=== PATIENT | female | born 1945 | race African-American/Black ===

== ENCOUNTER → 2017-02-19 | Outpatient (CLI) | payer MEDICARE ==
[2016-08-22 18:18] VITALS: BP 166/87
[~2017-02-19] MED LIST: ALLO100T PO; CYCL10TA2 PO; HYDR-2666 PO; INDO50CA PO; LEVE500T6 PO; TRIA1TAB2 PO
--- NOTE | 2017-02-22 17:33 | EEG ---
DATE OF SERVICE: 02/19/2017 ELECTROENCEPHALOGRAM NUMBER: [id number]. OBJECTIVE: The patient is a 71-year-old female with suspected partial-complex seizures. DESCRIPTION: This is a 24-hour video study. Bipolar and referential montages are available. Video recording is performed. Activation procedures typically include hyperventilation and intermittent photic stimulation. INTERPRETATION: The waking background consists of 9-10 Hz, 50-100 microvolt activity, symmetrically distributed over parietooccipital regions and reactive to eye opening. Hyperventilation and intermittent photic stimulation are noncontributory. Stage 2 and 3 sleep are recorded. There are frequent sharp waves over the right temporal lobe with phase reversal at T4 (for instance 09:04:13) and less frequent left temporal sharp waves with phase reversing over electrode T3 (for instance 07:39:58). IMPRESSION: This 24-hour video EEG study with the patient awake and asleep is abnormal because of the evidence of bilateral temporal epileptic activity arising from the anterior regions of each temporal lobe. The patient did not push the event button and no electrographic seizures were recorded. 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 Thank you for letting us help with the patient's care. KENNA BECKHAM MD DR: KATHERYN/mary ellen JOB#: [id number] / [id number] [facility] KENNA GONZÁLES MD
== END | disposition home or self-care (01) ==
LOC: SLPLAB 06:27
PROVIDERS: ATTEND Psychiatry & Neurology Neurology with Special Qualifications in Child Neurology
DX: G40.001 Localization-related (focal) (partial) idiopathic epilepsy and epileptic syndromes with seizures of localized onset, not intractable, with status epilepticus (principal)
CPT/HCPCS: 95951

== ENCOUNTER → 2017-06-04 | Outpatient (CLI) | payer MEDICARE ==
[2016-08-22 18:18] VITALS: BP 166/87
[~2017-06-04] MED LIST changes: -HYDR-2666 PO; +HYDR-2758 PO
[2017-06-04 13:44] LABS: BASO % 1 % (0-3); EOS % 3 % (0-3); LYMPH # 1.2 x10^3/uL (1.0-4.8); LYMPH % 31 % (24-48); MEAN CORPUSCULAR HEMOGLOBIN 32 pg (25-35); MEAN CORPUSCULAR HGB CONC 34 g/dL (31-37); MEAN CORPUSCULAR VOLUME 94 fL (79-100); MONO % 11 % (0-9); NEUT % 54 % (31-73); PLATELET COUNT 238 x10^3/uL (140-400); RED BLOOD COUNT 4.02 x10^6/uL (3.50-5.40); RED CELL DISTRIBUTION WIDTH 13.7 % (11.5-14.5)
[2017-06-04 14:30] LABS: ALBUMIN 3.7 g/dL (3.4-5.0); ALBUMIN/GLOBULIN RATIO 0.9 (1.0-1.7); CALCIUM 8.9 mg/dL (8.5-10.1); GFR 65.9; POTASSIUM 3.9 mmol/L (3.5-5.1); TOTAL BILIRUBIN 0.4 mg/dL (0.2-1.0)
== END | disposition home or self-care (01) ==
LOC: LAB 12:45
PROVIDERS: ATTEND Surgery
DX: E11.9 Type 2 diabetes mellitus without complications (principal); E78.5 Hyperlipidemia, unspecified; R53.81 Other malaise
CPT/HCPCS: 36415; 80053; 80061; 83036; 85025

== ENCOUNTER 2017-09-06 09:37 | Inpatient (IN) | payer MEDICARE ==
[~2017-09-06] VITALS: Ht 157.5 cm; Wt 88.5 kg
[2017-09-06] MEDS ORDERED: ACETAMINOPHEN 325 MG TABLET. PO ONE (10:15)
--- NOTE | 2017-09-06 10:18 | EKG ---
[facility] [address] [place] [address] Test Date: 2017-09-06 Test Time: 09:50:37 Pat Name: SHIRLEY GONZALES Department: Room: Gender: F Territory Account Executive: : 1945 Requested By: PRASANNA SCHULER Order Number: [id number] Reading MD: Tone Conti MD Measurements Intervals [place] Rate: 87 P: 47 MN: 124 QRS: 12 QRSD: 78 T: 26 QT: 338 QTc: 412 Interpretive Statements SINUS RHYTHM NON-SPECIFIC ST/T CHANGES Electronically Signed On 09-06-2017 16:07:08 RELIABILITY ENGINEER by Tone Conti MD
--- NOTE | 2017-09-06 10:20 | PHYS DOC ---
Past Medical History Past Medical History: Arthritis, GERD, Hypertension, Other Additional Past Medical Histor: Gout, Tendinitis in shoulder R) Past Surgical History: Cholecystectomy, Hysterectomy Alcohol Use: None Drug Use: None Adult General Chief Complaint Chief Complaint: MECHANICAL FALL HPI HPI Patient is a 71 year old female instability emergency department stating that she went to get up out of her chair insert a walker when she tripped over a cord on the floor. Patient states that she fell forward and hit her face on the floor. She denies any loss of consciousness. She does state that she has forehead and nose pain. She states that she has had neck pain as well. She also states that she has a history of neck pain however this pain is a little hoarse. Patient also complains of some abdominal pain and discomfort. She does state that she has a history of GERD however is not on medication for it. She states that she has started vomiting after each meal. She states that occasionally it appears dark in color. She also states that she has had urinary frequency and what she goes to the bathroom but however not much urine is made. Patient denies any further medical history. Review of Systems Review of Systems Constitutional: Denies fever or chills [] Eyes: Denies change in visual acuity, redness, or eye pain [] HENT: Denies nasal congestion or sore throat [] Respiratory: Denies cough or shortness of breath [] Cardiovascular: No additional information not addressed in HPI [] GI: epigastric abdominal pain, vomiting after each meal. No diarrhea : Denies dysuria or hematuria [] Musculoskeletal: Denies back pain or joint pain [] Integument: Denies rash or skin lesions [] Neurologic: headache, denies focal weakness or sensory changes [] Endocrine: Denies polyuria or polydipsia [] All other systems were reviewed and found to be within normal limits, except as documented in this note. Current Medications Current Medications Current Medications Medications (Trade) Dose Ordered Sig/Omar Start Time Stop Time Status Last Admin Dose Admin Acetaminophen (Tylenol) 650 mg 1X ONCE 09/06/17 10:15 09/06/17 10:16 DC 09/06/17 11:03 650 MG Potassium Chloride (Klor-Con) 40 meq 1X ONCE 09/06/17 11:00 09/06/17 11:01 DC 09/06/17 11:03 40 MEQ Allergies Allergies Allergies Coded Allergies Type Severity Reaction Last Updated Verified pentazocine Allergy Intermediate Hallucinations. 12/27/15 Yes Physical Exam Physical Exam Constitutional: Well developed, well nourished, no acute distress, non-toxic appearance. [] HENT: Normocephalic, atraumatic, bilateral external ears normal, oropharynx moist, no oral exudates, nose normal. [] Eyes: PERRLA, EOMI, conjunctiva normal, no discharge. [] Neck: Normal range of motion, no tenderness, supple, no stridor. [] Cardiovascular:Heart rate regular rhythm, no murmur [] Lungs & Thorax: Bilateral breath sounds clear to auscultation [] Abdomen: Bowel sounds hypoactive, soft, epigastric tenderness, no masses, no pulsatile masses. [] Skin: Warm, dry, no erythema, no rash. [] Back: Cervical spine tenderness,no crepitus, no deformity, no step-offs noted. No CVA tenderness. [] Extremities: No tenderness, no cyanosis, no clubbing, ROM intact, no edema. [] Neurologic: Alert and oriented X 3, normal motor function, normal sensory function, no focal deficits noted. [] Psychologic: Affect normal, judgement normal, mood normal. [] Current Patient Data Vital Signs Vital Signs Date Time Temp Pulse Resp B/P (MAP) Pulse Ox O2 Delivery O2 Flow Rate FiO2 09/06/17 11:01 78 98 09/06/17 09:50 98.7 16 186/82 (116) 98.7 Lab Values Laboratory Tests Test 09/06/17 10:13 09/06/17 10:34 White Blood Count 3.2 x10^3/uL (4.0-11.0) L Red Blood Count 3.78 x10^6/uL (3.50-5.40) Hemoglobin 11.8 g/dL (12.0-15.5) L Hematocrit 35.9 % (36.0-47.0) L Mean Corpuscular Volume 95 fL (79-100) Mean Corpuscular Hemoglobin 31 pg (25-35) Mean Corpuscular Hemoglobin Concent 33 g/dL (31-37) Red Cell Distribution Width 13.5 % (11.5-14.5) Platelet Count 170 x10^3/uL (140-400) Neutrophils (%) (Auto) 68 % (31-73) Lymphocytes (%) (Auto) 14 % (24-48) L Monocytes (%) (Auto) 11 % (0-9) H Eosinophils (%) (Auto) 6 % (0-3) H Basophils (%) (Auto) 0 % (0-3) Neutrophils # (Auto) 2.2 x10^3uL (1.8-7.7) Lymphocytes # (Auto) 0.5 x10^3/uL (1.0-4.8) L Monocytes # (Auto) 0.3 x10^3/uL (0.0-1.1) Eosinophils # (Auto) 0.2 x10^3/uL (0.0-0.7) Basophils # (Auto) 0.0 x10^3/uL (0.0-0.2) Sodium Level 143 mmol/L (136-145) Potassium Level 2.8 mmol/L (3.5-5.1) *L Chloride Level 105 mmol/L (98-107) Carbon Dioxide Level 31 mmol/L (21-32) Anion Gap 7 (6-14) Blood Urea Nitrogen 11 mg/dL (7-20) Creatinine 1.2 mg/dL (0.6-1.0) H Estimated GFR (Cockcroft-Gault) 53.4 BUN/Creatinine Ratio 9 (6-20) Glucose Level 100 mg/dL (70-99) H Calcium Level 8.8 mg/dL (8.5-10.1) Total Bilirubin 0.4 mg/dL (0.2-1.0) Aspartate Amino Transferase (AST) 27 U/L (15-37) Alanine Aminotransferase (ALT) 23 U/L (14-59) Alkaline Phosphatase 64 U/L (46-116) Total Protein 7.7 g/dL (6.4-8.2) Albumin 3.4 g/dL (3.4-5.0) Albumin/Globulin Ratio 0.8 (1.0-1.7) L Urine Color Yellow Urine Clarity Cloudy Urine pH 6.0 Urine Specific [place] 1.025 Urine Protein 30 mg/dL (NEG-TRACE) Urine Glucose (UA) Negative mg/dL (NEG) Urine Ketones (Stick) Negative mg/dL (NEG) Urine Blood Negative (NEG) Urine Nitrite Negative (NEG) Urine Bilirubin Negative (NEG) Urine Urobilinogen Dipstick 0.2 mg/dL (0.2 mg/dL) Urine Leukocyte Esterase Negative (NEG) Urine RBC Occ /HPF (0-2) Urine WBC 1-4 /HPF (0-4) Urine Squamous Epithelial Cells Few /LPF Urine Bacteria Few /HPF (0-FEW) Urine Mucus Marked /LPF Laboratory Tests 09/06/17 10:13 Laboratory Tests 09/06/17 10:13 EKG EKG KG completed at 09 50 sinus rhythm noted heart rate 87 patient did have Q-wave inversions. STEMI per .[] Radiology/Procedures Radiology/Procedures [] Course & Med Decision Making Course & Med Decision Making Pertinent Labs and Imaging studies reviewed. (See chart for details) Patient was provided with information in regards to admission for hypokalemia. Spoke with regards to the lab value potassium 2.8. Patient had been supplemented with 40 mEq by mouth. Patient was also provided with Protonix here in the emergency department. She will be admitted as a full admit per Dr. Martinez. [] Dragon Disclaimer Dragon Disclaimer This electronic medical record was generated, in whole or in part, using a voice recognition dictation system. Departure Departure Impression: Primary Impression: Hypokalemia Additional Impressions: Fall Closed head injury Epigastric pain Disposition: ADMITTED INPATIENT Admitting Physician: Other (spoke with Dr Martinez) Referrals: KENNA GONZÁLES (PCP) Problem Qualifiers Additional Impressions: Fall Encounter type: initial encounter Qualified Codes: W19.XXXA - Unspecified fall, initial encounter Closed head injury Encounter type: initial encounter Qualified Codes: S09.90XA - Unspecified injury of head, initial encounter PRASANNA SCHULER ACADEMIC AFFAIRS ASSISTANT Sep 06, 2017 10:20
[2017-09-06 10:29] LABS: BASO % 0 % (0-3); EOS % 6 % (0-3); HEMATOCRIT 35.9 % (36.0-47.0); HEMOGLOBIN 11.8 g/dL (12.0-15.5); LYMPH # 0.5 x10^3/uL (1.0-4.8); LYMPH % 14 % (24-48); MEAN CORPUSCULAR HEMOGLOBIN 31 pg (25-35); MEAN CORPUSCULAR HGB CONC 33 g/dL (31-37); MEAN CORPUSCULAR VOLUME 95 fL (79-100); MONO % 11 % (0-9); NEUT % 68 % (31-73); PLATELET COUNT 170 x10^3/uL (140-400); RED BLOOD COUNT 3.78 x10^6/uL (3.50-5.40); RED CELL DISTRIBUTION WIDTH 13.5 % (11.5-14.5); WHITE BLOOD COUNT 3.2 x10^3/uL (4.0-11.0)
[2017-09-06 10:43] LABS: BILIRUBIN,URINE NEGATIVE (NEG); GLUCOSE,URINE NEGATIVE (NEG); NITRITE,URINE NEGATIVE (NEG); PROTEIN,URINE 30 mg/dL (NEG-TRACE); UROBILINOGEN,URINE 0.2 mg/dL (0.2 mg/dL)
[2017-09-06 10:44] LABS: ALBUMIN 3.4 g/dL (3.4-5.0); ALBUMIN/GLOBULIN RATIO 0.8 (1.0-1.7); CALCIUM 8.8 mg/dL (8.5-10.1); CREATININE 1.2 mg/dL (0.6-1.0); GFR 53.4; TOTAL BILIRUBIN 0.4 mg/dL (0.2-1.0); TOTAL PROTEIN 7.7 g/dL (6.4-8.2)
[2017-09-06 10:49] LABS: POTASSIUM 2.8 mmol/L (3.5-5.1)
[2017-09-06 10:51] LABS: BACTERIA,URINE FEW /HPF (0-FEW); SQUAMOUS EPITHELIAL CELL,UR FEW /LPF
[2017-09-06 10:52] LABS: RBC,URINE OCC /HPF (0-2)
[2017-09-06] MEDS ORDERED: POTASSIUM CHLORIDE 20 MEQ TABLET.ER. PO ONE (11:00)
--- NOTE | 2017-09-06 11:08 | RAD ---
CT of the head without contrast, 09/06/2017: History: Fall, facial and head injury The ventricles are within normal limits in size. There is no shift of the midline structures. There is no evidence of acute intracranial hemorrhage or mass effect. IMPRESSION: No acute intracranial abnormality is detected. CT of the cervical spine without contrast, 09/06/2017: There is moderate disc space narrowing and marginal spurring at multiple levels in the mid and lower cervical spine. There are moderate degenerative changes involving multiple facet joints bilaterally. There is fusion of the C2-3 facet joint on the right. There is moderate degenerative change at the C1-2 articulation. There are mild scattered posterior disc bulges. The combination of findings is causing mild central spinal stenosis at several levels as well as moderate foraminal stenosis at several levels including C5-6 and C4-5. No acute fracture or dislocation is identified. IMPRESSION: 1. Moderate multilevel degenerative change. 2. No acute bony abnormality is detected. PQRS Compliance Statement: One or more of the following individualized dose reduction techniques were utilized for this examination: 1. Automated exposure control 2. Adjustment of the mA and/or kV according to patient size 3. Use of iterative reconstruction technique
--- NOTE | 2017-09-06 11:11 | RAD ---
CT of the facial bones without contrast, 09/06/2017: History: Fall, facial injury Noncontrast scans were obtained with multiplanar reconstructions produced. No fracture is identified. No free fluid is evident in the paranasal sinuses. The orbital contents are unremarkable. The patient is edentulous. IMPRESSION: No acute facial bone abnormality is detected. PQRS Compliance Statement: One or more of the following individualized dose reduction techniques were utilized for this examination: 1. Automated exposure control 2. Adjustment of the mA and/or kV according to patient size 3. Use of iterative reconstruction technique
[2017-09-06] MEDS ORDERED: PANTOPRAZOLE 40 MG TABLET.DR. PO ONE (11:45)
[2017-09-06 13:57] VITALS: BP 144/71
[2017-09-06] MEDS ORDERED: DICY20TA3 PO (14:44)
[2017-09-06] MEDS ORDERED: LAMO100T PO (14:44)
[2017-09-06] MEDS ORDERED: DIAZ5TAB4 PO (14:45)
[2017-09-06 15:00] VITALS: BP 144/71
[2017-09-06] MEDS: ACETAMINOPHEN 325 MG TABLET. PO PRN (16:30)
[2017-09-06] MEDS: POTASSIUM CHLORIDE 20 MEQ TABLET.ER. PO SCH (18:27)
[2017-09-06 19:00] VITALS: BP 184/90
--- NOTE | 2017-09-06 19:59 | HP ---
ADMIT DATE: 09/06/2017 CHIEF COMPLAINT: Fall, hypokalemia. HISTORY OF PRESENT ILLNESS: The patient is a 71-year-old -[place] woman with past medical history of partial seizures recently diagnosed by Dr. Johnson, as well as a history of CHF, who presented to the hospital with an episode of blacking out very briefly. She remembers walking in her hallway and suddenly dropped into the floor. She actually hit her forehead and her nose. Apparently, came to relatively quickly and was able to ride herself. Because of her pain in her nose and forehead, she decided to come to the hospital. In the Emergency Room, she was evaluated including imaging studies with CT of the head, face and cervical spine all without acute bony abnormality. Only significant finding was a multilevel degenerative change in her C-spine. She was therefore admitted for further workup. She also relates that she has had trouble over the past month or so with easy vomiting and mild nausea right after eating. Denies ever having nausea in between meals. She denies any associated abdominal pain, any diarrhea with this. She does have a history of GERD. PAST MEDICAL HISTORY: 1. Seizures, question partial, on Lamictal. 2. CHF unknown specificity on Lasix, hydrochlorothiazide. 3. GERD. 4. Anxiety. FAMILY HISTORY: Negative for heart disease or abdominal abnormalities. SOCIAL HISTORY: She is raising foster children. Never smoked. No toxic habits. ALLERGIES: PENTAZOCINE. MEDICATIONS: MAR reconciled with home medications. REVIEW OF SYSTEMS: Positive as per HPI. Facial pain much improved, was able to tolerate her meals without any difficulties. Denies any current nausea. She relates that her partial seizures are episodes where her head feels like it is floating and she is unable to move. She is aware of the episodes which typically last for a very brief period of time, seconds. She does have some imbalance with walking and even has a current trouble lying in bed and feels the room is wobbling around her. Rest of organ system review is negative. PHYSICAL EXAMINATION: VITAL SIGNS: From today show a blood pressure of 144/71, heart rate of 80, respiratory rate at 16. She is afebrile. GENERAL: This is a 71-year-old morbidly obese -[place] woman, alert and oriented, in no acute distress. HEENT: Shows no scleral icterus. NECK: Supple. LUNGS: Clear. HEART: Has regular rate and rhythm. ABDOMEN: Has positive bowel sounds, soft, nontender. EXTREMITIES: Show no edema. SKIN: Warm, soft and dry. NEUROLOGIC: She appears grossly intact, safe for mild memory deficits such as recalling the onset of her seizures. LABORATORY DATA: CBC with a WBC of 3.2, hemoglobin 11.8, platelets of 170, differential with monos of 11. Chemistries with a BUN and creatinine of 11 and 1.2, potassium at 2.8. Other electrolytes within normal limits. LFTs normal. Albumin 3.4. Urine is negative for any signs of infection. Imaging of head, face, cervical spine negative for fractures. ASSESSMENT AND PLAN: 1. The patient is a 71-year-old -[place] woman with past medical history of question congestive heart failure as well as seizures. She now presents with brief episodes of blackout. In the Emergency Room, she was found with a potassium of 2.8, which may lead to arrhythmias. This is most likely related to both diuretics as well as frequent vomiting. We will replete aggressively here. She has been started on tele. We will obtain both Cardiology as well as Neurology consults. She has seen Dr. Johnson for her seizures. Her medications were recently changed to Lamictal. She apparently did not tolerate Keppra well. 2. Nausea, vomiting. This is not explained by a diagnosis of gastroesophageal reflux disease, which she received previously. We will obtain Gastroenterology consult for further workup. May have gastroparesis or other abnormality. We will continue all her home medications for the time being. As she has been started on various medications for anxiety, she herself feels that she has never been truly anxious. We will continue Ativan p.r.n. only. 3. For prophylaxis, she will be continued on a proton pump inhibitor. We will add Lovenox for deep venous thrombosis prophylaxis. DARIN FISHMAN MD DR: UR/nts JOB#: [id number] / [id number] COLEEN Wallis MDD
[2017-09-06] MEDS: lamoTRIgine 100 MG TABLET. PO SCH (20:25)
[2017-09-06] MEDS: diazePAM 5 MG TABLET PO SCH (20:25)
[2017-09-06] MEDS: hydrALAZINE 20 MG/ML VIAL. IVP PRN (20:25)
[2017-09-06] MEDS: HYDROcodone/APAP 5/325MG 1 TAB TABLET PO PRN (20:26)
[2017-09-06 23:00] VITALS: BP 184/74
[2017-09-07] VITALS (8 sets, daily range): BP systolic 138–199; BP diastolic 66–91
[2017-09-07] MEDS: HYDROcodone/APAP 5/325MG 1 TAB TABLET PO PRN ×2 (04:30→23:08)
[2017-09-07] MEDS: POTASSIUM CHLORIDE 20 MEQ TABLET.ER. PO SCH ×3 (05:35→14:15)
[2017-09-07] MEDS ORDERED: AMLO5TAB2 PO (05:50)
[2017-09-07 06:02] LABS: BASO % 0 % (0-3); EOS % 8 % (0-3); HEMATOCRIT 32.8 % (36.0-47.0); HEMOGLOBIN 10.9 g/dL (12.0-15.5); LYMPH # 0.4 x10^3/uL (1.0-4.8); LYMPH % 15 % (24-48); MEAN CORPUSCULAR HEMOGLOBIN 31 pg (25-35); MEAN CORPUSCULAR HGB CONC 33 g/dL (31-37); MEAN CORPUSCULAR VOLUME 95 fL (79-100); MONO % 11 % (0-9); NEUT % 66 % (31-73); PLATELET COUNT 149 x10^3/uL (140-400); RED BLOOD COUNT 3.47 x10^6/uL (3.50-5.40); RED CELL DISTRIBUTION WIDTH 13.6 % (11.5-14.5); WHITE BLOOD COUNT 2.8 x10^3/uL (4.0-11.0)
[2017-09-07 06:37] LABS: CALCIUM 8.5 mg/dL (8.5-10.1); CREATININE 1.2 mg/dL (0.6-1.0); GFR 53.4; POTASSIUM 3.8 mmol/L (3.5-5.1)
[2017-09-07] MEDS: PANTOPRAZOLE 40 MG TABLET.DR. PO SCH (08:42)
[2017-09-07] MEDS: diazePAM 5 MG TABLET PO SCH ×2 (08:42→19:59)
[2017-09-07] MEDS: ALLOPURINOL 100 MG TABLET. PO SCH (08:42)
[2017-09-07] MEDS: lamoTRIgine 100 MG TABLET. PO SCH ×2 (08:43→19:59)
--- NOTE | 2017-09-07 10:11 | PDOC ---
PROGRESS NOTES Chief Complaint Chief Complaint syncope ASSESSMENT AND PLAN: 1. Syncope: unclear etiology; r/o arrhythmia vs neurol etiology. card and neuro consult 2. Sz hx: sounds like partial sz; seeing Dr Johnson. cont lamictal 3. CHF; unclear specificity. obtain echo. 4. Hypokalemia: severe at admit, now repleted. Mg WNL 5. N/V: postprandial. appreciate GI input 6. GERD: cont PPI 7. Vit D deficiency: severe. replete 8. Prophylaxis: lovenox History of Present Illness History of Present Illness nonresponsive episode, brief, poss sz. back to normal now. gait instability Vitals Vitals Vital Signs Date Time Temp Pulse Resp B/P (MAP) Pulse Ox O2 Delivery O2 Flow Rate FiO2 09/07/17 07:00 98.3 81 16 138/70 (92) 96 Room Air 98.3 Physical Exam General: Alert, Oriented X3 Heart: Regular rate Lungs: Clear Abdomen: Normal bowel sounds, Soft, No tenderness Extremities: No edema Skin: No rashes Labs LABS Laboratory Tests Test 09/06/17 10:13 09/06/17 10:34 09/06/17 16:05 09/07/17 05:05 White Blood Count 3.2 x10^3/uL (4.0-11.0) 2.8 x10^3/uL (4.0-11.0) Red Blood Count 3.78 x10^6/uL (3.50-5.40) 3.47 x10^6/uL (3.50-5.40) Hemoglobin 11.8 g/dL (12.0-15.5) 10.9 g/dL (12.0-15.5) Hematocrit 35.9 % (36.0-47.0) 32.8 % (36.0-47.0) Mean Corpuscular Volume 95 fL (79-100) 95 fL (79-100) Mean Corpuscular Hemoglobin 31 pg (25-35) 31 pg (25-35) Mean Corpuscular Hemoglobin Concent 33 g/dL (31-37) 33 g/dL (31-37) Red Cell Distribution Width 13.5 % (11.5-14.5) 13.6 % (11.5-14.5) Platelet Count 170 x10^3/uL (140-400) 149 x10^3/uL (140-400) Neutrophils (%) (Auto) 68 % (31-73) 66 % (31-73) Lymphocytes (%) (Auto) 14 % (24-48) 15 % (24-48) Monocytes (%) (Auto) 11 % (0-9) 11 % (0-9) Eosinophils (%) (Auto) 6 % (0-3) 8 % (0-3) Basophils (%) (Auto) 0 % (0-3) 0 % (0-3) Neutrophils # (Auto) 2.2 x10^3uL (1.8-7.7) 1.9 x10^3uL (1.8-7.7) Lymphocytes # (Auto) 0.5 x10^3/uL (1.0-4.8) 0.4 x10^3/uL (1.0-4.8) Monocytes # (Auto) 0.3 x10^3/uL (0.0-1.1) 0.3 x10^3/uL (0.0-1.1) Eosinophils # (Auto) 0.2 x10^3/uL (0.0-0.7) 0.2 x10^3/uL (0.0-0.7) Basophils # (Auto) 0.0 x10^3/uL (0.0-0.2) 0.0 x10^3/uL (0.0-0.2) Sodium Level 143 mmol/L (136-145) 141 mmol/L (136-145) Potassium Level 2.8 mmol/L (3.5-5.1) 2.8 mmol/L (3.5-5.1) 3.8 mmol/L (3.5-5.1) Chloride Level 105 mmol/L (98-107) 107 mmol/L (98-107) Carbon Dioxide Level 31 mmol/L (21-32) 26 mmol/L (21-32) Anion Gap 7 (6-14) 8 (6-14) Blood Urea Nitrogen 11 mg/dL (7-20) 11 mg/dL (7-20) Creatinine 1.2 mg/dL (0.6-1.0) 1.2 mg/dL (0.6-1.0) Estimated GFR (Cockcroft-Gault) 53.4 53.4 BUN/Creatinine Ratio 9 (6-20) Glucose Level 100 mg/dL (70-99) 95 mg/dL (70-99) Calcium Level 8.8 mg/dL (8.5-10.1) 8.5 mg/dL (8.5-10.1) Total Bilirubin 0.4 mg/dL (0.2-1.0) Aspartate Amino Transf (AST/SGOT) 27 U/L (15-37) Alanine Aminotransferase (ALT/SGPT) 23 U/L (14-59) Alkaline Phosphatase 64 U/L (46-116) Total Protein 7.7 g/dL (6.4-8.2) Albumin 3.4 g/dL (3.4-5.0) Albumin/Globulin Ratio 0.8 (1.0-1.7) Urine Color Yellow Urine Clarity Cloudy Urine pH 6.0 Urine Specific [place] 1.025 Urine Protein 30 mg/dL (NEG-TRACE) Urine Glucose (UA) Negative mg/dL (NEG) Urine Ketones (Stick) Negative mg/dL (NEG) Urine Blood Negative (NEG) Urine Nitrite Negative (NEG) Urine Bilirubin Negative (NEG) Urine Urobilinogen Dipstick 0.2 mg/dL (0.2 mg/dL) Urine Leukocyte Esterase Negative (NEG) Urine RBC Occ /HPF (0-2) Urine WBC 1-4 /HPF (0-4) Urine Squamous Epithelial Cells Few /LPF Urine Bacteria Few /HPF (0-FEW) Urine Mucus Marked /LPF DARIN FISHMAN MD Sep 07, 2017 10:11
--- NOTE | 2017-09-07 10:49 | PDOC2 ---
CARDIAC CONSULT DATE OF CONSULT Date of Consult DATE: 09/07/17 TIME: 10:42 REASON FOR CONSULT Reason for Consult: History of CHF? Syncope REFERRING PHYSICIAN Referring Physician: Dr. Martinez SOURCE Source: Chart review, Patient HISTORY OF PRESENT ILLNESS HISTORY OF PRESENT ILLNESS This is a 71 yo female who presented secondary to a fall. Patient report that she was walking in the hallway and suddenly collapsed. Hit her forehead and nose ; sought our care due to the pain. Loss of consciousness uncertain. Denies any precipitating dizziness, lightheadedness, diaphoresis, SOA, or chest pain. Reports somewhat chronic nausea/vomiting. Is now vomiting after each meal. PAST MEDICAL HISTORY Cardiovascular: CHF, HTN Pulmonary: No pertinent hx CENTRAL NERVOUS SYSTEM: Seizure GI: GERD Heme/Onc: No pertinent hx Hepatobiliary: No pertinent hx Psych: Anxiety Musculoskeletal: Osteoarthritis Rheumatologic: Gout Infectious disease: No pertinent hx ENT: No pertinent hx Renal/: No pertinent hx Endocrine: No pertinent hx Dermatology: No pertinent hx PAST SURGICAL HISTORY Past Surgical History: Cholecystectomy, Hysterectomy FAMILY HISTORY Family History: Cancer, Stroke, Other (scleroderma ) SOCIAL HISTORY Smoke: No ALCOHOL: none Drugs: None Lives: with Family CURRENT MEDICATIONS CURRENT MEDICATIONS Current Medications Medications (Trade) Dose Ordered Sig/Omar Route PRN Reason Start Time Stop Time Status Last Admin Dose Admin Potassium Chloride (Klor-Con) 40 meq 1X ONCE PO 09/06/17 11:00 09/06/17 11:01 DC 09/06/17 11:03 Pantoprazole Sodium (Protonix) 40 mg 1X ONCE PO 09/06/17 11:45 09/06/17 11:46 DC 09/06/17 12:29 Acetaminophen (Tylenol) 650 mg PRN Q6HRS PRN PO pain 09/06/17 11:45 09/06/17 16:30 Pantoprazole Sodium (Protonix) 40 mg DAILY PO 09/07/17 09:00 09/07/17 08:42 Potassium Chloride (Klor-Con) 40 meq Q6H PO 09/06/17 18:00 09/07/17 13:00 09/07/17 05:35 Allopurinol (Zyloprim) 100 mg DAILY PO 09/07/17 09:00 09/07/17 08:42 Diazepam (Valium) 5 mg BID PO 09/06/17 21:00 09/07/17 08:42 Acetaminophen/ Hydrocodone Bitart (Lortab 5/325) 1 tab PRN Q6HRS PRN PO PAIN 09/06/17 19:15 09/07/17 04:30 Lamotrigine (LaMICtal) 100 mg BID PO 09/06/17 21:00 09/07/17 08:43 Hydralazine HCl (Apresoline Inj) 10 mg PRN Q4HRS PRN IVP ELEVATED BP, SEE COMMENTS 09/06/17 19:45 09/06/17 20:25 ALLERGIES ALLERGIES: Coded Allergies: pentazocine (Verified Allergy, Intermediate, Hallucinations. , 12/27/15) ROS Review of System 14 point ROS conducted with pertinent positives noted above in HPI. PHYSICAL EXAM General: Alert, Oriented X3, Cooperative, No acute distress HEENT: Atraumatic Lungs: Clear to auscultation, Normal air movement Heart: Regular rate, Normal S1, Normal S2, Other (2/6 systolic murmur ) Abdomen: Soft, No tenderness Extremities: No edema, Normal pulses Skin: No significant lesion Neuro: Normal speech, Sensation intact Psych/Mental Status: Mental status NL, Mood NL MUSCULOSKELETAL: No joint tenderness VITALS VITALS Vital Signs Date Time Temp Pulse Resp B/P (MAP) Pulse Ox O2 Delivery O2 Flow Rate FiO2 09/07/17 07:00 98.3 81 16 138/70 (92) 96 Room Air 98.3 LABS Lab: Laboratory Tests Test 09/06/17 16:05 09/07/17 05:05 Potassium Level 2.8 mmol/L (3.5-5.1) 3.8 mmol/L (3.5-5.1) White Blood Count 2.8 x10^3/uL (4.0-11.0) Red Blood Count 3.47 x10^6/uL (3.50-5.40) Hemoglobin 10.9 g/dL (12.0-15.5) Hematocrit 32.8 % (36.0-47.0) Mean Corpuscular Volume 95 fL (79-100) Mean Corpuscular Hemoglobin 31 pg (25-35) Mean Corpuscular Hemoglobin Concent 33 g/dL (31-37) Red Cell Distribution Width 13.6 % (11.5-14.5) Platelet Count 149 x10^3/uL (140-400) Neutrophils (%) (Auto) 66 % (31-73) Lymphocytes (%) (Auto) 15 % (24-48) Monocytes (%) (Auto) 11 % (0-9) Eosinophils (%) (Auto) 8 % (0-3) Basophils (%) (Auto) 0 % (0-3) Neutrophils # (Auto) 1.9 x10^3uL (1.8-7.7) Lymphocytes # (Auto) 0.4 x10^3/uL (1.0-4.8) Monocytes # (Auto) 0.3 x10^3/uL (0.0-1.1) Eosinophils # (Auto) 0.2 x10^3/uL (0.0-0.7) Basophils # (Auto) 0.0 x10^3/uL (0.0-0.2) Sodium Level 141 mmol/L (136-145) Chloride Level 107 mmol/L (98-107) Carbon Dioxide Level 26 mmol/L (21-32) Anion Gap 8 (6-14) Blood Urea Nitrogen 11 mg/dL (7-20) Creatinine 1.2 mg/dL (0.6-1.0) Estimated GFR (Cockcroft-Gault) 53.4 Glucose Level 95 mg/dL (70-99) Calcium Level 8.5 mg/dL (8.5-10.1) ASSESSMENT/PLAN ASSESSMENT/PLAN 1. Fall, ? syncopal episode 2. Chronic diastolic HF; compensated 3. Accelerated hypertension; now controlled 4. Seizures; continue presented therapy 5. Severe hypokalemia; replaced Recommendations Check Mg, TSH Obtain echo to assess LV function/ presence of structural abnormalities Monitor tele to note presence of significant pauses/arrhythmias Check orthos Agree with holding Lasix Consider outpatient event monitor Continue supportive care. Problems: GEORGE ROMERO APRN Sep 07, 2017 10:49
--- NOTE | 2017-09-07 12:05 | PDOC2 ---
GI CONSULT Reason For Consult: N/v HPI: HPI: 71 y/o female admitted w/ possible syncope (although ?LOC). GI asked to see re : n/v. History is difficult. Tells me a couple months of n/v immediately after eating. Apparently has eaten here w/o issue. Denies n/v, diarrhea, constipation, dysphagia. Denies hematemesis, hematochezia, melena. Probably has lost about 8 pounds because sometimes avoids eating. Denies abd pain to me , other notes suggest this. Says h/o GERD but denies reflux/heartburn. At first tells me takes a pill for this, then denies. Not sure about previous EGD. Office records suggest h/o colitis (per her account), can't document colonoscopy. Also suggestive of recurrent vomiting (in 1998). She reports h/o "Crohn's" but can't recall treatment, time of diagnosis, or last colonoscopy. She is s/p cholecystectomy. Summary list shows dicyclomine and indomethacin. PMH: PMH: seizures, CHF, HTN, GERD, anxiety, gout, cholecystectomy, hysterectomy FH: Family History: Cancer (father prostate, aunt w/ colon cancer), CVA, Other ( Alzheimer's, scleroderma) Social History: Smoke: No ALCOHOL: none Drugs: None ROS: GEN: Denies fevers, chills, sweats HEENT: Denies blurred vision, sore throat CV: Denies chest pain RESP: Denies shortness of air, cough GI: Per HPI : Denies hematuria, dysuria ENDO: +weight loss NEURO: ?syncope MSK: Denies weakness, joint pain/swelling SKIN: Denies jaundice, pruritus Vitals: Vitals: Vital Signs Date Time Temp Pulse Resp B/P (MAP) Pulse Ox O2 Delivery O2 Flow Rate FiO2 09/07/17 08:00 Room Air 09/07/17 07:00 98.3 81 16 138/70 (92) 96 98.3 Labs: Labs: Laboratory Tests Test 09/06/17 16:05 09/07/17 05:05 Potassium Level 2.8 mmol/L (3.5-5.1) 3.8 mmol/L (3.5-5.1) White Blood Count 2.8 x10^3/uL (4.0-11.0) Red Blood Count 3.47 x10^6/uL (3.50-5.40) Hemoglobin 10.9 g/dL (12.0-15.5) Hematocrit 32.8 % (36.0-47.0) Mean Corpuscular Volume 95 fL (79-100) Mean Corpuscular Hemoglobin 31 pg (25-35) Mean Corpuscular Hemoglobin Concent 33 g/dL (31-37) Red Cell Distribution Width 13.6 % (11.5-14.5) Platelet Count 149 x10^3/uL (140-400) Neutrophils (%) (Auto) 66 % (31-73) Lymphocytes (%) (Auto) 15 % (24-48) Monocytes (%) (Auto) 11 % (0-9) Eosinophils (%) (Auto) 8 % (0-3) Basophils (%) (Auto) 0 % (0-3) Neutrophils # (Auto) 1.9 x10^3uL (1.8-7.7) Lymphocytes # (Auto) 0.4 x10^3/uL (1.0-4.8) Monocytes # (Auto) 0.3 x10^3/uL (0.0-1.1) Eosinophils # (Auto) 0.2 x10^3/uL (0.0-0.7) Basophils # (Auto) 0.0 x10^3/uL (0.0-0.2) Sodium Level 141 mmol/L (136-145) Chloride Level 107 mmol/L (98-107) Carbon Dioxide Level 26 mmol/L (21-32) Anion Gap 8 (6-14) Blood Urea Nitrogen 11 mg/dL (7-20) Creatinine 1.2 mg/dL (0.6-1.0) Estimated GFR (Cockcroft-Gault) 53.4 Glucose Level 95 mg/dL (70-99) Calcium Level 8.5 mg/dL (8.5-10.1) Magnesium Level 1.8 mg/dL (1.8-2.4) Creatine Kinase 99 U/L (26-192) Thyroid Stimulating Hormone (TSH) 2.277 uIU/mL (0.358-3.74) Allergies: Coded Allergies: pentazocine (Verified Allergy, Intermediate, Hallucinations. , 12/27/15) Medications: Current Medications Medications (Trade) Dose Ordered Sig/Omar Route PRN Reason Start Time Stop Time Status Last Admin Dose Admin Pantoprazole Sodium (Protonix) 40 mg DAILY PO 09/07/17 09:00 09/07/17 08:42 Potassium Chloride (Klor-Con) 40 meq Q6H PO 09/06/17 18:00 09/07/17 13:00 09/07/17 05:35 Allopurinol (Zyloprim) 100 mg DAILY PO 09/07/17 09:00 09/07/17 08:42 Diazepam (Valium) 5 mg BID PO 09/06/17 21:00 09/07/17 08:42 Acetaminophen/ Hydrocodone Bitart (Lortab 5/325) 1 tab PRN Q6HRS PRN PO PAIN 09/06/17 19:15 09/07/17 04:30 Lamotrigine (LaMICtal) 100 mg BID PO 09/06/17 21:00 09/07/17 08:43 Hydralazine HCl (Apresoline Inj) 10 mg PRN Q4HRS PRN IVP ELEVATED BP, SEE COMMENTS 09/06/17 19:45 09/06/17 20:25 Imaging: Imaging: Maxillofacial and head/C spine CT IMPRESSION: No acute facial bone abnormality is detected. IMPRESSION: 1. Moderate multilevel degenerative change. 2. No acute bony abnormality is detected. PE: GEN: NAD, walking around room HEENT: Atraumatic, PERRL LUNGS: CTAB HEART: RRR ABD: NABS, S/ND/NT EXTREMITY: No edema SKIN: No rashes, no jaundice NEURO/PSYCH: A & O 3 A/P: A/P: Post-prandial n/v, ?abd discomfort, weight loss -s/p cholecystectomy -?chronic issue ?syncope -workup ongoing per neuro, cardiology Probable h/o GERD -?previous EGD -untreated CRC screen, ?h/o "colitis" or "Crohn's" (suspect historian) -unclear when last colonoscopy NSAID use Hypokalemia - resolved Normocytic anemia -denies obvious bleeding -- Feels better currently. Difficult for me to get a good feel for her issues this morning. Agree w/ PPI. Later on, ?EGD ?GES Will review w/ Dr. Figueroa. MARTHA CHI Sep 07, 2017 12:05
--- NOTE | 2017-09-07 13:00 | CARD ---
APPROVED REPORT EXAM: Two-dimensional and M-mode echocardiogram with Doppler and color Doppler. Other Information Quality : Good INDICATION Syncope 2D DIMENSIONS Left Atrium(2D)3.5 (1.6-4.0cm)IVSd1.1 (0.7-1.1cm) Aortic Root(2D)2.6 (2.0-3.7cm)LVDd4.5 (3.9-5.9cm) LVOT Diameter2.0 (1.8-2.4cm)PWd1.2 (0.7-1.1cm) LVDs3.0 (2.5-4.0cm)FS (%) 34.0 % SV57.5 mlLVEF(%)63.1 (>50%) Aortic Valve AoV Peak Gabino.132.7cm/sAoV VTI22.5cm AO Peak GR.7.0mmHgLVOT Peak Gabino.102.7cm/s LVOT VTI 19.96cmAO Mean GR.4mmHg HAYDEN (VMAX)1.97xq0AXG (VTI)2.85cm2 Mitral Valve MV E Hcrcvxdz34.7cm/sMV DECEL [id number] MV A Ikrtpdgg13.4cm/sMV OPO29ro E/A Ratio0.6MVA (PHT)4.03cm2 TDI E/Lateral E'7.2E/Medial E'7.7 Tricuspid Valve TR P. Lwhqynyn256ay/sRAP [id number] TR Peak Gr.04euCsEDVH72qjNp LEFT VENTRICLE The left ventricle is normal size. There is mild concentric left ventricular hypertrophy. Left ventri garo systolic function is normal. The Ejection Fraction is 55-60%. There is normal LV segmental wall m otion. Transmitral Doppler flow pattern is Grade I-abnormal relaxation pattern. Transmitral Doppler f low pattern is normal for age. RIGHT VENTRICLE The right ventricle is normal size. The right ventricular systolic function is normal. ATRIA The left atrium size is normal. The right atrium size is normal. The interatrial septum is intact wit h no evidence for an atrial septal defect or patent foramen ovale as noted on 2-D or Doppler imaging. AORTIC VALVE The aortic valve is calcified but opens well. Doppler and Color Flow revealed no significant aortic r egurgitation. There is no significant aortic valvular stenosis. MITRAL VALVE The mitral valve is mildly thickened. There is no evidence of mitral valve prolapse. There is no mitr al valve stenosis. Doppler and Color-flow revealed mild mitral regurgitation. TRICUSPID VALVE The tricuspid valve is normal in structure. Doppler and Color Flow revealed mild to moderate tricuspi d regurgitation. There is mild pulmonary hypertension. The PA pressure was estimated at 36 mmHg. Ther e is no tricuspid valve prolapse or vegetation. There is no tricuspid valve stenosis. PULMONIC VALVE The pulmonary valve is normal in structure and function. Doppler and Color Flow revealed no pulmonic valvular regurgitation. There is no pulmonic valvular stenosis. GREAT VESSELS The aortic root is normal in size. The ascending aorta is normal in size. The IVC is normal in size a nd collapses >50% with inspiration. PERICARDIAL EFFUSION There is no pleural effusion. There is no evidence of significant pericardial effusion. Critical Notification Critical Value: No <Conclusion> The left ventricle is normal size. Left ventricle systolic function is normal. The Ejection Fraction is 55-60%. There is mild concentric left ventricular hypertrophy. There is no significant aortic valvular stenosis. Doppler and Color Flow revealed no significant aortic regurgitation. Doppler and Color-flow revealed mild mitral regurgitation. Doppler and Color Flow revealed mild to moderate tricuspid regurgitation. There is mild pulmonary hypertension. The PA pressure was estimated at 36 mmHg.
[2017-09-07 15:30] LABS: % SAT IRON 12 % (15-34); IRON,SERUM 28 ug/dL (50-170)
[2017-09-07] MEDS: ACETAMINOPHEN 325 MG TABLET. PO PRN ×2 (16:00→23:10)
[2017-09-07] MEDS: CHOLECALCIFEROL (VITAMIN D3) 5,000 UNIT CAPSULE PO SCH (16:00)
--- NOTE | 2017-09-07 16:16 | EEG ---
DATE OF SERVICE: 09/07/2017 EEG NUMBER [id number] This is a 71-year-old female patient with history of shaking movements from time to time and falls. She had syncopal spell versus seizure. EEG was requested to help rule out seizure. METHODS: Twenty electrodes were applied according to the international 10-20 electrode placement system. EKG monitoring, hyperventilation, intermittent photic stimulation, monopolar and bipolar montages are routinely utilized. The record was obtained on a digital system with video monitoring. FINDINGS: 1. Background: The patient was recorded in the awake and drowsy states. No sleep state was recorded. The overall background amplitude is 10-30 microvolts. A posterior dominant rhythm of 8 Hz is observed. 2. Abnormalities: No specific epileptiform discharge or electrographic seizure is seen. No focal or diffuse slowing. 3. Activation: Hyperventilation was performed with poor response. Intermittent photic stimulation was performed with photic driving. No specific epileptiform discharge or electrographic seizure induced. IMPRESSION: This EEG is a normal study for the awake and drowsy states. No sleep state was recorded. No focal, lateralizing, specific epileptiform discharge or electrographic seizure is seen. SHIRLEY ROSSI MD DR: JOVON/mary ellen JOB#: [id number] / [id number] LALITO
--- NOTE | 2017-09-07 16:17 | PDOC2 ---
NEUROLOGY CONSULT Date of Admission Date of Admission DATE: 09/07/17 TIME: 16:05 Reason for Consult Reason for Consult: IMPRESSION: Near syncopal spell. Fall. Hypokalemia, K+ 2.8 Abnormal shaking movements from time to time. Hx of seizure or seizure like episodes. HTN Gout GERD Vit D deficiency. Obesity. RECOMMENDATIONS/PLAN: Keep electrolytes balance. Vit D and Ca++ supplement. Treat medical diseases. Weight reduction. OT/PT. Discussed with her family in detail at bedside. EEG on 09/07/17: Normal without seizure activity. HISTORY OF THE PRESENT ILLNESS: 71-y-old AA female patient with above medical diseases had a fall at home, but no loss of consciousness. She stated she felt generalized weakness and had a fall. She got up herself and drove to the ER of [facility]. Her K_+ level was found low of 2.8. PMH: Seizure like episodes,, CHF, HTN, GERD, anxiety, gout. PSHX: Cholecystectomy, hysterectomy FH: Cancer (father prostate, aunt w/ colon cancer), CVA, Other (Alzheimer's, scleroderma) Social History: Smoke: No ALCOHOL: none Drugs: None ALLERGY: Reviewed. MEDICATIONS: Refer to [facility] REVIEW OF SYSTEMS: Constitutional: Obesity. Head: No traumatic brain or head injury. Skin: No edema, or rash. Ear: No infection Eyes: No vision loss or color blindness. Nose: No bleeding or purulent discharges. Hearing: No hearing decrease. Neck: No injury. Breast: No history of cancer, masses,or discharges. Cardiac:HTN. Pulmonary: No COPD. GI: ERD. Urinary/genital: UTI. Endocrinologic: Obesity. Skeletomuscular: Generalized weakness. Neurological: see HP. Psychiatric: Denies drug use/abuse. Otherwise, not [id number] review of systems. PHYSICAL EXAMINATION: General appearance is in subacute distress. HEENT: Normocephalic and nontraumatic. Eyes, nose, ears, and throat are unremarkable. Neck is supple. No lymphadenopathy. No bruits are heard over the carotid artery. No crepitus. Cardiovascular: S1, S2, regular rate and rhythm. Pulmonary: Clear to auscultation bilaterally. Abdomen: Bowel sounds are positive. Abdomen is soft, nontender, and nondistended. Extremities: No rash, lesions, or edema. No restriction of range of motion NEUROLOGICAL EXAMINATION: Alert Oriented to time, place and person. PERRL. EOMI. CN: no focal findings. Muscle tone: within normal. Muscle strength: 5 DTR: 1-2 due to obesity. Plantar reflex: Flexor response bilaterally Gait: At baseline normal. Sensory exam: no abnormal findings. No cerebellar signs elicited. F-T-N test fine. Current Medications Current Medications Current Medications Acetaminophen (Tylenol) 650 mg 1X ONCE PO Last administered on 09/06/17 11: 03; Start 09/06/17 at 10:15; Stop 09/06/17 at 10:16; Status DC Potassium Chloride (Klor-Con) 40 meq 1X ONCE PO Last administered on 11:03; Start 09/06/17 at 11:00; Stop 09/06/17 at 11:01; Status DC Pantoprazole Sodium (Protonix) 40 mg 1X ONCE PO Last administered on 12:29; Start 09/06/17 at 11:45; Stop 09/06/17 at 11:46; Status DC Acetaminophen (Tylenol) 650 mg PRN Q6HRS PRN PO pain Last administered on 09/07 16:00; Start 09/06/17 at 11:45 Pantoprazole Sodium (Protonix) 40 mg DAILY PO Last administered on 09/07/17 08:42; Start 09/07/17 at 09:00 Potassium Chloride (Klor-Con) 40 meq Q6H PO Last administered on 09/07/17 14: 15; Start 09/06/17 at 18:00; Stop 09/07/17 at 13:00; Status DC Allopurinol (Zyloprim) 100 mg DAILY PO Last administered on 09/07/17 08:42; Start 09/07/17 at 09:00 Diazepam (Valium) 5 mg BID PO Last administered on 09/07/17 08:42; Start at 21:00 Acetaminophen/ Hydrocodone Bitart (Lortab 5/325) 1 tab PRN Q6HRS PRN PO PAIN Last administered on 09/07/17 04:30; Start 09/06/17 at 19:15 Lamotrigine (LaMICtal) 100 mg BID PO Last administered on 09/07/17 08:43; Start 09/06/17 at 21:00 Hydralazine HCl (Apresoline Inj) 10 mg PRN Q4HRS PRN IVP ELEVATED BP, SEE COMMENTS Last administered on 09/06/17t 20:25; Start 09/06/17 at 19:45 Vitamin D (Vitamin D3) 5,000 unit DAILY PO Last administered on 09/07/17 16: 00; Start 09/07/17 at 15:00 Calcium Carbonate/ Glycine (Oscal) 500 mg BID PO ; Start 09/07/17 at 21:00 Active Scripts Active Levetiracetam 500 Mg Tablet 500 Mg PO BID Cyclobenzaprine Hcl 10 Mg Tablet 10 Mg PO BID Indomethacin 50 Mg Capsule 1 Cap PO TID Reported Amlodipine Besylate 5 Mg Tablet 5 Mg PO DAILY Diazepam 5 Mg Tablet 5 Mg PO BID Dicyclomine Hcl 20 Mg Tablet 20 Mg PO QID PRN Lamotrigine 100 Mg Tablet 1 Tab PO BID Indomethacin 50 Mg Capsule 1 Cap PO TID Maxzide 37.5 Mg-25 Mg Tablet (Triamterene/Hydrochlorothiazid) 1 Each Tablet 1 Each PO Hydrocodone-Apap 5-325 (Hydrocodone Bit/Acetaminophen) 1 Each Tablet 1 Tab PO PRN Q6HRS PRN Allopurinol 100 Mg Tablet 100 Mg PO Allergies Allergies: Coded Allergies: pentazocine (Verified Allergy, Intermediate, Hallucinations. , 12/27/15) Vitals VITALS Vital Signs Date Time Temp Pulse Resp B/P (MAP) Pulse Ox O2 Delivery O2 Flow Rate FiO2 09/07/17 11:00 98.0 89 16 156/73 (100) 100 Room Air 98.0 Labs Labs Laboratory Tests Test 09/06/17 10:13 09/06/17 10:34 09/06/17 16:05 09/07/17 05:05 White Blood Count 3.2 x10^3/uL (4.0-11.0) 2.8 x10^3/uL (4.0-11.0) Red Blood Count 3.78 x10^6/uL (3.50-5.40) 3.47 x10^6/uL (3.50-5.40) Hemoglobin 11.8 g/dL (12.0-15.5) 10.9 g/dL (12.0-15.5) Hematocrit 35.9 % (36.0-47.0) 32.8 % (36.0-47.0) Mean Corpuscular Volume 95 fL (79-100) 95 fL (79-100) Mean Corpuscular Hemoglobin 31 pg (25-35) 31 pg (25-35) Mean Corpuscular Hemoglobin Concent 33 g/dL (31-37) 33 g/dL (31-37) Red Cell Distribution Width 13.5 % (11.5-14.5) 13.6 % (11.5-14.5) Platelet Count 170 x10^3/uL (140-400) 149 x10^3/uL (140-400) Neutrophils (%) (Auto) 68 % (31-73) 66 % (31-73) Lymphocytes (%) (Auto) 14 % (24-48) 15 % (24-48) Monocytes (%) (Auto) 11 % (0-9) 11 % (0-9) Eosinophils (%) (Auto) 6 % (0-3) 8 % (0-3) Basophils (%) (Auto) 0 % (0-3) 0 % (0-3) Neutrophils # (Auto) 2.2 x10^3uL (1.8-7.7) 1.9 x10^3uL (1.8-7.7) Lymphocytes # (Auto) 0.5 x10^3/uL (1.0-4.8) 0.4 x10^3/uL (1.0-4.8) Monocytes # (Auto) 0.3 x10^3/uL (0.0-1.1) 0.3 x10^3/uL (0.0-1.1) Eosinophils # (Auto) 0.2 x10^3/uL (0.0-0.7) 0.2 x10^3/uL (0.0-0.7) Basophils # (Auto) 0.0 x10^3/uL (0.0-0.2) 0.0 x10^3/uL (0.0-0.2) Sodium Level 143 mmol/L (136-145) 141 mmol/L (136-145) Potassium Level 2.8 mmol/L (3.5-5.1) 2.8 mmol/L (3.5-5.1) 3.8 mmol/L (3.5-5.1) Chloride Level 105 mmol/L (98-107) 107 mmol/L (98-107) Carbon Dioxide Level 31 mmol/L (21-32) 26 mmol/L (21-32) Anion Gap 7 (6-14) 8 (6-14) Blood Urea Nitrogen 11 mg/dL (7-20) 11 mg/dL (7-20) Creatinine 1.2 mg/dL (0.6-1.0) 1.2 mg/dL (0.6-1.0) Estimated GFR (Cockcroft-Gault) 53.4 53.4 BUN/Creatinine Ratio 9 (6-20) Glucose Level 100 mg/dL (70-99) 95 mg/dL (70-99) Calcium Level 8.8 mg/dL (8.5-10.1) 8.5 mg/dL (8.5-10.1) Total Bilirubin 0.4 mg/dL (0.2-1.0) Aspartate Amino Transf (AST/SGOT) 27 U/L (15-37) Alanine Aminotransferase (ALT/SGPT) 23 U/L (14-59) Alkaline Phosphatase 64 U/L (46-116) Total Protein 7.7 g/dL (6.4-8.2) Albumin 3.4 g/dL (3.4-5.0) Albumin/Globulin Ratio 0.8 (1.0-1.7) Urine Color Yellow Urine Clarity Cloudy Urine pH 6.0 Urine Specific [place] 1.025 Urine Protein 30 mg/dL (NEG-TRACE) Urine Glucose (UA) Negative mg/dL (NEG) Urine Ketones (Stick) Negative mg/dL (NEG) Urine Blood Negative (NEG) Urine Nitrite Negative (NEG) Urine Bilirubin Negative (NEG) Urine Urobilinogen Dipstick 0.2 mg/dL (0.2 mg/dL) Urine Leukocyte Esterase Negative (NEG) Urine RBC Occ /HPF (0-2) Urine WBC 1-4 /HPF (0-4) Urine Squamous Epithelial Cells Few /LPF Urine Bacteria Few /HPF (0-FEW) Urine Mucus Marked /LPF Magnesium Level 1.8 mg/dL (1.8-2.4) Iron Level 28 ug/dL (50-170) Total Iron Binding Capacity 240 ug/dL (250-450) Iron Saturation 12 % (15-34) Creatine Kinase 99 U/L (26-192) Vitamin B12 Level 654 pg/mL (247-911) 25-Hydroxy Vitamin D Total 9.6 ng/mL (30-100) Thyroid Stimulating Hormone (TSH) 2.277 uIU/mL (0.358-3.74) Laboratory Tests Test 09/07/17 05:05 White Blood Count 2.8 x10^3/uL (4.0-11.0) Red Blood Count 3.47 x10^6/uL (3.50-5.40) Hemoglobin 10.9 g/dL (12.0-15.5) Hematocrit 32.8 % (36.0-47.0) Mean Corpuscular Volume 95 fL (79-100) Mean Corpuscular Hemoglobin 31 pg (25-35) Mean Corpuscular Hemoglobin Concent 33 g/dL (31-37) Red Cell Distribution Width 13.6 % (11.5-14.5) Platelet Count 149 x10^3/uL (140-400) Neutrophils (%) (Auto) 66 % (31-73) Lymphocytes (%) (Auto) 15 % (24-48) Monocytes (%) (Auto) 11 % (0-9) Eosinophils (%) (Auto) 8 % (0-3) Basophils (%) (Auto) 0 % (0-3) Neutrophils # (Auto) 1.9 x10^3uL (1.8-7.7) Lymphocytes # (Auto) 0.4 x10^3/uL (1.0-4.8) Monocytes # (Auto) 0.3 x10^3/uL (0.0-1.1) Eosinophils # (Auto) 0.2 x10^3/uL (0.0-0.7) Basophils # (Auto) 0.0 x10^3/uL (0.0-0.2) Sodium Level 141 mmol/L (136-145) Potassium Level 3.8 mmol/L (3.5-5.1) Chloride Level 107 mmol/L (98-107) Carbon Dioxide Level 26 mmol/L (21-32) Anion Gap 8 (6-14) Blood Urea Nitrogen 11 mg/dL (7-20) Creatinine 1.2 mg/dL (0.6-1.0) Estimated GFR (Cockcroft-Gault) 53.4 Glucose Level 95 mg/dL (70-99) Calcium Level 8.5 mg/dL (8.5-10.1) Magnesium Level 1.8 mg/dL (1.8-2.4) Iron Level 28 ug/dL (50-170) Total Iron Binding Capacity 240 ug/dL (250-450) Iron Saturation 12 % (15-34) Creatine Kinase 99 U/L (26-192) Vitamin B12 Level 654 pg/mL (247-911) 25-Hydroxy Vitamin D Total 9.6 ng/mL (30-100) Thyroid Stimulating Hormone (TSH) 2.277 uIU/mL (0.358-3.74) SHIRLEY ROSSI MD Sep 07, 2017 16:17
[2017-09-07 16:54] LABS: OBC FLU VALID
[2017-09-07] MEDS: cefTRIAXone IV Push 1 GM VIAL. IVP SCH (17:13)
[2017-09-07] MEDS: hydrALAZINE 20 MG/ML VIAL. IVP PRN (17:50)
[2017-09-07] MEDS: CALCIUM CARBONATE 500 MG TABLET PO SCH (19:59)
[2017-09-08 03:25] VITALS: BP 134/68
[2017-09-08 04:32] LABS: BASO % 0 % (0-3); EOS % 10 % (0-3); HEMATOCRIT 36.3 % (36.0-47.0); HEMOGLOBIN 12.3 g/dL (12.0-15.5); LYMPH # 0.5 x10^3/uL (1.0-4.8); LYMPH % 22 % (24-48); MEAN CORPUSCULAR HEMOGLOBIN 32 pg (25-35); MEAN CORPUSCULAR HGB CONC 34 g/dL (31-37); MEAN CORPUSCULAR VOLUME 95 fL (79-100); MONO % 5 % (0-9); NEUT % 63 % (31-73); PLATELET COUNT 146 x10^3/uL (140-400); RED BLOOD COUNT 3.84 x10^6/uL (3.50-5.40); RED CELL DISTRIBUTION WIDTH 13.7 % (11.5-14.5); WHITE BLOOD COUNT 2.4 x10^3/uL (4.0-11.0)
[2017-09-08 05:08] LABS: ALBUMIN 3.2 g/dL (3.4-5.0); ALBUMIN/GLOBULIN RATIO 0.8 (1.0-1.7); CALCIUM 8.9 mg/dL (8.5-10.1); CREATININE 1.3 mg/dL (0.6-1.0); GFR 48.7; MAGNESIUM 1.7 mg/dL (1.8-2.4); POTASSIUM 4.2 mmol/L (3.5-5.1); TOTAL BILIRUBIN 0.4 mg/dL (0.2-1.0); TOTAL PROTEIN 7.1 g/dL (6.4-8.2)
[2017-09-08 07:00] VITALS: BP 148/68
[2017-09-08] MEDS: CALCIUM CARBONATE 500 MG TABLET PO SCH ×2 (08:02→20:44)
[2017-09-08] MEDS: lamoTRIgine 100 MG TABLET. PO SCH ×2 (08:02→20:44)
[2017-09-08] MEDS: HYDROcodone/APAP 5/325MG 1 TAB TABLET PO PRN ×2 (08:02→16:48)
[2017-09-08] MEDS: ALLOPURINOL 100 MG TABLET. PO SCH (08:02)
[2017-09-08] MEDS: CHOLECALCIFEROL (VITAMIN D3) 5,000 UNIT CAPSULE PO SCH (08:02)
[2017-09-08] MEDS: PANTOPRAZOLE 40 MG TABLET.DR. PO SCH (08:02)
[2017-09-08] MEDS: diazePAM 5 MG TABLET PO SCH ×2 (08:03→20:45)
--- NOTE | 2017-09-08 10:30 | PDOC ---
PROGRESS NOTES Subjective Subjective Patient feeling better. Denied any chest pain/palpitations. Objective Objective Vital Signs Date Time Temp Pulse Resp B/P (MAP) Pulse Ox O2 Delivery O2 Flow Rate FiO2 09/08/17 10:04 99 Room Air 09/08/17 07:00 99.6 92 18 148/68 (94) 99.6 Intake and Output 09/08/17 06:59 Intake Total 700 ml Output Total 125 ml Balance 575 ml Intake Oral 700 ml Output Urine Total 125 ml Physical Exam Abdomen: Normal bowel sounds, Soft, No tenderness Heart: Regular rate Extremities: No edema General: Alert, Oriented X3 HEENT: Atraumatic Lungs: Clear to auscultation, Normal air movement MUSCULOSKELETAL: No joint tenderness Neuro: Normal speech, Sensation intact Psych/Mental Status: Mental status NL, Mood NL Skin: No rashes Assessment Assessment 1. Fall, syncope Telemetry did not show any significant arrhythmias. 2-D echo showed normal LV systolic function. We will consider event monitor as an outpatient. 2. Chronic diastolic HF; well compensated. Continue current medical regimen. 3. Accelerated hypertension; better controlled since admission. 4. Seizures; continue presented therapy 5. Severe hypokalemia; replaced Plan Plan of Care Problems Medical Problems: (1) Closed head injury Status: Acute (2) Epigastric pain Status: Acute (3) Fall Status: Acute (4) Hypokalemia Status: Acute Comment Review of Relevant I have reviewed the following items nahum (where applicable) has been applied. Labs Laboratory Tests Test 09/07/17 16:20 09/08/17 04:20 Influenza Type A Antigen Negative (NEGATIVE) Influenza Type B Antigen Negative (NEGATIVE) White Blood Count 2.4 x10^3/uL (4.0-11.0) Red Blood Count 3.84 x10^6/uL (3.50-5.40) Hemoglobin 12.3 g/dL (12.0-15.5) Hematocrit 36.3 % (36.0-47.0) Mean Corpuscular Volume 95 fL (79-100) Mean Corpuscular Hemoglobin 32 pg (25-35) Mean Corpuscular Hemoglobin Concent 34 g/dL (31-37) Red Cell Distribution Width 13.7 % (11.5-14.5) Platelet Count 146 x10^3/uL (140-400) Neutrophils (%) (Auto) 63 % (31-73) Lymphocytes (%) (Auto) 22 % (24-48) Monocytes (%) (Auto) 5 % (0-9) Eosinophils (%) (Auto) 10 % (0-3) Basophils (%) (Auto) 0 % (0-3) Neutrophils # (Auto) 1.5 x10^3uL (1.8-7.7) Lymphocytes # (Auto) 0.5 x10^3/uL (1.0-4.8) Monocytes # (Auto) 0.1 x10^3/uL (0.0-1.1) Eosinophils # (Auto) 0.2 x10^3/uL (0.0-0.7) Basophils # (Auto) 0.0 x10^3/uL (0.0-0.2) Sodium Level 139 mmol/L (136-145) Potassium Level 4.2 mmol/L (3.5-5.1) Chloride Level 105 mmol/L (98-107) Carbon Dioxide Level 26 mmol/L (21-32) Anion Gap 8 (6-14) Blood Urea Nitrogen 10 mg/dL (7-20) Creatinine 1.3 mg/dL (0.6-1.0) Estimated GFR (Cockcroft-Gault) 48.7 BUN/Creatinine Ratio 8 (6-20) Glucose Level 85 mg/dL (70-99) Calcium Level 8.9 mg/dL (8.5-10.1) Magnesium Level 1.7 mg/dL (1.8-2.4) Total Bilirubin 0.4 mg/dL (0.2-1.0) Aspartate Amino Transf (AST/SGOT) 30 U/L (15-37) Alanine Aminotransferase (ALT/SGPT) 24 U/L (14-59) Alkaline Phosphatase 63 U/L (46-116) Total Protein 7.1 g/dL (6.4-8.2) Albumin 3.2 g/dL (3.4-5.0) Albumin/Globulin Ratio 0.8 (1.0-1.7) Medications Current Medications Calcium Carbonate/ Glycine (Oscal) 500 mg BID PO Last administered on t 08:02; Start 09/07/17 at 21:00 Ceftriaxone Sodium 1 gm/ Dextrose 50 ml @ 100 mls/hr Q24H IV ; Start 09/07/17 at 16:15; Status UNV Ceftriaxone Sodium (Rocephin) 1 gm Q24H IVP Last administered on 09/07/17t 17: 13; Start 09/07/17 at 17:00 Vitamin D (Vitamin D3) 5,000 unit DAILY PO Last administered on 09/08/17 08: 02; Start 09/07/17 at 15:00 Vitals/I & O Vital Sign - Last 24 Hours 09/07/17 09/07/17 09/07/17 09/07/17 11:00 15:00 15:02 15:04 Temp 98.0 101.5 98.0 101.5 Pulse 89 92 97 100 Resp 16 16 B/P (MAP) 156/73 (100) 199/91 (127) 178/89 (118) 189/88 (121) Pulse Ox 100 97 O2 Delivery Room Air Room Air 09/07/17 09/07/17 09/07/17 09/07/17 17:50 19:25 20:00 23:08 Temp 100.6 100.6 Pulse 85 92 Resp 18 B/P (MAP) 173/85 150/69 (96) Pulse Ox 97 O2 Delivery Room Air Room Air Room Air 09/07/17 09/08/17 09/08/17 09/08/17 23:25 03:25 07:00 08:02 Temp 100.0 99.1 99.6 100.0 99.1 99.6 Pulse 91 84 92 Resp 18 18 18 B/P (MAP) 152/75 (100) 134/68 (90) 148/68 (94) Pulse Ox 98 98 99 99 O2 Delivery Room Air Room Air Room Air Room Air 09/08/17 09/08/17 08:08 10:04 Pulse Ox 99 O2 Delivery Room Air Room Air Intake and Output 09/07/17 09/07/17 09/08/17 14:59 22:59 06:59 Intake Total 300 ml 400 ml Output Total 125 ml Balance 300 ml 275 ml ANDRES GALVEZ MD Sep 08, 2017 10:30
--- NOTE | 2017-09-08 10:35 | PDOC ---
PROGRESS NOTES Chief Complaint Chief Complaint syncope ASSESSMENT AND PLAN: 1. Fever: new last night, low grade persisting. leukopenia with borderline neutropenia. nonfocal exam. ? viral. flu A/B negative. blood cult pending, on empiric Abx 2. Syncope: unclear etiology; appreciate card and neuro input; nl echo ( except PAp 34, mild-mod tricuspid regurg) . 3. Sz hx: sounds like partial sz; seeing Dr Johnson. cont lamictal; nl EEG awake/drowsy 4. ?CHF: no evidence n echo 5. Hypokalemia: severe at admit, now repleted. Mg WNL. monitor 6. N/V: postprandial. appreciate GI input 7. GERD: cont PPI 8. Vit D deficiency: severe. replete 9. Prophylaxis: lovenox History of Present Illness History of Present Illness doing better today, although feeling chilled at times. no focal sx Vitals Vitals Vital Signs Date Time Temp Pulse Resp B/P (MAP) Pulse Ox O2 Delivery O2 Flow Rate FiO2 09/08/17 10:04 99 Room Air 09/08/17 07:00 99.6 92 18 148/68 (94) 99.6 Physical Exam General: Alert, Oriented X3 Heart: Regular rate Lungs: Clear Abdomen: Normal bowel sounds, Soft, No tenderness Extremities: No edema Skin: No rashes Labs LABS Laboratory Tests Test 09/07/17 16:20 09/08/17 04:20 Influenza Type A Antigen Negative (NEGATIVE) Influenza Type B Antigen Negative (NEGATIVE) White Blood Count 2.4 x10^3/uL (4.0-11.0) Red Blood Count 3.84 x10^6/uL (3.50-5.40) Hemoglobin 12.3 g/dL (12.0-15.5) Hematocrit 36.3 % (36.0-47.0) Mean Corpuscular Volume 95 fL (79-100) Mean Corpuscular Hemoglobin 32 pg (25-35) Mean Corpuscular Hemoglobin Concent 34 g/dL (31-37) Red Cell Distribution Width 13.7 % (11.5-14.5) Platelet Count 146 x10^3/uL (140-400) Neutrophils (%) (Auto) 63 % (31-73) Lymphocytes (%) (Auto) 22 % (24-48) Monocytes (%) (Auto) 5 % (0-9) Eosinophils (%) (Auto) 10 % (0-3) Basophils (%) (Auto) 0 % (0-3) Neutrophils # (Auto) 1.5 x10^3uL (1.8-7.7) Lymphocytes # (Auto) 0.5 x10^3/uL (1.0-4.8) Monocytes # (Auto) 0.1 x10^3/uL (0.0-1.1) Eosinophils # (Auto) 0.2 x10^3/uL (0.0-0.7) Basophils # (Auto) 0.0 x10^3/uL (0.0-0.2) Sodium Level 139 mmol/L (136-145) Potassium Level 4.2 mmol/L (3.5-5.1) Chloride Level 105 mmol/L (98-107) Carbon Dioxide Level 26 mmol/L (21-32) Anion Gap 8 (6-14) Blood Urea Nitrogen 10 mg/dL (7-20) Creatinine 1.3 mg/dL (0.6-1.0) Estimated GFR (Cockcroft-Gault) 48.7 BUN/Creatinine Ratio 8 (6-20) Glucose Level 85 mg/dL (70-99) Calcium Level 8.9 mg/dL (8.5-10.1) Magnesium Level 1.7 mg/dL (1.8-2.4) Total Bilirubin 0.4 mg/dL (0.2-1.0) Aspartate Amino Transf (AST/SGOT) 30 U/L (15-37) Alanine Aminotransferase (ALT/SGPT) 24 U/L (14-59) Alkaline Phosphatase 63 U/L (46-116) Total Protein 7.1 g/dL (6.4-8.2) Albumin 3.2 g/dL (3.4-5.0) Albumin/Globulin Ratio 0.8 (1.0-1.7) DARIN FISHMAN MD Sep 08, 2017 10:35
[2017-09-08 11:00] VITALS: BP 157/70
[2017-09-08] MEDS: ASA/APAP/CAFFEINE 250/250/65MG TABLET. PO PRN ×2 (12:10→20:44)
[2017-09-08] MEDS: POTASSIUM CL 20MEQ-0.45% NACL 1,000 ML IV SCH (12:11)
[2017-09-08 15:00] VITALS: BP 157/70
--- NOTE | 2017-09-08 15:25 | PDOC ---
PROGRESS NOTES Assessment Assessment Near syncopal spell. Fall. Hypokalemia, K+ 2.8 Abnormal shaking movements from time to time. Hx of seizure or seizure like episodes. HTN Gout GERD Vit D deficiency. Iron deficiency. Obesity. RECOMMENDATIONS/PLAN: Keep electrolytes balance. Vit D and Ca++ supplement. Treat medical diseases. Iron deficiency, further evaluation per floor medical team. Weight reduction. OT/PT. Discussed with her family in all detail again at bedside on 09/08/17. EEG on 09/07/17: Normal without seizure activity. HISTORY OF THE PRESENT ILLNESS: 71-y-old AA female patient with above medical diseases had a fall at home, but no loss of consciousness. She stated she felt generalized weakness and had a fall. She got up herself and drove to the ER of [facility]. Her K_+ level was found low of 2.8. PMH: Seizure like episodes,, CHF, HTN, GERD, anxiety, gout. PSHX: Cholecystectomy, hysterectomy FH: Cancer (father prostate, aunt w/ colon cancer), CVA, Other (Alzheimer's, scleroderma) Social History: Smoke: No ALCOHOL: none Drugs: None ALLERGY: Reviewed. MEDICATIONS: Refer to [facility] REVIEW OF SYSTEMS: Constitutional: Obesity. Head: No traumatic brain or head injury. Skin: No edema, or rash. Ear: No infection Eyes: No vision loss or color blindness. Nose: No bleeding or purulent discharges. Hearing: No hearing decrease. Neck: No injury. Breast: No history of cancer, masses,or discharges. Cardiac:HTN. Pulmonary: No COPD. GI: ERD. Urinary/genital: UTI. Endocrinologic: Obesity. Skeletomuscular: Generalized weakness. Neurological: see HP. Psychiatric: Denies drug use/abuse. Otherwise, not -gzuqp review of systems. PHYSICAL EXAMINATION: General appearance is in subacute distress. HEENT: Normocephalic and nontraumatic. Eyes, nose, ears, and throat are unremarkable. Neck is supple. No lymphadenopathy. No bruits are heard over the carotid artery. No crepitus. Cardiovascular: S1, S2, regular rate and rhythm. Pulmonary: Clear to auscultation bilaterally. Abdomen: Bowel sounds are positive. Abdomen is soft, nontender, and nondistended. Extremities: No rash, lesions, or edema. No restriction of range of motion NEUROLOGICAL EXAMINATION: Alert Oriented to time, place and person. PERRL. EOMI. CN: no focal findings. Muscle tone: within normal. Muscle strength: 5 DTR: 1-2 due to obesity. Plantar reflex: Flexor response bilaterally Gait: At baseline normal. Sensory exam: no abnormal findings. No cerebellar signs elicited. F-T-N test fine. Objective Objective Vital Signs Date Time Temp Pulse Resp B/P (MAP) Pulse Ox O2 Delivery O2 Flow Rate FiO2 09/08/17 11:00 99.5 92 18 157/70 (99) 97 Room Air 99.5 Intake and Output 09/08/17 07:00 Intake Total 700 ml Output Total 125 ml Balance 575 ml Intake Oral 700 ml Output Urine Total 125 ml Vitals Signs Vitals VS - Last 72 Hours, by Label Date Time Temp Pulse Resp B/P (MAP) Pulse Ox O2 Delivery O2 Flow Rate FiO2 09/08/17 11:00 99.5 92 18 157/70 (99) 97 Room Air 99.5 09/08/17 10:04 99 Room Air 09/08/17 08:08 Room Air 09/08/17 08:02 99 Room Air 09/08/17 07:00 99.6 92 18 148/68 (94) 99 Room Air 99.6 09/08/17 03:25 99.1 84 18 134/68 (90) 98 Room Air 99.1 09/07/17 23:25 100.0 91 18 152/75 (100) 98 Room Air 100.0 09/07/17 23:08 Room Air 09/07/17 20:00 Room Air 09/07/17 19:25 100.6 92 18 150/69 (96) 97 Room Air 100.6 09/07/17 17:50 85 173/85 09/07/17 15:04 100 189/88 (121) 09/07/17 15:02 97 178/89 (118) 09/07/17 15:00 101.5 92 16 199/91 (127) 97 Room Air 101.5 09/07/17 11:00 98.0 89 16 156/73 (100) 100 Room Air 98.0 09/07/17 08:00 Room Air 09/07/17 07:00 98.3 81 16 138/70 (92) 96 Room Air 98.3 Laboratory Laboratory Laboratory Tests Test 09/07/17 16:20 09/08/17 04:20 Influenza Type A Antigen Negative (NEGATIVE) Influenza Type B Antigen Negative (NEGATIVE) White Blood Count 2.4 x10^3/uL (4.0-11.0) Red Blood Count 3.84 x10^6/uL (3.50-5.40) Hemoglobin 12.3 g/dL (12.0-15.5) Hematocrit 36.3 % (36.0-47.0) Mean Corpuscular Volume 95 fL (79-100) Mean Corpuscular Hemoglobin 32 pg (25-35) Mean Corpuscular Hemoglobin Concent 34 g/dL (31-37) Red Cell Distribution Width 13.7 % (11.5-14.5) Platelet Count 146 x10^3/uL (140-400) Neutrophils (%) (Auto) 63 % (31-73) Lymphocytes (%) (Auto) 22 % (24-48) Monocytes (%) (Auto) 5 % (0-9) Eosinophils (%) (Auto) 10 % (0-3) Basophils (%) (Auto) 0 % (0-3) Neutrophils # (Auto) 1.5 x10^3uL (1.8-7.7) Lymphocytes # (Auto) 0.5 x10^3/uL (1.0-4.8) Monocytes # (Auto) 0.1 x10^3/uL (0.0-1.1) Eosinophils # (Auto) 0.2 x10^3/uL (0.0-0.7) Basophils # (Auto) 0.0 x10^3/uL (0.0-0.2) Sodium Level 139 mmol/L (136-145) Potassium Level 4.2 mmol/L (3.5-5.1) Chloride Level 105 mmol/L (98-107) Carbon Dioxide Level 26 mmol/L (21-32) Anion Gap 8 (6-14) Blood Urea Nitrogen 10 mg/dL (7-20) Creatinine 1.3 mg/dL (0.6-1.0) Estimated GFR (Cockcroft-Gault) 48.7 BUN/Creatinine Ratio 8 (6-20) Glucose Level 85 mg/dL (70-99) Calcium Level 8.9 mg/dL (8.5-10.1) Magnesium Level 1.7 mg/dL (1.8-2.4) Total Bilirubin 0.4 mg/dL (0.2-1.0) Aspartate Amino Transf (AST/SGOT) 30 U/L (15-37) Alanine Aminotransferase (ALT/SGPT) 24 U/L (14-59) Alkaline Phosphatase 63 U/L (46-116) Total Protein 7.1 g/dL (6.4-8.2) Albumin 3.2 g/dL (3.4-5.0) Albumin/Globulin Ratio 0.8 (1.0-1.7) Microbiology 09/07/17 Urine Culture - Preliminary, Resulted 09/07/17 Urine Culture Result 1 (NADIA) - Preliminary, Resulted Medication Medications Current Medications Acetaminophen/ Aspirin/Caffeine (Excedrin Migraine) 1 tab PRN Q6HRS PRN PO MIGRAINE HEADACHE Last administered on 09/08/17 12:10; Start 09/08/17 at 11: 30 Calcium Carbonate/ Glycine (Oscal) 500 mg BID PO Last administered on 08:02; Start 09/07/17 at 21:00 Ceftriaxone Sodium 1 gm/ Dextrose 50 ml @ 100 mls/hr Q24H IV ; Start 09/07/17 at 16:15; Status UNV Ceftriaxone Sodium (Rocephin) 1 gm Q24H IVP Last administered on 09/07/17 17: 13; Start 09/07/17 at 17:00 Lactobacillus Rhamnosus (Culturelle) 1 cap BID PO ; Start 09/08/17 at 21:00 Potassium Chloride/Sodium Chloride 1,000 ml @ 75 mls/hr [id number] IV Last administered on 09/08/17 12:11; Start 09/08/17 at 12:00 Comment Review of Relevant I have reviewed the following items nahum (where applicable) has been applied. SHIRLEY ROSSI MD Sep 08, 2017 15:24
[2017-09-08] MEDS: cefTRIAXone IV Push 1 GM VIAL. IVP SCH (17:00)
[2017-09-08] MEDS ORDERED: MAGNESIUM SULFATE 2GM 50 ML IV ONE (17:45)
[2017-09-08 19:10] VITALS: BP 147/73
[2017-09-08] MEDS: FERROUS SULFATE 325 MG TABLET. PO SCH (20:44)
[2017-09-08] MEDS: ACETAMINOPHEN 325 MG TABLET. PO PRN (20:44)
[2017-09-08] MEDS: LACTOBACILLUS RHAMNOSUS GG 1 CAPSULE. PO SCH (20:44)
[2017-09-08 23:16] VITALS: BP 128/60
[2017-09-08 23:43] LABS: BASO % 0 % (0-3); EOS % 6 % (0-3); HEMOGLOBIN 11.2 g/dL (12.0-15.5); LYMPH # 0.5 x10^3/uL (1.0-4.8); LYMPH % 16 % (24-48); MEAN CORPUSCULAR HEMOGLOBIN 31 pg (25-35); MEAN CORPUSCULAR HGB CONC 33 g/dL (31-37); MEAN CORPUSCULAR VOLUME 94 fL (79-100); MONO % 5 % (0-9); NEUT % 72 % (31-73); PLATELET COUNT 127 x10^3/uL (140-400); RED CELL DISTRIBUTION WIDTH 13.7 % (11.5-14.5); WHITE BLOOD COUNT 3.1 x10^3/uL (4.0-11.0)
[2017-09-09] LABS: ALBUMIN 3.1 g/dL (3.4-5.0); ALBUMIN/GLOBULIN RATIO 0.9 (1.0-1.7); CALCIUM 8.5 mg/dL (8.5-10.1); CREATININE 1.4 mg/dL (0.6-1.0); GFR 44.7; POTASSIUM 4.2 mmol/L (3.5-5.1); TOTAL BILIRUBIN 0.3 mg/dL (0.2-1.0); TOTAL PROTEIN 6.7 g/dL (6.4-8.2)
[2017-09-09 03:00] VITALS: BP 120/49
[2017-09-09] MEDS: HYDROcodone/APAP 5/325MG 1 TAB TABLET PO PRN ×2 (04:53→23:15)
[2017-09-09] MEDS: POTASSIUM CL 20MEQ-0.45% NACL 1,000 ML IV SCH ×2 (04:55→14:40)
[2017-09-09 07:10] VITALS: BP 139/77
[2017-09-09] MEDS: ASA/APAP/CAFFEINE 250/250/65MG TABLET. PO PRN (08:54)
[2017-09-09] MEDS: diazePAM 5 MG TABLET PO SCH ×2 (08:54→21:00)
[2017-09-09] MEDS: CALCIUM CARBONATE 500 MG TABLET PO SCH ×2 (08:54→21:00)
[2017-09-09] MEDS: lamoTRIgine 100 MG TABLET. PO SCH ×2 (08:54→21:00)
[2017-09-09] MEDS: PANTOPRAZOLE 40 MG TABLET.DR. PO SCH (08:54)
[2017-09-09] MEDS: LACTOBACILLUS RHAMNOSUS GG 1 CAPSULE. PO SCH ×2 (08:54→21:00)
[2017-09-09] MEDS: CHOLECALCIFEROL (VITAMIN D3) 5,000 UNIT CAPSULE PO SCH (08:55)
[2017-09-09] MEDS: ALLOPURINOL 100 MG TABLET. PO SCH (08:55)
[2017-09-09 10:44] VITALS: BP 158/76
[2017-09-09 14:28] VITALS: BP 163/79
--- NOTE | 2017-09-09 14:53 | PDOC ---
PROGRESS NOTES Chief Complaint Chief Complaint syncope ASSESSMENT AND PLAN: 1. Fever: ongoing x48h. leukopenia with borderline neutropenia. nonfocal exam except for GOSS. ? viral. flu A/B negative. blood cult NGTD, urine cult neg, on empiric Ceftriax. consult ID 2. Confusion: new and worsening. MRI brain 3. Syncope: unclear etiology; appreciate card and neuro input; nl echo ( except PAp 34, mild-mod tricuspid regurg) . 4. Sz hx: sounds like partial sz; seeing Dr Johnson. cont lamictal; nl EEG awake/drowsy 5. ?CHF: no evidence n echo 6. Hypokalemia: severe at admit, now repleted. Mg WNL. monitor 7. N/V: postprandial. appreciate GI input 8. GERD: cont PPI 9. Vit D deficiency: severe. replete 10. Prophylaxis: lovenox History of Present Illness History of Present Illness doing better today, although feeling chilled at times. no focal sx Vitals Vitals Vital Signs Date Time Temp Pulse Resp B/P (MAP) Pulse Ox O2 Delivery O2 Flow Rate FiO2 09/09/17 14:28 100.8 97 18 163/79 (107) 96 Room Air 100.8 Physical Exam General: Alert, Other (very confused, agitated) Heart: Regular rate Lungs: Clear Abdomen: Normal bowel sounds, Soft, No tenderness Extremities: No edema Skin: No rashes Labs LABS Laboratory Tests Test 09/08/17 22:30 White Blood Count 3.1 x10^3/uL (4.0-11.0) Red Blood Count 3.60 x10^6/uL (3.50-5.40) Hemoglobin 11.2 g/dL (12.0-15.5) Hematocrit 34.0 % (36.0-47.0) Mean Corpuscular Volume 94 fL (79-100) Mean Corpuscular Hemoglobin 31 pg (25-35) Mean Corpuscular Hemoglobin Concent 33 g/dL (31-37) Red Cell Distribution Width 13.7 % (11.5-14.5) Platelet Count 127 x10^3/uL (140-400) Neutrophils (%) (Auto) 72 % (31-73) Lymphocytes (%) (Auto) 16 % (24-48) Monocytes (%) (Auto) 5 % (0-9) Eosinophils (%) (Auto) 6 % (0-3) Basophils (%) (Auto) 0 % (0-3) Neutrophils # (Auto) 2.2 x10^3uL (1.8-7.7) Lymphocytes # (Auto) 0.5 x10^3/uL (1.0-4.8) Monocytes # (Auto) 0.2 x10^3/uL (0.0-1.1) Eosinophils # (Auto) 0.2 x10^3/uL (0.0-0.7) Basophils # (Auto) 0.0 x10^3/uL (0.0-0.2) Sodium Level 133 mmol/L (136-145) Potassium Level 4.2 mmol/L (3.5-5.1) Chloride Level 101 mmol/L (98-107) Carbon Dioxide Level 24 mmol/L (21-32) Anion Gap 8 (6-14) Blood Urea Nitrogen 12 mg/dL (7-20) Creatinine 1.4 mg/dL (0.6-1.0) Estimated GFR (Cockcroft-Gault) 44.7 BUN/Creatinine Ratio 9 (6-20) Glucose Level 99 mg/dL (70-99) Calcium Level 8.5 mg/dL (8.5-10.1) Total Bilirubin 0.3 mg/dL (0.2-1.0) Aspartate Amino Transf (AST/SGOT) 54 U/L (15-37) Alanine Aminotransferase (ALT/SGPT) 38 U/L (14-59) Alkaline Phosphatase 57 U/L (46-116) Total Protein 6.7 g/dL (6.4-8.2) Albumin 3.1 g/dL (3.4-5.0) Albumin/Globulin Ratio 0.9 (1.0-1.7) DARIN FISHMAN MD Sep 09, 2017 14:53
--- NOTE | 2017-09-09 16:15 | PDOC ---
PROGRESS NOTES Assessment Assessment Near syncopal spell. Fall. Hypokalemia, K+ 2.8 Hx of seizure or seizure like episodes. HTN Gout GERD Vit D deficiency. Iron deficiency. Obesity. Self medicated for narcotics. RECOMMENDATIONS/PLAN: Keep electrolytes balance. Vit D and Ca++ supplement. Treat medical diseases. Iron deficiency, further evaluation per floor medical team. Weight reduction. OT/PT. Discussed with her family in all detail again at bedside on 09/08/17. EEG on 09/07/17: Normal without seizure activity. HISTORY OF THE PRESENT ILLNESS: 71-y-old AA female patient with above medical diseases had a fall at home, but no loss of consciousness. She stated she felt generalized weakness and had a fall. She got up herself and drove to the ER of [facility]. Her K_+ level was found low of 2.8. PMH: Seizure like episodes,, CHF, HTN, GERD, anxiety, gout. PSHX: Cholecystectomy, hysterectomy FH: Cancer (father prostate, aunt w/ colon cancer), CVA, Other (Alzheimer's, scleroderma) Social History: Smoke: No ALCOHOL: none Drugs: None ALLERGY: Reviewed. MEDICATIONS: Refer to [facility] REVIEW OF SYSTEMS: Constitutional: Obesity. Head: No traumatic brain or head injury. Skin: No edema, or rash. Ear: No infection Eyes: No vision loss or color blindness. Nose: No bleeding or purulent discharges. Hearing: No hearing decrease. Neck: No injury. Breast: No history of cancer, masses,or discharges. Cardiac:HTN. Pulmonary: No COPD. GI: ERD. Urinary/genital: UTI. Endocrinologic: Obesity. Skeletomuscular: Generalized weakness. Neurological: see HP. Psychiatric: Denies drug use/abuse. Otherwise, not [id number] review of systems. PHYSICAL EXAMINATION: General appearance is in subacute distress. HEENT: Normocephalic and nontraumatic. Eyes, nose, ears, and throat are unremarkable. Neck is supple. No lymphadenopathy. No bruits are heard over the carotid artery. No crepitus. Cardiovascular: S1, S2, regular rate and rhythm. Pulmonary: Clear to auscultation bilaterally. Abdomen: Bowel sounds are positive. Abdomen is soft, nontender, and nondistended. Extremities: No rash, lesions, or edema. No restriction of range of motion NEUROLOGICAL EXAMINATION: Alert Oriented to time, place and person. PERRL. EOMI. CN: no focal findings. Muscle tone: within normal. Muscle strength: 5 DTR: 1-2 due to obesity. Plantar reflex: Flexor response bilaterally Gait: At baseline normal. Sensory exam: no abnormal findings. No cerebellar signs elicited. F-T-N test fine. Objective Objective Vital Signs Date Time Temp Pulse Resp B/P (MAP) Pulse Ox O2 Delivery O2 Flow Rate FiO2 09/09/17 14:28 100.8 97 18 163/79 (107) 96 Room Air 100.8 Intake and Output 09/09/17 07:00 Intake Total 700 ml Balance 700 ml Intake Oral 700 ml # Voids 2 Vitals Signs Vitals VS - Last 72 Hours, by Label Date Time Temp Pulse Resp B/P (MAP) Pulse Ox O2 Delivery O2 Flow Rate FiO2 09/09/17 14:28 100.8 97 18 163/79 (107) 96 Room Air 100.8 09/09/17 10:44 101.5 95 18 158/76 (103) 100 Room Air 101.5 09/09/17 08:00 Room Air 09/09/17 07:10 99.5 90 17 139/77 (97) 99 Room Air 99.5 09/09/17 06:02 100 Room Air 09/09/17 04:53 Room Air 09/09/17 03:00 98.6 80 18 120/49 (72) 100 Room Air 98.6 09/08/17 23:16 99.3 92 16 128/60 (82) 96 Room Air 99.3 09/08/17 20:00 Room Air 09/08/17 19:10 99.2 97 16 147/73 (97) 98 Room Air 99.2 09/08/17 16:48 97 Room Air 09/08/17 15:00 100.1 96 20 157/70 (99) 97 Room Air 100.1 09/08/17 11:00 99.5 92 18 157/70 (99) 97 Room Air 99.5 09/08/17 08:08 Room Air 09/08/17 08:02 99 Room Air 09/08/17 07:00 99.6 92 18 148/68 (94) 99 Room Air 99.6 Laboratory Laboratory Laboratory Tests Test 09/08/17 22:30 White Blood Count 3.1 x10^3/uL (4.0-11.0) Red Blood Count 3.60 x10^6/uL (3.50-5.40) Hemoglobin 11.2 g/dL (12.0-15.5) Hematocrit 34.0 % (36.0-47.0) Mean Corpuscular Volume 94 fL (79-100) Mean Corpuscular Hemoglobin 31 pg (25-35) Mean Corpuscular Hemoglobin Concent 33 g/dL (31-37) Red Cell Distribution Width 13.7 % (11.5-14.5) Platelet Count 127 x10^3/uL (140-400) Neutrophils (%) (Auto) 72 % (31-73) Lymphocytes (%) (Auto) 16 % (24-48) Monocytes (%) (Auto) 5 % (0-9) Eosinophils (%) (Auto) 6 % (0-3) Basophils (%) (Auto) 0 % (0-3) Neutrophils # (Auto) 2.2 x10^3uL (1.8-7.7) Lymphocytes # (Auto) 0.5 x10^3/uL (1.0-4.8) Monocytes # (Auto) 0.2 x10^3/uL (0.0-1.1) Eosinophils # (Auto) 0.2 x10^3/uL (0.0-0.7) Basophils # (Auto) 0.0 x10^3/uL (0.0-0.2) Sodium Level 133 mmol/L (136-145) Potassium Level 4.2 mmol/L (3.5-5.1) Chloride Level 101 mmol/L (98-107) Carbon Dioxide Level 24 mmol/L (21-32) Anion Gap 8 (6-14) Blood Urea Nitrogen 12 mg/dL (7-20) Creatinine 1.4 mg/dL (0.6-1.0) Estimated GFR (Cockcroft-Gault) 44.7 BUN/Creatinine Ratio 9 (6-20) Glucose Level 99 mg/dL (70-99) Calcium Level 8.5 mg/dL (8.5-10.1) Total Bilirubin 0.3 mg/dL (0.2-1.0) Aspartate Amino Transf (AST/SGOT) 54 U/L (15-37) Alanine Aminotransferase (ALT/SGPT) 38 U/L (14-59) Alkaline Phosphatase 57 U/L (46-116) Total Protein 6.7 g/dL (6.4-8.2) Albumin 3.1 g/dL (3.4-5.0) Albumin/Globulin Ratio 0.9 (1.0-1.7) Microbiology 09/07/17 Blood Culture - Preliminary, Resulted NO GROWTH AFTER 1 DAY 09/07/17 Urine Culture - Final, Complete 09/07/17 Urine Culture Result 1 (NADIA) - Final, Complete Medication Medications Current Medications Ferrous Sulfate (Feosol) 325 mg QHS PO Last administered on 09/08/17 20:44; Start 09/08/17 at 21:00 Lactobacillus Rhamnosus (Culturelle) 1 cap BID PO Last administered on 08:54; Start 09/08/17 at 21:00 Magnesium Sulfate/ Dextrose 50 ml @ 25 mls/hr 1X ONCE IV Last administered on 09/08/17 18:01; Start 09/08/17 at 17:45; Stop 09/08/17 at 19:44; Status DC Comment Review of Relevant I have reviewed the following items nahum (where applicable) has been applied. SHIRLEY ROSSI MD Sep 09, 2017 16:15
--- NOTE | 2017-09-09 16:22 | RAD ---
MRI BRAIN WITHOUT CONTRAST History: Increasing confusion, headache, fell /. History of seizures. Comparison: MR brain with and without contrast, 10/02/2016. Technique: Multiplanar multiple pulse sequence images of the brain were obtained without contrast. Findings: No restricted diffusion is seen. The ventricles and sulci are prominent compatible with age-related cerebral atrophy. The foci of increased FLAIR signal in the bilateral basal ganglia are stable. Small foci of T2 FLAIR signal are now seen in the adrián, right and left of midline. Finding may be due to chronic small vessel ischemic disease in a patient of this age. There is no mass effect, midline shift, or evidence of acute hemorrhage. Tiny focus of blooming artifact in the left basal ganglia on T2 gradient is stable. Normal vascular flow voids are present. The orbital structures appear intact. Mucosal thickening bilateral ethmoid sinuses. No air-fluid level. The mastoid air cells appear clear. No cerebellar tonsillar tibia. Partially empty sella. IMPRESSION: There is no acute infarct or hemorrhage.
[2017-09-09] MEDS: ACETAMINOPHEN 325 MG TABLET. PO PRN ×2 (16:35→23:13)
[2017-09-09] MEDS ORDERED: HALOPERIDOL LACTATE 5 MG/ML VIAL. IVP PRN (16:45)
[2017-09-09] MEDS: cefTRIAXone IV Push 1 GM VIAL. IVP SCH (17:00)
[2017-09-09 19:00] VITALS: BP 170/76
[2017-09-09] MEDS: FERROUS SULFATE 325 MG TABLET. PO SCH (21:00)
[2017-09-09 23:01] VITALS: BP 157/74
[2017-09-10] VITALS (7 sets, daily range): BP systolic 133–194; BP diastolic 68–90
[2017-09-10] MEDS: POTASSIUM CL 20MEQ-0.45% NACL 1,000 ML IV SCH ×2 (04:04→20:17)
[2017-09-10] MEDS: ACETAMINOPHEN 325 MG TABLET. PO PRN ×3 (05:35→20:09)
[2017-09-10] MEDS: PANTOPRAZOLE 40 MG TABLET.DR. PO SCH (08:21)
[2017-09-10] MEDS: LACTOBACILLUS RHAMNOSUS GG 1 CAPSULE. PO SCH ×2 (08:21→20:09)
[2017-09-10] MEDS: diazePAM 5 MG TABLET PO SCH ×2 (08:21→20:09)
[2017-09-10] MEDS: CALCIUM CARBONATE 500 MG TABLET PO SCH ×2 (08:21→20:09)
[2017-09-10] MEDS: ALLOPURINOL 100 MG TABLET. PO SCH (08:21)
[2017-09-10] MEDS: lamoTRIgine 100 MG TABLET. PO SCH ×2 (08:21→20:09)
[2017-09-10] MEDS: CHOLECALCIFEROL (VITAMIN D3) 5,000 UNIT CAPSULE PO SCH (08:21)
--- NOTE | 2017-09-10 11:29 | PDOC ---
Subjective: Subjective: "A little" RUQ pain. Says ate breakfast and lunch. Objective: Objective: D/w RN - had regular diet ordered, wasn't eating. This morning ate full liquids , lunch hasn't been delivered yet but plans for chicken noodle soup and vanilla pudding. Vital Signs: Vital Signs Date Time Temp Pulse Resp B/P (MAP) Pulse Ox O2 Delivery O2 Flow Rate FiO2 09/10/17 10:59 98.9 106 18 159/82 (107) 94 Room Air 98.9 PE: GEN: NAD LUNGS: CTAB HEART: RRR ABD: NABS, S/ND/NT NEURO/PSYCH: confused A/P: AMS N/v/dyspepsia, h/o GERD - on PPI Anorexia - eating today Anemia - on PO iron QD -- Continue PPI. MARTHA CHI Sep 10, 2017 11:29
--- NOTE | 2017-09-10 11:42 | PDOC ---
Infectious Disease Note Vital Sign Vital Signs Vital Signs Date Time Temp Pulse Resp B/P (MAP) Pulse Ox O2 Delivery O2 Flow Rate FiO2 09/10/17 10:59 98.9 106 18 159/82 (107) 94 Room Air 98.9 Objective Assessment Fever , likely viral illness Seizure Encephalopathy Syncope CHF Possible aspiration Plan Plan of Care change antibiotics to zosyn check cxr procalcitonin may need ct abd and pelvis JOHANA BORJAS MD Sep 10, 2017 11:42
[2017-09-10] MEDS ORDERED: PIPERACILLIN/TAZOBACTAM 3.375 GM in IV DEXTROSE 5% 50 ML IV SCH (12:00)
[2017-09-10] MEDS: DOXYCYCLINE HYCLATE 100 MG TABLET PO SCH ×2 (12:35→20:09)
--- NOTE | 2017-09-10 14:06 | CONS ---
DATE OF CONSULTATION: 09/10/2017 REQUESTING PHYSICIAN: Dr. Martinez. REASON FOR CONSULTATION: Fever. HISTORY OF PRESENT ILLNESS: This is a 71-year-old -[place] female with history of seizure disorder who came in, evidently in her house in a corridor, she fell down or "passed out." The patient does not remember any prior symptoms. The patient does have a history of seizure disorder. The patient was alert, awake here and progressively she has gotten worse with her mental status. The patient also has been running fever, is receiving Rocephin and Levaquin. Despite that, she has fever. Of course, Levaquin was started today and Rocephin, she is getting it since . The patient also has had some trouble with her seizure medication in March or April. Some adjustment was done and she was not happy and readjustment was done. The patient denies any nausea, vomiting, diarrhea. Denies any headache. Denies any visual symptoms, chest pain, shortness of breath, abdominal pain. She is slow in answering and she does look like she is not her baseline and that was confirmed by the nurse who admitted her. She was much more alert, awake and appropriate. PAST MEDICAL HISTORY: Positive for congestive heart failure, seizure disorder, gastroesophageal reflux disease and some anxiety disorder. SOCIAL HISTORY: Negative for smoking, alcohol or drug use. The patient has raised foster kids. The patient does have a 15 and 16 year old who has not been sick. There is no significant outdoor activity. There is no mosquito bite or tick bite. ALLERGIES: She is listed as allergic to PENTAZOCINE. CURRENT MEDICATIONS: Reviewed. The patient is on Rocephin and Levaquin. REVIEW OF SYSTEMS: As per HPI, all other systems reviewed are negative. PHYSICAL EXAMINATION: GENERAL: Alert and oriented female, although appears to be slow in responding, not in distress. VITAL SIGNS: Stable. T-max is 102.6. HEENT: Anicteric. NECK: Supple, no JVP, no lymphadenopathy. LUNGS: Clear. HEART: S1, S2 regular. ABDOMEN: Benign. EXTREMITIES: No edema, cyanosis. SKIN: Unremarkable. NEUROLOGIC: The patient neurologically does move all the extremities. There is no focal deficit. LABORATORY DATA: White count is 3.1. In May, white count was normal. Her hemoglobin is 11.2, platelets are 127,000. BUN and creatinine is normal, creatinine is 1.4, slightly high, potassium has been replaced. AST is 54, ALT is 38. Urinalysis unremarkable. Influenza screen was negative. Blood culture is negative. Urine culture is negative. Chest x-ray has not been done. MRI of the brain, head and cervical spine CT and maxillofacial CT is negative. IMPRESSION: 1. Fever. There are multiple possibilities, most likely though is viral illness with low WBC, but her seizure medication can also cause fever. 2. Encephalopathy. 3. Possible aspiration with her passing out. 4. Seizure disorder. 5. Congestive heart failure. RECOMMENDATIONS: Recommend change antibiotics to IV Zosyn. We will get procalcitonin, we will get chest x-ray. If continues to have problem, we will do CT abdomen and pelvis. Discussion with family, i.e., daughter done at the bedside. Thank you very much, Dr. Martinez for giving me the opportunity to participate in this patient's care. JOHANA BORJSA MD DR: ROBERTO CARLOS/mary ellen JOB#: [id number] / [id number]
--- NOTE | 2017-09-10 14:32 | RAD ---
EXAM: Chest 2 views. HISTORY: Shortness of breath, aspiration. COMPARISON: 12/27/2015. FINDINGS: Frontal and lateral views of the chest are obtained. There are no confluent infiltrates. The right hemidiaphragm is mildly elevated. There is no pneumothorax or pleural effusion. The heart. Mildly enlarged on the lateral projection. IMPRESSION: 1. Mild cardiomegaly. No clear confluent infiltrates.
--- NOTE | 2017-09-10 14:43 | PDOC ---
PROGRESS NOTES Chief Complaint Chief Complaint syncope ASSESSMENT AND PLAN: 1. Fever: ongoing x3 days. leukopenia with borderline neutropenia. nonfocal exam except for GOSS. ? viral. flu A/B negative. blood cult NGTD, urine cult neg, on empiric Ceftriax. ID service input appreciated; switch to zosyn. 2. Confusion: marked yesterday, resolved today. MRI brain negative. D/C 1: 1 sitter 3. ? W/D sx: pt had benzos and narcotics in purse, with literally handfuls in the lining, found by daughter, as well as pills in bed, suggesting pt did take own supply. she denies. 4. Syncope: unclear etiology; appreciate card and neuro input; nl echo ( except PAp 34, mild-mod tricuspid regurg) . 5. Sz hx: sounds like partial sz; seeing Dr Johnson. cont lamictal; nl EEG awake/drowsy 6. ?CHF: no evidence on echo 7. Hypokalemia: severe at admit, now repleted. Mg WNL. monitor 8. N/V: postprandial. appreciate GI input 9. GERD: cont PPI 10. Vit D deficiency: severe. replete 11. Anemia: minimal, mainly inflammation related. low dose PO iron repletion 12. Prophylaxis: lovenox History of Present Illness History of Present Illness fatigued but feels much better today. GOSS slight Vitals Vitals Vital Signs Date Time Temp Pulse Resp B/P (MAP) Pulse Ox O2 Delivery O2 Flow Rate FiO2 09/10/17 12:01 102.2 102.2 09/10/17 10:59 106 18 159/82 (107) 94 Room Air Physical Exam General: Alert, Cooperative, No acute distress Heart: Regular rate Lungs: Clear Abdomen: Normal bowel sounds, Soft, No tenderness Extremities: No edema Skin: No rashes Labs LABS Laboratory Tests Test 09/10/17 12:27 Procalcitonin 0.89 ng/mL (0.00-0.10) DARIN FISHMAN MD Sep 10, 2017 14:43
--- NOTE | 2017-09-10 15:23 | PDOC ---
PROGRESS NOTES Assessment Assessment Near syncopal spell. Fall. Hypokalemia, K+ 2.8 Hx of seizure or seizure like episodes. HTN Gout GERD Vit D deficiency. Iron deficiency. Obesity. Self medicated for narcotics, may results confusion. No evidence of acute CVA this time. RECOMMENDATIONS/PLAN: Keep electrolytes balance. Vit D and Ca++ supplement. Treat medical diseases. Iron deficiency, further evaluation per floor medical team. Weight reduction. OT/PT. Discussed with her family in all detail again at bedside on 09/08/17. EEG on 09/07/17: Normal without seizure activity. HISTORY OF THE PRESENT ILLNESS: 71-y-old AA female patient with above medical diseases had a fall at home, but no loss of consciousness. She stated she felt generalized weakness and had a fall. She got up herself and drove to the ER of [facility]. Her K_+ level was found low of 2.8. PMH: Seizure like episodes,, CHF, HTN, GERD, anxiety, gout. PSHX: Cholecystectomy, hysterectomy FH: Cancer (father prostate, aunt w/ colon cancer), CVA, Other (Alzheimer's, scleroderma) Social History: Smoke: No ALCOHOL: none Drugs: None ALLERGY: Reviewed. MEDICATIONS: Refer to [facility] REVIEW OF SYSTEMS: Constitutional: Obesity. Head: No traumatic brain or head injury. Skin: No edema, or rash. Ear: No infection Eyes: No vision loss or color blindness. Nose: No bleeding or purulent discharges. Hearing: No hearing decrease. Neck: No injury. Breast: No history of cancer, masses,or discharges. Cardiac:HTN. Pulmonary: No COPD. GI: ERD. Urinary/genital: UTI. Endocrinologic: Obesity. Skeletomuscular: Generalized weakness. Neurological: see HP. Psychiatric: Denies drug use/abuse. Otherwise, not [id number] review of systems. PHYSICAL EXAMINATION: General appearance is in subacute distress. HEENT: Normocephalic and nontraumatic. Eyes, nose, ears, and throat are unremarkable. Neck is supple. No lymphadenopathy. No bruits are heard over the carotid artery. No crepitus. Cardiovascular: S1, S2, regular rate and rhythm. Pulmonary: Clear to auscultation bilaterally. Abdomen: Bowel sounds are positive. Abdomen is soft, nontender, and nondistended. Extremities: No rash, lesions, or edema. No restriction of range of motion NEUROLOGICAL EXAMINATION: Alert Oriented to time, place and person. PERRL. EOMI. CN: no focal findings. Muscle tone: within normal. Muscle strength: 5 DTR: 1-2 due to obesity. Plantar reflex: Flexor response bilaterally Gait: At baseline normal. Sensory exam: no abnormal findings. No cerebellar signs elicited. F-T-N test fine. Objective Objective Vital Signs Date Time Temp Pulse Resp B/P (MAP) Pulse Ox O2 Delivery O2 Flow Rate FiO2 09/10/17 14:44 102.2 110 18 179/90 (119) 97 Room Air 102.2 Intake and Output 09/10/17 07:00 Intake Total 300 ml Output Total 400 ml Balance -100 ml Intake Oral 300 ml Output Urine Total 400 ml # Voids 5 Vitals Signs Vitals VS - Last 72 Hours, by Label Date Time Temp Pulse Resp B/P (MAP) Pulse Ox O2 Delivery O2 Flow Rate FiO2 09/10/17 14:44 102.2 110 18 179/90 (119) 97 Room Air 102.2 09/10/17 12:01 102.2 102.2 09/10/17 10:59 99.1 106 18 159/82 (107) 94 Room Air 99.1 09/10/17 08:00 Room Air 09/10/17 06:46 98.4 108 18 133/68 (89) 94 Room Air 98.4 09/10/17 03:03 100.8 102 20 133/70 (91) 100 Room Air 100.8 09/10/17 00:26 Room Air 09/09/17 23:15 Room Air 09/09/17 23:01 102.6 101 20 157/74 (101) 100 Room Air 102.6 09/09/17 20:00 Room Air 09/09/17 19:00 98.1 92 18 170/76 (107) 100 Room Air 98.1 09/09/17 14:28 100.8 97 18 163/79 (107) 96 Room Air 100.8 09/09/17 10:44 101.5 95 18 158/76 (103) 100 Room Air 101.5 09/09/17 08:00 Room Air 09/09/17 07:10 99.5 90 17 139/77 (97) 99 Room Air 99.5 Laboratory Laboratory Laboratory Tests Test 09/10/17 12:27 Procalcitonin 0.89 ng/mL (0.00-0.10) Microbiology 09/07/17 Blood Culture - Preliminary, Resulted NO GROWTH AFTER 2 DAYS 09/07/17 Urine Culture - Final, Complete 09/07/17 Urine Culture Result 1 (NADIA) - Final, Complete Medication Medications Current Medications Doxycycline Hyclate (Vibra-Tab) 100 mg BID PO Last administered on 09/10/17 12:35; Start 09/10/17 at 12:30 Haloperidol Lactate (Haldol) 5 mg PRN Q6HRS PRN IVP AGITATION Last administered on 09/09/17 16:35; Start 09/09/17 at 16:45 Levofloxacin (Levaquin) 500 mg DAILY06 PO Last administered on 09/10/17 05:35 ; Start 09/10/17 at 06:00; Stop 09/10/17 at 11:48; Status DC Piperacillin Sod/ Tazobactam Sod (Zosyn) 3.375 gm Q6HRS IVP ; Start 09/10/17 at 12:30 Piperacillin Sod/ Tazobactam Sod 3.375 gm/Dextrose 50 ml @ 100 mls/hr Q6HRS IV ; Start 09/10/17 at 12:00; Status UNV Comment Review of Relevant I have reviewed the following items nahum (where applicable) has been applied. SHIRLEY ROSSI MD Sep 10, 2017 15:23
[2017-09-10] MEDS: PIPERACILLIN/TAZO IV Push 3.375 GM VIAL. IVP SCH ×2 (15:29→16:40)
[2017-09-10] MEDS ORDERED: ONDANSETRON PF 4 MG/2 ML VIAL. IV PRN (16:30)
[2017-09-10] MEDS: hydrALAZINE 20 MG/ML VIAL. IVP PRN (18:12)
[2017-09-10] MEDS: FERROUS SULFATE 325 MG TABLET. PO SCH (20:09)
[2017-09-11] MEDS: PIPERACILLIN/TAZO IV Push 3.375 GM VIAL. IVP SCH ×2 (01:04→05:44)
[2017-09-11 03:16] VITALS: BP 159/77
[2017-09-11 04:16] LABS: BASO % 0 % (0-3); EOS % 2 % (0-3); HEMATOCRIT 38.7 % (36.0-47.0); HEMOGLOBIN 12.7 g/dL (12.0-15.5); LYMPH # 0.8 x10^3/uL (1.0-4.8); LYMPH % 16 % (24-48); MEAN CORPUSCULAR HEMOGLOBIN 31 pg (25-35); MEAN CORPUSCULAR HGB CONC 33 g/dL (31-37); MEAN CORPUSCULAR VOLUME 95 fL (79-100); MONO % 4 % (0-9); NEUT % 79 % (31-73); PLATELET COUNT 121 x10^3/uL (140-400); RED BLOOD COUNT 4.06 x10^6/uL (3.50-5.40); RED CELL DISTRIBUTION WIDTH 13.7 % (11.5-14.5)
[2017-09-11 04:56] LABS: ALBUMIN 3.2 g/dL (3.4-5.0); ALBUMIN/GLOBULIN RATIO 0.7 (1.0-1.7); CREATININE 1.4 mg/dL (0.6-1.0); GFR 44.7; POTASSIUM 3.9 mmol/L (3.5-5.1); TOTAL BILIRUBIN 0.6 mg/dL (0.2-1.0)
[2017-09-11 06:55] VITALS: BP 158/81
[2017-09-11] MEDS: CHOLECALCIFEROL (VITAMIN D3) 5,000 UNIT CAPSULE PO SCH (08:13)
[2017-09-11] MEDS: lamoTRIgine 100 MG TABLET. PO SCH ×2 (08:13→20:47)
[2017-09-11] MEDS: ALLOPURINOL 100 MG TABLET. PO SCH (08:13)
[2017-09-11] MEDS: diazePAM 5 MG TABLET PO SCH ×2 (08:13→20:47)
[2017-09-11] MEDS: CALCIUM CARBONATE 500 MG TABLET PO SCH ×2 (08:13→20:47)
[2017-09-11] MEDS: DOXYCYCLINE HYCLATE 100 MG TABLET PO SCH ×2 (08:13→20:47)
[2017-09-11] MEDS: LACTOBACILLUS RHAMNOSUS GG 1 CAPSULE. PO SCH ×2 (08:14→20:47)
[2017-09-11] MEDS: ASA/APAP/CAFFEINE 250/250/65MG TABLET. PO PRN (08:14)
[2017-09-11] MEDS: PANTOPRAZOLE 40 MG TABLET.DR. PO SCH (08:14)
[2017-09-11 10:13] VITALS: BP 188/84
[2017-09-11] MEDS: POTASSIUM CL 20MEQ-0.45% NACL 1,000 ML IV SCH ×2 (10:28→20:47)
[2017-09-11] MEDS: hydrALAZINE 20 MG/ML VIAL. IVP PRN ×3 (10:31→22:41)
--- NOTE | 2017-09-11 11:37 | PDOC ---
Infectious Disease Note Subjective Subjective pt feeling ok, awake, c/o headache, cont fever, bit confused still ROS ROS GEN: Denies fevers, chills, sweats HEENT: Denies blurred vision, sore throat CV: Denies chest pain RESP: Denies shortness of air, cough GI: Denies n/v/d NEURO: Denies confusion, dizziness MSK: Denies weakness, joint pain/swelling Vital Sign Vital Signs Vital Signs Date Time Temp Pulse Resp B/P (MAP) Pulse Ox O2 Delivery O2 Flow Rate FiO2 09/11/17 10:31 102 188/84 09/11/17 10:13 101.3 18 99 Room Air 101.3 Physical Exam PHYSICAL EXAM GENERAL: NAD, Alert HEENT: PERRL, OC/OP NECK: Supple, no JVD, no LN,,, no stiffness LUNGS: Clear HEART: S1S2, no gallop, no murmur ABD: Soft, NT, no organomegaly, no rebound EXT: No edema, no cyanosis [employer]OYEE [employer]ACEMENT [employer]IST: Alert, oriented x 3, no focal neurologic deficit SKIN: No rash IV: ok Labs Lab Laboratory Tests Test 09/10/17 12:27 09/10/17 16:05 09/11/17 03:20 Procalcitonin 0.89 ng/mL (0.00-0.10) Ammonia < 10 mcmol/L (11-34) White Blood Count 5.0 x10^3/uL (4.0-11.0) Red Blood Count 4.06 x10^6/uL (3.50-5.40) Hemoglobin 12.7 g/dL (12.0-15.5) Hematocrit 38.7 % (36.0-47.0) Mean Corpuscular Volume 95 fL (79-100) Mean Corpuscular Hemoglobin 31 pg (25-35) Mean Corpuscular Hemoglobin Concent 33 g/dL (31-37) Red Cell Distribution Width 13.7 % (11.5-14.5) Platelet Count 121 x10^3/uL (140-400) Neutrophils (%) (Auto) 79 % (31-73) Lymphocytes (%) (Auto) 16 % (24-48) Monocytes (%) (Auto) 4 % (0-9) Eosinophils (%) (Auto) 2 % (0-3) Basophils (%) (Auto) 0 % (0-3) Neutrophils # (Auto) 3.9 x10^3uL (1.8-7.7) Lymphocytes # (Auto) 0.8 x10^3/uL (1.0-4.8) Monocytes # (Auto) 0.2 x10^3/uL (0.0-1.1) Eosinophils # (Auto) 0.1 x10^3/uL (0.0-0.7) Basophils # (Auto) 0.0 x10^3/uL (0.0-0.2) Sodium Level 132 mmol/L (136-145) Potassium Level 3.9 mmol/L (3.5-5.1) Chloride Level 96 mmol/L (98-107) Carbon Dioxide Level 26 mmol/L (21-32) Anion Gap 10 (6-14) Blood Urea Nitrogen 14 mg/dL (7-20) Creatinine 1.4 mg/dL (0.6-1.0) Estimated GFR (Cockcroft-Gault) 44.7 BUN/Creatinine Ratio 10 (6-20) Glucose Level 100 mg/dL (70-99) Calcium Level 9.0 mg/dL (8.5-10.1) Total Bilirubin 0.6 mg/dL (0.2-1.0) Aspartate Amino Transf (AST/SGOT) 216 U/L (15-37) Alanine Aminotransferase (ALT/SGPT) 117 U/L (14-59) Alkaline Phosphatase 141 U/L (46-116) Total Protein 8.0 g/dL (6.4-8.2) Albumin 3.2 g/dL (3.4-5.0) Albumin/Globulin Ratio 0.7 (1.0-1.7) Objective Assessment Fever , likely viral illness Seizure Encephalopathy Syncope CHF Possible aspiration Plan Plan of Care change antibiotics to cefepime for csf penetration, less likely has meningitis, but will get LP done, and ct chest, abd and pelvis JOHANA BORJAS MD Sep 11, 2017 11:37
--- NOTE | 2017-09-11 11:39 | PDOC ---
Subjective: Subjective: Didn't eat today. Objective: Vital Signs: Vital Signs Date Time Temp Pulse Resp B/P (MAP) Pulse Ox O2 Delivery O2 Flow Rate FiO2 09/11/17 10:31 102 188/84 09/11/17 10:13 101.3 18 99 Room Air 101.3 Labs: Laboratory Tests Test 09/10/17 12:27 09/10/17 16:05 09/11/17 03:20 Procalcitonin 0.89 ng/mL Ammonia < 10 mcmol/L White Blood Count 5.0 x10^3/uL Red Blood Count 4.06 x10^6/uL Hemoglobin 12.7 g/dL Hematocrit 38.7 % Mean Corpuscular Volume 95 fL Mean Corpuscular Hemoglobin 31 pg Mean Corpuscular Hemoglobin Concent 33 g/dL Red Cell Distribution Width 13.7 % Platelet Count 121 x10^3/uL Neutrophils (%) (Auto) 79 % Lymphocytes (%) (Auto) 16 % Monocytes (%) (Auto) 4 % Eosinophils (%) (Auto) 2 % Basophils (%) (Auto) 0 % Neutrophils # (Auto) 3.9 x10^3uL Lymphocytes # (Auto) 0.8 x10^3/uL Monocytes # (Auto) 0.2 x10^3/uL Eosinophils # (Auto) 0.1 x10^3/uL Basophils # (Auto) 0.0 x10^3/uL Sodium Level 132 mmol/L Potassium Level 3.9 mmol/L Chloride Level 96 mmol/L Carbon Dioxide Level 26 mmol/L Anion Gap 10 Blood Urea Nitrogen 14 mg/dL Creatinine 1.4 mg/dL Estimated GFR (Cockcroft-Gault) 44.7 BUN/Creatinine Ratio 10 Glucose Level 100 mg/dL Calcium Level 9.0 mg/dL Total Bilirubin 0.6 mg/dL Aspartate Amino Transf (AST/SGOT) 216 U/L Alanine Aminotransferase (ALT/SGPT) 117 U/L Alkaline Phosphatase 141 U/L Total Protein 8.0 g/dL Albumin 3.2 g/dL Albumin/Globulin Ratio 0.7 Imaging: CXR 09/10 IMPRESSION: 1. Mild cardiomegaly. No clear confluent infiltrates. PE: GEN: NAD LUNGS: CTAB HEART: tachycardic ABD: S/ND/NT NEURO/PSYCH: probably confused A/P: Encephalopathy Fever Elevated LFTs - new, s/p cholecystectomy N/v/dyspepsia, anorexia - on PPI Anemia, thrombocytopenia - on PO iron -- Will review w/ Dr. Figueroa. MARTHA CHI Sep 11, 2017 11:39
--- NOTE | 2017-09-11 12:48 | PDOC ---
PROGRESS NOTES Chief Complaint Chief Complaint syncope ASSESSMENT AND PLAN: 1. Fever: ongoing x3 days. leukopenia with borderline neutropenia. nonfocal exam except for GOSS. ? viral. flu A/B negative. blood cult NGTD, urine cult neg, on empiric Ceftriax. ID service input appreciated; switch to zosyn. 2. Confusion: marked yesterday, resolved today. MRI brain negative. D/C 1: 1 sitter 3. ? W/D sx: pt had benzos and narcotics in purse, with literally handfuls in the lining, found by daughter, as well as pills in bed, suggesting pt did take own supply. she denies. 4. Syncope: unclear etiology; appreciate card and neuro input; nl echo ( except PAp 34, mild-mod tricuspid regurg) . 5. Sz hx: sounds like partial sz; seeing Dr Johnson. cont lamictal; nl EEG awake/drowsy 6. ?CHF: no evidence on echo 7. Hypokalemia: severe at admit, now repleted. Mg WNL. monitor 8. N/V: postprandial. appreciate GI input 9. GERD: cont PPI 10. Vit D deficiency: severe. replete 11. Anemia: minimal, mainly inflammation related. low dose PO iron repletion 12. Prophylaxis: lovenox 13. consider occult malignancy or myelodysplasia plan oncology consult IGG, IGM, IGA IMMUNOELECTROPHORESIS, SERUM AND URINE BETA-2 MICROGLOBULIN History of Present Illness History of Present Illness fatigued but feels much better today. GOSS slight Vitals Vitals Vital Signs Date Time Temp Pulse Resp B/P (MAP) Pulse Ox O2 Delivery O2 Flow Rate FiO2 09/11/17 10:31 102 188/84 09/11/17 10:13 101.3 18 99 Room Air 101.3 Physical Exam Physical Exam EXAM: Chest 2 views. HISTORY: Shortness of breath, aspiration. COMPARISON: 12/27/2015. FINDINGS: Frontal and lateral views of the chest are obtained. There are no confluent infiltrates. The right hemidiaphragm is mildly elevated. There is no pneumothorax or pleural effusion. The heart. Mildly enlarged on the lateral projection. IMPRESSION: 1. Mild cardiomegaly. No clear confluent infiltrates. General: Alert, Cooperative, No acute distress Heart: Regular rate Lungs: Clear Abdomen: Normal bowel sounds, Soft, No tenderness Extremities: No edema Skin: No rashes Labs LABS Laboratory Tests Test 09/10/17 16:05 09/11/17 03:20 Ammonia < 10 mcmol/L (11-34) White Blood Count 5.0 x10^3/uL (4.0-11.0) Red Blood Count 4.06 x10^6/uL (3.50-5.40) Hemoglobin 12.7 g/dL (12.0-15.5) Hematocrit 38.7 % (36.0-47.0) Mean Corpuscular Volume 95 fL (79-100) Mean Corpuscular Hemoglobin 31 pg (25-35) Mean Corpuscular Hemoglobin Concent 33 g/dL (31-37) Red Cell Distribution Width 13.7 % (11.5-14.5) Platelet Count 121 x10^3/uL (140-400) Neutrophils (%) (Auto) 79 % (31-73) Lymphocytes (%) (Auto) 16 % (24-48) Monocytes (%) (Auto) 4 % (0-9) Eosinophils (%) (Auto) 2 % (0-3) Basophils (%) (Auto) 0 % (0-3) Neutrophils # (Auto) 3.9 x10^3uL (1.8-7.7) Lymphocytes # (Auto) 0.8 x10^3/uL (1.0-4.8) Monocytes # (Auto) 0.2 x10^3/uL (0.0-1.1) Eosinophils # (Auto) 0.1 x10^3/uL (0.0-0.7) Basophils # (Auto) 0.0 x10^3/uL (0.0-0.2) Sodium Level 132 mmol/L (136-145) Potassium Level 3.9 mmol/L (3.5-5.1) Chloride Level 96 mmol/L (98-107) Carbon Dioxide Level 26 mmol/L (21-32) Anion Gap 10 (6-14) Blood Urea Nitrogen 14 mg/dL (7-20) Creatinine 1.4 mg/dL (0.6-1.0) Estimated GFR (Cockcroft-Gault) 44.7 BUN/Creatinine Ratio 10 (6-20) Glucose Level 100 mg/dL (70-99) Calcium Level 9.0 mg/dL (8.5-10.1) Total Bilirubin 0.6 mg/dL (0.2-1.0) Aspartate Amino Transf (AST/SGOT) 216 U/L (15-37) Alanine Aminotransferase (ALT/SGPT) 117 U/L (14-59) Alkaline Phosphatase 141 U/L (46-116) Total Protein 8.0 g/dL (6.4-8.2) Albumin 3.2 g/dL (3.4-5.0) Albumin/Globulin Ratio 0.7 (1.0-1.7) Review of Systems Review of Systems HAS NOTED RUQ PAIN AFTER MEALS PLAN US OF ABD, CT ABD Assessment and Plan Assessmemt and Plan Problems Medical Problems: (1) Closed head injury Status: Acute (2) Epigastric pain Status: Acute (3) Fall Status: Acute (4) Hypokalemia Status: Acute Problems: Comment Review of Relevant I have reviewed the following items nahum (where applicable) has been applied. Labs Laboratory Tests Test 09/10/17 12:27 09/10/17 16:05 09/11/17 03:20 Procalcitonin 0.89 ng/mL (0.00-0.10) Ammonia < 10 mcmol/L (11-34) White Blood Count 5.0 x10^3/uL (4.0-11.0) Red Blood Count 4.06 x10^6/uL (3.50-5.40) Hemoglobin 12.7 g/dL (12.0-15.5) Hematocrit 38.7 % (36.0-47.0) Mean Corpuscular Volume 95 fL (79-100) Mean Corpuscular Hemoglobin 31 pg (25-35) Mean Corpuscular Hemoglobin Concent 33 g/dL (31-37) Red Cell Distribution Width 13.7 % (11.5-14.5) Platelet Count 121 x10^3/uL (140-400) Neutrophils (%) (Auto) 79 % (31-73) Lymphocytes (%) (Auto) 16 % (24-48) Monocytes (%) (Auto) 4 % (0-9) Eosinophils (%) (Auto) 2 % (0-3) Basophils (%) (Auto) 0 % (0-3) Neutrophils # (Auto) 3.9 x10^3uL (1.8-7.7) Lymphocytes # (Auto) 0.8 x10^3/uL (1.0-4.8) Monocytes # (Auto) 0.2 x10^3/uL (0.0-1.1) Eosinophils # (Auto) 0.1 x10^3/uL (0.0-0.7) Basophils # (Auto) 0.0 x10^3/uL (0.0-0.2) Sodium Level 132 mmol/L (136-145) Potassium Level 3.9 mmol/L (3.5-5.1) Chloride Level 96 mmol/L (98-107) Carbon Dioxide Level 26 mmol/L (21-32) Anion Gap 10 (6-14) Blood Urea Nitrogen 14 mg/dL (7-20) Creatinine 1.4 mg/dL (0.6-1.0) Estimated GFR (Cockcroft-Gault) 44.7 BUN/Creatinine Ratio 10 (6-20) Glucose Level 100 mg/dL (70-99) Calcium Level 9.0 mg/dL (8.5-10.1) Total Bilirubin 0.6 mg/dL (0.2-1.0) Aspartate Amino Transf (AST/SGOT) 216 U/L (15-37) Alanine Aminotransferase (ALT/SGPT) 117 U/L (14-59) Alkaline Phosphatase 141 U/L (46-116) Total Protein 8.0 g/dL (6.4-8.2) Albumin 3.2 g/dL (3.4-5.0) Albumin/Globulin Ratio 0.7 (1.0-1.7) Laboratory Tests Test 09/10/17 16:05 09/11/17 03:20 Ammonia < 10 mcmol/L (11-34) White Blood Count 5.0 x10^3/uL (4.0-11.0) Red Blood Count 4.06 x10^6/uL (3.50-5.40) Hemoglobin 12.7 g/dL (12.0-15.5) Hematocrit 38.7 % (36.0-47.0) Mean Corpuscular Volume 95 fL (79-100) Mean Corpuscular Hemoglobin 31 pg (25-35) Mean Corpuscular Hemoglobin Concent 33 g/dL (31-37) Red Cell Distribution Width 13.7 % (11.5-14.5) Platelet Count 121 x10^3/uL (140-400) Neutrophils (%) (Auto) 79 % (31-73) Lymphocytes (%) (Auto) 16 % (24-48) Monocytes (%) (Auto) 4 % (0-9) Eosinophils (%) (Auto) 2 % (0-3) Basophils (%) (Auto) 0 % (0-3) Neutrophils # (Auto) 3.9 x10^3uL (1.8-7.7) Lymphocytes # (Auto) 0.8 x10^3/uL (1.0-4.8) Monocytes # (Auto) 0.2 x10^3/uL (0.0-1.1) Eosinophils # (Auto) 0.1 x10^3/uL (0.0-0.7) Basophils # (Auto) 0.0 x10^3/uL (0.0-0.2) Sodium Level 132 mmol/L (136-145) Potassium Level 3.9 mmol/L (3.5-5.1) Chloride Level 96 mmol/L (98-107) Carbon Dioxide Level 26 mmol/L (21-32) Anion Gap 10 (6-14) Blood Urea Nitrogen 14 mg/dL (7-20) Creatinine 1.4 mg/dL (0.6-1.0) Estimated GFR (Cockcroft-Gault) 44.7 BUN/Creatinine Ratio 10 (6-20) Glucose Level 100 mg/dL (70-99) Calcium Level 9.0 mg/dL (8.5-10.1) Total Bilirubin 0.6 mg/dL (0.2-1.0) Aspartate Amino Transf (AST/SGOT) 216 U/L (15-37) Alanine Aminotransferase (ALT/SGPT) 117 U/L (14-59) Alkaline Phosphatase 141 U/L (46-116) Total Protein 8.0 g/dL (6.4-8.2) Albumin 3.2 g/dL (3.4-5.0) Albumin/Globulin Ratio 0.7 (1.0-1.7) Microbiology 09/07/17 Blood Culture - Preliminary, Resulted NO GROWTH AFTER 3 DAYS 09/07/17 Urine Culture - Final, Complete 09/07/17 Urine Culture Result 1 (NADIA) - Final, Complete Medications Current Medications Acetaminophen (Tylenol) 650 mg 1X ONCE PO Last administered on 09/06/17 11: 03; Start 09/06/17 at 10:15; Stop 09/06/17 at 10:16; Status DC Potassium Chloride (Klor-Con) 40 meq 1X ONCE PO Last administered on 11:03; Start 09/06/17 at 11:00; Stop 09/06/17 at 11:01; Status DC Pantoprazole Sodium (Protonix) 40 mg 1X ONCE PO Last administered on 12:29; Start 09/06/17 at 11:45; Stop 09/06/17 at 11:46; Status DC Acetaminophen (Tylenol) 650 mg PRN Q6HRS PRN PO pain Last administered on 09/10 20:09; Start 09/06/17 at 11:45 Pantoprazole Sodium (Protonix) 40 mg DAILY PO Last administered on 09/11/17 08:14; Start 09/07/17 at 09:00 Potassium Chloride (Klor-Con) 40 meq Q6H PO Last administered on 09/07/17 14: 15; Start 09/06/17 at 18:00; Stop 09/07/17 at 13:00; Status DC Allopurinol (Zyloprim) 100 mg DAILY PO Last administered on 09/11/17 08:13; Start 09/07/17 at 09:00 Diazepam (Valium) 5 mg BID PO Last administered on 09/11/17 08:13; Start at 21:00 Acetaminophen/ Hydrocodone Bitart (Lortab 5/325) 1 tab PRN Q6HRS PRN PO PAIN Last administered on 09/09/17 23:15; Start 09/06/17 at 19:15 Lamotrigine (LaMICtal) 100 mg BID PO Last administered on 09/11/17 08:13; Start 09/06/17 at 21:00 Hydralazine HCl (Apresoline Inj) 10 mg PRN Q4HRS PRN IVP ELEVATED BP, SEE COMMENTS Last administered on 09/11/17 10:31; Start 09/06/17 at 19:45 Vitamin D (Vitamin D3) 5,000 unit DAILY PO Last administered on 09/11/17 08: 13; Start 09/07/17 at 15:00 Calcium Carbonate/ Glycine (Oscal) 500 mg BID PO Last administered on 08:13; Start 09/07/17 at 21:00 Ceftriaxone Sodium 1 gm/ Dextrose 50 ml @ 100 mls/hr Q24H IV ; Start 09/07/17 at 16:15; Status UNV Ceftriaxone Sodium (Rocephin) 1 gm Q24H IVP Last administered on 09/08/17 17: 00; Start 09/07/17 at 17:00; Stop 09/10/17 at 11:48; Status DC Acetaminophen/ Aspirin/Caffeine (Excedrin Migraine) 1 tab PRN Q6HRS PRN PO MIGRAINE HEADACHE Last administered on 09/11/17 08:14; Start 09/08/17 at 11: 30 Potassium Chloride/Sodium Chloride 1,000 ml @ 75 mls/hr [id number] IV Last administered on 09/11/17 10:28; Start 09/08/17 at 12:00 Lactobacillus Rhamnosus (Culturelle) 1 cap BID PO Last administered on 08:14; Start 09/08/17 at 21:00 Magnesium Sulfate/ Dextrose 50 ml @ 25 mls/hr 1X ONCE IV Last administered on 09/08/17 18:01; Start 09/08/17 at 17:45; Stop 09/08/17 at 19:44; Status DC Ferrous Sulfate (Feosol) 325 mg QHS PO Last administered on 09/10/17 20:09; Start 09/08/17 at 21:00 Haloperidol Lactate (Haldol) 5 mg PRN Q6HRS PRN IVP AGITATION Last administered on 09/09/17 16:35; Start 09/09/17 at 16:45 Levofloxacin (Levaquin) 500 mg DAILY06 PO Last administered on 09/10/17 05:35 ; Start 09/10/17 at 06:00; Stop 09/10/17 at 11:48; Status DC Piperacillin Sod/ Tazobactam Sod 3.375 gm/Dextrose 50 ml @ 100 mls/hr Q6HRS IV ; Start 09/10/17 at 12:00; Status UNV Doxycycline Hyclate (Vibra-Tab) 100 mg BID PO Last administered on 09/11/17 08:13; Start 09/10/17 at 12:30 Piperacillin Sod/ Tazobactam Sod (Zosyn) 3.375 gm Q6HRS IVP Last administered on 09/11/17 05:44; Start 09/10/17 at 12:30; Stop 09/11/17 at 11:32; Status DC Ondansetron HCl (Zofran) 4 mg PRN Q6HRS PRN IV NAUSEA/VOMITING Last administered on 09/10/17 16:36; Start 09/10/17 at 16:30 Cefepime HCl 1 gm/ Dextrose 50 ml @ 100 mls/hr Q8HRS IV ; Start 09/11/17 at 14 :00; Stop 09/11/17 at 14:00; Status DC Cefepime HCl (Maxipime) 1 gm Q8HRS IVP ; Start 09/11/17 at 14:00 Active Scripts Active Levetiracetam 500 Mg Tablet 500 Mg PO BID Cyclobenzaprine Hcl 10 Mg Tablet 10 Mg PO BID Indomethacin 50 Mg Capsule 1 Cap PO TID Reported Amlodipine Besylate 5 Mg Tablet 5 Mg PO DAILY Diazepam 5 Mg Tablet 5 Mg PO BID Dicyclomine Hcl 20 Mg Tablet 20 Mg PO QID PRN Lamotrigine 100 Mg Tablet 1 Tab PO BID Indomethacin 50 Mg Capsule 1 Cap PO TID Maxzide 37.5 Mg-25 Mg Tablet (Triamterene/Hydrochlorothiazid) 1 Each Tablet 1 Each PO Hydrocodone-Apap 5-325 (Hydrocodone Bit/Acetaminophen) 1 Each Tablet 1 Tab PO PRN Q6HRS PRN Allopurinol 100 Mg Tablet 100 Mg PO Vitals/I & O Vital Sign - Last 24 Hours 09/10/17 09/10/17 09/10/17 09/10/17 14:44 15:30 16:44 18:12 Temp 102.2 102.7 102.6 102.2 102.7 102.6 Pulse 110 92 Resp 18 B/P (MAP) 179/90 (119) 179/71 Pulse Ox 97 O2 Delivery Room Air 09/10/17 09/10/17 09/10/17 09/10/17 18:28 19:48 20:00 23:19 Temp 103.3 102.7 103.3 102.7 Pulse 108 115 107 Resp 20 20 B/P (MAP) 194/90 (124) 153/73 (99) 161/75 (103) Pulse Ox 100 97 O2 Delivery Room Air Room Air Room Air 09/11/17 09/11/17 09/11/17 09/11/17 03:16 06:55 08:00 10:13 Temp 101.7 103.1 101.3 101.7 103.1 101.3 Pulse 105 105 102 Resp 18 B/P (MAP) 159/77 (104) 158/81 (106) 188/84 (118) Pulse Ox 98 97 99 O2 Delivery Room Air Room Air Room Air Room Air 09/11/17 10:31 Pulse 102 B/P (MAP) 188/84 Intake and Output 09/10/17 09/10/17 09/11/17 15:00 23:00 07:00 Intake Total 1120 ml 210 ml Output Total 100 ml 50 ml 350 ml Balance 1020 ml -50 ml -140 ml CHERYL RUIZ MD Sep 11, 2017 12:48
[2017-09-11 13:07] LABS: INR 1.1 (0.8-1.1); PROTHROMBIN TIME PATIENT 13.3 SEC (11.7-14.0)
[2017-09-11] MEDS ORDERED: LIDOCAINE 1% / SOD BICARB 8.4% 20 ML VIAL. IJ ONE (13:30)
[2017-09-11] MEDS ORDERED: CEFEPIME HCL 1 GM in IV DEXTROSE 5% 50 ML IV SCH (14:00)
--- NOTE | 2017-09-11 14:51 | PDOC ---
SURGICAL PROGRESS NOTE Subjective Consult received Pt out of room for LP Vital Signs Vital Signs Date Time Temp Pulse Resp B/P (MAP) Pulse Ox O2 Delivery O2 Flow Rate FiO2 09/11/17 10:31 102 188/84 09/11/17 10:13 101.3 18 99 Room Air 101.3 I&O Intake and Output 09/11/17 07:00 Intake Total 1330 ml Output Total 500 ml Balance 830 ml Intake Oral 1330 ml Output Urine Total 350 ml Emesis 150 ml # Voids 3 Labs Laboratory Tests Test 09/10/17 12:27 09/10/17 16:05 09/11/17 03:20 09/11/17 12:40 Procalcitonin 0.89 ng/mL (0.00-0.10) Ammonia < 10 mcmol/L (11-34) White Blood Count 5.0 x10^3/uL (4.0-11.0) Red Blood Count 4.06 x10^6/uL (3.50-5.40) Hemoglobin 12.7 g/dL (12.0-15.5) Hematocrit 38.7 % (36.0-47.0) Mean Corpuscular Volume 95 fL (79-100) Mean Corpuscular Hemoglobin 31 pg (25-35) Mean Corpuscular Hemoglobin Concent 33 g/dL (31-37) Red Cell Distribution Width 13.7 % (11.5-14.5) Platelet Count 121 x10^3/uL (140-400) Neutrophils (%) (Auto) 79 % (31-73) Lymphocytes (%) (Auto) 16 % (24-48) Monocytes (%) (Auto) 4 % (0-9) Eosinophils (%) (Auto) 2 % (0-3) Basophils (%) (Auto) 0 % (0-3) Neutrophils # (Auto) 3.9 x10^3uL (1.8-7.7) Lymphocytes # (Auto) 0.8 x10^3/uL (1.0-4.8) Monocytes # (Auto) 0.2 x10^3/uL (0.0-1.1) Eosinophils # (Auto) 0.1 x10^3/uL (0.0-0.7) Basophils # (Auto) 0.0 x10^3/uL (0.0-0.2) Sodium Level 132 mmol/L (136-145) Potassium Level 3.9 mmol/L (3.5-5.1) Chloride Level 96 mmol/L (98-107) Carbon Dioxide Level 26 mmol/L (21-32) Anion Gap 10 (6-14) Blood Urea Nitrogen 14 mg/dL (7-20) Creatinine 1.4 mg/dL (0.6-1.0) Estimated GFR (Cockcroft-Gault) 44.7 BUN/Creatinine Ratio 10 (6-20) Glucose Level 100 mg/dL (70-99) Calcium Level 9.0 mg/dL (8.5-10.1) Total Bilirubin 0.6 mg/dL (0.2-1.0) Aspartate Amino Transf (AST/SGOT) 216 U/L (15-37) Alanine Aminotransferase (ALT/SGPT) 117 U/L (14-59) Alkaline Phosphatase 141 U/L (46-116) Total Protein 8.0 g/dL (6.4-8.2) Albumin 3.2 g/dL (3.4-5.0) Albumin/Globulin Ratio 0.7 (1.0-1.7) Prothrombin Time 13.3 SEC (11.7-14.0) Prothromb Time International Ratio 1.1 (0.8-1.1) Laboratory Tests Test 09/10/17 16:05 09/11/17 03:20 09/11/17 12:40 Ammonia < 10 mcmol/L (11-34) White Blood Count 5.0 x10^3/uL (4.0-11.0) Red Blood Count 4.06 x10^6/uL (3.50-5.40) Hemoglobin 12.7 g/dL (12.0-15.5) Hematocrit 38.7 % (36.0-47.0) Mean Corpuscular Volume 95 fL (79-100) Mean Corpuscular Hemoglobin 31 pg (25-35) Mean Corpuscular Hemoglobin Concent 33 g/dL (31-37) Red Cell Distribution Width 13.7 % (11.5-14.5) Platelet Count 121 x10^3/uL (140-400) Neutrophils (%) (Auto) 79 % (31-73) Lymphocytes (%) (Auto) 16 % (24-48) Monocytes (%) (Auto) 4 % (0-9) Eosinophils (%) (Auto) 2 % (0-3) Basophils (%) (Auto) 0 % (0-3) Neutrophils # (Auto) 3.9 x10^3uL (1.8-7.7) Lymphocytes # (Auto) 0.8 x10^3/uL (1.0-4.8) Monocytes # (Auto) 0.2 x10^3/uL (0.0-1.1) Eosinophils # (Auto) 0.1 x10^3/uL (0.0-0.7) Basophils # (Auto) 0.0 x10^3/uL (0.0-0.2) Sodium Level 132 mmol/L (136-145) Potassium Level 3.9 mmol/L (3.5-5.1) Chloride Level 96 mmol/L (98-107) Carbon Dioxide Level 26 mmol/L (21-32) Anion Gap 10 (6-14) Blood Urea Nitrogen 14 mg/dL (7-20) Creatinine 1.4 mg/dL (0.6-1.0) Estimated GFR (Cockcroft-Gault) 44.7 BUN/Creatinine Ratio 10 (6-20) Glucose Level 100 mg/dL (70-99) Calcium Level 9.0 mg/dL (8.5-10.1) Total Bilirubin 0.6 mg/dL (0.2-1.0) Aspartate Amino Transf (AST/SGOT) 216 U/L (15-37) Alanine Aminotransferase (ALT/SGPT) 117 U/L (14-59) Alkaline Phosphatase 141 U/L (46-116) Total Protein 8.0 g/dL (6.4-8.2) Albumin 3.2 g/dL (3.4-5.0) Albumin/Globulin Ratio 0.7 (1.0-1.7) Prothrombin Time 13.3 SEC (11.7-14.0) Prothromb Time International Ratio 1.1 (0.8-1.1) Problem List Problems Medical Problems: (1) Closed head injury Status: Acute (2) Epigastric pain Status: Acute (3) Fall Status: Acute (4) Hypokalemia Status: Acute Problems: KADEN SMITH MD Sep 11, 2017 14:51
--- NOTE | 2017-09-11 14:58 | RAD ---
EXAM: FLUOROSCOPICALLY GUIDED LUMBAR PUNCTURE. HISTORY: Fever, confusion, headache. Lumbar puncture is requested. TECHNIQUE: The procedure along with its risks and benefits were discussed with the patient and written and verbal consent were obtained. A timeout procedure was performed. The L3-4 level was visualized fluoroscopically. The overlying skin was sterilely prepped and infiltrated with 1% lidocaine for local anesthesia. Under fluoroscopic guidance, a 22-gauge spinal needle was advanced into the thecal sac. There was spontaneous return of clear cerebrospinal fluid. 11 mL CSF were collected and sent requested analysis. Instrumentation was withdrawn and a sterile dressing placed. There were no immediate complications. One fluoroscopic image was obtained. Fluoroscopy time 0.4 minutes. Postprocedural instructions were provided. IMPRESSION: 1. Successful fluoroscopically guided lumbar puncture.
[2017-09-11 15:12] VITALS: BP 163/76
[2017-09-11] MEDS: CEFEPIME HCL IV Push 1 GM VIAL. IVP SCH ×2 (15:21→22:41)
[2017-09-11] MEDS: ACETAMINOPHEN 325 MG TABLET. PO PRN ×2 (15:21→22:40)
[2017-09-11 15:22] LABS: CSF PROTEIN 79.2 mg/dL (15.0-45.0)
--- NOTE | 2017-09-11 15:36 | RAD ---
CT chest abdomen and pelvis without contrast HISTORY: Fever TECHNIQUE: Noncontrast CT imaging was performed of the chest, abdomen, pelvis. Multiplanar reconstruction images are submitted. Exposure: One or more of the following individualized dose reduction techniques were utilized for this examination: 1. Automated exposure control 2. Adjustment of the mA and/or kV according to patient size 3. Use of iterative reconstruction technique. COMPARISON: None CHEST: FINDINGS: There is motion degradation. There is no significant infiltrate, pleural or pericardial effusion, pneumothorax. Thoracic aortic caliber is within normal limits. There is coronary calcification. No significantly enlarged lymph nodes are identified of the chest. IMPRESSION: 1. There is no infiltrate. 2. There is coronary calcification. Abdomen and pelvis: FINDINGS: Accurate evaluation of abdominal visceral organs is limited without intravenous contrast. No obvious focal abnormality of the liver or spleen. There is mild hazy density about the pancreatic head and uncinate process. Node anterior to the inferior vena cava measures 0.8 cm short axis dimension. There are bilateral renal calculi. Inferior right renal calculus measures 9 to 10 mm. There is approximate 2 to 3 mm inferior left renal calculus. There is mild right pelviectasis. There is no significant hydroureter. Some small calculi in the right pelvis are probably due to phleboliths. There is no significant adrenal nodularity. Accurate evaluation of bowel is limited without oral contrast. There is no significant bowel dilatation, free air, free fluid. Appendix is not clearly identified if still present. IMPRESSION: 1. There is mild hazy density about the pancreatic head, pancreatitis not excluded for which correlation with laboratory findings advised if not already performed. 2. There are bilateral renal calculi. Electronically signed by: Rowdy Ibanez MD (09/11/2017 3:32 PM) [id number]
[2017-09-11 15:40] LABS: CSF CLARITY CLEAR; CSF COLOR COLORLESS; CSF PMN % 80 %
--- NOTE | 2017-09-11 15:50 | PDOC2 ---
CONSULT Date of Consult Date of Consult DATE: 09/11/17 TIME: 15:46 Reason for Consult Reason for Consult: RUQ pain Referring Physician Referring Physician: Maulik Identification/Chief Complaint Chief Complaint abd pain Problems: Source Source: Chart review, Patient History of Present Illness Reason for Visit: 71 yo F admitted to hospital for concern for syncopal episode. Concern for infection of unknown etiology. C/o mild abd pain. Pt seen in hospital room. Appears to be having chills and mild confusion. Past Medical History Cardiovascular: CHF, HTN Pulmonary: No pertinent hx CENTRAL NERVOUS SYSTEM: Seizure GI: GERD Heme/Onc: No pertinent hx Hepatobiliary: No pertinent hx Psych: Anxiety Musculoskeletal: Osteoarthritis Rheumatologic: Gout Infectious disease: No pertinent hx ENT: No pertinent hx Renal/: No pertinent hx Endocrine: No pertinent hx Dermatology: No pertinent hx Past Surgical History Past Surgical History: Cholecystectomy, Hysterectomy Family History Family History: Cancer, Stroke, Other (scleroderma ) Social History No ALCOHOL: none Drugs: None Lives: with Family Current Problem List Problem List Problems Medical Problems: (1) Closed head injury Status: Acute (2) Epigastric pain Status: Acute (3) Fall Status: Acute (4) Hypokalemia Status: Acute Current Medications Current Medications Current Medications Acetaminophen (Tylenol) 650 mg 1X ONCE PO Last administered on 09/06/17 11: 03; Start 09/06/17 at 10:15; Stop 09/06/17 at 10:16; Status DC Potassium Chloride (Klor-Con) 40 meq 1X ONCE PO Last administered on 11:03; Start 09/06/17 at 11:00; Stop 09/06/17 at 11:01; Status DC Pantoprazole Sodium (Protonix) 40 mg 1X ONCE PO Last administered on 12:29; Start 09/06/17 at 11:45; Stop 09/06/17 at 11:46; Status DC Acetaminophen (Tylenol) 650 mg PRN Q6HRS PRN PO pain Last administered on 09/11 15:21; Start 09/06/17 at 11:45 Pantoprazole Sodium (Protonix) 40 mg DAILY PO Last administered on 09/11/17 08:14; Start 09/07/17 at 09:00 Potassium Chloride (Klor-Con) 40 meq Q6H PO Last administered on 09/07/17 14: 15; Start 09/06/17 at 18:00; Stop 09/07/17 at 13:00; Status DC Allopurinol (Zyloprim) 100 mg DAILY PO Last administered on 09/11/17 08:13; Start 09/07/17 at 09:00 Diazepam (Valium) 5 mg BID PO Last administered on 09/11/17 08:13; Start at 21:00 Acetaminophen/ Hydrocodone Bitart (Lortab 5/325) 1 tab PRN Q6HRS PRN PO PAIN Last administered on 09/09/17 23:15; Start 09/06/17 at 19:15 Lamotrigine (LaMICtal) 100 mg BID PO Last administered on 09/11/17 08:13; Start 09/06/17 at 21:00 Hydralazine HCl (Apresoline Inj) 10 mg PRN Q4HRS PRN IVP ELEVATED BP, SEE COMMENTS Last administered on 09/11/17 15:20; Start 09/06/17 at 19:45 Vitamin D (Vitamin D3) 5,000 unit DAILY PO Last administered on 09/11/17 08: 13; Start 09/07/17 at 15:00 Calcium Carbonate/ Glycine (Oscal) 500 mg BID PO Last administered on 08:13; Start 09/07/17 at 21:00 Ceftriaxone Sodium 1 gm/ Dextrose 50 ml @ 100 mls/hr Q24H IV ; Start 09/07/17 at 16:15; Status UNV Ceftriaxone Sodium (Rocephin) 1 gm Q24H IVP Last administered on 09/08/17 17: 00; Start 09/07/17 at 17:00; Stop 09/10/17 at 11:48; Status DC Acetaminophen/ Aspirin/Caffeine (Excedrin Migraine) 1 tab PRN Q6HRS PRN PO MIGRAINE HEADACHE Last administered on 09/11/17 08:14; Start 09/08/17 at 11: 30 Potassium Chloride/Sodium Chloride 1,000 ml @ 75 mls/hr [id number] IV Last administered on 09/11/17 10:28; Start 09/08/17 at 12:00 Lactobacillus Rhamnosus (Culturelle) 1 cap BID PO Last administered on 08:14; Start 09/08/17 at 21:00 Magnesium Sulfate/ Dextrose 50 ml @ 25 mls/hr 1X ONCE IV Last administered on 09/08/17 18:01; Start 09/08/17 at 17:45; Stop 09/08/17 at 19:44; Status DC Ferrous Sulfate (Feosol) 325 mg QHS PO Last administered on 09/10/17 20:09; Start 09/08/17 at 21:00 Haloperidol Lactate (Haldol) 5 mg PRN Q6HRS PRN IVP AGITATION Last administered on 09/09/17 16:35; Start 09/09/17 at 16:45 Levofloxacin (Levaquin) 500 mg DAILY06 PO Last administered on 09/10/17 05:35 ; Start 09/10/17 at 06:00; Stop 09/10/17 at 11:48; Status DC Piperacillin Sod/ Tazobactam Sod 3.375 gm/Dextrose 50 ml @ 100 mls/hr Q6HRS IV ; Start 09/10/17 at 12:00; Status UNV Doxycycline Hyclate (Vibra-Tab) 100 mg BID PO Last administered on 09/11/17 08:13; Start 09/10/17 at 12:30 Piperacillin Sod/ Tazobactam Sod (Zosyn) 3.375 gm Q6HRS IVP Last administered on 09/11/17 05:44; Start 09/10/17 at 12:30; Stop 09/11/17 at 11:32; Status DC Ondansetron HCl (Zofran) 4 mg PRN Q6HRS PRN IV NAUSEA/VOMITING Last administered on 09/10/17 16:36; Start 09/10/17 at 16:30 Cefepime HCl 1 gm/ Dextrose 50 ml @ 100 mls/hr Q8HRS IV ; Start 09/11/17 at 14 :00; Stop 09/11/17 at 14:00; Status DC Cefepime HCl (Maxipime) 1 gm Q8HRS IVP Last administered on 09/11/17 15:21; Start 09/11/17 at 14:00 Lidocaine/Sodium Bicarbonate (Buffered Lidocaine 1%) 20 ml 1X ONCE IJ Last administered on 09/11/17 14:39; Start 09/11/17 at 13:30; Stop 09/11/17 at 13 :31; Status DC Active Scripts Active Levetiracetam 500 Mg Tablet 500 Mg PO BID Cyclobenzaprine Hcl 10 Mg Tablet 10 Mg PO BID Indomethacin 50 Mg Capsule 1 Cap PO TID Reported Amlodipine Besylate 5 Mg Tablet 5 Mg PO DAILY Diazepam 5 Mg Tablet 5 Mg PO BID Dicyclomine Hcl 20 Mg Tablet 20 Mg PO QID PRN Lamotrigine 100 Mg Tablet 1 Tab PO BID Indomethacin 50 Mg Capsule 1 Cap PO TID Maxzide 37.5 Mg-25 Mg Tablet (Triamterene/Hydrochlorothiazid) 1 Each Tablet 1 Each PO Hydrocodone-Apap 5-325 (Hydrocodone Bit/Acetaminophen) 1 Each Tablet 1 Tab PO PRN Q6HRS PRN Allopurinol 100 Mg Tablet 100 Mg PO Allergies Allergies: Coded Allergies: pentazocine (Verified Allergy, Intermediate, Hallucinations. , 12/27/15) ROS General: YES: Chills Gastrointestinal: Yes Abdominal Pain Vitals VITALS Vital Signs Date Time Temp Pulse Resp B/P (MAP) Pulse Ox O2 Delivery O2 Flow Rate FiO2 09/11/17 15:20 104 163/76 09/11/17 15:12 102.4 19 96 Room Air 102.4 Labs Labs Laboratory Tests Test 09/10/17 12:27 09/10/17 16:05 09/11/17 03:20 09/11/17 12:40 Procalcitonin 0.89 ng/mL (0.00-0.10) Ammonia < 10 mcmol/L (11-34) White Blood Count 5.0 x10^3/uL (4.0-11.0) Red Blood Count 4.06 x10^6/uL (3.50-5.40) Hemoglobin 12.7 g/dL (12.0-15.5) Hematocrit 38.7 % (36.0-47.0) Mean Corpuscular Volume 95 fL (79-100) Mean Corpuscular Hemoglobin 31 pg (25-35) Mean Corpuscular Hemoglobin Concent 33 g/dL (31-37) Red Cell Distribution Width 13.7 % (11.5-14.5) Platelet Count 121 x10^3/uL (140-400) Neutrophils (%) (Auto) 79 % (31-73) Lymphocytes (%) (Auto) 16 % (24-48) Monocytes (%) (Auto) 4 % (0-9) Eosinophils (%) (Auto) 2 % (0-3) Basophils (%) (Auto) 0 % (0-3) Neutrophils # (Auto) 3.9 x10^3uL (1.8-7.7) Lymphocytes # (Auto) 0.8 x10^3/uL (1.0-4.8) Monocytes # (Auto) 0.2 x10^3/uL (0.0-1.1) Eosinophils # (Auto) 0.1 x10^3/uL (0.0-0.7) Basophils # (Auto) 0.0 x10^3/uL (0.0-0.2) Sodium Level 132 mmol/L (136-145) Potassium Level 3.9 mmol/L (3.5-5.1) Chloride Level 96 mmol/L (98-107) Carbon Dioxide Level 26 mmol/L (21-32) Anion Gap 10 (6-14) Blood Urea Nitrogen 14 mg/dL (7-20) Creatinine 1.4 mg/dL (0.6-1.0) Estimated GFR (Cockcroft-Gault) 44.7 BUN/Creatinine Ratio 10 (6-20) Glucose Level 100 mg/dL (70-99) Calcium Level 9.0 mg/dL (8.5-10.1) Total Bilirubin 0.6 mg/dL (0.2-1.0) Aspartate Amino Transf (AST/SGOT) 216 U/L (15-37) Alanine Aminotransferase (ALT/SGPT) 117 U/L (14-59) Alkaline Phosphatase 141 U/L (46-116) Total Protein 8.0 g/dL (6.4-8.2) Albumin 3.2 g/dL (3.4-5.0) Albumin/Globulin Ratio 0.7 (1.0-1.7) Prothrombin Time 13.3 SEC (11.7-14.0) Prothromb Time International Ratio 1.1 (0.8-1.1) Test 09/11/17 14:55 CSF Tube Number 4 CSF Color Colorless CSF Clarity Clear CSF WBC 130 CSF RBC 32 CSF Mononuclear WBCs % 20 % CSF Polynuclear WBCs (%) 80 % CSF Glucose 49 mg/dL (37-70) CSF Total Protein 79.2 mg/dL (15.0-45.0) Laboratory Tests Test 09/10/17 16:05 09/11/17 03:20 09/11/17 12:40 09/11/17 14:55 Ammonia < 10 mcmol/L (11-34) White Blood Count 5.0 x10^3/uL (4.0-11.0) Red Blood Count 4.06 x10^6/uL (3.50-5.40) Hemoglobin 12.7 g/dL (12.0-15.5) Hematocrit 38.7 % (36.0-47.0) Mean Corpuscular Volume 95 fL (79-100) Mean Corpuscular Hemoglobin 31 pg (25-35) Mean Corpuscular Hemoglobin Concent 33 g/dL (31-37) Red Cell Distribution Width 13.7 % (11.5-14.5) Platelet Count 121 x10^3/uL (140-400) Neutrophils (%) (Auto) 79 % (31-73) Lymphocytes (%) (Auto) 16 % (24-48) Monocytes (%) (Auto) 4 % (0-9) Eosinophils (%) (Auto) 2 % (0-3) Basophils (%) (Auto) 0 % (0-3) Neutrophils # (Auto) 3.9 x10^3uL (1.8-7.7) Lymphocytes # (Auto) 0.8 x10^3/uL (1.0-4.8) Monocytes # (Auto) 0.2 x10^3/uL (0.0-1.1) Eosinophils # (Auto) 0.1 x10^3/uL (0.0-0.7) Basophils # (Auto) 0.0 x10^3/uL (0.0-0.2) Sodium Level 132 mmol/L (136-145) Potassium Level 3.9 mmol/L (3.5-5.1) Chloride Level 96 mmol/L (98-107) Carbon Dioxide Level 26 mmol/L (21-32) Anion Gap 10 (6-14) Blood Urea Nitrogen 14 mg/dL (7-20) Creatinine 1.4 mg/dL (0.6-1.0) Estimated GFR (Cockcroft-Gault) 44.7 BUN/Creatinine Ratio 10 (6-20) Glucose Level 100 mg/dL (70-99) Calcium Level 9.0 mg/dL (8.5-10.1) Total Bilirubin 0.6 mg/dL (0.2-1.0) Aspartate Amino Transf (AST/SGOT) 216 U/L (15-37) Alanine Aminotransferase (ALT/SGPT) 117 U/L (14-59) Alkaline Phosphatase 141 U/L (46-116) Total Protein 8.0 g/dL (6.4-8.2) Albumin 3.2 g/dL (3.4-5.0) Albumin/Globulin Ratio 0.7 (1.0-1.7) Prothrombin Time 13.3 SEC (11.7-14.0) Prothromb Time International Ratio 1.1 (0.8-1.1) CSF Tube Number 4 CSF Color Colorless CSF Clarity Clear CSF WBC 130 CSF RBC 32 CSF Mononuclear WBCs % 20 % CSF Polynuclear WBCs (%) 80 % CSF Glucose 49 mg/dL (37-70) CSF Total Protein 79.2 mg/dL (15.0-45.0) Images Images CT concerning for mild pancreatic head inflammation Assessment/Plan Assessment/Plan Abd pain, noted to have elevated LFTs and pancreatic mild inflammation favor this may be secondary to diffuse illness cont w/u per GI no surgical plans, will check lipase Thanks for consult! KADEN SMITH MD Sep 11, 2017 15:50
--- NOTE | 2017-09-11 16:55 | PDOC ---
PROGRESS NOTES Assessment Assessment Near syncopal spell. Fall. Hypokalemia, K+ 2.8 Hx of seizure or seizure like episodes. HTN Gout GERD Vit D deficiency. Iron deficiency. Obesity. Abdominal pain. Self medicated for narcotics, may cause confusion. No evidence of acute CVA this time. RECOMMENDATIONS/PLAN: Keep electrolytes balance. Vit D and Ca++ supplement. Treat medical diseases. Iron deficiency, further evaluation per floor medical team. Weight reduction. OT/PT. Discussed with her family in all detail again at bedside on 09/08/17. EEG on 09/07/17: Normal without seizure activity. Brain MRI: No acute CVA. HISTORY OF THE PRESENT ILLNESS: 71-y-old AA female patient with above medical diseases had a fall at home, but no loss of consciousness. She stated she felt generalized weakness and had a fall. She got up herself and drove to the ER of [facility]. Her K_+ level was found low of 2.8. PMH: Seizure like episodes,, CHF, HTN, GERD, anxiety, gout. PSHX: Cholecystectomy, hysterectomy FH: Cancer (father prostate, aunt w/ colon cancer), CVA, Other (Alzheimer's, scleroderma) Social History: Smoke: No ALCOHOL: none Drugs: None ALLERGY: Reviewed. MEDICATIONS: Refer to [facility] REVIEW OF SYSTEMS: Constitutional: Obesity. Head: No traumatic brain or head injury. Skin: No edema, or rash. Ear: No infection Eyes: No vision loss or color blindness. Nose: No bleeding or purulent discharges. Hearing: No hearing decrease. Neck: No injury. Breast: No history of cancer, masses,or discharges. Cardiac:HTN. Pulmonary: No COPD. GI: ERD. Urinary/genital: UTI. Endocrinologic: Obesity. Skeletomuscular: Generalized weakness. Neurological: see HP. Psychiatric: Denies drug use/abuse. Otherwise, not [id number] review of systems. PHYSICAL EXAMINATION: General appearance is in subacute distress. HEENT: Normocephalic and nontraumatic. Eyes, nose, ears, and throat are unremarkable. Neck is supple. No lymphadenopathy. No bruits are heard over the carotid artery. No crepitus. Cardiovascular: S1, S2, regular rate and rhythm. Pulmonary: Clear to auscultation bilaterally. Abdomen: Bowel sounds are positive. Abdomen is soft, nontender, and nondistended. Extremities: No rash, lesions, or edema. No restriction of range of motion NEUROLOGICAL EXAMINATION: Alert Oriented partially to time, but knows place and person. PERRL. EOMI. CN: no focal findings. Muscle tone: within normal. Muscle strength: 5- DTR: 1-2 due to obesity. Plantar reflex: Flexor response bilaterally Gait: At baseline normal. Sensory exam: no abnormal findings. No cerebellar signs elicited. F-T-N test fine. Objective Objective Vital Signs Date Time Temp Pulse Resp B/P (MAP) Pulse Ox O2 Delivery O2 Flow Rate FiO2 09/11/17 15:20 104 163/76 09/11/17 15:12 102.4 19 96 Room Air 102.4 Intake and Output 09/11/17 07:00 Intake Total 1330 ml Output Total 500 ml Balance 830 ml Intake Oral 1330 ml Output Urine Total 350 ml Emesis 150 ml # Voids 3 Vitals Signs Vitals VS - Last 72 Hours, by Label Date Time Temp Pulse Resp B/P (MAP) Pulse Ox O2 Delivery O2 Flow Rate FiO2 09/11/17 15:20 104 163/76 09/11/17 15:12 102.4 104 19 163/76 (105) 96 Room Air 102.4 09/11/17 10:31 102 188/84 09/11/17 10:13 101.3 102 18 188/84 (118) 99 Room Air 101.3 09/11/17 08:00 Room Air 09/11/17 06:55 103.1 105 19 158/81 (106) 97 Room Air 103.1 09/11/17 03:16 101.7 105 20 159/77 (104) 98 Room Air 101.7 09/10/17 23:19 102.7 107 20 161/75 (103) 97 Room Air 102.7 09/10/17 20:00 Room Air 09/10/17 19:48 103.3 115 20 153/73 (99) 100 Room Air 103.3 09/10/17 18:28 108 194/90 (124) 09/10/17 18:12 92 179/71 09/10/17 16:44 102.6 102.6 09/10/17 15:30 102.7 102.7 09/10/17 14:44 102.2 110 18 179/90 (119) 97 Room Air 102.2 09/10/17 12:01 102.2 102.2 09/10/17 10:59 99.1 106 18 159/82 (107) 94 Room Air 99.1 09/10/17 08:00 Room Air Laboratory Laboratory Laboratory Tests Test 09/11/17 03:20 09/11/17 12:40 09/11/17 14:55 White Blood Count 5.0 x10^3/uL (4.0-11.0) Red Blood Count 4.06 x10^6/uL (3.50-5.40) Hemoglobin 12.7 g/dL (12.0-15.5) Hematocrit 38.7 % (36.0-47.0) Mean Corpuscular Volume 95 fL (79-100) Mean Corpuscular Hemoglobin 31 pg (25-35) Mean Corpuscular Hemoglobin Concent 33 g/dL (31-37) Red Cell Distribution Width 13.7 % (11.5-14.5) Platelet Count 121 x10^3/uL (140-400) Neutrophils (%) (Auto) 79 % (31-73) Lymphocytes (%) (Auto) 16 % (24-48) Monocytes (%) (Auto) 4 % (0-9) Eosinophils (%) (Auto) 2 % (0-3) Basophils (%) (Auto) 0 % (0-3) Neutrophils # (Auto) 3.9 x10^3uL (1.8-7.7) Lymphocytes # (Auto) 0.8 x10^3/uL (1.0-4.8) Monocytes # (Auto) 0.2 x10^3/uL (0.0-1.1) Eosinophils # (Auto) 0.1 x10^3/uL (0.0-0.7) Basophils # (Auto) 0.0 x10^3/uL (0.0-0.2) Sodium Level 132 mmol/L (136-145) Potassium Level 3.9 mmol/L (3.5-5.1) Chloride Level 96 mmol/L (98-107) Carbon Dioxide Level 26 mmol/L (21-32) Anion Gap 10 (6-14) Blood Urea Nitrogen 14 mg/dL (7-20) Creatinine 1.4 mg/dL (0.6-1.0) Estimated GFR (Cockcroft-Gault) 44.7 BUN/Creatinine Ratio 10 (6-20) Glucose Level 100 mg/dL (70-99) Calcium Level 9.0 mg/dL (8.5-10.1) Total Bilirubin 0.6 mg/dL (0.2-1.0) Aspartate Amino Transf (AST/SGOT) 216 U/L (15-37) Alanine Aminotransferase (ALT/SGPT) 117 U/L (14-59) Alkaline Phosphatase 141 U/L (46-116) Total Protein 8.0 g/dL (6.4-8.2) Albumin 3.2 g/dL (3.4-5.0) Albumin/Globulin Ratio 0.7 (1.0-1.7) Lipase 240 U/L (73-393) Prothrombin Time 13.3 SEC (11.7-14.0) Prothromb Time International Ratio 1.1 (0.8-1.1) CSF Tube Number 4 CSF Color Colorless CSF Clarity Clear CSF WBC 130 CSF RBC 32 CSF Mononuclear WBCs % 20 % CSF Polynuclear WBCs (%) 80 % CSF Glucose 49 mg/dL (37-70) CSF Total Protein 79.2 mg/dL (15.0-45.0) Microbiology 09/07/17 Blood Culture - Preliminary, Resulted NO GROWTH AFTER 4 DAYS 09/11/17 Gram Stain - Final, Complete 09/07/17 Urine Culture - Final, Complete 09/07/17 Urine Culture Result 1 (NADIA) - Final, Complete Medication Medications Current Medications Cefepime HCl (Maxipime) 1 gm Q8HRS IVP Last administered on 09/11/17 15:21; Start 09/11/17 at 14:00 Cefepime HCl 1 gm/ Dextrose 50 ml @ 100 mls/hr Q8HRS IV ; Start 09/11/17 at 14 :00; Stop 09/11/17 at 14:00; Status DC Lidocaine/Sodium Bicarbonate (Buffered Lidocaine 1%) 20 ml 1X ONCE IJ Last administered on 09/11/17 14:39; Start 09/11/17 at 13:30; Stop 09/11/17 at 13 :31; Status DC Comment Review of Relevant I have reviewed the following items nahum (where applicable) has been applied. SHIRLEY ROSSI MD Sep 11, 2017 16:55
--- NOTE | 2017-09-11 17:05 | RAD ---
EXAM: ABDOMINAL ULTRASOUND. HISTORY: Right upper quadrant pain. COMPARISON: 09/11/2017. FINDINGS: Sonographic evaluation of the abdomen was performed. Visualization was limited by patient immobility. Hyperechogenicity of the hepatic parenchyma is consistent with diffuse hepatic steatosis. This lowers sensitivity for focal lesions. None are seen. The spleen measures 10.3 cm. The gallbladder appears surgically absent on prior CT, or is completely decompressed. Correlate for prior cholecystectomy. There is no sonographic Jett sign. The common duct measures 7 mm. The visualized portions of the head of the pancreas reveal no abnormality. There is no clear surrounding fluid collection. The right kidney measures 10.0 cm. Cortical thickness and echogenicity are preserved. There is no hydronephrosis. A 1 cm stone in the lower is better seen on prior CT. The left kidney measures 10.2 cm. Cortical thickness and echogenicity are preserved. There is no hydronephrosis. The visualized portions of the abdominal aorta and inferior vena cava are grossly patent and normal in caliber. IMPRESSION: 1. Limited visualization. Suspect prior cholecystectomy. Diffuse hepatic steatosis. 2. Right lower pole renal calculus measures on prior CT. 3. The common duct is at the upper limits of normal caliber. Correlate for cholestasis to assess significance.
[2017-09-11 19:10] VITALS: BP 164/92
[2017-09-11] MEDS: FERROUS SULFATE 325 MG TABLET. PO SCH (20:47)
[2017-09-11 23:41] VITALS: BP 170/79
[2017-09-12] VITALS (7 sets, daily range): BP systolic 121–179; BP diastolic 73–86
--- NOTE | 2017-09-12 00:39 | CONS ---
DATE OF CONSULTATION: 09/11/2017 REQUESTING PHYSICIAN: Dr. Suleiman Willingham. REASON FOR CONSULTATION: To evaluate for occult malignancy. HISTORY OF PRESENT ILLNESS: The patient is a 71-year-old -[place]izen [place] female who was admitted to [facility] on 09/06/2017 for possible syncope. She had nausea and vomiting and GI was consulted. No diarrhea, constipation or dysphagia. No hematemesis, melena or hematochezia. She has history of recent weight loss of about 8 pounds. She has history of gastroesophageal reflux disease. She was also noted to have fever, elevated liver function tests, status post recent cholecystectomy and she also has encephalopathy. Infectious Diseases was consulted and she has been started on antibiotics. Neurology was consulted and workup is in progress. She underwent CT scan of the chest, abdomen and pelvis on 09/11/2017, which revealed mild hazy density about the pancreatic head. Pancreatitis is not excluded. There was evidence of bilateral renal calculi. No evidence of malignancy. Ultrasound of the abdomen revealed diffuse hepatic steatosis. MRI of the brain on 09/09/2017 revealed no acute infarct or hemorrhage. Her labs also revealed normal WBC of 5.0, normal hemoglobin of 12.7 on 09/11/2017. Her platelets were slightly decreased at 121,000 on 09/11/2017, but it was normal at the time of admission. I was asked to see the patient and evaluate for possible occult malignancy. PAST MEDICAL HISTORY: Hypertension, congestive heart failure, seizure, GERD, anxiety, osteoarthritis, gout. PAST SURGICAL HISTORY: Cholecystectomy and hysterectomy. FAMILY HISTORY: Positive for stroke and cancer. SOCIAL HISTORY: No smoking or alcohol abuse. REVIEW OF SYSTEMS: A 12-point review of system was performed. Pertinent positives are mentioned in the history of present illness. Rest of the system review is negative. PHYSICAL EXAMINATION: GENERAL APPEARANCE: The patient is a 71-year-old -Citizen [place] female who is in no acute cardiorespiratory distress. VITAL SIGNS: Blood pressure 163/76, temperature 102.4. HEENT: Atraumatic, normocephalic. Eyes: No icterus. NECK: Supple. CHEST: Bilaterally symmetrical. HEART: S1, S2 normal. ABDOMEN: Soft, nontender. CENTRAL NERVOUS SYSTEM: No focal deficits. LYMPHATICS: No lymphadenopathy. SKIN: No rashes. PSYCHOLOGIC: Mood and affect are appropriate. MUSCULOSKELETAL: No joint effusions. LABORATORY DATA: On 09/11/2017, WBC 5, hemoglobin 12.7, platelet count 121, total bilirubin 0.6, AST 216, ALT 117, alkaline phosphatase 141, total protein 8, albumin 3.2. Vitamin B12 654. Iron 28, TIBC 240, iron saturation 12. IMPRESSION AND PLAN: 1. Fever. Appreciate Infectious Disease consultation. She also had evidence of associated leukopenia, which has now resolved. She now has mild thrombocytopenia. Platelets were normal at the time of admission. She has undergone CT chest, abdomen and pelvis and there is no evidence of malignancy. I do not suspect myelodysplastic syndrome or malignancy based on the workup. There are no clinical signs or symptoms to suggest malignancy and I would continue to monitor. 2. Thrombocytopenia, mild reactive. Her platelet counts were normal at the time of admission and on 09/11/2017, it has dropped to 121,000. In view of underlying fever, this is consistent with a reactive process. I will continue to monitor. 3. Leukopenia, resolved. WBC is now 5.0. PORFIRIO ARCHER MD DR: TERESA/mary ellen JOB#: [id number] / [id number] LAL[place]
[2017-09-12 03:42] LABS: BASO % 0 % (0-3); EOS % 1 % (0-3); HEMATOCRIT 34.9 % (36.0-47.0); HEMOGLOBIN 11.5 g/dL (12.0-15.5); LYMPH # 0.6 x10^3/uL (1.0-4.8); LYMPH % 10 % (24-48); MEAN CORPUSCULAR HEMOGLOBIN 31 pg (25-35); MEAN CORPUSCULAR HGB CONC 33 g/dL (31-37); MEAN CORPUSCULAR VOLUME 94 fL (79-100); MONO % 4 % (0-9); NEUT % 84 % (31-73); PLATELET COUNT 127 x10^3/uL (140-400); RED CELL DISTRIBUTION WIDTH 13.7 % (11.5-14.5)
[2017-09-12 04:17] LABS: ALBUMIN 2.7 g/dL (3.4-5.0); ALBUMIN/GLOBULIN RATIO 0.6 (1.0-1.7); CALCIUM 8.4 mg/dL (8.5-10.1); CREATININE 1.1 mg/dL (0.6-1.0); GFR 59.1; POTASSIUM 3.9 mmol/L (3.5-5.1); TOTAL BILIRUBIN 0.4 mg/dL (0.2-1.0)
[2017-09-12] MEDS: CEFEPIME HCL IV Push 1 GM VIAL. IVP SCH ×3 (05:27→20:49)
[2017-09-12] MEDS: hydrALAZINE 20 MG/ML VIAL. IVP PRN (05:27)
[2017-09-12] MEDS: CALCIUM CARBONATE 500 MG TABLET PO SCH ×2 (08:53→20:48)
[2017-09-12] MEDS: DOXYCYCLINE HYCLATE 100 MG TABLET PO SCH ×2 (08:53→20:48)
[2017-09-12] MEDS: PANTOPRAZOLE 40 MG TABLET.DR. PO SCH (08:54)
[2017-09-12] MEDS: ALLOPURINOL 100 MG TABLET. PO SCH (08:54)
[2017-09-12] MEDS: LACTOBACILLUS RHAMNOSUS GG 1 CAPSULE. PO SCH ×2 (08:54→20:48)
[2017-09-12] MEDS: CHOLECALCIFEROL (VITAMIN D3) 5,000 UNIT CAPSULE PO SCH (08:54)
[2017-09-12] MEDS: lamoTRIgine 100 MG TABLET. PO SCH ×2 (08:54→20:48)
[2017-09-12] MEDS: diazePAM 5 MG TABLET PO SCH ×2 (08:54→20:48)
--- NOTE | 2017-09-12 09:14 | PDOC ---
Subjective: Subjective: Says she needs to take her son to school. Objective: Objective: D/w RN - still confused, not eating much. Tmax 102.7. Vital Signs: Vital Signs Date Time Temp Pulse Resp B/P (MAP) Pulse Ox O2 Delivery O2 Flow Rate FiO2 09/12/17 08:00 Room Air 09/12/17 07:00 102.4 108 18 121/79 (93) 97 102.4 Labs: Laboratory Tests Test 09/11/17 12:40 09/11/17 14:55 09/12/17 03:10 Prothrombin Time 13.3 SEC Prothromb Time International Ratio 1.1 CSF Tube Number 4 CSF Color Colorless CSF Clarity Clear CSF WBC 130 CSF RBC 32 CSF Mononuclear WBCs % 20 % CSF Polynuclear WBCs (%) 80 % CSF Glucose 49 mg/dL CSF Total Protein 79.2 mg/dL White Blood Count 6.0 x10^3/uL Red Blood Count 3.70 x10^6/uL Hemoglobin 11.5 g/dL Hematocrit 34.9 % Mean Corpuscular Volume 94 fL Mean Corpuscular Hemoglobin 31 pg Mean Corpuscular Hemoglobin Concent 33 g/dL Red Cell Distribution Width 13.7 % Platelet Count 127 x10^3/uL Neutrophils (%) (Auto) 84 % Lymphocytes (%) (Auto) 10 % Monocytes (%) (Auto) 4 % Eosinophils (%) (Auto) 1 % Basophils (%) (Auto) 0 % Neutrophils # (Auto) 5.0 x10^3uL Lymphocytes # (Auto) 0.6 x10^3/uL Monocytes # (Auto) 0.2 x10^3/uL Eosinophils # (Auto) 0.1 x10^3/uL Basophils # (Auto) 0.0 x10^3/uL Sodium Level 133 mmol/L Potassium Level 3.9 mmol/L Chloride Level 99 mmol/L Carbon Dioxide Level 24 mmol/L Anion Gap 10 Blood Urea Nitrogen 16 mg/dL Creatinine 1.1 mg/dL Estimated GFR (Cockcroft-Gault) 59.1 BUN/Creatinine Ratio 15 Glucose Level 99 mg/dL Calcium Level 8.4 mg/dL Total Bilirubin 0.4 mg/dL Aspartate Amino Transf (AST/SGOT) 209 U/L Alanine Aminotransferase (ALT/SGPT) 106 U/L Alkaline Phosphatase 104 U/L Total Protein 7.0 g/dL Albumin 2.7 g/dL Albumin/Globulin Ratio 0.6 ORDERED: GS COMMENTS: CSF Procedure Result GRAM STAIN Final WBCS MANY RBCS FEW ORGANISMS NONE SEEN Imaging: CT A/P, chest FINDINGS: Accurate evaluation of abdominal visceral organs is limited without intravenous contrast. No obvious focal abnormality of the liver or spleen. There is mild hazy density about the pancreatic head and uncinate process. Node anterior to the inferior vena cava measures 0.8 cm short axis dimension. There are bilateral renal calculi. Inferior right renal calculus measures 9 to 10 mm. There is approximate 2 to 3 mm inferior left renal calculus. There is mild right pelviectasis. There is no significant hydroureter. Some small calculi in the right pelvis are probably due to phleboliths. There is no significant adrenal nodularity. Accurate evaluation of bowel is limited without oral contrast. There is no significant bowel dilatation, free air, free fluid. Appendix is not clearly identified if still present. IMPRESSION: 1. There is mild hazy density about the pancreatic head, pancreatitis not excluded for which correlation with laboratory findings advised if not already performed. 2. There are bilateral renal calculi. RUQ US FINDINGS: Sonographic evaluation of the abdomen was performed. Visualization was limited by patient immobility. Hyperechogenicity of the hepatic parenchyma is consistent with diffuse hepatic steatosis. This lowers sensitivity for focal lesions. None are seen. The spleen measures 10.3 cm. The gallbladder appears surgically absent on prior CT, or is completely decompressed. Correlate for prior cholecystectomy. There is no sonographic Jett sign. The common duct measures 7 mm. The visualized portions of the head of the pancreas reveal no abnormality. There is no clear surrounding fluid collection. The right kidney measures 10.0 cm. Cortical thickness and echogenicity are preserved. There is no hydronephrosis. A 1 cm stone in the lower is better seen on prior CT. The left kidney measures 10.2 cm. Cortical thickness and echogenicity are preserved. There is no hydronephrosis. The visualized portions of the abdominal aorta and inferior vena cava are grossly patent and normal in caliber. IMPRESSION: 1. Limited visualization. Suspect prior cholecystectomy. Diffuse hepatic steatosis. 2. Right lower pole renal calculus measures on prior CT. 3. The common duct is at the upper limits of normal caliber. Correlate for cholestasis to assess significance. PE: GEN: NAD LUNGS: clear HEART: tachycardic ABD: NABS, S/ND/NT NEURO/PSYCH: confused A/P: Encephalopathy, fever -s/p LP, atbx per ID Elevated LFTs - improved -on imaging: hazy pancreatic head, fatty liver, common duct 7mm Anorexia - on PPI Thrombocytopenia -- Will review w/ Dr. Figueroa. MARTHA CHI Sep 12, 2017 09:14
[2017-09-12] MEDS: ACETAMINOPHEN 325 MG TABLET. PO PRN ×2 (10:14→20:48)
[2017-09-12] MEDS: POLYETHYLENE GLYCOL 3350 17 GM PACKET. PO SCH (10:15)
--- NOTE | 2017-09-12 10:43 | PDOC ---
Infectious Disease Note Subjective Subjective pt feeling ok, awake, cont fever, somnolent ROS ROS no n/v/d/pain/sob Vital Sign Vital Signs Vital Signs Date Time Temp Pulse Resp B/P (MAP) Pulse Ox O2 Delivery O2 Flow Rate FiO2 09/12/17 08:00 Room Air 09/12/17 07:00 102.4 108 18 121/79 (93) 97 102.4 Physical Exam PHYSICAL EXAM GENERAL: NAD, Alert but sleepy HEENT: PERRL, OC/OP NECK: Supple, no JVD, no LN LUNGS: Clear HEART: S1S2, no gallop, no murmur ABD: Soft, NT, no organomegaly, no rebound EXT: No edema, no cyanosis PURCHASING/RECEIVING: Alert, oriented x 3, no focal neurologic deficit SKIN: No rash IV: ok Labs Lab Laboratory Tests Test 09/11/17 12:40 09/11/17 14:55 09/12/17 03:10 Prothrombin Time 13.3 SEC (11.7-14.0) Prothromb Time International Ratio 1.1 (0.8-1.1) CSF Tube Number 4 CSF Color Colorless CSF Clarity Clear CSF WBC 130 CSF RBC 32 CSF Mononuclear WBCs % 20 % CSF Polynuclear WBCs (%) 80 % CSF Glucose 49 mg/dL (37-70) CSF Total Protein 79.2 mg/dL (15.0-45.0) White Blood Count 6.0 x10^3/uL (4.0-11.0) Red Blood Count 3.70 x10^6/uL (3.50-5.40) Hemoglobin 11.5 g/dL (12.0-15.5) Hematocrit 34.9 % (36.0-47.0) Mean Corpuscular Volume 94 fL (79-100) Mean Corpuscular Hemoglobin 31 pg (25-35) Mean Corpuscular Hemoglobin Concent 33 g/dL (31-37) Red Cell Distribution Width 13.7 % (11.5-14.5) Platelet Count 127 x10^3/uL (140-400) Neutrophils (%) (Auto) 84 % (31-73) Lymphocytes (%) (Auto) 10 % (24-48) Monocytes (%) (Auto) 4 % (0-9) Eosinophils (%) (Auto) 1 % (0-3) Basophils (%) (Auto) 0 % (0-3) Neutrophils # (Auto) 5.0 x10^3uL (1.8-7.7) Lymphocytes # (Auto) 0.6 x10^3/uL (1.0-4.8) Monocytes # (Auto) 0.2 x10^3/uL (0.0-1.1) Eosinophils # (Auto) 0.1 x10^3/uL (0.0-0.7) Basophils # (Auto) 0.0 x10^3/uL (0.0-0.2) Sodium Level 133 mmol/L (136-145) Potassium Level 3.9 mmol/L (3.5-5.1) Chloride Level 99 mmol/L (98-107) Carbon Dioxide Level 24 mmol/L (21-32) Anion Gap 10 (6-14) Blood Urea Nitrogen 16 mg/dL (7-20) Creatinine 1.1 mg/dL (0.6-1.0) Estimated GFR (Cockcroft-Gault) 59.1 BUN/Creatinine Ratio 15 (6-20) Glucose Level 99 mg/dL (70-99) Calcium Level 8.4 mg/dL (8.5-10.1) Total Bilirubin 0.4 mg/dL (0.2-1.0) Aspartate Amino Transf (AST/SGOT) 209 U/L (15-37) Alanine Aminotransferase (ALT/SGPT) 106 U/L (14-59) Alkaline Phosphatase 104 U/L (46-116) Total Protein 7.0 g/dL (6.4-8.2) Albumin 2.7 g/dL (3.4-5.0) Albumin/Globulin Ratio 0.6 (1.0-1.7) Micro culture neg LP noted,, wbc 130 Objective Assessment Fever , likely viral illness Seizure Encephalopathy Syncope CHF Aseptic meningitis, [place] possible, enterovirus possible, hsv less likely Plan Plan of Care cont cefepime and doxy, add acyclovir supportive care d/w daughter in detail JOHANA BORJAS MD Sep 12, 2017 10:43
--- NOTE | 2017-09-12 11:45 | PDOC ---
PROGRESS NOTES Subjective Subjective c/c -f/u of leukopenia, thrombocytopenia ROS - had fever Objective Objective Vital Signs Date Time Temp Pulse Resp B/P (MAP) Pulse Ox O2 Delivery O2 Flow Rate FiO2 09/12/17 10:49 102.7 113 16 134/80 (98) 94 Room Air 102.7 Intake and Output 09/12/17 07:00 Intake Total 625 ml Output Total 375 ml Balance 250 ml Intake Oral 625 ml Output Urine Total 375 ml Physical Exam General: No acute distress Neck: No JVD Assessment Assessment Problems Medical Problems: (1) Closed head injury Status: Acute (2) Epigastric pain Status: Acute (3) Fall Status: Acute (4) Hypokalemia Status: Acute IMPRESSION AND PLAN: 1. Fever. Appreciate Infectious Disease consultation, thought to be due to encephalitis. She also had evidence of associated leukopenia, which has now resolved. She now has mild thrombocytopenia. Platelets were normal at the time of admission. She has undergone CT chest, abdomen and pelvis and there is no evidence of malignancy. 2. Thrombocytopenia, mild reactive. Her platelet counts were normal at the time of admission and on 09/11/2017, it had dropped to 121,000. In view of underlying fever, this is consistent with a reactive process. I will continue to monitor. 3. Leukopenia, resolved. WBC is now 6.0. I d/w DR Paige, Dr Conner and Dr Willingham. Comment Review of Relevant I have reviewed the following items nahum (where applicable) has been applied. Labs Laboratory Tests Test 09/10/17 12:27 09/10/17 16:05 09/11/17 03:20 09/11/17 12:40 Procalcitonin 0.89 ng/mL (0.00-0.10) Ammonia < 10 mcmol/L (11-34) White Blood Count 5.0 x10^3/uL (4.0-11.0) Red Blood Count 4.06 x10^6/uL (3.50-5.40) Hemoglobin 12.7 g/dL (12.0-15.5) Hematocrit 38.7 % (36.0-47.0) Mean Corpuscular Volume 95 fL (79-100) Mean Corpuscular Hemoglobin 31 pg (25-35) Mean Corpuscular Hemoglobin Concent 33 g/dL (31-37) Red Cell Distribution Width 13.7 % (11.5-14.5) Platelet Count 121 x10^3/uL (140-400) Neutrophils (%) (Auto) 79 % (31-73) Lymphocytes (%) (Auto) 16 % (24-48) Monocytes (%) (Auto) 4 % (0-9) Eosinophils (%) (Auto) 2 % (0-3) Basophils (%) (Auto) 0 % (0-3) Neutrophils # (Auto) 3.9 x10^3uL (1.8-7.7) Lymphocytes # (Auto) 0.8 x10^3/uL (1.0-4.8) Monocytes # (Auto) 0.2 x10^3/uL (0.0-1.1) Eosinophils # (Auto) 0.1 x10^3/uL (0.0-0.7) Basophils # (Auto) 0.0 x10^3/uL (0.0-0.2) Sodium Level 132 mmol/L (136-145) Potassium Level 3.9 mmol/L (3.5-5.1) Chloride Level 96 mmol/L (98-107) Carbon Dioxide Level 26 mmol/L (21-32) Anion Gap 10 (6-14) Blood Urea Nitrogen 14 mg/dL (7-20) Creatinine 1.4 mg/dL (0.6-1.0) Estimated GFR (Cockcroft-Gault) 44.7 BUN/Creatinine Ratio 10 (6-20) Glucose Level 100 mg/dL (70-99) Calcium Level 9.0 mg/dL (8.5-10.1) Total Bilirubin 0.6 mg/dL (0.2-1.0) Aspartate Amino Transf (AST/SGOT) 216 U/L (15-37) Alanine Aminotransferase (ALT/SGPT) 117 U/L (14-59) Alkaline Phosphatase 141 U/L (46-116) Total Protein 8.0 g/dL (6.4-8.2) Albumin 3.2 g/dL (3.4-5.0) Albumin/Globulin Ratio 0.7 (1.0-1.7) Lipase 240 U/L (73-393) Prothrombin Time 13.3 SEC (11.7-14.0) Prothromb Time International Ratio 1.1 (0.8-1.1) Test 09/11/17 14:55 09/12/17 03:10 CSF Tube Number 4 CSF Color Colorless CSF Clarity Clear CSF WBC 130 CSF RBC 32 CSF Mononuclear WBCs % 20 % CSF Polynuclear WBCs (%) 80 % CSF Glucose 49 mg/dL (37-70) CSF Total Protein 79.2 mg/dL (15.0-45.0) White Blood Count 6.0 x10^3/uL (4.0-11.0) Red Blood Count 3.70 x10^6/uL (3.50-5.40) Hemoglobin 11.5 g/dL (12.0-15.5) Hematocrit 34.9 % (36.0-47.0) Mean Corpuscular Volume 94 fL (79-100) Mean Corpuscular Hemoglobin 31 pg (25-35) Mean Corpuscular Hemoglobin Concent 33 g/dL (31-37) Red Cell Distribution Width 13.7 % (11.5-14.5) Platelet Count 127 x10^3/uL (140-400) Neutrophils (%) (Auto) 84 % (31-73) Lymphocytes (%) (Auto) 10 % (24-48) Monocytes (%) (Auto) 4 % (0-9) Eosinophils (%) (Auto) 1 % (0-3) Basophils (%) (Auto) 0 % (0-3) Neutrophils # (Auto) 5.0 x10^3uL (1.8-7.7) Lymphocytes # (Auto) 0.6 x10^3/uL (1.0-4.8) Monocytes # (Auto) 0.2 x10^3/uL (0.0-1.1) Eosinophils # (Auto) 0.1 x10^3/uL (0.0-0.7) Basophils # (Auto) 0.0 x10^3/uL (0.0-0.2) Sodium Level 133 mmol/L (136-145) Potassium Level 3.9 mmol/L (3.5-5.1) Chloride Level 99 mmol/L (98-107) Carbon Dioxide Level 24 mmol/L (21-32) Anion Gap 10 (6-14) Blood Urea Nitrogen 16 mg/dL (7-20) Creatinine 1.1 mg/dL (0.6-1.0) Estimated GFR (Cockcroft-Gault) 59.1 BUN/Creatinine Ratio 15 (6-20) Glucose Level 99 mg/dL (70-99) Calcium Level 8.4 mg/dL (8.5-10.1) Total Bilirubin 0.4 mg/dL (0.2-1.0) Aspartate Amino Transf (AST/SGOT) 209 U/L (15-37) Alanine Aminotransferase (ALT/SGPT) 106 U/L (14-59) Alkaline Phosphatase 104 U/L (46-116) Total Protein 7.0 g/dL (6.4-8.2) Albumin 2.7 g/dL (3.4-5.0) Albumin/Globulin Ratio 0.6 (1.0-1.7) Laboratory Tests Test 09/11/17 12:40 09/11/17 14:55 09/12/17 03:10 Prothrombin Time 13.3 SEC (11.7-14.0) Prothromb Time International Ratio 1.1 (0.8-1.1) CSF Tube Number 4 CSF Color Colorless CSF Clarity Clear CSF WBC 130 CSF RBC 32 CSF Mononuclear WBCs % 20 % CSF Polynuclear WBCs (%) 80 % CSF Glucose 49 mg/dL (37-70) CSF Total Protein 79.2 mg/dL (15.0-45.0) White Blood Count 6.0 x10^3/uL (4.0-11.0) Red Blood Count 3.70 x10^6/uL (3.50-5.40) Hemoglobin 11.5 g/dL (12.0-15.5) Hematocrit 34.9 % (36.0-47.0) Mean Corpuscular Volume 94 fL (79-100) Mean Corpuscular Hemoglobin 31 pg (25-35) Mean Corpuscular Hemoglobin Concent 33 g/dL (31-37) Red Cell Distribution Width 13.7 % (11.5-14.5) Platelet Count 127 x10^3/uL (140-400) Neutrophils (%) (Auto) 84 % (31-73) Lymphocytes (%) (Auto) 10 % (24-48) Monocytes (%) (Auto) 4 % (0-9) Eosinophils (%) (Auto) 1 % (0-3) Basophils (%) (Auto) 0 % (0-3) Neutrophils # (Auto) 5.0 x10^3uL (1.8-7.7) Lymphocytes # (Auto) 0.6 x10^3/uL (1.0-4.8) Monocytes # (Auto) 0.2 x10^3/uL (0.0-1.1) Eosinophils # (Auto) 0.1 x10^3/uL (0.0-0.7) Basophils # (Auto) 0.0 x10^3/uL (0.0-0.2) Sodium Level 133 mmol/L (136-145) Potassium Level 3.9 mmol/L (3.5-5.1) Chloride Level 99 mmol/L (98-107) Carbon Dioxide Level 24 mmol/L (21-32) Anion Gap 10 (6-14) Blood Urea Nitrogen 16 mg/dL (7-20) Creatinine 1.1 mg/dL (0.6-1.0) Estimated GFR (Cockcroft-Gault) 59.1 BUN/Creatinine Ratio 15 (6-20) Glucose Level 99 mg/dL (70-99) Calcium Level 8.4 mg/dL (8.5-10.1) Total Bilirubin 0.4 mg/dL (0.2-1.0) Aspartate Amino Transf (AST/SGOT) 209 U/L (15-37) Alanine Aminotransferase (ALT/SGPT) 106 U/L (14-59) Alkaline Phosphatase 104 U/L (46-116) Total Protein 7.0 g/dL (6.4-8.2) Albumin 2.7 g/dL (3.4-5.0) Albumin/Globulin Ratio 0.6 (1.0-1.7) Microbiology 09/07/17 Blood Culture - Preliminary, Resulted NO GROWTH AFTER 4 DAYS 09/11/17 Gram Stain - Final, Complete 09/07/17 Urine Culture - Final, Complete 09/07/17 Urine Culture Result 1 (NADIA) - Final, Complete Medications Current Medications Acetaminophen (Tylenol) 650 mg 1X ONCE PO Last administered on 09/06/17 11: 03; Start 09/06/17 at 10:15; Stop 09/06/17 at 10:16; Status DC Potassium Chloride (Klor-Con) 40 meq 1X ONCE PO Last administered on 11:03; Start 09/06/17 at 11:00; Stop 09/06/17 at 11:01; Status DC Pantoprazole Sodium (Protonix) 40 mg 1X ONCE PO Last administered on 12:29; Start 09/06/17 at 11:45; Stop 09/06/17 at 11:46; Status DC Acetaminophen (Tylenol) 650 mg PRN Q6HRS PRN PO pain Last administered on 09/12 10:14; Start 09/06/17 at 11:45 Pantoprazole Sodium (Protonix) 40 mg DAILY PO Last administered on 09/12/17 08:54; Start 09/07/17 at 09:00 Potassium Chloride (Klor-Con) 40 meq Q6H PO Last administered on 09/07/17 14: 15; Start 09/06/17 at 18:00; Stop 09/07/17 at 13:00; Status DC Allopurinol (Zyloprim) 100 mg DAILY PO Last administered on 09/12/17 08:54; Start 09/07/17 at 09:00 Diazepam (Valium) 5 mg BID PO Last administered on 09/12/17 08:54; Start at 21:00 Acetaminophen/ Hydrocodone Bitart (Lortab 5/325) 1 tab PRN Q6HRS PRN PO PAIN Last administered on 09/09/17 23:15; Start 09/06/17 at 19:15 Lamotrigine (LaMICtal) 100 mg BID PO Last administered on 09/12/17 08:54; Start 09/06/17 at 21:00 Hydralazine HCl (Apresoline Inj) 10 mg PRN Q4HRS PRN IVP ELEVATED BP, SEE COMMENTS Last administered on 09/12/17 05:27; Start 09/06/17 at 19:45 Vitamin D (Vitamin D3) 5,000 unit DAILY PO Last administered on 09/12/17 08: 54; Start 09/07/17 at 15:00 Calcium Carbonate/ Glycine (Oscal) 500 mg BID PO Last administered on 08:53; Start 09/07/17 at 21:00 Ceftriaxone Sodium 1 gm/ Dextrose 50 ml @ 100 mls/hr Q24H IV ; Start 09/07/17 at 16:15; Status UNV Ceftriaxone Sodium (Rocephin) 1 gm Q24H IVP Last administered on 09/08/17 17: 00; Start 09/07/17 at 17:00; Stop 09/10/17 at 11:48; Status DC Acetaminophen/ Aspirin/Caffeine (Excedrin Migraine) 1 tab PRN Q6HRS PRN PO MIGRAINE HEADACHE Last administered on 09/11/17 08:14; Start 09/08/17 at 11: 30 Potassium Chloride/Sodium Chloride 1,000 ml @ 75 mls/hr [id number] IV Last administered on 09/11/17 20:47; Start 09/08/17 at 12:00 Lactobacillus Rhamnosus (Culturelle) 1 cap BID PO Last administered on 08:54; Start 09/08/17 at 21:00 Magnesium Sulfate/ Dextrose 50 ml @ 25 mls/hr 1X ONCE IV Last administered on 09/08/17 18:01; Start 09/08/17 at 17:45; Stop 09/08/17 at 19:44; Status DC Ferrous Sulfate (Feosol) 325 mg QHS PO Last administered on 09/11/17 20:47; Start 09/08/17 at 21:00 Haloperidol Lactate (Haldol) 5 mg PRN Q6HRS PRN IVP AGITATION Last administered on 09/09/17 16:35; Start 09/09/17 at 16:45 Levofloxacin (Levaquin) 500 mg DAILY06 PO Last administered on 09/10/17 05:35 ; Start 09/10/17 at 06:00; Stop 09/10/17 at 11:48; Status DC Piperacillin Sod/ Tazobactam Sod 3.375 gm/Dextrose 50 ml @ 100 mls/hr Q6HRS IV ; Start 09/10/17 at 12:00; Status UNV Doxycycline Hyclate (Vibra-Tab) 100 mg BID PO Last administered on 09/12/17 08:53; Start 09/10/17 at 12:30 Piperacillin Sod/ Tazobactam Sod (Zosyn) 3.375 gm Q6HRS IVP Last administered on 09/11/17 05:44; Start 09/10/17 at 12:30; Stop 09/11/17 at 11:32; Status DC Ondansetron HCl (Zofran) 4 mg PRN Q6HRS PRN IV NAUSEA/VOMITING Last administered on 09/10/17 16:36; Start 09/10/17 at 16:30 Cefepime HCl 1 gm/ Dextrose 50 ml @ 100 mls/hr Q8HRS IV ; Start 09/11/17 at 14 :00; Stop 09/11/17 at 14:00; Status DC Cefepime HCl (Maxipime) 1 gm Q8HRS IVP Last administered on 09/12/17 05:27; Start 09/11/17 at 14:00 Lidocaine/Sodium Bicarbonate (Buffered Lidocaine 1%) 20 ml 1X ONCE IJ Last administered on 09/11/17 14:39; Start 09/11/17 at 13:30; Stop 09/11/17 at 13 :31; Status DC Polyethylene Glycol (miraLAX PACKET) 17 gm DAILY PO Last administered on 10:15; Start 09/12/17 at 10:00 Acyclovir Sodium 500 mg/Sodium Chloride 110 ml @ 110 mls/hr Q8HRS IV ; Start 09/12/17 at 11:30 Active Scripts Active Levetiracetam 500 Mg Tablet 500 Mg PO BID Cyclobenzaprine Hcl 10 Mg Tablet 10 Mg PO BID Indomethacin 50 Mg Capsule 1 Cap PO TID Reported Amlodipine Besylate 5 Mg Tablet 5 Mg PO DAILY Diazepam 5 Mg Tablet 5 Mg PO BID Dicyclomine Hcl 20 Mg Tablet 20 Mg PO QID PRN Lamotrigine 100 Mg Tablet 1 Tab PO BID Indomethacin 50 Mg Capsule 1 Cap PO TID Maxzide 37.5 Mg-25 Mg Tablet (Triamterene/Hydrochlorothiazid) 1 Each Tablet 1 Each PO Hydrocodone-Apap 5-325 (Hydrocodone Bit/Acetaminophen) 1 Each Tablet 1 Tab PO PRN Q6HRS PRN Allopurinol 100 Mg Tablet 100 Mg PO Vitals/I & O Vital Sign - Last 24 Hours 09/11/17 09/11/17 09/11/17 09/11/17 15:12 15:20 19:10 20:00 Temp 102.4 98.6 102.4 98.6 Pulse 104 104 108 Resp 19 20 B/P (MAP) 163/76 (105) 163/76 164/92 (116) Pulse Ox 96 96 O2 Delivery Room Air Room Air Room Air 09/11/17 09/11/17 09/12/17 09/12/17 22:41 23:41 03:00 05:27 Temp 102.7 101.3 102.7 101.3 Pulse 111 102 102 Resp 25 18 B/P (MAP) 170/79 170/79 (109) 179/86 (117) 179/86 Pulse Ox 99 95 O2 Delivery Room Air Room Air 09/12/17 09/12/17 09/12/17 07:00 08:00 10:49 Temp 102.4 102.7 102.4 102.7 Pulse 108 113 Resp 18 16 B/P (MAP) 121/79 (93) 134/80 (98) Pulse Ox 97 94 O2 Delivery Room Air Room Air Room Air Intake and Output 09/11/17 09/11/17 09/12/17 15:00 23:00 07:00 Intake Total 50 ml 575 ml Output Total 0 ml 375 ml Balance 50 ml 200 ml PORFIRIO ARCHER MD Sep 12, 2017 11:45
[2017-09-12] MEDS: NORMAL SALINE IV SCH ×2 (12:56→20:53)
[2017-09-12] MEDS: ACYCLOVIR SODIUM IV SCH ×2 (12:56→20:53)
--- NOTE | 2017-09-12 13:11 | PDOC ---
SURGICAL PROGRESS NOTE Subjective Pt with c/o chills, but less, mild abd pain Vital Signs Vital Signs Date Time Temp Pulse Resp B/P (MAP) Pulse Ox O2 Delivery O2 Flow Rate FiO2 09/12/17 10:49 102.7 113 16 134/80 (98) 94 Room Air 102.7 I&O Intake and Output 09/12/17 06:59 Intake Total 625 ml Output Total 375 ml Balance 250 ml Intake Oral 625 ml Output Urine Total 375 ml General: Alert, Oriented X3, Cooperative, mild distress Abdomen: Other (min TTP RUQ) Labs Laboratory Tests Test 09/10/17 16:05 09/11/17 03:20 09/11/17 12:40 09/11/17 14:55 Ammonia < 10 mcmol/L (11-34) White Blood Count 5.0 x10^3/uL (4.0-11.0) Red Blood Count 4.06 x10^6/uL (3.50-5.40) Hemoglobin 12.7 g/dL (12.0-15.5) Hematocrit 38.7 % (36.0-47.0) Mean Corpuscular Volume 95 fL (79-100) Mean Corpuscular Hemoglobin 31 pg (25-35) Mean Corpuscular Hemoglobin Concent 33 g/dL (31-37) Red Cell Distribution Width 13.7 % (11.5-14.5) Platelet Count 121 x10^3/uL (140-400) Neutrophils (%) (Auto) 79 % (31-73) Lymphocytes (%) (Auto) 16 % (24-48) Monocytes (%) (Auto) 4 % (0-9) Eosinophils (%) (Auto) 2 % (0-3) Basophils (%) (Auto) 0 % (0-3) Neutrophils # (Auto) 3.9 x10^3uL (1.8-7.7) Lymphocytes # (Auto) 0.8 x10^3/uL (1.0-4.8) Monocytes # (Auto) 0.2 x10^3/uL (0.0-1.1) Eosinophils # (Auto) 0.1 x10^3/uL (0.0-0.7) Basophils # (Auto) 0.0 x10^3/uL (0.0-0.2) Sodium Level 132 mmol/L (136-145) Potassium Level 3.9 mmol/L (3.5-5.1) Chloride Level 96 mmol/L (98-107) Carbon Dioxide Level 26 mmol/L (21-32) Anion Gap 10 (6-14) Blood Urea Nitrogen 14 mg/dL (7-20) Creatinine 1.4 mg/dL (0.6-1.0) Estimated GFR (Cockcroft-Gault) 44.7 BUN/Creatinine Ratio 10 (6-20) Glucose Level 100 mg/dL (70-99) Calcium Level 9.0 mg/dL (8.5-10.1) Total Bilirubin 0.6 mg/dL (0.2-1.0) Aspartate Amino Transf (AST/SGOT) 216 U/L (15-37) Alanine Aminotransferase (ALT/SGPT) 117 U/L (14-59) Alkaline Phosphatase 141 U/L (46-116) Total Protein 8.0 g/dL (6.4-8.2) Albumin 3.2 g/dL (3.4-5.0) Albumin/Globulin Ratio 0.7 (1.0-1.7) Lipase 240 U/L (73-393) Prothrombin Time 13.3 SEC (11.7-14.0) Prothromb Time International Ratio 1.1 (0.8-1.1) CSF Tube Number 4 CSF Color Colorless CSF Clarity Clear CSF WBC 130 CSF RBC 32 CSF Mononuclear WBCs % 20 % CSF Polynuclear WBCs (%) 80 % CSF Glucose 49 mg/dL (37-70) CSF Total Protein 79.2 mg/dL (15.0-45.0) Test 09/12/17 03:10 White Blood Count 6.0 x10^3/uL (4.0-11.0) Red Blood Count 3.70 x10^6/uL (3.50-5.40) Hemoglobin 11.5 g/dL (12.0-15.5) Hematocrit 34.9 % (36.0-47.0) Mean Corpuscular Volume 94 fL (79-100) Mean Corpuscular Hemoglobin 31 pg (25-35) Mean Corpuscular Hemoglobin Concent 33 g/dL (31-37) Red Cell Distribution Width 13.7 % (11.5-14.5) Platelet Count 127 x10^3/uL (140-400) Neutrophils (%) (Auto) 84 % (31-73) Lymphocytes (%) (Auto) 10 % (24-48) Monocytes (%) (Auto) 4 % (0-9) Eosinophils (%) (Auto) 1 % (0-3) Basophils (%) (Auto) 0 % (0-3) Neutrophils # (Auto) 5.0 x10^3uL (1.8-7.7) Lymphocytes # (Auto) 0.6 x10^3/uL (1.0-4.8) Monocytes # (Auto) 0.2 x10^3/uL (0.0-1.1) Eosinophils # (Auto) 0.1 x10^3/uL (0.0-0.7) Basophils # (Auto) 0.0 x10^3/uL (0.0-0.2) Sodium Level 133 mmol/L (136-145) Potassium Level 3.9 mmol/L (3.5-5.1) Chloride Level 99 mmol/L (98-107) Carbon Dioxide Level 24 mmol/L (21-32) Anion Gap 10 (6-14) Blood Urea Nitrogen 16 mg/dL (7-20) Creatinine 1.1 mg/dL (0.6-1.0) Estimated GFR (Cockcroft-Gault) 59.1 BUN/Creatinine Ratio 15 (6-20) Glucose Level 99 mg/dL (70-99) Calcium Level 8.4 mg/dL (8.5-10.1) Total Bilirubin 0.4 mg/dL (0.2-1.0) Aspartate Amino Transf (AST/SGOT) 209 U/L (15-37) Alanine Aminotransferase (ALT/SGPT) 106 U/L (14-59) Alkaline Phosphatase 104 U/L (46-116) Total Protein 7.0 g/dL (6.4-8.2) Albumin 2.7 g/dL (3.4-5.0) Albumin/Globulin Ratio 0.6 (1.0-1.7) Laboratory Tests Test 09/11/17 14:55 09/12/17 03:10 CSF Tube Number 4 CSF Color Colorless CSF Clarity Clear CSF WBC 130 CSF RBC 32 CSF Mononuclear WBCs % 20 % CSF Polynuclear WBCs (%) 80 % CSF Glucose 49 mg/dL (37-70) CSF Total Protein 79.2 mg/dL (15.0-45.0) White Blood Count 6.0 x10^3/uL (4.0-11.0) Red Blood Count 3.70 x10^6/uL (3.50-5.40) Hemoglobin 11.5 g/dL (12.0-15.5) Hematocrit 34.9 % (36.0-47.0) Mean Corpuscular Volume 94 fL (79-100) Mean Corpuscular Hemoglobin 31 pg (25-35) Mean Corpuscular Hemoglobin Concent 33 g/dL (31-37) Red Cell Distribution Width 13.7 % (11.5-14.5) Platelet Count 127 x10^3/uL (140-400) Neutrophils (%) (Auto) 84 % (31-73) Lymphocytes (%) (Auto) 10 % (24-48) Monocytes (%) (Auto) 4 % (0-9) Eosinophils (%) (Auto) 1 % (0-3) Basophils (%) (Auto) 0 % (0-3) Neutrophils # (Auto) 5.0 x10^3uL (1.8-7.7) Lymphocytes # (Auto) 0.6 x10^3/uL (1.0-4.8) Monocytes # (Auto) 0.2 x10^3/uL (0.0-1.1) Eosinophils # (Auto) 0.1 x10^3/uL (0.0-0.7) Basophils # (Auto) 0.0 x10^3/uL (0.0-0.2) Sodium Level 133 mmol/L (136-145) Potassium Level 3.9 mmol/L (3.5-5.1) Chloride Level 99 mmol/L (98-107) Carbon Dioxide Level 24 mmol/L (21-32) Anion Gap 10 (6-14) Blood Urea Nitrogen 16 mg/dL (7-20) Creatinine 1.1 mg/dL (0.6-1.0) Estimated GFR (Cockcroft-Gault) 59.1 BUN/Creatinine Ratio 15 (6-20) Glucose Level 99 mg/dL (70-99) Calcium Level 8.4 mg/dL (8.5-10.1) Total Bilirubin 0.4 mg/dL (0.2-1.0) Aspartate Amino Transf (AST/SGOT) 209 U/L (15-37) Alanine Aminotransferase (ALT/SGPT) 106 U/L (14-59) Alkaline Phosphatase 104 U/L (46-116) Total Protein 7.0 g/dL (6.4-8.2) Albumin 2.7 g/dL (3.4-5.0) Albumin/Globulin Ratio 0.6 (1.0-1.7) I have reviewed the following Imaging c/w mild pancreatic inflammation Problem List Problems Medical Problems: (1) Closed head injury Status: Acute (2) Epigastric pain Status: Acute (3) Fall Status: Acute (4) Hypokalemia Status: Acute Assessment/Plan viral illness, pancreatitis, elevated LFTs cont supportive care, should be self limiting no surgical plans Problems: KADEN SMITH MD Sep 12, 2017 13:11
--- NOTE | 2017-09-12 13:47 | PDOC ---
PROGRESS NOTES Chief Complaint Chief Complaint syncope ASSESSMENT AND PLAN: 1. Fever: ongoing x 7 days. leukopenia with borderline neutropenia. nonfocal exam except for GOSS. ? viral. flu A/B negative. blood cult NGTD, urine cult neg, on empiric abx ID service input appreciated; d/w dr serna 2. Confusion: mostly resolved today. MRI brain negative. D/C 1:1 sitter 3. ? W/D sx: pt had benzos and narcotics in purse, with literally handfuls in the lining, found by daughter, as well as pills in bed, suggesting pt did take own supply. she denies. 4. Syncope: unclear etiology; appreciate card and neuro input; nl echo ( except PAp 34, mild-mod tricuspid regurg) . 5. Sz hx: sounds like partial sz; seeing Dr Johnson. cont lamictal; nl EEG awake/drowsy 6. ?CHF: no evidence on echo 7. Hypokalemia: severe at admit, now repleted. Mg WNL. monitor 8. N/V: postprandial. appreciate GI input 9. GERD: cont PPI 10. Vit D deficiency: severe. replete 11. Anemia: minimal, mainly inflammation related. low dose PO iron repletion 12. Prophylaxis: lovenox 13. Aseptic meningitis, [place] possible, enterovirus possible, hsv less likely Plan Plan of Care cont cefepime and doxy, add acyclovir supportive care plan oncology consult REVIEWED CSF STUDIES SENT History of Present Illness History of Present Illness fatigued but feels much better today. GOSS slight Vitals Vitals Vital Signs Date Time Temp Pulse Resp B/P (MAP) Pulse Ox O2 Delivery O2 Flow Rate FiO2 09/12/17 10:49 102.7 113 16 134/80 (98) 94 Room Air 102.7 Physical Exam Physical Exam EXAM: Chest 2 views. HISTORY: Shortness of breath, aspiration. COMPARISON: 12/27/2015. FINDINGS: Frontal and lateral views of the chest are obtained. There are no confluent infiltrates. The right hemidiaphragm is mildly elevated. There is no pneumothorax or pleural effusion. The heart. Mildly enlarged on the lateral projection. IMPRESSION: 1. Mild cardiomegaly. No clear confluent infiltrates. General: Alert, Oriented X3, Cooperative, mild distress Heart: Regular rate Lungs: Clear Abdomen: Soft, Other (min TTP RUQ) Extremities: No cyanosis, No edema Skin: No rashes Labs LABS Laboratory Tests Test 09/11/17 14:55 09/11/17 17:30 09/12/17 03:10 CSF Tube Number 4 CSF Color Colorless CSF Clarity Clear CSF WBC 130 CSF RBC 32 CSF Mononuclear WBCs % 20 % CSF Polynuclear WBCs (%) 80 % CSF Glucose 49 mg/dL (37-70) CSF Total Protein 79.2 mg/dL (15.0-45.0) Tpad-9-Fpjiwrwldjdpz 5.3 mg/L (0.6-2.4) Immunoglobulin G 982 mg/dL (700-1600) White Blood Count 6.0 x10^3/uL (4.0-11.0) Red Blood Count 3.70 x10^6/uL (3.50-5.40) Hemoglobin 11.5 g/dL (12.0-15.5) Hematocrit 34.9 % (36.0-47.0) Mean Corpuscular Volume 94 fL (79-100) Mean Corpuscular Hemoglobin 31 pg (25-35) Mean Corpuscular Hemoglobin Concent 33 g/dL (31-37) Red Cell Distribution Width 13.7 % (11.5-14.5) Platelet Count 127 x10^3/uL (140-400) Neutrophils (%) (Auto) 84 % (31-73) Lymphocytes (%) (Auto) 10 % (24-48) Monocytes (%) (Auto) 4 % (0-9) Eosinophils (%) (Auto) 1 % (0-3) Basophils (%) (Auto) 0 % (0-3) Neutrophils # (Auto) 5.0 x10^3uL (1.8-7.7) Lymphocytes # (Auto) 0.6 x10^3/uL (1.0-4.8) Monocytes # (Auto) 0.2 x10^3/uL (0.0-1.1) Eosinophils # (Auto) 0.1 x10^3/uL (0.0-0.7) Basophils # (Auto) 0.0 x10^3/uL (0.0-0.2) Sodium Level 133 mmol/L (136-145) Potassium Level 3.9 mmol/L (3.5-5.1) Chloride Level 99 mmol/L (98-107) Carbon Dioxide Level 24 mmol/L (21-32) Anion Gap 10 (6-14) Blood Urea Nitrogen 16 mg/dL (7-20) Creatinine 1.1 mg/dL (0.6-1.0) Estimated GFR (Cockcroft-Gault) 59.1 BUN/Creatinine Ratio 15 (6-20) Glucose Level 99 mg/dL (70-99) Calcium Level 8.4 mg/dL (8.5-10.1) Total Bilirubin 0.4 mg/dL (0.2-1.0) Aspartate Amino Transf (AST/SGOT) 209 U/L (15-37) Alanine Aminotransferase (ALT/SGPT) 106 U/L (14-59) Alkaline Phosphatase 104 U/L (46-116) Total Protein 7.0 g/dL (6.4-8.2) Albumin 2.7 g/dL (3.4-5.0) Albumin/Globulin Ratio 0.6 (1.0-1.7) Review of Systems Review of Systems FEVER continues Assessment and Plan Assessmemt and Plan Problems Medical Problems: (1) Closed head injury Status: Acute (2) Epigastric pain Status: Acute (3) Fall Status: Acute (4) Hypokalemia Status: Acute (5) aseptic meningitis Problems: (1) Meningitis Comment Review of Relevant I have reviewed the following items nahum (where applicable) has been applied. Labs Laboratory Tests Test 09/10/17 16:05 09/11/17 03:20 09/11/17 12:40 09/11/17 14:55 Ammonia < 10 mcmol/L (11-34) White Blood Count 5.0 x10^3/uL (4.0-11.0) Red Blood Count 4.06 x10^6/uL (3.50-5.40) Hemoglobin 12.7 g/dL (12.0-15.5) Hematocrit 38.7 % (36.0-47.0) Mean Corpuscular Volume 95 fL (79-100) Mean Corpuscular Hemoglobin 31 pg (25-35) Mean Corpuscular Hemoglobin Concent 33 g/dL (31-37) Red Cell Distribution Width 13.7 % (11.5-14.5) Platelet Count 121 x10^3/uL (140-400) Neutrophils (%) (Auto) 79 % (31-73) Lymphocytes (%) (Auto) 16 % (24-48) Monocytes (%) (Auto) 4 % (0-9) Eosinophils (%) (Auto) 2 % (0-3) Basophils (%) (Auto) 0 % (0-3) Neutrophils # (Auto) 3.9 x10^3uL (1.8-7.7) Lymphocytes # (Auto) 0.8 x10^3/uL (1.0-4.8) Monocytes # (Auto) 0.2 x10^3/uL (0.0-1.1) Eosinophils # (Auto) 0.1 x10^3/uL (0.0-0.7) Basophils # (Auto) 0.0 x10^3/uL (0.0-0.2) Sodium Level 132 mmol/L (136-145) Potassium Level 3.9 mmol/L (3.5-5.1) Chloride Level 96 mmol/L (98-107) Carbon Dioxide Level 26 mmol/L (21-32) Anion Gap 10 (6-14) Blood Urea Nitrogen 14 mg/dL (7-20) Creatinine 1.4 mg/dL (0.6-1.0) Estimated GFR (Cockcroft-Gault) 44.7 BUN/Creatinine Ratio 10 (6-20) Glucose Level 100 mg/dL (70-99) Calcium Level 9.0 mg/dL (8.5-10.1) Total Bilirubin 0.6 mg/dL (0.2-1.0) Aspartate Amino Transf (AST/SGOT) 216 U/L (15-37) Alanine Aminotransferase (ALT/SGPT) 117 U/L (14-59) Alkaline Phosphatase 141 U/L (46-116) Total Protein 8.0 g/dL (6.4-8.2) Albumin 3.2 g/dL (3.4-5.0) Albumin/Globulin Ratio 0.7 (1.0-1.7) Lipase 240 U/L (73-393) Prothrombin Time 13.3 SEC (11.7-14.0) Prothromb Time International Ratio 1.1 (0.8-1.1) CSF Tube Number 4 CSF Color Colorless CSF Clarity Clear CSF WBC 130 CSF RBC 32 CSF Mononuclear WBCs % 20 % CSF Polynuclear WBCs (%) 80 % CSF Glucose 49 mg/dL (37-70) CSF Total Protein 79.2 mg/dL (15.0-45.0) Test 09/11/17 17:30 09/12/17 03:10 Jnpv-6-Uudvbavwdzigv 5.3 mg/L (0.6-2.4) Immunoglobulin G 982 mg/dL (700-1600) White Blood Count 6.0 x10^3/uL (4.0-11.0) Red Blood Count 3.70 x10^6/uL (3.50-5.40) Hemoglobin 11.5 g/dL (12.0-15.5) Hematocrit 34.9 % (36.0-47.0) Mean Corpuscular Volume 94 fL (79-100) Mean Corpuscular Hemoglobin 31 pg (25-35) Mean Corpuscular Hemoglobin Concent 33 g/dL (31-37) Red Cell Distribution Width 13.7 % (11.5-14.5) Platelet Count 127 x10^3/uL (140-400) Neutrophils (%) (Auto) 84 % (31-73) Lymphocytes (%) (Auto) 10 % (24-48) Monocytes (%) (Auto) 4 % (0-9) Eosinophils (%) (Auto) 1 % (0-3) Basophils (%) (Auto) 0 % (0-3) Neutrophils # (Auto) 5.0 x10^3uL (1.8-7.7) Lymphocytes # (Auto) 0.6 x10^3/uL (1.0-4.8) Monocytes # (Auto) 0.2 x10^3/uL (0.0-1.1) Eosinophils # (Auto) 0.1 x10^3/uL (0.0-0.7) Basophils # (Auto) 0.0 x10^3/uL (0.0-0.2) Sodium Level 133 mmol/L (136-145) Potassium Level 3.9 mmol/L (3.5-5.1) Chloride Level 99 mmol/L (98-107) Carbon Dioxide Level 24 mmol/L (21-32) Anion Gap 10 (6-14) Blood Urea Nitrogen 16 mg/dL (7-20) Creatinine 1.1 mg/dL (0.6-1.0) Estimated GFR (Cockcroft-Gault) 59.1 BUN/Creatinine Ratio 15 (6-20) Glucose Level 99 mg/dL (70-99) Calcium Level 8.4 mg/dL (8.5-10.1) Total Bilirubin 0.4 mg/dL (0.2-1.0) Aspartate Amino Transf (AST/SGOT) 209 U/L (15-37) Alanine Aminotransferase (ALT/SGPT) 106 U/L (14-59) Alkaline Phosphatase 104 U/L (46-116) Total Protein 7.0 g/dL (6.4-8.2) Albumin 2.7 g/dL (3.4-5.0) Albumin/Globulin Ratio 0.6 (1.0-1.7) Laboratory Tests Test 09/11/17 14:55 09/11/17 17:30 09/12/17 03:10 CSF Tube Number 4 CSF Color Colorless CSF Clarity Clear CSF WBC 130 CSF RBC 32 CSF Mononuclear WBCs % 20 % CSF Polynuclear WBCs (%) 80 % CSF Glucose 49 mg/dL (37-70) CSF Total Protein 79.2 mg/dL (15.0-45.0) Shzx-7-Illrlshohojye 5.3 mg/L (0.6-2.4) Immunoglobulin G 982 mg/dL (700-1600) White Blood Count 6.0 x10^3/uL (4.0-11.0) Red Blood Count 3.70 x10^6/uL (3.50-5.40) Hemoglobin 11.5 g/dL (12.0-15.5) Hematocrit 34.9 % (36.0-47.0) Mean Corpuscular Volume 94 fL (79-100) Mean Corpuscular Hemoglobin 31 pg (25-35) Mean Corpuscular Hemoglobin Concent 33 g/dL (31-37) Red Cell Distribution Width 13.7 % (11.5-14.5) Platelet Count 127 x10^3/uL (140-400) Neutrophils (%) (Auto) 84 % (31-73) Lymphocytes (%) (Auto) 10 % (24-48) Monocytes (%) (Auto) 4 % (0-9) Eosinophils (%) (Auto) 1 % (0-3) Basophils (%) (Auto) 0 % (0-3) Neutrophils # (Auto) 5.0 x10^3uL (1.8-7.7) Lymphocytes # (Auto) 0.6 x10^3/uL (1.0-4.8) Monocytes # (Auto) 0.2 x10^3/uL (0.0-1.1) Eosinophils # (Auto) 0.1 x10^3/uL (0.0-0.7) Basophils # (Auto) 0.0 x10^3/uL (0.0-0.2) Sodium Level 133 mmol/L (136-145) Potassium Level 3.9 mmol/L (3.5-5.1) Chloride Level 99 mmol/L (98-107) Carbon Dioxide Level 24 mmol/L (21-32) Anion Gap 10 (6-14) Blood Urea Nitrogen 16 mg/dL (7-20) Creatinine 1.1 mg/dL (0.6-1.0) Estimated GFR (Cockcroft-Gault) 59.1 BUN/Creatinine Ratio 15 (6-20) Glucose Level 99 mg/dL (70-99) Calcium Level 8.4 mg/dL (8.5-10.1) Total Bilirubin 0.4 mg/dL (0.2-1.0) Aspartate Amino Transf (AST/SGOT) 209 U/L (15-37) Alanine Aminotransferase (ALT/SGPT) 106 U/L (14-59) Alkaline Phosphatase 104 U/L (46-116) Total Protein 7.0 g/dL (6.4-8.2) Albumin 2.7 g/dL (3.4-5.0) Albumin/Globulin Ratio 0.6 (1.0-1.7) Microbiology 09/07/17 Blood Culture - Preliminary, Resulted NO GROWTH AFTER 4 DAYS 09/11/17 Gram Stain - Final, Complete 09/07/17 Urine Culture - Final, Complete 09/07/17 Urine Culture Result 1 (NADIA) - Final, Complete Medications Current Medications Acetaminophen (Tylenol) 650 mg 1X ONCE PO Last administered on 09/06/17 11: 03; Start 09/06/17 at 10:15; Stop 09/06/17 at 10:16; Status DC Potassium Chloride (Klor-Con) 40 meq 1X ONCE PO Last administered on 11:03; Start 09/06/17 at 11:00; Stop 09/06/17 at 11:01; Status DC Pantoprazole Sodium (Protonix) 40 mg 1X ONCE PO Last administered on 12:29; Start 09/06/17 at 11:45; Stop 09/06/17 at 11:46; Status DC Acetaminophen (Tylenol) 650 mg PRN Q6HRS PRN PO pain Last administered on 09/12 10:14; Start 09/06/17 at 11:45 Pantoprazole Sodium (Protonix) 40 mg DAILY PO Last administered on 09/12/17 08:54; Start 09/07/17 at 09:00 Potassium Chloride (Klor-Con) 40 meq Q6H PO Last administered on 09/07/17 14: 15; Start 09/06/17 at 18:00; Stop 09/07/17 at 13:00; Status DC Allopurinol (Zyloprim) 100 mg DAILY PO Last administered on 09/12/17 08:54; Start 09/07/17 at 09:00 Diazepam (Valium) 5 mg BID PO Last administered on 09/12/17 08:54; Start at 21:00 Acetaminophen/ Hydrocodone Bitart (Lortab 5/325) 1 tab PRN Q6HRS PRN PO MODERATE PAIN Last administered on 09/09/17 23:15; Start 09/06/17 at 19:15 Lamotrigine (LaMICtal) 100 mg BID PO Last administered on 09/12/17 08:54; Start 09/06/17 at 21:00 Hydralazine HCl (Apresoline Inj) 10 mg PRN Q4HRS PRN IVP ELEVATED BP, SEE COMMENTS Last administered on 09/12/17 05:27; Start 09/06/17 at 19:45 Vitamin D (Vitamin D3) 5,000 unit DAILY PO Last administered on 09/12/17 08: 54; Start 09/07/17 at 15:00 Calcium Carbonate/ Glycine (Oscal) 500 mg BID PO Last administered on 08:53; Start 09/07/17 at 21:00 Ceftriaxone Sodium 1 gm/ Dextrose 50 ml @ 100 mls/hr Q24H IV ; Start 09/07/17 at 16:15; Status UNV Ceftriaxone Sodium (Rocephin) 1 gm Q24H IVP Last administered on 09/08/17 17: 00; Start 09/07/17 at 17:00; Stop 09/10/17 at 11:48; Status DC Acetaminophen/ Aspirin/Caffeine (Excedrin Migraine) 1 tab PRN Q6HRS PRN PO MIGRAINE HEADACHE Last administered on 09/11/17 08:14; Start 09/08/17 at 11: 30 Potassium Chloride/Sodium Chloride 1,000 ml @ 75 mls/hr [id number] IV Last administered on 09/11/17 20:47; Start 09/08/17 at 12:00 Lactobacillus Rhamnosus (Culturelle) 1 cap BID PO Last administered on 08:54; Start 09/08/17 at 21:00 Magnesium Sulfate/ Dextrose 50 ml @ 25 mls/hr 1X ONCE IV Last administered on 09/08/17 18:01; Start 09/08/17 at 17:45; Stop 09/08/17 at 19:44; Status DC Ferrous Sulfate (Feosol) 325 mg QHS PO Last administered on 09/11/17 20:47; Start 09/08/17 at 21:00 Haloperidol Lactate (Haldol) 5 mg PRN Q6HRS PRN IVP AGITATION Last administered on 09/09/17 16:35; Start 09/09/17 at 16:45 Levofloxacin (Levaquin) 500 mg DAILY06 PO Last administered on 09/10/17 05:35 ; Start 09/10/17 at 06:00; Stop 09/10/17 at 11:48; Status DC Piperacillin Sod/ Tazobactam Sod 3.375 gm/Dextrose 50 ml @ 100 mls/hr Q6HRS IV ; Start 09/10/17 at 12:00; Status UNV Doxycycline Hyclate (Vibra-Tab) 100 mg BID PO Last administered on 09/12/17 08:53; Start 09/10/17 at 12:30 Piperacillin Sod/ Tazobactam Sod (Zosyn) 3.375 gm Q6HRS IVP Last administered on 09/11/17 05:44; Start 09/10/17 at 12:30; Stop 09/11/17 at 11:32; Status DC Ondansetron HCl (Zofran) 4 mg PRN Q6HRS PRN IV NAUSEA/VOMITING Last administered on 09/10/17 16:36; Start 09/10/17 at 16:30 Cefepime HCl 1 gm/ Dextrose 50 ml @ 100 mls/hr Q8HRS IV ; Start 09/11/17 at 14 :00; Stop 09/11/17 at 14:00; Status DC Cefepime HCl (Maxipime) 1 gm Q8HRS IVP Last administered on 09/12/17 05:27; Start 09/11/17 at 14:00 Lidocaine/Sodium Bicarbonate (Buffered Lidocaine 1%) 20 ml 1X ONCE IJ Last administered on 09/11/17 14:39; Start 09/11/17 at 13:30; Stop 09/11/17 at 13 :31; Status DC Polyethylene Glycol (miraLAX PACKET) 17 gm DAILY PO Last administered on 10:15; Start 09/12/17 at 10:00 Acyclovir Sodium 500 mg/Sodium Chloride 110 ml @ 110 mls/hr Q8HRS IV Last administered on 09/12/17 12:56; Start 09/12/17 at 11:30 Active Scripts Active Levetiracetam 500 Mg Tablet 500 Mg PO BID Cyclobenzaprine Hcl 10 Mg Tablet 10 Mg PO BID Indomethacin 50 Mg Capsule 1 Cap PO TID Reported Amlodipine Besylate 5 Mg Tablet 5 Mg PO DAILY Diazepam 5 Mg Tablet 5 Mg PO BID Dicyclomine Hcl 20 Mg Tablet 20 Mg PO QID PRN Lamotrigine 100 Mg Tablet 1 Tab PO BID Indomethacin 50 Mg Capsule 1 Cap PO TID Maxzide 37.5 Mg-25 Mg Tablet (Triamterene/Hydrochlorothiazid) 1 Each Tablet 1 Each PO Hydrocodone-Apap 5-325 (Hydrocodone Bit/Acetaminophen) 1 Each Tablet 1 Tab PO PRN Q6HRS PRN Allopurinol 100 Mg Tablet 100 Mg PO Vitals/I & O Vital Sign - Last 24 Hours 09/11/17 09/11/17 09/11/17 09/11/17 15:12 15:20 19:10 20:00 Temp 102.4 98.6 102.4 98.6 Pulse 104 104 108 Resp 19 20 B/P (MAP) 163/76 (105) 163/76 164/92 (116) Pulse Ox 96 96 O2 Delivery Room Air Room Air Room Air 09/11/17 09/11/17 09/12/17 09/12/17 22:41 23:41 03:00 05:27 Temp 102.7 101.3 102.7 101.3 Pulse 111 102 102 Resp 25 18 B/P (MAP) 170/79 170/79 (109) 179/86 (117) 179/86 Pulse Ox 99 95 O2 Delivery Room Air Room Air 09/12/17 09/12/17 09/12/17 07:00 08:00 10:49 Temp 102.4 102.7 102.4 102.7 Pulse 108 113 Resp 18 16 B/P (MAP) 121/79 (93) 134/80 (98) Pulse Ox 97 94 O2 Delivery Room Air Room Air Room Air Intake and Output 09/11/17 09/11/17 09/12/17 15:00 23:00 07:00 Intake Total 50 ml 575 ml Output Total 0 ml 375 ml Balance 50 ml 200 ml CHERYL RUIZ MD Sep 12, 2017 13:47
[2017-09-12] MEDS ORDERED: GADOBUTROL 10 MMOL/10 ML VIAL IV ONE (14:45)
--- NOTE | 2017-09-12 15:35 | RAD ---
MRI Brain with and without contrast History: Fever Technique: Multiplanar, multi sequential pre and postcontrast MR imaging was performed of the brain. Contrast: 9 cc Gadavist Comparison: September 09, 2017 Findings: There is no evidence of recent infarct or cytotoxic edema. 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 There is no midline shift or intra-axial fluid collection. There are again some foci of T2 and FLAIR hyperintense abnormality of the bilateral basal ganglia and [place] radiata. There is no midline shift or intra-axial mass effect. There is preservation of the major arterial intracranial flow-voids at the skull base. Mastoid air cells are aerated. There is patchy minimal ethmoid air cell mucosal thickening. Cerebellar tonsils are normal in location. There is preserved marrow signal of the clivus. There is no abnormality of pineal gland or pituitary gland. Impression: 1. There is mild leptomeningeal enhancement most notable of the temporal occipital lobes and cerebellum, could be seen with meningitis. 2. Scattered foci of T2 and FLAIR hyperintense abnormality of the adrián and supratentorial parenchyma is nonspecific, probably due to chronic microvascular ischemic disease in a patient this age. Electronically signed by: Rowdy Ibanez MD (09/12/2017 3:31 PM) [id number]
[2017-09-12] MEDS: ENOXAPARIN 40 MG/0.4 ML SYRINGE. SQ SCH (16:03)
[2017-09-12] MEDS: POTASSIUM CL 20MEQ-0.45% NACL 1,000 ML IV SCH (16:03)
--- NOTE | 2017-09-12 16:54 | PDOC ---
PROGRESS NOTES Assessment Assessment Encephalitis, meningitis, viral etiology likely, but bacteria cannot be ruled out. Fever. Metabolic encephalopathy. Near syncopal spell. Fall. Hypokalemia, K+ 2.8 Hx of seizure or seizure like episodes. HTN Gout GERD Vit D deficiency. Iron deficiency. Self medicated for narcotics, may cause confusion. No evidence of acute CVA or brain tumor this time. RECOMMENDATIONS/PLAN: ID consulted and treated. Keep electrolytes balance. Vit D and Ca++ supplement. Treat medical diseases. Iron deficiency, further evaluation per floor medical team. Discussed with her family in all detail again at bedside on 09/08/17. EEG on 09/07/17: Normal without seizure activity. Brain MRI: No acute CVA. Repeated MRI on 09/12/17 : partial meningeal enhancement, see reports. CSF: WBC 130, RBC 32, Glucose 49, protein 79.2. Other tests and cultures pending. HISTORY OF THE PRESENT ILLNESS: 71-y-old AA female patient with above medical diseases had a fall at home, but no loss of consciousness. She stated she felt generalized weakness and had a fall. She got up herself and drove to the ER of [facility]. Her K_+ level was found low of 2.8. PMH: Seizure like episodes,, CHF, HTN, GERD, anxiety, gout. PSHX: Cholecystectomy, hysterectomy FH: Cancer (father prostate, aunt w/ colon cancer), CVA, Other (Alzheimer's, scleroderma) Social History: Smoke: No ALCOHOL: none Drugs: None ALLERGY: Reviewed. MEDICATIONS: Refer to MAR REVIEW OF SYSTEMS: Constitutional: Obesity. Head: No traumatic brain or head injury. Skin: No edema, or rash. Ear: No infection Eyes: No vision loss or color blindness. Nose: No bleeding or purulent discharges. Hearing: No hearing decrease. Neck: No injury. Breast: No history of cancer, masses,or discharges. Cardiac:HTN. Pulmonary: No COPD. GI: ERD. Urinary/genital: UTI. Endocrinologic: Obesity. Skeletomuscular: Generalized weakness. Neurological: see HP. Psychiatric: Denies drug use/abuse. Otherwise, not [id number] review of systems. PHYSICAL EXAMINATION: General appearance is in subacute distress. HEENT: Normocephalic and nontraumatic. Eyes, nose, ears, and throat are unremarkable. Neck is supple. No lymphadenopathy. No bruits are heard over the carotid artery. No crepitus. Cardiovascular: S1, S2, regular rate and rhythm. Pulmonary: Clear to auscultation bilaterally. Abdomen: Bowel sounds are positive. Abdomen is soft, nontender, and nondistended. Extremities: No rash, lesions, or edema. No restriction of range of motion NEUROLOGICAL EXAMINATION: Sleepiness. Not oriented to time, place but may know person. PERRL. EOMI. CN: no focal findings. Muscle tone: within normal. Muscle strength: 4+ DTR: 1-2 due to obesity. Plantar reflex: Flexor response bilaterally Gait: At baseline normal. Sensory exam: no abnormal findings. No cerebellar signs elicited. F-T-N test not performed due to sleepiness. Objective Objective Vital Signs Date Time Temp Pulse Resp B/P (MAP) Pulse Ox O2 Delivery O2 Flow Rate FiO2 09/12/17 15:38 98.4 102 18 159/83 (108) 98 Room Air 98.4 Intake and Output 09/12/17 07:00 Intake Total 625 ml Output Total 375 ml Balance 250 ml Intake Oral 625 ml Output Urine Total 375 ml Vitals Signs Vitals VS - Last 72 Hours, by Label Date Time Temp Pulse Resp B/P (MAP) Pulse Ox O2 Delivery O2 Flow Rate FiO2 09/12/17 15:38 98.4 102 18 159/83 (108) 98 Room Air 98.4 09/12/17 10:49 102.7 113 16 134/80 (98) 94 Room Air 102.7 09/12/17 08:00 Room Air 09/12/17 07:00 102.4 108 18 121/79 (93) 97 Room Air 102.4 09/12/17 05:27 102 179/86 09/12/17 03:00 101.3 102 18 179/86 (117) 95 Room Air 101.3 09/11/17 23:41 102.7 111 25 170/79 (109) 99 Room Air 102.7 09/11/17 22:41 170/79 09/11/17 20:00 Room Air 09/11/17 19:10 98.6 108 20 164/92 (116) 96 Room Air 98.6 09/11/17 15:20 104 163/76 09/11/17 15:12 102.4 104 19 163/76 (105) 96 Room Air 102.4 09/11/17 10:31 102 188/84 09/11/17 10:13 101.3 102 18 188/84 (118) 99 Room Air 101.3 09/11/17 08:00 Room Air Laboratory Laboratory Laboratory Tests Test 09/11/17 17:30 09/12/17 03:10 Ggqk-5-Xfyodbrwasopn 5.3 mg/L (0.6-2.4) Immunoglobulin G 982 mg/dL (700-1600) White Blood Count 6.0 x10^3/uL (4.0-11.0) Red Blood Count 3.70 x10^6/uL (3.50-5.40) Hemoglobin 11.5 g/dL (12.0-15.5) Hematocrit 34.9 % (36.0-47.0) Mean Corpuscular Volume 94 fL (79-100) Mean Corpuscular Hemoglobin 31 pg (25-35) Mean Corpuscular Hemoglobin Concent 33 g/dL (31-37) Red Cell Distribution Width 13.7 % (11.5-14.5) Platelet Count 127 x10^3/uL (140-400) Neutrophils (%) (Auto) 84 % (31-73) Lymphocytes (%) (Auto) 10 % (24-48) Monocytes (%) (Auto) 4 % (0-9) Eosinophils (%) (Auto) 1 % (0-3) Basophils (%) (Auto) 0 % (0-3) Neutrophils # (Auto) 5.0 x10^3uL (1.8-7.7) Lymphocytes # (Auto) 0.6 x10^3/uL (1.0-4.8) Monocytes # (Auto) 0.2 x10^3/uL (0.0-1.1) Eosinophils # (Auto) 0.1 x10^3/uL (0.0-0.7) Basophils # (Auto) 0.0 x10^3/uL (0.0-0.2) Sodium Level 133 mmol/L (136-145) Potassium Level 3.9 mmol/L (3.5-5.1) Chloride Level 99 mmol/L (98-107) Carbon Dioxide Level 24 mmol/L (21-32) Anion Gap 10 (6-14) Blood Urea Nitrogen 16 mg/dL (7-20) Creatinine 1.1 mg/dL (0.6-1.0) Estimated GFR (Cockcroft-Gault) 59.1 BUN/Creatinine Ratio 15 (6-20) Glucose Level 99 mg/dL (70-99) Calcium Level 8.4 mg/dL (8.5-10.1) Total Bilirubin 0.4 mg/dL (0.2-1.0) Aspartate Amino Transf (AST/SGOT) 209 U/L (15-37) Alanine Aminotransferase (ALT/SGPT) 106 U/L (14-59) Alkaline Phosphatase 104 U/L (46-116) Total Protein 7.0 g/dL (6.4-8.2) Albumin 2.7 g/dL (3.4-5.0) Albumin/Globulin Ratio 0.6 (1.0-1.7) Microbiology 09/07/17 Blood Culture - Final, Complete NO GROWTH AFTER 5 DAYS 09/11/17 Gram Stain - Final, Complete 09/07/17 Urine Culture - Final, Complete 09/07/17 Urine Culture Result 1 (NADIA) - Final, Complete Medication Medications Current Medications Acyclovir Sodium 500 mg/Sodium Chloride 110 ml @ 110 mls/hr Q8HRS IV Last administered on 09/12/17 12:56; Start 09/12/17 at 11:30 Enoxaparin Sodium (Lovenox 40mg Syringe) 40 mg Q24H SQ Last administered on 16:03; Start 09/12/17 at 15:00 Gadobutrol (Gadavist) 9 mmol 1X ONCE IV Last administered on 09/12/17 15:00 ; Start 09/12/17 at 14:45; Stop 09/12/17 at 14:46; Status DC Polyethylene Glycol (miraLAX PACKET) 17 gm DAILY PO Last administered on 10:15; Start 09/12/17 at 10:00 Comment Review of Relevant I have reviewed the following items nahum (where applicable) has been applied. SHIRLEY ROSSI MD Sep 12, 2017 16:54
[2017-09-12] MEDS: FERROUS SULFATE 325 MG TABLET. PO SCH (20:48)
[2017-09-13 03:37] VITALS: BP 135/75
[2017-09-13 05:06] LABS: BASO % 1 % (0-3); EOS % 3 % (0-3); HEMATOCRIT 33.8 % (36.0-47.0); HEMOGLOBIN 11.1 g/dL (12.0-15.5); LYMPH # 0.7 x10^3/uL (1.0-4.8); LYMPH % 14 % (24-48); MEAN CORPUSCULAR HEMOGLOBIN 31 pg (25-35); MEAN CORPUSCULAR HGB CONC 33 g/dL (31-37); MEAN CORPUSCULAR VOLUME 95 fL (79-100); MONO % 6 % (0-9); NEUT % 76 % (31-73); PLATELET COUNT 141 x10^3/uL (140-400); RED BLOOD COUNT 3.57 x10^6/uL (3.50-5.40); RED CELL DISTRIBUTION WIDTH 13.8 % (11.5-14.5); WHITE BLOOD COUNT 4.8 x10^3/uL (4.0-11.0)
[2017-09-13 05:38] LABS: ALBUMIN 2.6 g/dL (3.4-5.0); ALBUMIN/GLOBULIN RATIO 0.7 (1.0-1.7); CALCIUM 8.2 mg/dL (8.5-10.1); GFR 65.9; TOTAL BILIRUBIN 0.5 mg/dL (0.2-1.0); TOTAL PROTEIN 6.3 g/dL (6.4-8.2)
[2017-09-13] MEDS: POTASSIUM CL 20MEQ-0.45% NACL 1,000 ML IV SCH ×2 (06:34→13:54)
[2017-09-13] MEDS: NORMAL SALINE IV SCH ×3 (06:35→22:14)
[2017-09-13] MEDS: ACYCLOVIR SODIUM IV SCH ×3 (06:35→22:14)
[2017-09-13] MEDS: CEFEPIME HCL IV Push 1 GM VIAL. IVP SCH (06:35)
[2017-09-13 07:00] VITALS: BP 173/79
--- NOTE | 2017-09-13 07:47 | PDOC ---
SURGICAL PROGRESS NOTE Subjective Felling better no pain Vital Signs Vital Signs Date Time Temp Pulse Resp B/P (MAP) Pulse Ox O2 Delivery O2 Flow Rate FiO2 09/13/17 03:37 99.9 102 16 135/75 (95) 100 Room Air 99.9 I&O Intake and Output 09/13/17 07:00 Intake Total 490 ml Output Total 700 ml Balance -210 ml Intake Oral 490 ml Output Urine Total 700 ml PATIENT HAS A HUTCHINS: No General: Alert, Oriented X3, Cooperative, No acute distress Abdomen: Normal bowel sounds, Soft, No tenderness Labs Laboratory Tests Test 09/11/17 12:40 09/11/17 14:55 09/11/17 17:30 09/12/17 03:10 Prothrombin Time 13.3 SEC (11.7-14.0) Prothromb Time International Ratio 1.1 (0.8-1.1) CSF Tube Number 4 CSF Color Colorless CSF Clarity Clear CSF WBC 130 CSF RBC 32 CSF Mononuclear WBCs % 20 % CSF Polynuclear WBCs (%) 80 % CSF Glucose 49 mg/dL (37-70) CSF Total Protein 79.2 mg/dL (15.0-45.0) [id number] 5.3 mg/L (0.6-2.4) Immunoglobulin G 982 mg/dL (700-1600) White Blood Count 6.0 x10^3/uL (4.0-11.0) Red Blood Count 3.70 x10^6/uL (3.50-5.40) Hemoglobin 11.5 g/dL (12.0-15.5) Hematocrit 34.9 % (36.0-47.0) Mean Corpuscular Volume 94 fL (79-100) Mean Corpuscular Hemoglobin 31 pg (25-35) Mean Corpuscular Hemoglobin Concent 33 g/dL (31-37) Red Cell Distribution Width 13.7 % (11.5-14.5) Platelet Count 127 x10^3/uL (140-400) Neutrophils (%) (Auto) 84 % (31-73) Lymphocytes (%) (Auto) 10 % (24-48) Monocytes (%) (Auto) 4 % (0-9) Eosinophils (%) (Auto) 1 % (0-3) Basophils (%) (Auto) 0 % (0-3) Neutrophils # (Auto) 5.0 x10^3uL (1.8-7.7) Lymphocytes # (Auto) 0.6 x10^3/uL (1.0-4.8) Monocytes # (Auto) 0.2 x10^3/uL (0.0-1.1) Eosinophils # (Auto) 0.1 x10^3/uL (0.0-0.7) Basophils # (Auto) 0.0 x10^3/uL (0.0-0.2) Sodium Level 133 mmol/L (136-145) Potassium Level 3.9 mmol/L (3.5-5.1) Chloride Level 99 mmol/L (98-107) Carbon Dioxide Level 24 mmol/L (21-32) Anion Gap 10 (6-14) Blood Urea Nitrogen 16 mg/dL (7-20) Creatinine 1.1 mg/dL (0.6-1.0) Estimated GFR (Cockcroft-Gault) 59.1 BUN/Creatinine Ratio 15 (6-20) Glucose Level 99 mg/dL (70-99) Calcium Level 8.4 mg/dL (8.5-10.1) Total Bilirubin 0.4 mg/dL (0.2-1.0) Aspartate Amino Transf (AST/SGOT) 209 U/L (15-37) Alanine Aminotransferase (ALT/SGPT) 106 U/L (14-59) Alkaline Phosphatase 104 U/L (46-116) Total Protein 7.0 g/dL (6.4-8.2) Albumin 2.7 g/dL (3.4-5.0) Albumin/Globulin Ratio 0.6 (1.0-1.7) Test 09/13/17 03:25 White Blood Count 4.8 x10^3/uL (4.0-11.0) Red Blood Count 3.57 x10^6/uL (3.50-5.40) Hemoglobin 11.1 g/dL (12.0-15.5) Hematocrit 33.8 % (36.0-47.0) Mean Corpuscular Volume 95 fL (79-100) Mean Corpuscular Hemoglobin 31 pg (25-35) Mean Corpuscular Hemoglobin Concent 33 g/dL (31-37) Red Cell Distribution Width 13.8 % (11.5-14.5) Platelet Count 141 x10^3/uL (140-400) Neutrophils (%) (Auto) 76 % (31-73) Lymphocytes (%) (Auto) 14 % (24-48) Monocytes (%) (Auto) 6 % (0-9) Eosinophils (%) (Auto) 3 % (0-3) Basophils (%) (Auto) 1 % (0-3) Neutrophils # (Auto) 3.7 x10^3uL (1.8-7.7) Lymphocytes # (Auto) 0.7 x10^3/uL (1.0-4.8) Monocytes # (Auto) 0.3 x10^3/uL (0.0-1.1) Eosinophils # (Auto) 0.2 x10^3/uL (0.0-0.7) Basophils # (Auto) 0.0 x10^3/uL (0.0-0.2) Sodium Level 135 mmol/L (136-145) Potassium Level 4.0 mmol/L (3.5-5.1) Chloride Level 101 mmol/L (98-107) Carbon Dioxide Level 24 mmol/L (21-32) Anion Gap 10 (6-14) Blood Urea Nitrogen 16 mg/dL (7-20) Creatinine 1.0 mg/dL (0.6-1.0) Estimated GFR (Cockcroft-Gault) 65.9 BUN/Creatinine Ratio 16 (6-20) Glucose Level 82 mg/dL (70-99) Calcium Level 8.2 mg/dL (8.5-10.1) Total Bilirubin 0.5 mg/dL (0.2-1.0) Aspartate Amino Transf (AST/SGOT) 162 U/L (15-37) Alanine Aminotransferase (ALT/SGPT) 88 U/L (14-59) Alkaline Phosphatase 85 U/L (46-116) Total Protein 6.3 g/dL (6.4-8.2) Albumin 2.6 g/dL (3.4-5.0) Albumin/Globulin Ratio 0.7 (1.0-1.7) Laboratory Tests Test 09/13/17 03:25 White Blood Count 4.8 x10^3/uL (4.0-11.0) Red Blood Count 3.57 x10^6/uL (3.50-5.40) Hemoglobin 11.1 g/dL (12.0-15.5) Hematocrit 33.8 % (36.0-47.0) Mean Corpuscular Volume 95 fL (79-100) Mean Corpuscular Hemoglobin 31 pg (25-35) Mean Corpuscular Hemoglobin Concent 33 g/dL (31-37) Red Cell Distribution Width 13.8 % (11.5-14.5) Platelet Count 141 x10^3/uL (140-400) Neutrophils (%) (Auto) 76 % (31-73) Lymphocytes (%) (Auto) 14 % (24-48) Monocytes (%) (Auto) 6 % (0-9) Eosinophils (%) (Auto) 3 % (0-3) Basophils (%) (Auto) 1 % (0-3) Neutrophils # (Auto) 3.7 x10^3uL (1.8-7.7) Lymphocytes # (Auto) 0.7 x10^3/uL (1.0-4.8) Monocytes # (Auto) 0.3 x10^3/uL (0.0-1.1) Eosinophils # (Auto) 0.2 x10^3/uL (0.0-0.7) Basophils # (Auto) 0.0 x10^3/uL (0.0-0.2) Sodium Level 135 mmol/L (136-145) Potassium Level 4.0 mmol/L (3.5-5.1) Chloride Level 101 mmol/L (98-107) Carbon Dioxide Level 24 mmol/L (21-32) Anion Gap 10 (6-14) Blood Urea Nitrogen 16 mg/dL (7-20) Creatinine 1.0 mg/dL (0.6-1.0) Estimated GFR (Cockcroft-Gault) 65.9 BUN/Creatinine Ratio 16 (6-20) Glucose Level 82 mg/dL (70-99) Calcium Level 8.2 mg/dL (8.5-10.1) Total Bilirubin 0.5 mg/dL (0.2-1.0) Aspartate Amino Transf (AST/SGOT) 162 U/L (15-37) Alanine Aminotransferase (ALT/SGPT) 88 U/L (14-59) Alkaline Phosphatase 85 U/L (46-116) Total Protein 6.3 g/dL (6.4-8.2) Albumin 2.6 g/dL (3.4-5.0) Albumin/Globulin Ratio 0.7 (1.0-1.7) Problem List Problems Medical Problems: (1) Closed head injury Status: Acute (2) Epigastric pain Status: Acute (3) Fall Status: Acute (4) Hypokalemia Status: Acute Assessment/Plan Improving overall, no surgical indications will sign off Problems: CHERYL GIFFORD MD Sep 13, 2017 07:47
[2017-09-13] MEDS: POLYETHYLENE GLYCOL 3350 17 GM PACKET. PO SCH (08:22)
[2017-09-13] MEDS: ACETAMINOPHEN 325 MG TABLET. PO PRN ×2 (08:23→20:33)
[2017-09-13] MEDS: CHOLECALCIFEROL (VITAMIN D3) 5,000 UNIT CAPSULE PO SCH (08:23)
[2017-09-13] MEDS: diazePAM 5 MG TABLET PO SCH ×2 (08:23→20:33)
[2017-09-13] MEDS: DOXYCYCLINE HYCLATE 100 MG TABLET PO SCH ×2 (08:23→20:33)
[2017-09-13] MEDS: CALCIUM CARBONATE 500 MG TABLET PO SCH ×2 (08:23→20:33)
[2017-09-13] MEDS: ALLOPURINOL 100 MG TABLET. PO SCH (08:23)
[2017-09-13] MEDS: LACTOBACILLUS RHAMNOSUS GG 1 CAPSULE. PO SCH ×2 (08:23→20:32)
[2017-09-13] MEDS: lamoTRIgine 100 MG TABLET. PO SCH ×2 (08:24→20:33)
[2017-09-13] MEDS: PANTOPRAZOLE 40 MG TABLET.DR. PO SCH (08:24)
--- NOTE | 2017-09-13 08:47 | PDOC ---
Infectious Disease Note Subjective Subjective pt feeling ok, awake, better,, appropriate ROS ROS GEN: Denies fevers, chills, sweats HEENT: Denies blurred vision, sore throat CV: Denies chest pain RESP: Denies shortness of air, cough GI: Denies n/v/d NEURO: Denies confusion, dizziness MSK: Denies weakness, joint pain/swelling Vital Sign Vital Signs Vital Signs Date Time Temp Pulse Resp B/P (MAP) Pulse Ox O2 Delivery O2 Flow Rate FiO2 09/13/17 07:00 100.8 99 17 173/79 (110) 94 Room Air 100.8 Physical Exam PHYSICAL EXAM GENERAL: NAD, Alert HEENT: PERRL, OC/OP NECK: Supple, no JVD, no LN LUNGS: Clear HEART: S1S2, no gallop, no murmur ABD: Soft, NT, no organomegaly, no rebound EXT: No edema, no cyanosis [employer]: Alert, oriented x 3, no focal neurologic deficit SKIN: No rash IV: ok Labs Lab Laboratory Tests Test 09/13/17 03:25 White Blood Count 4.8 x10^3/uL (4.0-11.0) Red Blood Count 3.57 x10^6/uL (3.50-5.40) Hemoglobin 11.1 g/dL (12.0-15.5) Hematocrit 33.8 % (36.0-47.0) Mean Corpuscular Volume 95 fL (79-100) Mean Corpuscular Hemoglobin 31 pg (25-35) Mean Corpuscular Hemoglobin Concent 33 g/dL (31-37) Red Cell Distribution Width 13.8 % (11.5-14.5) Platelet Count 141 x10^3/uL (140-400) Neutrophils (%) (Auto) 76 % (31-73) Lymphocytes (%) (Auto) 14 % (24-48) Monocytes (%) (Auto) 6 % (0-9) Eosinophils (%) (Auto) 3 % (0-3) Basophils (%) (Auto) 1 % (0-3) Neutrophils # (Auto) 3.7 x10^3uL (1.8-7.7) Lymphocytes # (Auto) 0.7 x10^3/uL (1.0-4.8) Monocytes # (Auto) 0.3 x10^3/uL (0.0-1.1) Eosinophils # (Auto) 0.2 x10^3/uL (0.0-0.7) Basophils # (Auto) 0.0 x10^3/uL (0.0-0.2) Sodium Level 135 mmol/L (136-145) Potassium Level 4.0 mmol/L (3.5-5.1) Chloride Level 101 mmol/L (98-107) Carbon Dioxide Level 24 mmol/L (21-32) Anion Gap 10 (6-14) Blood Urea Nitrogen 16 mg/dL (7-20) Creatinine 1.0 mg/dL (0.6-1.0) Estimated GFR (Cockcroft-Gault) 65.9 BUN/Creatinine Ratio 16 (6-20) Glucose Level 82 mg/dL (70-99) Calcium Level 8.2 mg/dL (8.5-10.1) Total Bilirubin 0.5 mg/dL (0.2-1.0) Aspartate Amino Transf (AST/SGOT) 162 U/L (15-37) Alanine Aminotransferase (ALT/SGPT) 88 U/L (14-59) Alkaline Phosphatase 85 U/L (46-116) Total Protein 6.3 g/dL (6.4-8.2) Albumin 2.6 g/dL (3.4-5.0) Albumin/Globulin Ratio 0.7 (1.0-1.7) Micro culture neg LP noted,, wbc 130 Objective Assessment Fever , likely viral illness Seizure Encephalopathy Syncope CHF Aseptic meningitis, [place] possible, enterovirus possible, hsv less likely Plan Plan of Care d/c cefepime and cont doxy, and acyclovir for now supportive care d/w Dr Conner yesterday JOHANA BORJAS MD Sep 13, 2017 08:47
[2017-09-13 11:00] VITALS: BP 153/75
--- NOTE | 2017-09-13 12:00 | PDOC ---
PROGRESS NOTES Chief Complaint Chief Complaint syncope ASSESSMENT AND PLAN: 1. Fever: ongoing x 7 days. nonfocal exam except for GOSS. ? viral. flu A/B negative. blood cult NGTD, urine cult neg, on empiric abx ID service input appreciated; s/p LP with elev WBC, protein;- aseptic meningitis, [place] possible, enterovirus possible, hsv less likely; serologies pending 2. Confusion: resolved. MRI brain negative. 3. ? W/D sx: pt had benzos and narcotics in purse, with literally handfuls in the lining, found by daughter, as well as pills in bed, suggesting pt did take own supply. she denies. 4. Syncope: unclear etiology; appreciate card and neuro input; nl echo ( except PAp 34, mild-mod tricuspid regurg) . 5. Sz hx: sounds like partial sz; seeing Dr Johnson. cont lamictal; nl EEG awake/drowsy during current admit 6. ?CHF: no evidence on echo 7. Hypokalemia: severe at admit, now repleted. Mg WNL. monitor 8. N/V: postprandial. appreciate GI input 9. GERD: cont PPI 10. Vit D deficiency: severe. replete 11. Anemia: minimal, mainly inflammation related. low dose PO iron repletion 12. Prophylaxis: lovenox History of Present Illness History of Present Illness weak , overall better Vitals Vitals Vital Signs Date Time Temp Pulse Resp B/P (MAP) Pulse Ox O2 Delivery O2 Flow Rate FiO2 09/13/17 11:00 100.1 107 18 153/75 (101) 95 Room Air 100.1 Physical Exam Physical Exam EXAM: Chest 2 views. HISTORY: Shortness of breath, aspiration. COMPARISON: 12/27/2015. FINDINGS: Frontal and lateral views of the chest are obtained. There are no confluent infiltrates. The right hemidiaphragm is mildly elevated. There is no pneumothorax or pleural effusion. The heart. Mildly enlarged on the lateral projection. IMPRESSION: 1. Mild cardiomegaly. No clear confluent infiltrates. General: Alert, Oriented X3, Cooperative, No acute distress Heart: Regular rate Lungs: Clear Abdomen: Normal bowel sounds, Soft, No tenderness Extremities: No cyanosis, No edema Skin: No rashes Labs LABS Laboratory Tests Test 09/13/17 03:25 White Blood Count 4.8 x10^3/uL (4.0-11.0) Red Blood Count 3.57 x10^6/uL (3.50-5.40) Hemoglobin 11.1 g/dL (12.0-15.5) Hematocrit 33.8 % (36.0-47.0) Mean Corpuscular Volume 95 fL (79-100) Mean Corpuscular Hemoglobin 31 pg (25-35) Mean Corpuscular Hemoglobin Concent 33 g/dL (31-37) Red Cell Distribution Width 13.8 % (11.5-14.5) Platelet Count 141 x10^3/uL (140-400) Neutrophils (%) (Auto) 76 % (31-73) Lymphocytes (%) (Auto) 14 % (24-48) Monocytes (%) (Auto) 6 % (0-9) Eosinophils (%) (Auto) 3 % (0-3) Basophils (%) (Auto) 1 % (0-3) Neutrophils # (Auto) 3.7 x10^3uL (1.8-7.7) Lymphocytes # (Auto) 0.7 x10^3/uL (1.0-4.8) Monocytes # (Auto) 0.3 x10^3/uL (0.0-1.1) Eosinophils # (Auto) 0.2 x10^3/uL (0.0-0.7) Basophils # (Auto) 0.0 x10^3/uL (0.0-0.2) Sodium Level 135 mmol/L (136-145) Potassium Level 4.0 mmol/L (3.5-5.1) Chloride Level 101 mmol/L (98-107) Carbon Dioxide Level 24 mmol/L (21-32) Anion Gap 10 (6-14) Blood Urea Nitrogen 16 mg/dL (7-20) Creatinine 1.0 mg/dL (0.6-1.0) Estimated GFR (Cockcroft-Gault) 65.9 BUN/Creatinine Ratio 16 (6-20) Glucose Level 82 mg/dL (70-99) Calcium Level 8.2 mg/dL (8.5-10.1) Total Bilirubin 0.5 mg/dL (0.2-1.0) Aspartate Amino Transf (AST/SGOT) 162 U/L (15-37) Alanine Aminotransferase (ALT/SGPT) 88 U/L (14-59) Alkaline Phosphatase 85 U/L (46-116) Total Protein 6.3 g/dL (6.4-8.2) Albumin 2.6 g/dL (3.4-5.0) Albumin/Globulin Ratio 0.7 (1.0-1.7) DARIN FISHMAN MD Sep 13, 2017 12:00
[2017-09-13 12:11] LABS: WEST NILE IGG CSF Negative (Negative); WEST NILE IGM CSF Negative (Negative)
[2017-09-13 15:00] VITALS: BP 165/84
--- NOTE | 2017-09-13 16:09 | PDOC ---
PROGRESS NOTES Assessment Problems Medical Problems: (1) Closed head injury Status: Acute (2) Epigastric pain Status: Acute (3) Fall Status: Acute (4) Hypokalemia Status: Acute Problems: Plan Encephalitis, meningitis, ? viral etiology likely Aseptic meningitis, [place] possible, enterovirus possible, hsv less likely Fever. Metabolic encephalopathy. Hypokalemia, K+ 2.8 Hx of seizure or seizure like episodes. HTN Gout GERD Self medicated for narcotics, may cause confusion. No evidence of acute CVA or brain tumor this time. ID consulted noted Keep electrolytes balance. Vit D and Ca++ supplement. Treat medical diseases. continue medical management. Subjective resting in bed no c/o of GOSS, N, V, SOB. Objective Vital Signs Date Time Temp Pulse Resp B/P (MAP) Pulse Ox O2 Delivery O2 Flow Rate FiO2 09/13/17 15:00 98.4 95 17 165/84 (111) 95 Room Air 98.4 Intake and Output 09/13/17 07:00 Intake Total 490 ml Output Total 700 ml Balance -210 ml Intake Oral 490 ml Output Urine Total 700 ml PHYSICAL EXAM PHYSICAL EXAMINATION: General appearance is in subacute distress. HEENT: Normocephalic and nontraumatic. Eyes, nose, ears, and throat are unremarkable. Neck is supple. No lymphadenopathy. No bruits are heard over the carotid artery. No crepitus. Cardiovascular: S1, S2, regular rate and rhythm. Pulmonary: Clear to auscultation bilaterally. Abdomen: Bowel sounds are positive. Abdomen is soft, nontender, and nondistended. NEUROLOGICAL EXAMINATION: alert able to tell her name and follow simple commands PERRL. EOMI. CN: no focal findings. Muscle tone: within normal. Muscle strength: moves all exts DTR: 1-2 Plantar reflex: Flexor response bilaterally Gait: in bed Sensory exam: no abnormal findings. . Review of Relevant I have reviewed the following items nahum (where applicable) has been applied. Labs Laboratory Tests Test 09/11/17 17:30 09/12/17 03:10 09/13/17 03:25 [id number] 5.3 mg/L (0.6-2.4) Immunoglobulin G 982 mg/dL (700-1600) White Blood Count 6.0 x10^3/uL (4.0-11.0) 4.8 x10^3/uL (4.0-11.0) Red Blood Count 3.70 x10^6/uL (3.50-5.40) 3.57 x10^6/uL (3.50-5.40) Hemoglobin 11.5 g/dL (12.0-15.5) 11.1 g/dL (12.0-15.5) Hematocrit 34.9 % (36.0-47.0) 33.8 % (36.0-47.0) Mean Corpuscular Volume 94 fL (79-100) 95 fL (79-100) Mean Corpuscular Hemoglobin 31 pg (25-35) 31 pg (25-35) Mean Corpuscular Hemoglobin Concent 33 g/dL (31-37) 33 g/dL (31-37) Red Cell Distribution Width 13.7 % (11.5-14.5) 13.8 % (11.5-14.5) Platelet Count 127 x10^3/uL (140-400) 141 x10^3/uL (140-400) Neutrophils (%) (Auto) 84 % (31-73) 76 % (31-73) Lymphocytes (%) (Auto) 10 % (24-48) 14 % (24-48) Monocytes (%) (Auto) 4 % (0-9) 6 % (0-9) Eosinophils (%) (Auto) 1 % (0-3) 3 % (0-3) Basophils (%) (Auto) 0 % (0-3) 1 % (0-3) Neutrophils # (Auto) 5.0 x10^3uL (1.8-7.7) 3.7 x10^3uL (1.8-7.7) Lymphocytes # (Auto) 0.6 x10^3/uL (1.0-4.8) 0.7 x10^3/uL (1.0-4.8) Monocytes # (Auto) 0.2 x10^3/uL (0.0-1.1) 0.3 x10^3/uL (0.0-1.1) Eosinophils # (Auto) 0.1 x10^3/uL (0.0-0.7) 0.2 x10^3/uL (0.0-0.7) Basophils # (Auto) 0.0 x10^3/uL (0.0-0.2) 0.0 x10^3/uL (0.0-0.2) Sodium Level 133 mmol/L (136-145) 135 mmol/L (136-145) Potassium Level 3.9 mmol/L (3.5-5.1) 4.0 mmol/L (3.5-5.1) Chloride Level 99 mmol/L (98-107) 101 mmol/L (98-107) Carbon Dioxide Level 24 mmol/L (21-32) 24 mmol/L (21-32) Anion Gap 10 (6-14) 10 (6-14) Blood Urea Nitrogen 16 mg/dL (7-20) 16 mg/dL (7-20) Creatinine 1.1 mg/dL (0.6-1.0) 1.0 mg/dL (0.6-1.0) Estimated GFR (Cockcroft-Gault) 59.1 65.9 BUN/Creatinine Ratio 15 (6-20) 16 (6-20) Glucose Level 99 mg/dL (70-99) 82 mg/dL (70-99) Calcium Level 8.4 mg/dL (8.5-10.1) 8.2 mg/dL (8.5-10.1) Total Bilirubin 0.4 mg/dL (0.2-1.0) 0.5 mg/dL (0.2-1.0) Aspartate Amino Transf (AST/SGOT) 209 U/L (15-37) 162 U/L (15-37) Alanine Aminotransferase (ALT/SGPT) 106 U/L (14-59) 88 U/L (14-59) Alkaline Phosphatase 104 U/L (46-116) 85 U/L (46-116) Total Protein 7.0 g/dL (6.4-8.2) 6.3 g/dL (6.4-8.2) Albumin 2.7 g/dL (3.4-5.0) 2.6 g/dL (3.4-5.0) Albumin/Globulin Ratio 0.6 (1.0-1.7) 0.7 (1.0-1.7) Laboratory Tests Test 09/13/17 03:25 White Blood Count 4.8 x10^3/uL (4.0-11.0) Red Blood Count 3.57 x10^6/uL (3.50-5.40) Hemoglobin 11.1 g/dL (12.0-15.5) Hematocrit 33.8 % (36.0-47.0) Mean Corpuscular Volume 95 fL (79-100) Mean Corpuscular Hemoglobin 31 pg (25-35) Mean Corpuscular Hemoglobin Concent 33 g/dL (31-37) Red Cell Distribution Width 13.8 % (11.5-14.5) Platelet Count 141 x10^3/uL (140-400) Neutrophils (%) (Auto) 76 % (31-73) Lymphocytes (%) (Auto) 14 % (24-48) Monocytes (%) (Auto) 6 % (0-9) Eosinophils (%) (Auto) 3 % (0-3) Basophils (%) (Auto) 1 % (0-3) Neutrophils # (Auto) 3.7 x10^3uL (1.8-7.7) Lymphocytes # (Auto) 0.7 x10^3/uL (1.0-4.8) Monocytes # (Auto) 0.3 x10^3/uL (0.0-1.1) Eosinophils # (Auto) 0.2 x10^3/uL (0.0-0.7) Basophils # (Auto) 0.0 x10^3/uL (0.0-0.2) Sodium Level 135 mmol/L (136-145) Potassium Level 4.0 mmol/L (3.5-5.1) Chloride Level 101 mmol/L (98-107) Carbon Dioxide Level 24 mmol/L (21-32) Anion Gap 10 (6-14) Blood Urea Nitrogen 16 mg/dL (7-20) Creatinine 1.0 mg/dL (0.6-1.0) Estimated GFR (Cockcroft-Gault) 65.9 BUN/Creatinine Ratio 16 (6-20) Glucose Level 82 mg/dL (70-99) Calcium Level 8.2 mg/dL (8.5-10.1) Total Bilirubin 0.5 mg/dL (0.2-1.0) Aspartate Amino Transf (AST/SGOT) 162 U/L (15-37) Alanine Aminotransferase (ALT/SGPT) 88 U/L (14-59) Alkaline Phosphatase 85 U/L (46-116) Total Protein 6.3 g/dL (6.4-8.2) Albumin 2.6 g/dL (3.4-5.0) Albumin/Globulin Ratio 0.7 (1.0-1.7) Microbiology 09/07/17 Blood Culture - Final, Complete NO GROWTH AFTER 5 DAYS 09/11/17 Gram Stain - Final, Complete 09/07/17 Urine Culture - Final, Complete 09/07/17 Urine Culture Result 1 (NADIA) - Final, Complete Medications Current Medications Acetaminophen (Tylenol) 650 mg 1X ONCE PO Last administered on 09/06/17 11: 03; Start 09/06/17 at 10:15; Stop 09/06/17 at 10:16; Status DC Potassium Chloride (Klor-Con) 40 meq 1X ONCE PO Last administered on 11:03; Start 09/06/17 at 11:00; Stop 09/06/17 at 11:01; Status DC Pantoprazole Sodium (Protonix) 40 mg 1X ONCE PO Last administered on 12:29; Start 09/06/17 at 11:45; Stop 09/06/17 at 11:46; Status DC Acetaminophen (Tylenol) 650 mg PRN Q6HRS PRN PO pain Last administered on 09/13 08:23; Start 09/06/17 at 11:45 Pantoprazole Sodium (Protonix) 40 mg DAILY PO Last administered on 09/13/17 08:24; Start 09/07/17 at 09:00 Potassium Chloride (Klor-Con) 40 meq Q6H PO Last administered on 09/07/17 14: 15; Start 09/06/17 at 18:00; Stop 09/07/17 at 13:00; Status DC Allopurinol (Zyloprim) 100 mg DAILY PO Last administered on 09/13/17 08:23; Start 09/07/17 at 09:00 Diazepam (Valium) 5 mg BID PO Last administered on 09/13/17 08:23; Start at 21:00 Acetaminophen/ Hydrocodone Bitart (Lortab 5/325) 1 tab PRN Q6HRS PRN PO MODERATE PAIN Last administered on 09/09/17 23:15; Start 09/06/17 at 19:15 Lamotrigine (LaMICtal) 100 mg BID PO Last administered on 09/13/17 08:24; Start 09/06/17 at 21:00 Hydralazine HCl (Apresoline Inj) 10 mg PRN Q4HRS PRN IVP ELEVATED BP, SEE COMMENTS Last administered on 09/12/17 05:27; Start 09/06/17 at 19:45 Vitamin D (Vitamin D3) 5,000 unit DAILY PO Last administered on 09/13/17 08: 23; Start 09/07/17 at 15:00 Calcium Carbonate/ Glycine (Oscal) 500 mg BID PO Last administered on 08:23; Start 09/07/17 at 21:00 Ceftriaxone Sodium 1 gm/ Dextrose 50 ml @ 100 mls/hr Q24H IV ; Start 09/07/17 at 16:15; Status UNV Ceftriaxone Sodium (Rocephin) 1 gm Q24H IVP Last administered on 09/08/17 17: 00; Start 09/07/17 at 17:00; Stop 09/10/17 at 11:48; Status DC Acetaminophen/ Aspirin/Caffeine (Excedrin Migraine) 1 tab PRN Q6HRS PRN PO MIGRAINE HEADACHE Last administered on 09/11/17 08:14; Start 09/08/17 at 11: 30 Potassium Chloride/Sodium Chloride 1,000 ml @ 75 mls/hr [id number] IV Last administered on 09/13/17 13:54; Start 09/08/17 at 12:00 Lactobacillus Rhamnosus (Culturelle) 1 cap BID PO Last administered on 08:23; Start 09/08/17 at 21:00 Magnesium Sulfate/ Dextrose 50 ml @ 25 mls/hr 1X ONCE IV Last administered on 09/08/17 18:01; Start 09/08/17 at 17:45; Stop 09/08/17 at 19:44; Status DC Ferrous Sulfate (Feosol) 325 mg QHS PO Last administered on 09/12/17 20:48; Start 09/08/17 at 21:00 Haloperidol Lactate (Haldol) 5 mg PRN Q6HRS PRN IVP AGITATION Last administered on 09/09/17 16:35; Start 09/09/17 at 16:45 Levofloxacin (Levaquin) 500 mg DAILY06 PO Last administered on 09/10/17 05:35 ; Start 09/10/17 at 06:00; Stop 09/10/17 at 11:48; Status DC Piperacillin Sod/ Tazobactam Sod 3.375 gm/Dextrose 50 ml @ 100 mls/hr Q6HRS IV ; Start 09/10/17 at 12:00; Status UNV Doxycycline Hyclate (Vibra-Tab) 100 mg BID PO Last administered on 09/13/17 08:23; Start 09/10/17 at 12:30 Piperacillin Sod/ Tazobactam Sod (Zosyn) 3.375 gm Q6HRS IVP Last administered on 09/11/17 05:44; Start 09/10/17 at 12:30; Stop 09/11/17 at 11:32; Status DC Ondansetron HCl (Zofran) 4 mg PRN Q6HRS PRN IV NAUSEA/VOMITING Last administered on 09/10/17 16:36; Start 09/10/17 at 16:30 Cefepime HCl 1 gm/ Dextrose 50 ml @ 100 mls/hr Q8HRS IV ; Start 09/11/17 at 14 :00; Stop 09/11/17 at 14:00; Status DC Cefepime HCl (Maxipime) 1 gm Q8HRS IVP Last administered on 09/13/17 06:35; Start 09/11/17 at 14:00; Stop 09/13/17 at 08:48; Status DC Lidocaine/Sodium Bicarbonate (Buffered Lidocaine 1%) 20 ml 1X ONCE IJ Last administered on 09/11/17 14:39; Start 09/11/17 at 13:30; Stop 09/11/17 at 13 :31; Status DC Polyethylene Glycol (miraLAX PACKET) 17 gm DAILY PO Last administered on 08:22; Start 09/12/17 at 10:00 Acyclovir Sodium 500 mg/Sodium Chloride 110 ml @ 110 mls/hr Q8HRS IV Last administered on 09/13/17 13:48; Start 09/12/17 at 11:30 Enoxaparin Sodium (Lovenox 40mg Syringe) 40 mg Q24H SQ Last administered on 16:03; Start 09/12/17 at 15:00 Gadobutrol (Gadavist) 9 mmol 1X ONCE IV Last administered on 09/12/17 15:00 ; Start 09/12/17 at 14:45; Stop 09/12/17 at 14:46; Status DC Active Scripts Active Levetiracetam 500 Mg Tablet 500 Mg PO BID Cyclobenzaprine Hcl 10 Mg Tablet 10 Mg PO BID Indomethacin 50 Mg Capsule 1 Cap PO TID Reported Amlodipine Besylate 5 Mg Tablet 5 Mg PO DAILY Diazepam 5 Mg Tablet 5 Mg PO BID Dicyclomine Hcl 20 Mg Tablet 20 Mg PO QID PRN Lamotrigine 100 Mg Tablet 1 Tab PO BID Indomethacin 50 Mg Capsule 1 Cap PO TID Maxzide 37.5 Mg-25 Mg Tablet (Triamterene/Hydrochlorothiazid) 1 Each Tablet 1 Each PO Hydrocodone-Apap 5-325 (Hydrocodone Bit/Acetaminophen) 1 Each Tablet 1 Tab PO PRN Q6HRS PRN Allopurinol 100 Mg Tablet 100 Mg PO Vitals/I & O Vital Sign - Last 24 Hours 09/12/17 09/12/17 09/12/17 09/13/17 19:52 20:00 23:39 03:37 Temp 101.8 100.4 99.9 101.8 100.4 99.9 Pulse 103 98 102 Resp 16 B/P (MAP) 159/75 (103) 154/73 (100) 135/75 (95) Pulse Ox 99 98 100 O2 Delivery Room Air Room Air Room Air Room Air 09/13/17 09/13/17 09/13/17 09/13/17 07:00 08:00 11:00 15:00 Temp 100.8 100.1 98.4 100.8 100.1 98.4 Pulse 99 107 95 Resp 17 B/P (MAP) 173/79 (110) 153/75 (101) 165/84 (111) Pulse Ox 94 95 95 O2 Delivery Room Air Room Air Room Air Room Air Intake and Output 09/12/17 09/12/17 09/13/17 15:00 23:00 07:00 Intake Total 200 ml 290 ml Output Total 550 ml 150 ml Balance -350 ml 140 ml KENNY COLE MD Sep 13, 2017 16:09
[2017-09-13] MEDS: ENOXAPARIN 40 MG/0.4 ML SYRINGE. SQ SCH (16:34)
[2017-09-13 19:00] VITALS: BP 157/79
[2017-09-13 20:11] LABS: HERPES SIMPLEX TYPE 1 Negative (Negative); HERPES SIMPLEX TYPE 2 Negative (Negative)
[2017-09-13] MEDS: FERROUS SULFATE 325 MG TABLET. PO SCH (20:33)
[2017-09-13 22:48] VITALS: BP 163/85
[2017-09-14] VITALS (7 sets, daily range): BP systolic 137–194; BP diastolic 60–93
[2017-09-14] MEDS: POTASSIUM CL 20MEQ-0.45% NACL 1,000 ML IV SCH ×2 (02:24→13:30)
[2017-09-14 06:13] LABS: BASO % 1 % (0-3); EOS % 6 % (0-3); HEMATOCRIT 31.4 % (36.0-47.0); HEMOGLOBIN 10.6 g/dL (12.0-15.5); LYMPH # 0.8 x10^3/uL (1.0-4.8); LYMPH % 19 % (24-48); MEAN CORPUSCULAR HEMOGLOBIN 31 pg (25-35); MEAN CORPUSCULAR HGB CONC 34 g/dL (31-37); MEAN CORPUSCULAR VOLUME 93 fL (79-100); MONO % 11 % (0-9); NEUT % 64 % (31-73); PLATELET COUNT 158 x10^3/uL (140-400); RED BLOOD COUNT 3.39 x10^6/uL (3.50-5.40)
[2017-09-14] MEDS: NORMAL SALINE IV SCH (06:15)
[2017-09-14] MEDS: ACYCLOVIR SODIUM IV SCH (06:15)
[2017-09-14 06:45] LABS: ALBUMIN 2.5 g/dL (3.4-5.0); ALBUMIN/GLOBULIN RATIO 0.7 (1.0-1.7); CALCIUM 8.3 mg/dL (8.5-10.1); GFR 65.9; POTASSIUM 3.8 mmol/L (3.5-5.1); TOTAL BILIRUBIN 0.4 mg/dL (0.2-1.0); TOTAL PROTEIN 6.1 g/dL (6.4-8.2)
[2017-09-14] MEDS: ACETAMINOPHEN 325 MG TABLET. PO PRN ×2 (08:12→21:08)
[2017-09-14] MEDS: diazePAM 5 MG TABLET PO SCH ×2 (08:12→21:09)
[2017-09-14] MEDS: CALCIUM CARBONATE 500 MG TABLET PO SCH ×2 (08:13→21:08)
[2017-09-14] MEDS: ALLOPURINOL 100 MG TABLET. PO SCH (08:13)
[2017-09-14] MEDS: DOXYCYCLINE HYCLATE 100 MG TABLET PO SCH ×2 (08:13→21:08)
[2017-09-14] MEDS: POLYETHYLENE GLYCOL 3350 17 GM PACKET. PO SCH ×2 (08:13→21:09)
[2017-09-14] MEDS: PANTOPRAZOLE 40 MG TABLET.DR. PO SCH (08:13)
[2017-09-14] MEDS: CHOLECALCIFEROL (VITAMIN D3) 5,000 UNIT CAPSULE PO SCH (08:13)
[2017-09-14] MEDS: LACTOBACILLUS RHAMNOSUS GG 1 CAPSULE. PO SCH ×2 (08:13→21:08)
[2017-09-14] MEDS: lamoTRIgine 100 MG TABLET. PO SCH ×2 (08:13→21:08)
--- NOTE | 2017-09-14 09:10 | PDOC ---
PROGRESS NOTES Chief Complaint Chief Complaint syncope ASSESSMENT AND PLAN: 1. Fever: ongoing x 7 days. nonfocal exam except for GOSS. ? viral. flu A/B negative. blood cult NGTD, urine cult neg, on empiric abx ID service input appreciated; s/p LP with elev WBC, protein - aseptic meningitis, [place] possible, enterovirus possible, hsv less likely; serologies pending 2. Confusion: resolved. MRI brain negative. 3. ? W/D sx: pt had benzos and narcotics in purse, with literally handfuls in the lining, found by daughter, as well as pills in bed, suggesting pt did take own supply. she denies. 4. Syncope: unclear etiology; appreciate card and neuro input; nl echo ( except PAp 34, mild-mod tricuspid regurg) . 5. Sz hx: sounds like partial sz; seeing Dr Johnson. cont lamictal; nl EEG awake/drowsy during current admit 6. ?CHF: no evidence on echo 7. Hypokalemia: severe at admit, now repleted. Mg WNL. monitor 8. N/V: postprandial. appreciate GI input 9. GERD: cont PPI 10. Vit D deficiency: severe. replete 11. Anemia: minimal, mainly inflammation related. low dose PO iron repletion 12. Prophylaxis: lovenox History of Present Illness History of Present Illness feels better, no new c/o Vitals Vitals Vital Signs Date Time Temp Pulse Resp B/P (MAP) Pulse Ox O2 Delivery O2 Flow Rate FiO2 09/14/17 07:38 Room Air 09/14/17 07:00 99.1 100 17 160/79 (106) 94 99.1 Physical Exam Physical Exam EXAM: Chest 2 views. HISTORY: Shortness of breath, aspiration. COMPARISON: 12/27/2015. FINDINGS: Frontal and lateral views of the chest are obtained. There are no confluent infiltrates. The right hemidiaphragm is mildly elevated. There is no pneumothorax or pleural effusion. The heart. Mildly enlarged on the lateral projection. IMPRESSION: 1. Mild cardiomegaly. No clear confluent infiltrates. General: Alert, Oriented X3, Cooperative, No acute distress Heart: Regular rate Lungs: Clear Abdomen: Normal bowel sounds, Soft, No tenderness Extremities: No cyanosis, No edema Skin: No rashes Labs LABS Laboratory Tests Test 09/14/17 05:35 White Blood Count 4.0 x10^3/uL (4.0-11.0) Red Blood Count 3.39 x10^6/uL (3.50-5.40) Hemoglobin 10.6 g/dL (12.0-15.5) Hematocrit 31.4 % (36.0-47.0) Mean Corpuscular Volume 93 fL (79-100) Mean Corpuscular Hemoglobin 31 pg (25-35) Mean Corpuscular Hemoglobin Concent 34 g/dL (31-37) Red Cell Distribution Width 14.0 % (11.5-14.5) Platelet Count 158 x10^3/uL (140-400) Neutrophils (%) (Auto) 64 % (31-73) Lymphocytes (%) (Auto) 19 % (24-48) Monocytes (%) (Auto) 11 % (0-9) Eosinophils (%) (Auto) 6 % (0-3) Basophils (%) (Auto) 1 % (0-3) Neutrophils # (Auto) 2.6 x10^3uL (1.8-7.7) Lymphocytes # (Auto) 0.8 x10^3/uL (1.0-4.8) Monocytes # (Auto) 0.4 x10^3/uL (0.0-1.1) Eosinophils # (Auto) 0.2 x10^3/uL (0.0-0.7) Basophils # (Auto) 0.0 x10^3/uL (0.0-0.2) Sodium Level 134 mmol/L (136-145) Potassium Level 3.8 mmol/L (3.5-5.1) Chloride Level 102 mmol/L (98-107) Carbon Dioxide Level 25 mmol/L (21-32) Anion Gap 7 (6-14) Blood Urea Nitrogen 14 mg/dL (7-20) Creatinine 1.0 mg/dL (0.6-1.0) Estimated GFR (Cockcroft-Gault) 65.9 BUN/Creatinine Ratio 14 (6-20) Glucose Level 83 mg/dL (70-99) Calcium Level 8.3 mg/dL (8.5-10.1) Total Bilirubin 0.4 mg/dL (0.2-1.0) Aspartate Amino Transf (AST/SGOT) 135 U/L (15-37) Alanine Aminotransferase (ALT/SGPT) 76 U/L (14-59) Alkaline Phosphatase 83 U/L (46-116) Total Protein 6.1 g/dL (6.4-8.2) Albumin 2.5 g/dL (3.4-5.0) Albumin/Globulin Ratio 0.7 (1.0-1.7) DARIN FISHMAN MD Sep 14, 2017 09:10
--- NOTE | 2017-09-14 09:12 | PDOC ---
Infectious Disease Note Subjective Subjective pt feeling ok, awake, better,, appropriate ROS ROS GEN: Denies fevers, chills, sweats HEENT: Denies blurred vision, sore throat CV: Denies chest pain RESP: Denies shortness of air, cough GI: Denies n/v/d NEURO: Denies confusion, dizziness MSK: Denies weakness, joint pain/swelling Vital Sign Vital Signs Vital Signs Date Time Temp Pulse Resp B/P (MAP) Pulse Ox O2 Delivery O2 Flow Rate FiO2 09/14/17 07:38 Room Air 09/14/17 07:00 99.1 100 17 160/79 (106) 94 99.1 Physical Exam PHYSICAL EXAM GENERAL: NAD, Alert HEENT: PERRL, OC/OP NECK: Supple, no JVD, no LN LUNGS: Clear HEART: S1S2, no gallop, no murmur ABD: Soft, NT, no organomegaly, no rebound EXT: No edema, no cyanosis WEED THINNER: Alert, oriented x 3, no focal neurologic deficit SKIN: No rash IV: ok Labs Lab Laboratory Tests Test 09/14/17 05:35 White Blood Count 4.0 x10^3/uL (4.0-11.0) Red Blood Count 3.39 x10^6/uL (3.50-5.40) Hemoglobin 10.6 g/dL (12.0-15.5) Hematocrit 31.4 % (36.0-47.0) Mean Corpuscular Volume 93 fL (79-100) Mean Corpuscular Hemoglobin 31 pg (25-35) Mean Corpuscular Hemoglobin Concent 34 g/dL (31-37) Red Cell Distribution Width 14.0 % (11.5-14.5) Platelet Count 158 x10^3/uL (140-400) Neutrophils (%) (Auto) 64 % (31-73) Lymphocytes (%) (Auto) 19 % (24-48) Monocytes (%) (Auto) 11 % (0-9) Eosinophils (%) (Auto) 6 % (0-3) Basophils (%) (Auto) 1 % (0-3) Neutrophils # (Auto) 2.6 x10^3uL (1.8-7.7) Lymphocytes # (Auto) 0.8 x10^3/uL (1.0-4.8) Monocytes # (Auto) 0.4 x10^3/uL (0.0-1.1) Eosinophils # (Auto) 0.2 x10^3/uL (0.0-0.7) Basophils # (Auto) 0.0 x10^3/uL (0.0-0.2) Sodium Level 134 mmol/L (136-145) Potassium Level 3.8 mmol/L (3.5-5.1) Chloride Level 102 mmol/L (98-107) Carbon Dioxide Level 25 mmol/L (21-32) Anion Gap 7 (6-14) Blood Urea Nitrogen 14 mg/dL (7-20) Creatinine 1.0 mg/dL (0.6-1.0) Estimated GFR (Cockcroft-Gault) 65.9 BUN/Creatinine Ratio 14 (6-20) Glucose Level 83 mg/dL (70-99) Calcium Level 8.3 mg/dL (8.5-10.1) Total Bilirubin 0.4 mg/dL (0.2-1.0) Aspartate Amino Transf (AST/SGOT) 135 U/L (15-37) Alanine Aminotransferase (ALT/SGPT) 76 U/L (14-59) Alkaline Phosphatase 83 U/L (46-116) Total Protein 6.1 g/dL (6.4-8.2) Albumin 2.5 g/dL (3.4-5.0) Albumin/Globulin Ratio 0.7 (1.0-1.7) Micro culture neg LP noted,, wbc 130 Objective Assessment Fever , likely viral illness Seizure Encephalopathy Syncope CHF Aseptic meningitis, [place] neg, hsv neg Plan Plan of Care cont doxy, and d/c acyclovir for now supportive care JOHANA BORJAS MD Sep 14, 2017 09:11
[2017-09-14] MEDS ORDERED: MINERAL OIL 133 ML ENEMA. PR ONE (10:00)
[2017-09-14] MEDS: ASA/APAP/CAFFEINE 250/250/65MG TABLET. PO PRN (10:29)
[2017-09-14] MEDS: hydrALAZINE 20 MG/ML VIAL. IVP PRN ×3 (10:44→21:10)
[2017-09-14] MEDS: ENOXAPARIN 40 MG/0.4 ML SYRINGE. SQ SCH (13:30)
[2017-09-14 17:13] LABS: IMMUNOGLOBULIN A 499 mg/dL (64-422); IMMUNOGLOBULIN G 1015 mg/dL (700-1600); IMMUNOGLOBULIN M 55 mg/dL (26-217)
[2017-09-14] MEDS: FERROUS SULFATE 325 MG TABLET. PO SCH (21:08)
--- NOTE | 2017-09-14 21:16 | PDOC ---
PROGRESS NOTES Assessment Problems Medical Problems: (1) Closed head injury Status: Acute (2) Epigastric pain Status: Acute (3) Fall Status: Acute (4) Hypokalemia Status: Acute Problems: Plan Encephalitis ? viral etiology likely Aseptic meningitis Metabolic encephalopathy. Hypokalemia, K+ 2.8 Hx of seizure or seizure like episodes. HTN Gout GERD Self medicated for narcotics, may cause confusion. No evidence of acute CVA or brain tumor this time. ID consulted noted Keep electrolytes balance. Vit D and Ca++ supplement. Treat medical diseases. continue medical management. . Subjective resting in bed no c/o of GOSS, N, V, SOB Objective Vital Signs Date Time Temp Pulse Resp B/P (MAP) Pulse Ox O2 Delivery O2 Flow Rate FiO2 09/14/17 19:42 99.0 100 16 166/82 (110) 97 Room Air 99.0 Intake and Output 09/14/17 07:00 Intake Total 700 ml Output Total 1100 ml Balance -400 ml Intake Oral 700 ml Output Urine Total 1100 ml PHYSICAL EXAM PHYSICAL EXAMINATION: General appearance is in subacute distress. HEENT: Normocephalic and nontraumatic. Eyes, nose, ears, and throat are unremarkable. Neck is supple. No lymphadenopathy. No bruits are heard over the carotid artery. No crepitus. Cardiovascular: S1, S2, regular rate and rhythm. Pulmonary: Clear to auscultation bilaterally. Abdomen: Bowel sounds are positive. Abdomen is soft, nontender, and nondistended. NEUROLOGICAL EXAMINATION: alert able to tell her name and follow simple commands PERRL. EOMI. CN: no focal findings. Muscle tone: within normal. Muscle strength: moves all exts DTR: 1-2 Plantar reflex: Flexor response bilaterally Gait: in bed Sensory exam: no abnormal findings. .chnique: Multiplanar, multi sequential pre and postcontrast MR imaging was performed of the brain. Contrast: 9 cc Gadavist Comparison: September 09, 2017 Findings: There is no evidence of recent infarct or cytotoxic edema. 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 There is no midline shift or intra-axial fluid collection. There are again some foci of T2 and FLAIR hyperintense abnormality of the bilateral basal ganglia and [place] radiata. There is no midline shift or intra-axial mass effect. There is preservation of the major arterial intracranial flow-voids at the skull base. Mastoid air cells are aerated. There is patchy minimal ethmoid air cell mucosal thickening. Cerebellar tonsils are normal in location. There is preserved marrow signal of the clivus. There is no abnormality of pineal gland or pituitary gland. Impression: 1. There is mild leptomeningeal enhancement most notable of the temporal occipital lobes and cerebellum, could be seen with meningitis. 2. Scattered foci of T2 and FLAIR hyperintense abnormality of the adrián and supratentorial parenchyma is nonspecific, probably due to chronic microvascular ischemic disease in a patient this age. Review of Relevant I have reviewed the following items nahum (where applicable) has been applied. Labs Laboratory Tests Test 09/13/17 03:25 09/14/17 05:35 White Blood Count 4.8 x10^3/uL (4.0-11.0) 4.0 x10^3/uL (4.0-11.0) Red Blood Count 3.57 x10^6/uL (3.50-5.40) 3.39 x10^6/uL (3.50-5.40) Hemoglobin 11.1 g/dL (12.0-15.5) 10.6 g/dL (12.0-15.5) Hematocrit 33.8 % (36.0-47.0) 31.4 % (36.0-47.0) Mean Corpuscular Volume 95 fL (79-100) 93 fL (79-100) Mean Corpuscular Hemoglobin 31 pg (25-35) 31 pg (25-35) Mean Corpuscular Hemoglobin Concent 33 g/dL (31-37) 34 g/dL (31-37) Red Cell Distribution Width 13.8 % (11.5-14.5) 14.0 % (11.5-14.5) Platelet Count 141 x10^3/uL (140-400) 158 x10^3/uL (140-400) Neutrophils (%) (Auto) 76 % (31-73) 64 % (31-73) Lymphocytes (%) (Auto) 14 % (24-48) 19 % (24-48) Monocytes (%) (Auto) 6 % (0-9) 11 % (0-9) Eosinophils (%) (Auto) 3 % (0-3) 6 % (0-3) Basophils (%) (Auto) 1 % (0-3) 1 % (0-3) Neutrophils # (Auto) 3.7 x10^3uL (1.8-7.7) 2.6 x10^3uL (1.8-7.7) Lymphocytes # (Auto) 0.7 x10^3/uL (1.0-4.8) 0.8 x10^3/uL (1.0-4.8) Monocytes # (Auto) 0.3 x10^3/uL (0.0-1.1) 0.4 x10^3/uL (0.0-1.1) Eosinophils # (Auto) 0.2 x10^3/uL (0.0-0.7) 0.2 x10^3/uL (0.0-0.7) Basophils # (Auto) 0.0 x10^3/uL (0.0-0.2) 0.0 x10^3/uL (0.0-0.2) Sodium Level 135 mmol/L (136-145) 134 mmol/L (136-145) Potassium Level 4.0 mmol/L (3.5-5.1) 3.8 mmol/L (3.5-5.1) Chloride Level 101 mmol/L (98-107) 102 mmol/L (98-107) Carbon Dioxide Level 24 mmol/L (21-32) 25 mmol/L (21-32) Anion Gap 10 (6-14) 7 (6-14) Blood Urea Nitrogen 16 mg/dL (7-20) 14 mg/dL (7-20) Creatinine 1.0 mg/dL (0.6-1.0) 1.0 mg/dL (0.6-1.0) Estimated GFR (Cockcroft-Gault) 65.9 65.9 BUN/Creatinine Ratio 16 (6-20) 14 (6-20) Glucose Level 82 mg/dL (70-99) 83 mg/dL (70-99) Calcium Level 8.2 mg/dL (8.5-10.1) 8.3 mg/dL (8.5-10.1) Total Bilirubin 0.5 mg/dL (0.2-1.0) 0.4 mg/dL (0.2-1.0) Aspartate Amino Transf (AST/SGOT) 162 U/L (15-37) 135 U/L (15-37) Alanine Aminotransferase (ALT/SGPT) 88 U/L (14-59) 76 U/L (14-59) Alkaline Phosphatase 85 U/L (46-116) 83 U/L (46-116) Total Protein 6.3 g/dL (6.4-8.2) 6.1 g/dL (6.4-8.2) Albumin 2.6 g/dL (3.4-5.0) 2.5 g/dL (3.4-5.0) Albumin/Globulin Ratio 0.7 (1.0-1.7) 0.7 (1.0-1.7) Laboratory Tests Test 09/14/17 05:35 White Blood Count 4.0 x10^3/uL (4.0-11.0) Red Blood Count 3.39 x10^6/uL (3.50-5.40) Hemoglobin 10.6 g/dL (12.0-15.5) Hematocrit 31.4 % (36.0-47.0) Mean Corpuscular Volume 93 fL (79-100) Mean Corpuscular Hemoglobin 31 pg (25-35) Mean Corpuscular Hemoglobin Concent 34 g/dL (31-37) Red Cell Distribution Width 14.0 % (11.5-14.5) Platelet Count 158 x10^3/uL (140-400) Neutrophils (%) (Auto) 64 % (31-73) Lymphocytes (%) (Auto) 19 % (24-48) Monocytes (%) (Auto) 11 % (0-9) Eosinophils (%) (Auto) 6 % (0-3) Basophils (%) (Auto) 1 % (0-3) Neutrophils # (Auto) 2.6 x10^3uL (1.8-7.7) Lymphocytes # (Auto) 0.8 x10^3/uL (1.0-4.8) Monocytes # (Auto) 0.4 x10^3/uL (0.0-1.1) Eosinophils # (Auto) 0.2 x10^3/uL (0.0-0.7) Basophils # (Auto) 0.0 x10^3/uL (0.0-0.2) Sodium Level 134 mmol/L (136-145) Potassium Level 3.8 mmol/L (3.5-5.1) Chloride Level 102 mmol/L (98-107) Carbon Dioxide Level 25 mmol/L (21-32) Anion Gap 7 (6-14) Blood Urea Nitrogen 14 mg/dL (7-20) Creatinine 1.0 mg/dL (0.6-1.0) Estimated GFR (Cockcroft-Gault) 65.9 BUN/Creatinine Ratio 14 (6-20) Glucose Level 83 mg/dL (70-99) Calcium Level 8.3 mg/dL (8.5-10.1) Total Bilirubin 0.4 mg/dL (0.2-1.0) Aspartate Amino Transf (AST/SGOT) 135 U/L (15-37) Alanine Aminotransferase (ALT/SGPT) 76 U/L (14-59) Alkaline Phosphatase 83 U/L (46-116) Total Protein 6.1 g/dL (6.4-8.2) Albumin 2.5 g/dL (3.4-5.0) Albumin/Globulin Ratio 0.7 (1.0-1.7) Microbiology 09/07/17 Blood Culture - Final, Complete NO GROWTH AFTER 5 DAYS 09/11/17 AFB Specimen Processing Tissue - Final, Resulted 09/11/17 Acid Fast Bacilli Culture, Resulted Pending 09/11/17 Gram Stain - Final, Resulted 09/11/17 Fungal Culture, Resulted Pending 09/11/17 Fungal Culture Result 1, Resulted Pending 09/07/17 Urine Culture - Final, Complete 09/07/17 Urine Culture Result 1 (NADIA) - Final, Complete Medications Current Medications Acetaminophen (Tylenol) 650 mg 1X ONCE PO Last administered on 09/06/17 11: 03; Start 09/06/17 at 10:15; Stop 09/06/17 at 10:16; Status DC Potassium Chloride (Klor-Con) 40 meq 1X ONCE PO Last administered on 11:03; Start 09/06/17 at 11:00; Stop 09/06/17 at 11:01; Status DC Pantoprazole Sodium (Protonix) 40 mg 1X ONCE PO Last administered on 12:29; Start 09/06/17 at 11:45; Stop 09/06/17 at 11:46; Status DC Acetaminophen (Tylenol) 650 mg PRN Q6HRS PRN PO pain Last administered on 09/14 08:12; Start 09/06/17 at 11:45 Pantoprazole Sodium (Protonix) 40 mg DAILY PO Last administered on 09/14/17 08:13; Start 09/07/17 at 09:00 Potassium Chloride (Klor-Con) 40 meq Q6H PO Last administered on 09/07/17 14: 15; Start 09/06/17 at 18:00; Stop 09/07/17 at 13:00; Status DC Allopurinol (Zyloprim) 100 mg DAILY PO Last administered on 09/14/17 08:13; Start 09/07/17 at 09:00 Diazepam (Valium) 5 mg BID PO Last administered on 09/14/17 08:12; Start at 21:00 Acetaminophen/ Hydrocodone Bitart (Lortab 5/325) 1 tab PRN Q6HRS PRN PO MODERATE PAIN Last administered on 09/09/17 23:15; Start 09/06/17 at 19:15 Lamotrigine (LaMICtal) 100 mg BID PO Last administered on 09/14/17 08:13; Start 09/06/17 at 21:00 Hydralazine HCl (Apresoline Inj) 10 mg PRN Q4HRS PRN IVP ELEVATED BP, SEE COMMENTS Last administered on 09/14/17 15:09; Start 09/06/17 at 19:45 Vitamin D (Vitamin D3) 5,000 unit DAILY PO Last administered on 09/14/17 08: 13; Start 09/07/17 at 15:00 Calcium Carbonate/ Glycine (Oscal) 500 mg BID PO Last administered on 08:13; Start 09/07/17 at 21:00 Ceftriaxone Sodium 1 gm/ Dextrose 50 ml @ 100 mls/hr Q24H IV ; Start 09/07/17 at 16:15; Status UNV Ceftriaxone Sodium (Rocephin) 1 gm Q24H IVP Last administered on 09/08/17 17: 00; Start 09/07/17 at 17:00; Stop 09/10/17 at 11:48; Status DC Acetaminophen/ Aspirin/Caffeine (Excedrin Migraine) 1 tab PRN Q6HRS PRN PO MIGRAINE HEADACHE Last administered on 09/14/17 10:29; Start 09/08/17 at 11: 30 Potassium Chloride/Sodium Chloride 1,000 ml @ 75 mls/hr [id number] IV Last administered on 09/14/17 13:30; Start 09/08/17 at 12:00 Lactobacillus Rhamnosus (Culturelle) 1 cap BID PO Last administered on 08:13; Start 09/08/17 at 21:00 Magnesium Sulfate/ Dextrose 50 ml @ 25 mls/hr 1X ONCE IV Last administered on 09/08/17 18:01; Start 09/08/17 at 17:45; Stop 09/08/17 at 19:44; Status DC Ferrous Sulfate (Feosol) 325 mg QHS PO Last administered on 09/13/17 20:33; Start 09/08/17 at 21:00 Haloperidol Lactate (Haldol) 5 mg PRN Q6HRS PRN IVP AGITATION Last administered on 09/09/17 16:35; Start 09/09/17 at 16:45 Levofloxacin (Levaquin) 500 mg DAILY06 PO Last administered on 09/10/17 05:35 ; Start 09/10/17 at 06:00; Stop 09/10/17 at 11:48; Status DC Piperacillin Sod/ Tazobactam Sod 3.375 gm/Dextrose 50 ml @ 100 mls/hr Q6HRS IV ; Start 09/10/17 at 12:00; Status UNV Doxycycline Hyclate (Vibra-Tab) 100 mg BID PO Last administered on 09/14/17 08:13; Start 09/10/17 at 12:30 Piperacillin Sod/ Tazobactam Sod (Zosyn) 3.375 gm Q6HRS IVP Last administered on 09/11/17 05:44; Start 09/10/17 at 12:30; Stop 09/11/17 at 11:32; Status DC Ondansetron HCl (Zofran) 4 mg PRN Q6HRS PRN IV NAUSEA/VOMITING Last administered on 09/10/17 16:36; Start 09/10/17 at 16:30 Cefepime HCl 1 gm/ Dextrose 50 ml @ 100 mls/hr Q8HRS IV ; Start 09/11/17 at 14 :00; Stop 09/11/17 at 14:00; Status DC Cefepime HCl (Maxipime) 1 gm Q8HRS IVP Last administered on 09/13/17 06:35; Start 09/11/17 at 14:00; Stop 09/13/17 at 08:48; Status DC Lidocaine/Sodium Bicarbonate (Buffered Lidocaine 1%) 20 ml 1X ONCE IJ Last administered on 09/11/17 14:39; Start 09/11/17 at 13:30; Stop 09/11/17 at 13 :31; Status DC Polyethylene Glycol (miraLAX PACKET) 17 gm DAILY PO Last administered on 08:13; Start 09/12/17 at 10:00; Stop 09/14/17 at 09:33; Status DC Acyclovir Sodium 500 mg/Sodium Chloride 110 ml @ 110 mls/hr Q8HRS IV Last administered on 09/14/17 06:15; Start 09/12/17 at 11:30; Stop 09/14/17 at 09 :13; Status DC Enoxaparin Sodium (Lovenox 40mg Syringe) 40 mg Q24H SQ Last administered on 13:30; Start 09/12/17 at 15:00 Gadobutrol (Gadavist) 9 mmol 1X ONCE IV Last administered on 09/12/17 15:00 ; Start 09/12/17 at 14:45; Stop 09/12/17 at 14:46; Status DC Polyethylene Glycol (miraLAX PACKET) 17 gm BID PO ; Start 09/14/17 at 21:00 Mineral Oil (Fleet Mineral Oil) 133 ml 1X ONCE [place] Last administered on 10:14; Start 09/14/17 at 10:00; Stop 09/14/17 at 10:01; Status DC Active Scripts Active Levetiracetam 500 Mg Tablet 500 Mg PO BID Cyclobenzaprine Hcl 10 Mg Tablet 10 Mg PO BID Indomethacin 50 Mg Capsule 1 Cap PO TID Reported Amlodipine Besylate 5 Mg Tablet 5 Mg PO DAILY Diazepam 5 Mg Tablet 5 Mg PO BID Dicyclomine Hcl 20 Mg Tablet 20 Mg PO QID PRN Lamotrigine 100 Mg Tablet 1 Tab PO BID Indomethacin 50 Mg Capsule 1 Cap PO TID Maxzide 37.5 Mg-25 Mg Tablet (Triamterene/Hydrochlorothiazid) 1 Each Tablet 1 Each PO Hydrocodone-Apap 5-325 (Hydrocodone Bit/Acetaminophen) 1 Each Tablet 1 Tab PO PRN Q6HRS PRN Allopurinol 100 Mg Tablet 100 Mg PO Vitals/I & O Vital Sign - Last 24 Hours 09/13/17 09/14/17 09/14/17 09/14/17 22:48 02:35 07:00 07:38 Temp 99.0 98.7 99.1 99.0 98.7 99.1 Pulse 92 79 100 Resp 18 18 17 B/P (MAP) 163/85 (111) 150/82 (104) 160/79 (106) Pulse Ox 100 94 O2 Delivery Room Air Room Air Room Air Room Air 09/14/17 09/14/17 09/14/17 09/14/17 10:44 11:00 15:00 15:09 Temp 98.5 98.6 98.5 98.6 Pulse 94 94 95 95 Resp 17 B/P (MAP) 176/93 176/93 (120) 194/92 (126) 194/92 Pulse Ox 96 96 O2 Delivery Room Air Room Air 09/14/17 09/14/17 09/14/17 16:04 19:36 19:42 Temp 99.0 99.0 Pulse 98 100 Resp 16 B/P (MAP) 156/74 (101) 166/82 (110) Pulse Ox 97 O2 Delivery Room Air Room Air Intake and Output 09/13/17 09/13/17 09/14/17 15:00 23:00 07:00 Intake Total 600 ml 100 ml Output Total 900 ml 200 ml Balance -300 ml -100 ml KENNY COLE MD Sep 14, 2017 21:16
[2017-09-14 23:08] LABS: HIV ANTIBODY Non Reactive (Non Reactive)
[2017-09-15] VITALS (7 sets, daily range): BP systolic 120–170; BP diastolic 68–89
[2017-09-15] MEDS: POTASSIUM CL 20MEQ-0.45% NACL 1,000 ML IV SCH ×2 (02:35→15:19)
[2017-09-15 05:04] LABS: BASO % 1 % (0-3); EOS % 6 % (0-3); HEMATOCRIT 32.5 % (36.0-47.0); HEMOGLOBIN 11.4 g/dL (12.0-15.5); LYMPH # 0.8 x10^3/uL (1.0-4.8); LYMPH % 20 % (24-48); MEAN CORPUSCULAR HEMOGLOBIN 33 pg (25-35); MEAN CORPUSCULAR HGB CONC 35 g/dL (31-37); MEAN CORPUSCULAR VOLUME 93 fL (79-100); MONO % 12 % (0-9); NEUT % 62 % (31-73); PLATELET COUNT 199 x10^3/uL (140-400); RED BLOOD COUNT 3.48 x10^6/uL (3.50-5.40); RED CELL DISTRIBUTION WIDTH 13.6 % (11.5-14.5); WHITE BLOOD COUNT 3.9 x10^3/uL (4.0-11.0)
[2017-09-15 05:36] LABS: ALBUMIN 2.5 g/dL (3.4-5.0); ALBUMIN/GLOBULIN RATIO 0.6 (1.0-1.7); CALCIUM 8.6 mg/dL (8.5-10.1); CREATININE 0.8 mg/dL (0.6-1.0); GFR 85.3; POTASSIUM 3.8 mmol/L (3.5-5.1); TOTAL BILIRUBIN 0.5 mg/dL (0.2-1.0); TOTAL PROTEIN 6.5 g/dL (6.4-8.2)
[2017-09-15] MEDS: DOXYCYCLINE HYCLATE 100 MG TABLET PO SCH ×2 (08:01→21:02)
[2017-09-15] MEDS: POLYETHYLENE GLYCOL 3350 17 GM PACKET. PO SCH ×2 (08:01→21:02)
[2017-09-15] MEDS: lamoTRIgine 100 MG TABLET. PO SCH ×2 (08:02→21:02)
[2017-09-15] MEDS: LACTOBACILLUS RHAMNOSUS GG 1 CAPSULE. PO SCH ×2 (08:02→21:02)
[2017-09-15] MEDS: CHOLECALCIFEROL (VITAMIN D3) 5,000 UNIT CAPSULE PO SCH (08:02)
[2017-09-15] MEDS: CALCIUM CARBONATE 500 MG TABLET PO SCH ×2 (08:02→21:02)
[2017-09-15] MEDS: diazePAM 5 MG TABLET PO SCH ×2 (08:02→21:02)
[2017-09-15] MEDS: PANTOPRAZOLE 40 MG TABLET.DR. PO SCH (08:02)
[2017-09-15] MEDS: ALLOPURINOL 100 MG TABLET. PO SCH (08:04)
[2017-09-15] MEDS: ASA/APAP/CAFFEINE 250/250/65MG TABLET. PO PRN (10:58)
--- NOTE | 2017-09-15 11:07 | PDOC ---
G I PROGRESS NOTE Subjective Brighter by reports, but still seems pretty "fuzzy". Family says not eating. Nothing apparently bothersome when does eat. Physical Exam Lungs clear. RRR--tender costosternal junctions, mostly left. Abdomen soft, not tender nor distended. Review of Relevant I have reviewed the following items nahum (where applicable) has been applied. Labs Laboratory Tests Test 09/14/17 05:35 09/15/17 03:40 White Blood Count 4.0 x10^3/uL (4.0-11.0) 3.9 x10^3/uL (4.0-11.0) Red Blood Count 3.39 x10^6/uL (3.50-5.40) 3.48 x10^6/uL (3.50-5.40) Hemoglobin 10.6 g/dL (12.0-15.5) 11.4 g/dL (12.0-15.5) Hematocrit 31.4 % (36.0-47.0) 32.5 % (36.0-47.0) Mean Corpuscular Volume 93 fL (79-100) 93 fL (79-100) Mean Corpuscular Hemoglobin 31 pg (25-35) 33 pg (25-35) Mean Corpuscular Hemoglobin Concent 34 g/dL (31-37) 35 g/dL (31-37) Red Cell Distribution Width 14.0 % (11.5-14.5) 13.6 % (11.5-14.5) Platelet Count 158 x10^3/uL (140-400) 199 x10^3/uL (140-400) Neutrophils (%) (Auto) 64 % (31-73) 62 % (31-73) Lymphocytes (%) (Auto) 19 % (24-48) 20 % (24-48) Monocytes (%) (Auto) 11 % (0-9) 12 % (0-9) Eosinophils (%) (Auto) 6 % (0-3) 6 % (0-3) Basophils (%) (Auto) 1 % (0-3) 1 % (0-3) Neutrophils # (Auto) 2.6 x10^3uL (1.8-7.7) 2.4 x10^3uL (1.8-7.7) Lymphocytes # (Auto) 0.8 x10^3/uL (1.0-4.8) 0.8 x10^3/uL (1.0-4.8) Monocytes # (Auto) 0.4 x10^3/uL (0.0-1.1) 0.5 x10^3/uL (0.0-1.1) Eosinophils # (Auto) 0.2 x10^3/uL (0.0-0.7) 0.2 x10^3/uL (0.0-0.7) Basophils # (Auto) 0.0 x10^3/uL (0.0-0.2) 0.0 x10^3/uL (0.0-0.2) Sodium Level 134 mmol/L (136-145) 132 mmol/L (136-145) Potassium Level 3.8 mmol/L (3.5-5.1) 3.8 mmol/L (3.5-5.1) Chloride Level 102 mmol/L (98-107) 100 mmol/L (98-107) Carbon Dioxide Level 25 mmol/L (21-32) 23 mmol/L (21-32) Anion Gap 7 (6-14) 9 (6-14) Blood Urea Nitrogen 14 mg/dL (7-20) 14 mg/dL (7-20) Creatinine 1.0 mg/dL (0.6-1.0) 0.8 mg/dL (0.6-1.0) Estimated GFR (Cockcroft-Gault) 65.9 85.3 BUN/Creatinine Ratio 14 (6-20) 18 (6-20) Glucose Level 83 mg/dL (70-99) 86 mg/dL (70-99) Calcium Level 8.3 mg/dL (8.5-10.1) 8.6 mg/dL (8.5-10.1) Total Bilirubin 0.4 mg/dL (0.2-1.0) 0.5 mg/dL (0.2-1.0) Aspartate Amino Transf (AST/SGOT) 135 U/L (15-37) 186 U/L (15-37) Alanine Aminotransferase (ALT/SGPT) 76 U/L (14-59) 97 U/L (14-59) Alkaline Phosphatase 83 U/L (46-116) 99 U/L (46-116) Total Protein 6.1 g/dL (6.4-8.2) 6.5 g/dL (6.4-8.2) Albumin 2.5 g/dL (3.4-5.0) 2.5 g/dL (3.4-5.0) Albumin/Globulin Ratio 0.7 (1.0-1.7) 0.6 (1.0-1.7) HIV (1&2) Antibody Non reactive (Non Reactive) Laboratory Tests Test 09/15/17 03:40 White Blood Count 3.9 x10^3/uL (4.0-11.0) Red Blood Count 3.48 x10^6/uL (3.50-5.40) Hemoglobin 11.4 g/dL (12.0-15.5) Hematocrit 32.5 % (36.0-47.0) Mean Corpuscular Volume 93 fL (79-100) Mean Corpuscular Hemoglobin 33 pg (25-35) Mean Corpuscular Hemoglobin Concent 35 g/dL (31-37) Red Cell Distribution Width 13.6 % (11.5-14.5) Platelet Count 199 x10^3/uL (140-400) Neutrophils (%) (Auto) 62 % (31-73) Lymphocytes (%) (Auto) 20 % (24-48) Monocytes (%) (Auto) 12 % (0-9) Eosinophils (%) (Auto) 6 % (0-3) Basophils (%) (Auto) 1 % (0-3) Neutrophils # (Auto) 2.4 x10^3uL (1.8-7.7) Lymphocytes # (Auto) 0.8 x10^3/uL (1.0-4.8) Monocytes # (Auto) 0.5 x10^3/uL (0.0-1.1) Eosinophils # (Auto) 0.2 x10^3/uL (0.0-0.7) Basophils # (Auto) 0.0 x10^3/uL (0.0-0.2) Sodium Level 132 mmol/L (136-145) Potassium Level 3.8 mmol/L (3.5-5.1) Chloride Level 100 mmol/L (98-107) Carbon Dioxide Level 23 mmol/L (21-32) Anion Gap 9 (6-14) Blood Urea Nitrogen 14 mg/dL (7-20) Creatinine 0.8 mg/dL (0.6-1.0) Estimated GFR (Cockcroft-Gault) 85.3 BUN/Creatinine Ratio 18 (6-20) Glucose Level 86 mg/dL (70-99) Calcium Level 8.6 mg/dL (8.5-10.1) Total Bilirubin 0.5 mg/dL (0.2-1.0) Aspartate Amino Transf (AST/SGOT) 186 U/L (15-37) Alanine Aminotransferase (ALT/SGPT) 97 U/L (14-59) Alkaline Phosphatase 99 U/L (46-116) Total Protein 6.5 g/dL (6.4-8.2) Albumin 2.5 g/dL (3.4-5.0) Albumin/Globulin Ratio 0.6 (1.0-1.7) Microbiology 09/07/17 Blood Culture - Final, Complete NO GROWTH AFTER 5 DAYS 09/11/17 AFB Specimen Processing Tissue - Final, Resulted 09/11/17 Acid Fast Bacilli Culture, Resulted Pending 09/11/17 Gram Stain - Final, Resulted 09/11/17 Fungal Culture, Resulted Pending 09/11/17 Fungal Culture Result 1, Resulted Pending 09/07/17 Urine Culture - Final, Complete 09/07/17 Urine Culture Result 1 (NADIA) - Final, Complete Transaminases "hanging" at modest elevations. Bili, AP remain normal. Medications Current Medications Acetaminophen (Tylenol) 650 mg 1X ONCE PO Last administered on 09/06/17 11: 03; Start 09/06/17 at 10:15; Stop 09/06/17 at 10:16; Status DC Potassium Chloride (Klor-Con) 40 meq 1X ONCE PO Last administered on 11:03; Start 09/06/17 at 11:00; Stop 09/06/17 at 11:01; Status DC Pantoprazole Sodium (Protonix) 40 mg 1X ONCE PO Last administered on 12:29; Start 09/06/17 at 11:45; Stop 09/06/17 at 11:46; Status DC Acetaminophen (Tylenol) 650 mg PRN Q6HRS PRN PO pain Last administered on 09/14 21:08; Start 09/06/17 at 11:45 Pantoprazole Sodium (Protonix) 40 mg DAILY PO Last administered on 09/15/17 08:02; Start 09/07/17 at 09:00 Potassium Chloride (Klor-Con) 40 meq Q6H PO Last administered on 09/07/17 14: 15; Start 09/06/17 at 18:00; Stop 09/07/17 at 13:00; Status DC Allopurinol (Zyloprim) 100 mg DAILY PO Last administered on 09/15/17 08:04; Start 09/07/17 at 09:00 Diazepam (Valium) 5 mg BID PO Last administered on 09/15/17 08:02; Start at 21:00 Acetaminophen/ Hydrocodone Bitart (Lortab 5/325) 1 tab PRN Q6HRS PRN PO MODERATE PAIN Last administered on 09/09/17 23:15; Start 09/06/17 at 19:15 Lamotrigine (LaMICtal) 100 mg BID PO Last administered on 09/15/17 08:02; Start 09/06/17 at 21:00 Hydralazine HCl (Apresoline Inj) 10 mg PRN Q4HRS PRN IVP ELEVATED BP, SEE COMMENTS Last administered on 09/14/17 21:10; Start 09/06/17 at 19:45 Vitamin D (Vitamin D3) 5,000 unit DAILY PO Last administered on 09/15/17 08: 02; Start 09/07/17 at 15:00 Calcium Carbonate/ Glycine (Oscal) 500 mg BID PO Last administered on 08:02; Start 09/07/17 at 21:00 Ceftriaxone Sodium 1 gm/ Dextrose 50 ml @ 100 mls/hr Q24H IV ; Start 09/07/17 at 16:15; Status UNV Ceftriaxone Sodium (Rocephin) 1 gm Q24H IVP Last administered on 09/08/17 17: 00; Start 09/07/17 at 17:00; Stop 09/10/17 at 11:48; Status DC Acetaminophen/ Aspirin/Caffeine (Excedrin Migraine) 1 tab PRN Q6HRS PRN PO MIGRAINE HEADACHE Last administered on 09/15/17 10:58; Start 09/08/17 at 11: 30 Potassium Chloride/Sodium Chloride 1,000 ml @ 75 mls/hr [id number] IV Last administered on 09/15/17 02:35; Start 09/08/17 at 12:00 Lactobacillus Rhamnosus (Culturelle) 1 cap BID PO Last administered on 08:02; Start 09/08/17 at 21:00 Magnesium Sulfate/ Dextrose 50 ml @ 25 mls/hr 1X ONCE IV Last administered on 09/08/17 18:01; Start 09/08/17 at 17:45; Stop 09/08/17 at 19:44; Status DC Ferrous Sulfate (Feosol) 325 mg QHS PO Last administered on 09/14/17 21:08; Start 09/08/17 at 21:00 Haloperidol Lactate (Haldol) 5 mg PRN Q6HRS PRN IVP AGITATION Last administered on 09/09/17 16:35; Start 09/09/17 at 16:45 Levofloxacin (Levaquin) 500 mg DAILY06 PO Last administered on 09/10/17 05:35 ; Start 09/10/17 at 06:00; Stop 09/10/17 at 11:48; Status DC Piperacillin Sod/ Tazobactam Sod 3.375 gm/Dextrose 50 ml @ 100 mls/hr Q6HRS IV ; Start 09/10/17 at 12:00; Status UNV Doxycycline Hyclate (Vibra-Tab) 100 mg BID PO Last administered on 09/15/17 08:01; Start 09/10/17 at 12:30 Piperacillin Sod/ Tazobactam Sod (Zosyn) 3.375 gm Q6HRS IVP Last administered on 09/11/17 05:44; Start 09/10/17 at 12:30; Stop 09/11/17 at 11:32; Status DC Ondansetron HCl (Zofran) 4 mg PRN Q6HRS PRN IV NAUSEA/VOMITING Last administered on 09/10/17 16:36; Start 09/10/17 at 16:30 Cefepime HCl 1 gm/ Dextrose 50 ml @ 100 mls/hr Q8HRS IV ; Start 09/11/17 at 14 :00; Stop 09/11/17 at 14:00; Status DC Cefepime HCl (Maxipime) 1 gm Q8HRS IVP Last administered on 09/13/17 06:35; Start 09/11/17 at 14:00; Stop 09/13/17 at 08:48; Status DC Lidocaine/Sodium Bicarbonate (Buffered Lidocaine 1%) 20 ml 1X ONCE IJ Last administered on 09/11/17 14:39; Start 09/11/17 at 13:30; Stop 09/11/17 at 13 :31; Status DC Polyethylene Glycol (miraLAX PACKET) 17 gm DAILY PO Last administered on 08:13; Start 09/12/17 at 10:00; Stop 09/14/17 at 09:33; Status DC Acyclovir Sodium 500 mg/Sodium Chloride 110 ml @ 110 mls/hr Q8HRS IV Last administered on 09/14/17 06:15; Start 09/12/17 at 11:30; Stop 09/14/17 at 09 :13; Status DC Enoxaparin Sodium (Lovenox 40mg Syringe) 40 mg Q24H SQ Last administered on 13:30; Start 09/12/17 at 15:00 Gadobutrol (Gadavist) 9 mmol 1X ONCE IV Last administered on 09/12/17 15:00 ; Start 09/12/17 at 14:45; Stop 09/12/17 at 14:46; Status DC Polyethylene Glycol (miraLAX PACKET) 17 gm BID PO Last administered on 08:01; Start 09/14/17 at 21:00 Mineral Oil (Fleet Mineral Oil) 133 ml 1X ONCE MT Last administered on 10:14; Start 09/14/17 at 10:00; Stop 09/14/17 at 10:01; Status DC Active Scripts Active Levetiracetam 500 Mg Tablet 500 Mg PO BID Cyclobenzaprine Hcl 10 Mg Tablet 10 Mg PO BID Indomethacin 50 Mg Capsule 1 Cap PO TID Reported Amlodipine Besylate 5 Mg Tablet 5 Mg PO DAILY Diazepam 5 Mg Tablet 5 Mg PO BID Dicyclomine Hcl 20 Mg Tablet 20 Mg PO QID PRN Lamotrigine 100 Mg Tablet 1 Tab PO BID Indomethacin 50 Mg Capsule 1 Cap PO TID Maxzide 37.5 Mg-25 Mg Tablet (Triamterene/Hydrochlorothiazid) 1 Each Tablet 1 Each PO Hydrocodone-Apap 5-325 (Hydrocodone Bit/Acetaminophen) 1 Each Tablet 1 Tab PO PRN Q6HRS PRN Allopurinol 100 Mg Tablet 100 Mg PO Vitals/I & O Vital Sign - Last 24 Hours 09/14/17 09/14/17 09/14/17 09/14/17 15:00 15:09 16:04 19:36 Temp 98.6 98.6 Pulse 95 95 98 Resp 17 B/P (MAP) 194/92 (126) 194/92 156/74 (101) Pulse Ox 96 O2 Delivery Room Air Room Air 09/14/17 09/14/17 09/14/17 09/15/17 19:42 21:10 23:10 03:16 Temp 99.0 98.5 99.0 99.0 98.5 99.0 Pulse 100 100 107 102 Resp 16 16 16 B/P (MAP) 166/82 (110) 166/82 137/60 (85) 138/76 (96) Pulse Ox 97 97 95 O2 Delivery Room Air Room Air Room Air 09/15/17 09/15/17 09/15/17 07:00 07:06 10:54 Temp 99.1 99.0 99.1 99.0 Pulse 102 99 Resp 17 17 B/P (MAP) 141/83 (102) 153/76 (101) Pulse Ox 100 97 O2 Delivery Room Air Room Air Room Air Intake and Output 09/14/17 09/14/17 09/15/17 15:00 23:00 07:00 Intake Total 800 ml 100 ml Output Total 1000 ml 500 ml Balance -200 ml -400 ml Problem List Problems Medical Problems: (1) Closed head injury Status: Acute (2) Epigastric pain Status: Acute (3) Fall Status: Acute (4) Hypokalemia Status: Acute Assessment Viral meningitis/encephalitis Modestly elevated LFT's; may be part of the viral issue. Plan of Care: Continue current Tx, Mgmt Plan of Care Note Encourage po. PAIGE RAMOS MD Sep 15, 2017 11:07
[2017-09-15] MEDS: ENOXAPARIN 40 MG/0.4 ML SYRINGE. SQ SCH (13:13)
--- NOTE | 2017-09-15 13:54 | PDOC ---
PROGRESS NOTES Chief Complaint Chief Complaint Viral encephalitis Syncope MOd to severe PCM Poor PO COnstipation Likely dementia FTT GERD Sx hx Vit D def syncope Hypokalemia resolved History of Present Illness History of Present Illness NOt confused weak Still poor pO sister at bedside Agreebale to SNU LAst BM 09/06 - enema yesterday and miralax inc to BID - no resolve PLAN: Check KUB MOM If there is stool, i might try linzess tmr SW on sunday for SNU Start marinol - agreeable to this Vitals Vitals Vital Signs Date Time Temp Pulse Resp B/P (MAP) Pulse Ox O2 Delivery O2 Flow Rate FiO2 09/15/17 10:54 99.0 99 17 153/76 (101) 97 Room Air 99.0 Physical Exam Physical Exam EXAM: Chest 2 views. HISTORY: Shortness of breath, aspiration. COMPARISON: 12/27/2015. FINDINGS: Frontal and lateral views of the chest are obtained. There are no confluent infiltrates. The right hemidiaphragm is mildly elevated. There is no pneumothorax or pleural effusion. The heart. Mildly enlarged on the lateral projection. IMPRESSION: 1. Mild cardiomegaly. No clear confluent infiltrates. General: Alert, Oriented X3, Cooperative, No acute distress Heart: Regular rate Lungs: Clear Abdomen: Normal bowel sounds, Soft, No tenderness Extremities: No cyanosis, No edema Skin: No rashes Labs LABS Laboratory Tests Test 09/15/17 03:40 White Blood Count 3.9 x10^3/uL (4.0-11.0) Red Blood Count 3.48 x10^6/uL (3.50-5.40) Hemoglobin 11.4 g/dL (12.0-15.5) Hematocrit 32.5 % (36.0-47.0) Mean Corpuscular Volume 93 fL (79-100) Mean Corpuscular Hemoglobin 33 pg (25-35) Mean Corpuscular Hemoglobin Concent 35 g/dL (31-37) Red Cell Distribution Width 13.6 % (11.5-14.5) Platelet Count 199 x10^3/uL (140-400) Neutrophils (%) (Auto) 62 % (31-73) Lymphocytes (%) (Auto) 20 % (24-48) Monocytes (%) (Auto) 12 % (0-9) Eosinophils (%) (Auto) 6 % (0-3) Basophils (%) (Auto) 1 % (0-3) Neutrophils # (Auto) 2.4 x10^3uL (1.8-7.7) Lymphocytes # (Auto) 0.8 x10^3/uL (1.0-4.8) Monocytes # (Auto) 0.5 x10^3/uL (0.0-1.1) Eosinophils # (Auto) 0.2 x10^3/uL (0.0-0.7) Basophils # (Auto) 0.0 x10^3/uL (0.0-0.2) Sodium Level 132 mmol/L (136-145) Potassium Level 3.8 mmol/L (3.5-5.1) Chloride Level 100 mmol/L (98-107) Carbon Dioxide Level 23 mmol/L (21-32) Anion Gap 9 (6-14) Blood Urea Nitrogen 14 mg/dL (7-20) Creatinine 0.8 mg/dL (0.6-1.0) Estimated GFR (Cockcroft-Gault) 85.3 BUN/Creatinine Ratio 18 (6-20) Glucose Level 86 mg/dL (70-99) Calcium Level 8.6 mg/dL (8.5-10.1) Total Bilirubin 0.5 mg/dL (0.2-1.0) Aspartate Amino Transf (AST/SGOT) 186 U/L (15-37) Alanine Aminotransferase (ALT/SGPT) 97 U/L (14-59) Alkaline Phosphatase 99 U/L (46-116) Total Protein 6.5 g/dL (6.4-8.2) Albumin 2.5 g/dL (3.4-5.0) Albumin/Globulin Ratio 0.6 (1.0-1.7) Review of Systems Review of Systems weak, poor po, no cp, abd pain soa, constipated Assessment and Plan Assessmemt and Plan Problems Medical Problems: (1) Closed head injury Status: Acute (2) Epigastric pain Status: Acute (3) Fall Status: Acute (4) Hypokalemia Status: Acute Problems: Comment Review of Relevant I have reviewed the following items nahum (where applicable) has been applied. Labs Laboratory Tests Test 09/14/17 05:35 09/15/17 03:40 White Blood Count 4.0 x10^3/uL (4.0-11.0) 3.9 x10^3/uL (4.0-11.0) Red Blood Count 3.39 x10^6/uL (3.50-5.40) 3.48 x10^6/uL (3.50-5.40) Hemoglobin 10.6 g/dL (12.0-15.5) 11.4 g/dL (12.0-15.5) Hematocrit 31.4 % (36.0-47.0) 32.5 % (36.0-47.0) Mean Corpuscular Volume 93 fL (79-100) 93 fL (79-100) Mean Corpuscular Hemoglobin 31 pg (25-35) 33 pg (25-35) Mean Corpuscular Hemoglobin Concent 34 g/dL (31-37) 35 g/dL (31-37) Red Cell Distribution Width 14.0 % (11.5-14.5) 13.6 % (11.5-14.5) Platelet Count 158 x10^3/uL (140-400) 199 x10^3/uL (140-400) Neutrophils (%) (Auto) 64 % (31-73) 62 % (31-73) Lymphocytes (%) (Auto) 19 % (24-48) 20 % (24-48) Monocytes (%) (Auto) 11 % (0-9) 12 % (0-9) Eosinophils (%) (Auto) 6 % (0-3) 6 % (0-3) Basophils (%) (Auto) 1 % (0-3) 1 % (0-3) Neutrophils # (Auto) 2.6 x10^3uL (1.8-7.7) 2.4 x10^3uL (1.8-7.7) Lymphocytes # (Auto) 0.8 x10^3/uL (1.0-4.8) 0.8 x10^3/uL (1.0-4.8) Monocytes # (Auto) 0.4 x10^3/uL (0.0-1.1) 0.5 x10^3/uL (0.0-1.1) Eosinophils # (Auto) 0.2 x10^3/uL (0.0-0.7) 0.2 x10^3/uL (0.0-0.7) Basophils # (Auto) 0.0 x10^3/uL (0.0-0.2) 0.0 x10^3/uL (0.0-0.2) Sodium Level 134 mmol/L (136-145) 132 mmol/L (136-145) Potassium Level 3.8 mmol/L (3.5-5.1) 3.8 mmol/L (3.5-5.1) Chloride Level 102 mmol/L (98-107) 100 mmol/L (98-107) Carbon Dioxide Level 25 mmol/L (21-32) 23 mmol/L (21-32) Anion Gap 7 (6-14) 9 (6-14) Blood Urea Nitrogen 14 mg/dL (7-20) 14 mg/dL (7-20) Creatinine 1.0 mg/dL (0.6-1.0) 0.8 mg/dL (0.6-1.0) Estimated GFR (Cockcroft-Gault) 65.9 85.3 BUN/Creatinine Ratio 14 (6-20) 18 (6-20) Glucose Level 83 mg/dL (70-99) 86 mg/dL (70-99) Calcium Level 8.3 mg/dL (8.5-10.1) 8.6 mg/dL (8.5-10.1) Total Bilirubin 0.4 mg/dL (0.2-1.0) 0.5 mg/dL (0.2-1.0) Aspartate Amino Transf (AST/SGOT) 135 U/L (15-37) 186 U/L (15-37) Alanine Aminotransferase (ALT/SGPT) 76 U/L (14-59) 97 U/L (14-59) Alkaline Phosphatase 83 U/L (46-116) 99 U/L (46-116) Total Protein 6.1 g/dL (6.4-8.2) 6.5 g/dL (6.4-8.2) Albumin 2.5 g/dL (3.4-5.0) 2.5 g/dL (3.4-5.0) Albumin/Globulin Ratio 0.7 (1.0-1.7) 0.6 (1.0-1.7) HIV (1&2) Antibody Non reactive (Non Reactive) Laboratory Tests Test 09/15/17 03:40 White Blood Count 3.9 x10^3/uL (4.0-11.0) Red Blood Count 3.48 x10^6/uL (3.50-5.40) Hemoglobin 11.4 g/dL (12.0-15.5) Hematocrit 32.5 % (36.0-47.0) Mean Corpuscular Volume 93 fL (79-100) Mean Corpuscular Hemoglobin 33 pg (25-35) Mean Corpuscular Hemoglobin Concent 35 g/dL (31-37) Red Cell Distribution Width 13.6 % (11.5-14.5) Platelet Count 199 x10^3/uL (140-400) Neutrophils (%) (Auto) 62 % (31-73) Lymphocytes (%) (Auto) 20 % (24-48) Monocytes (%) (Auto) 12 % (0-9) Eosinophils (%) (Auto) 6 % (0-3) Basophils (%) (Auto) 1 % (0-3) Neutrophils # (Auto) 2.4 x10^3uL (1.8-7.7) Lymphocytes # (Auto) 0.8 x10^3/uL (1.0-4.8) Monocytes # (Auto) 0.5 x10^3/uL (0.0-1.1) Eosinophils # (Auto) 0.2 x10^3/uL (0.0-0.7) Basophils # (Auto) 0.0 x10^3/uL (0.0-0.2) Sodium Level 132 mmol/L (136-145) Potassium Level 3.8 mmol/L (3.5-5.1) Chloride Level 100 mmol/L (98-107) Carbon Dioxide Level 23 mmol/L (21-32) Anion Gap 9 (6-14) Blood Urea Nitrogen 14 mg/dL (7-20) Creatinine 0.8 mg/dL (0.6-1.0) Estimated GFR (Cockcroft-Gault) 85.3 BUN/Creatinine Ratio 18 (6-20) Glucose Level 86 mg/dL (70-99) Calcium Level 8.6 mg/dL (8.5-10.1) Total Bilirubin 0.5 mg/dL (0.2-1.0) Aspartate Amino Transf (AST/SGOT) 186 U/L (15-37) Alanine Aminotransferase (ALT/SGPT) 97 U/L (14-59) Alkaline Phosphatase 99 U/L (46-116) Total Protein 6.5 g/dL (6.4-8.2) Albumin 2.5 g/dL (3.4-5.0) Albumin/Globulin Ratio 0.6 (1.0-1.7) Microbiology 09/07/17 Blood Culture - Final, Complete NO GROWTH AFTER 5 DAYS 09/11/17 AFB Specimen Processing Tissue - Final, Resulted 09/11/17 Acid Fast Bacilli Culture, Resulted Pending 09/11/17 Gram Stain - Final, Resulted 09/11/17 Fungal Culture, Resulted Pending 09/11/17 Fungal Culture Result 1, Resulted Pending 09/07/17 Urine Culture - Final, Complete 09/07/17 Urine Culture Result 1 (NADIA) - Final, Complete Medications Current Medications Acetaminophen (Tylenol) 650 mg 1X ONCE PO Last administered on 09/06/17 11: 03; Start 09/06/17 at 10:15; Stop 09/06/17 at 10:16; Status DC Potassium Chloride (Klor-Con) 40 meq 1X ONCE PO Last administered on 11:03; Start 09/06/17 at 11:00; Stop 09/06/17 at 11:01; Status DC Pantoprazole Sodium (Protonix) 40 mg 1X ONCE PO Last administered on 12:29; Start 09/06/17 at 11:45; Stop 09/06/17 at 11:46; Status DC Acetaminophen (Tylenol) 650 mg PRN Q6HRS PRN PO pain Last administered on 09/14 21:08; Start 09/06/17 at 11:45 Pantoprazole Sodium (Protonix) 40 mg DAILY PO Last administered on 09/15/17 08:02; Start 09/07/17 at 09:00 Potassium Chloride (Klor-Con) 40 meq Q6H PO Last administered on 09/07/17 14: 15; Start 09/06/17 at 18:00; Stop 09/07/17 at 13:00; Status DC Allopurinol (Zyloprim) 100 mg DAILY PO Last administered on 09/15/17 08:04; Start 09/07/17 at 09:00 Diazepam (Valium) 5 mg BID PO Last administered on 09/15/17 08:02; Start at 21:00 Acetaminophen/ Hydrocodone Bitart (Lortab 5/325) 1 tab PRN Q6HRS PRN PO MODERATE PAIN Last administered on 09/09/17 23:15; Start 09/06/17 at 19:15 Lamotrigine (LaMICtal) 100 mg BID PO Last administered on 09/15/17 08:02; Start 09/06/17 at 21:00 Hydralazine HCl (Apresoline Inj) 10 mg PRN Q4HRS PRN IVP ELEVATED BP, SEE COMMENTS Last administered on 09/14/17 21:10; Start 09/06/17 at 19:45 Vitamin D (Vitamin D3) 5,000 unit DAILY PO Last administered on 09/15/17 08: 02; Start 09/07/17 at 15:00 Calcium Carbonate/ Glycine (Oscal) 500 mg BID PO Last administered on 08:02; Start 09/07/17 at 21:00 Ceftriaxone Sodium 1 gm/ Dextrose 50 ml @ 100 mls/hr Q24H IV ; Start 09/07/17 at 16:15; Status UNV Ceftriaxone Sodium (Rocephin) 1 gm Q24H IVP Last administered on 09/08/17 17: 00; Start 09/07/17 at 17:00; Stop 09/10/17 at 11:48; Status DC Acetaminophen/ Aspirin/Caffeine (Excedrin Migraine) 1 tab PRN Q6HRS PRN PO MIGRAINE HEADACHE Last administered on 09/15/17 10:58; Start 09/08/17 at 11: 30 Potassium Chloride/Sodium Chloride 1,000 ml @ 75 mls/hr [id number] IV Last administered on 09/15/17 02:35; Start 09/08/17 at 12:00 Lactobacillus Rhamnosus (Culturelle) 1 cap BID PO Last administered on 08:02; Start 09/08/17 at 21:00 Magnesium Sulfate/ Dextrose 50 ml @ 25 mls/hr 1X ONCE IV Last administered on 09/08/17 18:01; Start 09/08/17 at 17:45; Stop 09/08/17 at 19:44; Status DC Ferrous Sulfate (Feosol) 325 mg QHS PO Last administered on 09/14/17 21:08; Start 09/08/17 at 21:00 Haloperidol Lactate (Haldol) 5 mg PRN Q6HRS PRN IVP AGITATION Last administered on 09/09/17 16:35; Start 09/09/17 at 16:45 Levofloxacin (Levaquin) 500 mg DAILY06 PO Last administered on 09/10/17 05:35 ; Start 09/10/17 at 06:00; Stop 09/10/17 at 11:48; Status DC Piperacillin Sod/ Tazobactam Sod 3.375 gm/Dextrose 50 ml @ 100 mls/hr Q6HRS IV ; Start 09/10/17 at 12:00; Status UNV Doxycycline Hyclate (Vibra-Tab) 100 mg BID PO Last administered on 09/15/17 08:01; Start 09/10/17 at 12:30 Piperacillin Sod/ Tazobactam Sod (Zosyn) 3.375 gm Q6HRS IVP Last administered on 09/11/17 05:44; Start 09/10/17 at 12:30; Stop 09/11/17 at 11:32; Status DC Ondansetron HCl (Zofran) 4 mg PRN Q6HRS PRN IV NAUSEA/VOMITING Last administered on 09/10/17 16:36; Start 09/10/17 at 16:30 Cefepime HCl 1 gm/ Dextrose 50 ml @ 100 mls/hr Q8HRS IV ; Start 09/11/17 at 14 :00; Stop 09/11/17 at 14:00; Status DC Cefepime HCl (Maxipime) 1 gm Q8HRS IVP Last administered on 09/13/17 06:35; Start 09/11/17 at 14:00; Stop 09/13/17 at 08:48; Status DC Lidocaine/Sodium Bicarbonate (Buffered Lidocaine 1%) 20 ml 1X ONCE IJ Last administered on 09/11/17 14:39; Start 09/11/17 at 13:30; Stop 09/11/17 at 13 :31; Status DC Polyethylene Glycol (miraLAX PACKET) 17 gm DAILY PO Last administered on 08:13; Start 09/12/17 at 10:00; Stop 09/14/17 at 09:33; Status DC Acyclovir Sodium 500 mg/Sodium Chloride 110 ml @ 110 mls/hr Q8HRS IV Last administered on 09/14/17 06:15; Start 09/12/17 at 11:30; Stop 09/14/17 at 09 :13; Status DC Enoxaparin Sodium (Lovenox 40mg Syringe) 40 mg Q24H SQ Last administered on 13:13; Start 09/12/17 at 15:00 Gadobutrol (Gadavist) 9 mmol 1X ONCE IV Last administered on 09/12/17 15:00 ; Start 09/12/17 at 14:45; Stop 09/12/17 at 14:46; Status DC Polyethylene Glycol (miraLAX PACKET) 17 gm BID PO Last administered on 08:01; Start 09/14/17 at 21:00 Mineral Oil (Fleet Mineral Oil) 133 ml 1X ONCE [place] Last administered on 10:14; Start 09/14/17 at 10:00; Stop 09/14/17 at 10:01; Status DC Active Scripts Active Levetiracetam 500 Mg Tablet 500 Mg PO BID Cyclobenzaprine Hcl 10 Mg Tablet 10 Mg PO BID Indomethacin 50 Mg Capsule 1 Cap PO TID Reported Amlodipine Besylate 5 Mg Tablet 5 Mg PO DAILY Diazepam 5 Mg Tablet 5 Mg PO BID Dicyclomine Hcl 20 Mg Tablet 20 Mg PO QID PRN Lamotrigine 100 Mg Tablet 1 Tab PO BID Indomethacin 50 Mg Capsule 1 Cap PO TID Maxzide 37.5 Mg-25 Mg Tablet (Triamterene/Hydrochlorothiazid) 1 Each Tablet 1 Each PO Hydrocodone-Apap 5-325 (Hydrocodone Bit/Acetaminophen) 1 Each Tablet 1 Tab PO PRN Q6HRS PRN Allopurinol 100 Mg Tablet 100 Mg PO Vitals/I & O Vital Sign - Last 24 Hours 09/14/17 09/14/17 09/14/17 09/14/17 15:00 15:09 16:04 19:36 Temp 98.6 98.6 Pulse 95 95 98 Resp 17 B/P (MAP) 194/92 (126) 194/92 156/74 (101) Pulse Ox 96 O2 Delivery Room Air Room Air 09/14/17 09/14/17 09/14/17 09/15/17 19:42 21:10 23:10 03:16 Temp 99.0 98.5 99.0 99.0 98.5 99.0 Pulse 100 100 107 102 Resp 16 16 16 B/P (MAP) 166/82 (110) 166/82 137/60 (85) 138/76 (96) Pulse Ox 97 97 95 O2 Delivery Room Air Room Air Room Air 09/15/17 09/15/17 09/15/17 07:00 07:06 10:54 Temp 99.1 99.0 99.1 99.0 Pulse 102 99 Resp 17 17 B/P (MAP) 141/83 (102) 153/76 (101) Pulse Ox 100 97 O2 Delivery Room Air Room Air Room Air Intake and Output 09/14/17 09/14/17 09/15/17 15:00 23:00 07:00 Intake Total 800 ml 100 ml Output Total 1000 ml 500 ml Balance -200 ml -400 ml ADITI HUYNH MD Sep 15, 2017 13:54
[2017-09-15] MEDS ORDERED: MAGNESIUM HYDROXIDE 2,400 MG/30 ML ORAL.SUSP. PO PRN (14:00)
[2017-09-15] MEDS ORDERED: MAGNESIUM HYDROXIDE 2,400 MG/30 ML ORAL.SUSP. PO ONE (14:00)
--- NOTE | 2017-09-15 14:17 | PDOC ---
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; follows commands, good strength SKIN: No rash PIV: ok Labs Lab Laboratory Tests Test 09/15/17 03:40 White Blood Count 3.9 x10^3/uL (4.0-11.0) Red Blood Count 3.48 x10^6/uL (3.50-5.40) Hemoglobin 11.4 g/dL (12.0-15.5) Hematocrit 32.5 % (36.0-47.0) Mean Corpuscular Volume 93 fL (79-100) Mean Corpuscular Hemoglobin 33 pg (25-35) Mean Corpuscular Hemoglobin Concent 35 g/dL (31-37) Red Cell Distribution Width 13.6 % (11.5-14.5) Platelet Count 199 x10^3/uL (140-400) Neutrophils (%) (Auto) 62 % (31-73) Lymphocytes (%) (Auto) 20 % (24-48) Monocytes (%) (Auto) 12 % (0-9) Eosinophils (%) (Auto) 6 % (0-3) Basophils (%) (Auto) 1 % (0-3) Neutrophils # (Auto) 2.4 x10^3uL (1.8-7.7) Lymphocytes # (Auto) 0.8 x10^3/uL (1.0-4.8) Monocytes # (Auto) 0.5 x10^3/uL (0.0-1.1) Eosinophils # (Auto) 0.2 x10^3/uL (0.0-0.7) Basophils # (Auto) 0.0 x10^3/uL (0.0-0.2) Sodium Level 132 mmol/L (136-145) Potassium Level 3.8 mmol/L (3.5-5.1) Chloride Level 100 mmol/L (98-107) Carbon Dioxide Level 23 mmol/L (21-32) Anion Gap 9 (6-14) Blood Urea Nitrogen 14 mg/dL (7-20) Creatinine 0.8 mg/dL (0.6-1.0) Estimated GFR (Cockcroft-Gault) 85.3 BUN/Creatinine Ratio 18 (6-20) Glucose Level 86 mg/dL (70-99) Calcium Level 8.6 mg/dL (8.5-10.1) Total Bilirubin 0.5 mg/dL (0.2-1.0) Aspartate Amino Transf (AST/SGOT) 186 U/L (15-37) Alanine Aminotransferase (ALT/SGPT) 97 U/L (14-59) Alkaline Phosphatase 99 U/L (46-116) Total Protein 6.5 g/dL (6.4-8.2) Albumin 2.5 g/dL (3.4-5.0) Albumin/Globulin Ratio 0.6 (1.0-1.7) MRI Brain Impression: 1. There is mild leptomeningeal enhancement most notable of the temporal occipital lobes and cerebellum, could be seen with meningitis. 2. Scattered foci of T2 and FLAIR hyperintense abnormality of the adrián and supratentorial parenchyma is nonspecific, probably due to chronic microvascular ischemic disease in a patient this age. Objective Assessment Fever , likely viral illness Leukopenia Transaminitis, trending down Seizure Encephalopathy Syncope CHF Aseptic meningitis, [place] neg, hsv neg - s/p LP: CSF WBC 130, glu 49, T. protein 79.2 - CSF cultures NGTD Plan Plan of Care cont doxy for now Bowel regimen Supportive care D/w sister Pt seen and examined. Chart reviewed in detail. Case discussed with THERAPEUTIC ASSISTANT. Agree with above plan. TREVON MONTE APRN Sep 15, 2017 14:17 CON NAVARRO MD Sep 15, 2017 18:15
[2017-09-15] MEDS: ACETAMINOPHEN 325 MG TABLET. PO PRN (14:39)
[2017-09-15] MEDS: DRONABINOL 2.5 MG CAPSULE. PO SCH (15:18)
[2017-09-15] MEDS: HYDROcodone/APAP 5/325MG 1 TAB TABLET PO PRN (19:46)
--- NOTE | 2017-09-15 20:56 | PDOC ---
PROGRESS NOTES Assessment Problems Medical Problems: (1) Closed head injury Status: Acute (2) Epigastric pain Status: Acute (3) Fall Status: Acute (4) Hypokalemia Status: Acute Problems: Plan Encephalitis ? viral etiology likely Aseptic meningitis [place], hsv neg Metabolic encephalopathy. Hypokalemia, K+ 2.8 Hx of seizure or seizure like episodes. HTN Gout GERD Self medicated for narcotics, may cause confusion. No evidence of acute CVA or brain tumor this time. ID consulted noted Keep electrolytes balance. Vit D and Ca++ supplement. Treat medical diseases. continue medical management. Subjective Resting in bed no c/o of GOSS improving, N, V, SOB Objective Vital Signs Date Time Temp Pulse Resp B/P (MAP) Pulse Ox O2 Delivery O2 Flow Rate FiO2 09/15/17 19:46 Room Air 09/15/17 19:00 98.8 96 16 120/89 (99) 96 98.8 Intake and Output 09/15/17 07:00 Intake Total 900 ml Output Total 1500 ml Balance -600 ml Intake Oral 900 ml Output Urine Total 1500 ml PHYSICAL EXAM PHYSICAL EXAMINATION: General appearance is in subacute distress. HEENT: Normocephalic and nontraumatic. Eyes, nose, ears, and throat are unremarkable. Neck is supple. No lymphadenopathy. No bruits are heard over the carotid artery. No crepitus. Cardiovascular: S1, S2, regular rate and rhythm. Pulmonary: Clear to auscultation bilaterally. Abdomen: Bowel sounds are positive. Abdomen is soft, nontender, and nondistended. NEUROLOGICAL EXAMINATION: alert able to tell her name and follow simple commands PERRL. EOMI. CN: no focal findings. Muscle tone: within normal. Muscle strength: moves all exts DTR: 1-2 Plantar reflex: Flexor response bilaterally Gait: in bed Sensory exam: no abnormal findings. Review of Relevant I have reviewed the following items nahum (where applicable) has been applied. Labs Laboratory Tests Test 09/14/17 05:35 09/15/17 03:40 White Blood Count 4.0 x10^3/uL (4.0-11.0) 3.9 x10^3/uL (4.0-11.0) Red Blood Count 3.39 x10^6/uL (3.50-5.40) 3.48 x10^6/uL (3.50-5.40) Hemoglobin 10.6 g/dL (12.0-15.5) 11.4 g/dL (12.0-15.5) Hematocrit 31.4 % (36.0-47.0) 32.5 % (36.0-47.0) Mean Corpuscular Volume 93 fL (79-100) 93 fL (79-100) Mean Corpuscular Hemoglobin 31 pg (25-35) 33 pg (25-35) Mean Corpuscular Hemoglobin Concent 34 g/dL (31-37) 35 g/dL (31-37) Red Cell Distribution Width 14.0 % (11.5-14.5) 13.6 % (11.5-14.5) Platelet Count 158 x10^3/uL (140-400) 199 x10^3/uL (140-400) Neutrophils (%) (Auto) 64 % (31-73) 62 % (31-73) Lymphocytes (%) (Auto) 19 % (24-48) 20 % (24-48) Monocytes (%) (Auto) 11 % (0-9) 12 % (0-9) Eosinophils (%) (Auto) 6 % (0-3) 6 % (0-3) Basophils (%) (Auto) 1 % (0-3) 1 % (0-3) Neutrophils # (Auto) 2.6 x10^3uL (1.8-7.7) 2.4 x10^3uL (1.8-7.7) Lymphocytes # (Auto) 0.8 x10^3/uL (1.0-4.8) 0.8 x10^3/uL (1.0-4.8) Monocytes # (Auto) 0.4 x10^3/uL (0.0-1.1) 0.5 x10^3/uL (0.0-1.1) Eosinophils # (Auto) 0.2 x10^3/uL (0.0-0.7) 0.2 x10^3/uL (0.0-0.7) Basophils # (Auto) 0.0 x10^3/uL (0.0-0.2) 0.0 x10^3/uL (0.0-0.2) Sodium Level 134 mmol/L (136-145) 132 mmol/L (136-145) Potassium Level 3.8 mmol/L (3.5-5.1) 3.8 mmol/L (3.5-5.1) Chloride Level 102 mmol/L (98-107) 100 mmol/L (98-107) Carbon Dioxide Level 25 mmol/L (21-32) 23 mmol/L (21-32) Anion Gap 7 (6-14) 9 (6-14) Blood Urea Nitrogen 14 mg/dL (7-20) 14 mg/dL (7-20) Creatinine 1.0 mg/dL (0.6-1.0) 0.8 mg/dL (0.6-1.0) Estimated GFR (Cockcroft-Gault) 65.9 85.3 BUN/Creatinine Ratio 14 (6-20) 18 (6-20) Glucose Level 83 mg/dL (70-99) 86 mg/dL (70-99) Calcium Level 8.3 mg/dL (8.5-10.1) 8.6 mg/dL (8.5-10.1) Total Bilirubin 0.4 mg/dL (0.2-1.0) 0.5 mg/dL (0.2-1.0) Aspartate Amino Transf (AST/SGOT) 135 U/L (15-37) 186 U/L (15-37) Alanine Aminotransferase (ALT/SGPT) 76 U/L (14-59) 97 U/L (14-59) Alkaline Phosphatase 83 U/L (46-116) 99 U/L (46-116) Total Protein 6.1 g/dL (6.4-8.2) 6.5 g/dL (6.4-8.2) Albumin 2.5 g/dL (3.4-5.0) 2.5 g/dL (3.4-5.0) Albumin/Globulin Ratio 0.7 (1.0-1.7) 0.6 (1.0-1.7) HIV (1&2) Antibody Non reactive (Non Reactive) Laboratory Tests Test 09/15/17 03:40 White Blood Count 3.9 x10^3/uL (4.0-11.0) Red Blood Count 3.48 x10^6/uL (3.50-5.40) Hemoglobin 11.4 g/dL (12.0-15.5) Hematocrit 32.5 % (36.0-47.0) Mean Corpuscular Volume 93 fL (79-100) Mean Corpuscular Hemoglobin 33 pg (25-35) Mean Corpuscular Hemoglobin Concent 35 g/dL (31-37) Red Cell Distribution Width 13.6 % (11.5-14.5) Platelet Count 199 x10^3/uL (140-400) Neutrophils (%) (Auto) 62 % (31-73) Lymphocytes (%) (Auto) 20 % (24-48) Monocytes (%) (Auto) 12 % (0-9) Eosinophils (%) (Auto) 6 % (0-3) Basophils (%) (Auto) 1 % (0-3) Neutrophils # (Auto) 2.4 x10^3uL (1.8-7.7) Lymphocytes # (Auto) 0.8 x10^3/uL (1.0-4.8) Monocytes # (Auto) 0.5 x10^3/uL (0.0-1.1) Eosinophils # (Auto) 0.2 x10^3/uL (0.0-0.7) Basophils # (Auto) 0.0 x10^3/uL (0.0-0.2) Sodium Level 132 mmol/L (136-145) Potassium Level 3.8 mmol/L (3.5-5.1) Chloride Level 100 mmol/L (98-107) Carbon Dioxide Level 23 mmol/L (21-32) Anion Gap 9 (6-14) Blood Urea Nitrogen 14 mg/dL (7-20) Creatinine 0.8 mg/dL (0.6-1.0) Estimated GFR (Cockcroft-Gault) 85.3 BUN/Creatinine Ratio 18 (6-20) Glucose Level 86 mg/dL (70-99) Calcium Level 8.6 mg/dL (8.5-10.1) Total Bilirubin 0.5 mg/dL (0.2-1.0) Aspartate Amino Transf (AST/SGOT) 186 U/L (15-37) Alanine Aminotransferase (ALT/SGPT) 97 U/L (14-59) Alkaline Phosphatase 99 U/L (46-116) Total Protein 6.5 g/dL (6.4-8.2) Albumin 2.5 g/dL (3.4-5.0) Albumin/Globulin Ratio 0.6 (1.0-1.7) Microbiology 09/07/17 Blood Culture - Final, Complete NO GROWTH AFTER 5 DAYS 09/11/17 AFB Specimen Processing Tissue - Final, Resulted 09/11/17 Acid Fast Bacilli Culture, Resulted Pending 09/11/17 Gram Stain - Final, Resulted 09/11/17 Fungal Culture, Resulted Pending 09/11/17 Fungal Culture Result 1, Resulted Pending 09/07/17 Urine Culture - Final, Complete 09/07/17 Urine Culture Result 1 (NADIA) - Final, Complete Medications Current Medications Acetaminophen (Tylenol) 650 mg 1X ONCE PO Last administered on 09/06/17 11: 03; Start 09/06/17 at 10:15; Stop 09/06/17 at 10:16; Status DC Potassium Chloride (Klor-Con) 40 meq 1X ONCE PO Last administered on 11:03; Start 09/06/17 at 11:00; Stop 09/06/17 at 11:01; Status DC Pantoprazole Sodium (Protonix) 40 mg 1X ONCE PO Last administered on 12:29; Start 09/06/17 at 11:45; Stop 09/06/17 at 11:46; Status DC Acetaminophen (Tylenol) 650 mg PRN Q6HRS PRN PO pain Last administered on 09/15 14:39; Start 09/06/17 at 11:45 Pantoprazole Sodium (Protonix) 40 mg DAILY PO Last administered on 09/15/17 08:02; Start 09/07/17 at 09:00 Potassium Chloride (Klor-Con) 40 meq Q6H PO Last administered on 09/07/17 14: 15; Start 09/06/17 at 18:00; Stop 09/07/17 at 13:00; Status DC Allopurinol (Zyloprim) 100 mg DAILY PO Last administered on 09/15/17 08:04; Start 09/07/17 at 09:00 Diazepam (Valium) 5 mg BID PO Last administered on 09/15/17 08:02; Start at 21:00 Acetaminophen/ Hydrocodone Bitart (Lortab 5/325) 1 tab PRN Q6HRS PRN PO MODERATE PAIN Last administered on 09/15/17 19:46; Start 09/06/17 at 19:15 Lamotrigine (LaMICtal) 100 mg BID PO Last administered on 09/15/17 08:02; Start 09/06/17 at 21:00 Hydralazine HCl (Apresoline Inj) 10 mg PRN Q4HRS PRN IVP ELEVATED BP, SEE COMMENTS Last administered on 09/14/17 21:10; Start 09/06/17 at 19:45 Vitamin D (Vitamin D3) 5,000 unit DAILY PO Last administered on 09/15/17 08: 02; Start 09/07/17 at 15:00 Calcium Carbonate/ Glycine (Oscal) 500 mg BID PO Last administered on 08:02; Start 09/07/17 at 21:00 Ceftriaxone Sodium 1 gm/ Dextrose 50 ml @ 100 mls/hr Q24H IV ; Start 09/07/17 at 16:15; Status UNV Ceftriaxone Sodium (Rocephin) 1 gm Q24H IVP Last administered on 09/08/17 17: 00; Start 09/07/17 at 17:00; Stop 09/10/17 at 11:48; Status DC Acetaminophen/ Aspirin/Caffeine (Excedrin Migraine) 1 tab PRN Q6HRS PRN PO MIGRAINE HEADACHE Last administered on 09/15/17 10:58; Start 09/08/17 at 11: 30 Potassium Chloride/Sodium Chloride 1,000 ml @ 75 mls/hr [id number] IV Last administered on 09/15/17 15:19; Start 09/08/17 at 12:00 Lactobacillus Rhamnosus (Culturelle) 1 cap BID PO Last administered on 08:02; Start 09/08/17 at 21:00 Magnesium Sulfate/ Dextrose 50 ml @ 25 mls/hr 1X ONCE IV Last administered on 09/08/17 18:01; Start 09/08/17 at 17:45; Stop 09/08/17 at 19:44; Status DC Ferrous Sulfate (Feosol) 325 mg QHS PO Last administered on 09/14/17 21:08; Start 09/08/17 at 21:00 Haloperidol Lactate (Haldol) 5 mg PRN Q6HRS PRN IVP AGITATION Last administered on 09/09/17 16:35; Start 09/09/17 at 16:45 Levofloxacin (Levaquin) 500 mg DAILY06 PO Last administered on 09/10/17 05:35 ; Start 09/10/17 at 06:00; Stop 09/10/17 at 11:48; Status DC Piperacillin Sod/ Tazobactam Sod 3.375 gm/Dextrose 50 ml @ 100 mls/hr Q6HRS IV ; Start 09/10/17 at 12:00; Status UNV Doxycycline Hyclate (Vibra-Tab) 100 mg BID PO Last administered on 09/15/17 08:01; Start 09/10/17 at 12:30 Piperacillin Sod/ Tazobactam Sod (Zosyn) 3.375 gm Q6HRS IVP Last administered on 09/11/17 05:44; Start 09/10/17 at 12:30; Stop 09/11/17 at 11:32; Status DC Ondansetron HCl (Zofran) 4 mg PRN Q6HRS PRN IV NAUSEA/VOMITING Last administered on 09/10/17 16:36; Start 09/10/17 at 16:30 Cefepime HCl 1 gm/ Dextrose 50 ml @ 100 mls/hr Q8HRS IV ; Start 09/11/17 at 14 :00; Stop 09/11/17 at 14:00; Status DC Cefepime HCl (Maxipime) 1 gm Q8HRS IVP Last administered on 09/13/17 06:35; Start 09/11/17 at 14:00; Stop 09/13/17 at 08:48; Status DC Lidocaine/Sodium Bicarbonate (Buffered Lidocaine 1%) 20 ml 1X ONCE IJ Last administered on 09/11/17 14:39; Start 09/11/17 at 13:30; Stop 09/11/17 at 13 :31; Status DC Polyethylene Glycol (miraLAX PACKET) 17 gm DAILY PO Last administered on 08:13; Start 09/12/17 at 10:00; Stop 09/14/17 at 09:33; Status DC Acyclovir Sodium 500 mg/Sodium Chloride 110 ml @ 110 mls/hr Q8HRS IV Last administered on 09/14/17 06:15; Start 09/12/17 at 11:30; Stop 09/14/17 at 09 :13; Status DC Enoxaparin Sodium (Lovenox 40mg Syringe) 40 mg Q24H SQ Last administered on 13:13; Start 09/12/17 at 15:00 Gadobutrol (Gadavist) 9 mmol 1X ONCE IV Last administered on 09/12/17 15:00 ; Start 09/12/17 at 14:45; Stop 09/12/17 at 14:46; Status DC Polyethylene Glycol (miraLAX PACKET) 17 gm BID PO Last administered on 08:01; Start 09/14/17 at 21:00 Mineral Oil (Fleet Mineral Oil) 133 ml 1X ONCE MI Last administered on 10:14; Start 09/14/17 at 10:00; Stop 09/14/17 at 10:01; Status DC Magnesium Hydroxide (Milk Of Magnesia) 2,400 mg PRN DAILY PRN PO CONSTIPATION; Start 09/15/17 at 14:00 Magnesium Hydroxide (Milk Of Magnesia) 2,400 mg 1X ONCE PO Last administered on 09/15/17 14:02; Start 09/15/17 at 14:00; Stop 09/15/17 at 14:01; Status DC Dronabinol (Marinol) 2.5 mg BIDACLD PO Last administered on 09/15/17 15:18; Start 09/15/17 at 16:30 Active Scripts Active Levetiracetam 500 Mg Tablet 500 Mg PO BID Cyclobenzaprine Hcl 10 Mg Tablet 10 Mg PO BID Indomethacin 50 Mg Capsule 1 Cap PO TID Reported Amlodipine Besylate 5 Mg Tablet 5 Mg PO DAILY Diazepam 5 Mg Tablet 5 Mg PO BID Dicyclomine Hcl 20 Mg Tablet 20 Mg PO QID PRN Lamotrigine 100 Mg Tablet 1 Tab PO BID Indomethacin 50 Mg Capsule 1 Cap PO TID Maxzide 37.5 Mg-25 Mg Tablet (Triamterene/Hydrochlorothiazid) 1 Each Tablet 1 Each PO Hydrocodone-Apap 5-325 (Hydrocodone Bit/Acetaminophen) 1 Each Tablet 1 Tab PO PRN Q6HRS PRN Allopurinol 100 Mg Tablet 100 Mg PO Vitals/I & O Vital Sign - Last 24 Hours 09/14/17 09/14/17 09/15/17 09/15/17 21:10 23:10 03:16 07:00 Temp 98.5 99.0 99.1 98.5 99.0 99.1 Pulse 100 107 102 102 Resp 16 17 B/P (MAP) 166/82 137/60 (85) 138/76 (96) 141/83 (102) Pulse Ox 97 95 100 O2 Delivery Room Air Room Air Room Air 09/15/17 09/15/17 09/15/17 09/15/17 07:06 10:54 15:11 17:04 Temp 99.0 98.9 99.0 98.9 Pulse 99 101 99 Resp B/P (MAP) 153/76 (101) 170/83 (112) 140/68 (92) Pulse Ox 97 100 O2 Delivery Room Air Room Air Room Air 09/15/17 09/15/17 19:00 19:46 Temp 98.8 98.8 Pulse 96 Resp B/P (MAP) 120/89 (99) Pulse Ox 96 O2 Delivery Room Air Room Air Intake and Output 09/14/17 09/14/17 09/15/17 15:00 23:00 07:00 Intake Total 800 ml 100 ml Output Total 1000 ml 500 ml Balance -200 ml -400 ml KENNY COLE MD Sep 15, 2017 20:56
[2017-09-15] MEDS: FERROUS SULFATE 325 MG TABLET. PO SCH (21:02)
[2017-09-16 03:57] VITALS: BP 142/72
[2017-09-16] MEDS: POTASSIUM CL 20MEQ-0.45% NACL 1,000 ML IV SCH ×2 (04:40→15:11)
[2017-09-16] MEDS: ASA/APAP/CAFFEINE 250/250/65MG TABLET. PO PRN (04:45)
[2017-09-16 07:00] VITALS: BP 181/97
--- NOTE | 2017-09-16 08:22 | RAD ---
KUB History:No bowel movement since September 06 Comparison: CT 09/11/2017 Findings:2 supine AP views of the abdomen are submitted. There is no appreciable significant stool retention. There is again right renal calculus. There is a nonobstructive bowel gas pattern. Exam is insufficient for the evaluation for free air. Impression: 1.There is no significant appreciable stool retention. 2. There is right renal calculus.
[2017-09-16] MEDS: DOXYCYCLINE HYCLATE 100 MG TABLET PO SCH ×2 (08:29→20:11)
[2017-09-16] MEDS: lamoTRIgine 100 MG TABLET. PO SCH ×2 (08:29→20:11)
[2017-09-16] MEDS: LACTOBACILLUS RHAMNOSUS GG 1 CAPSULE. PO SCH ×2 (08:29→20:11)
[2017-09-16] MEDS: PANTOPRAZOLE 40 MG TABLET.DR. PO SCH (08:29)
[2017-09-16] MEDS: POLYETHYLENE GLYCOL 3350 17 GM PACKET. PO SCH ×2 (08:29→20:10)
[2017-09-16] MEDS: diazePAM 5 MG TABLET PO SCH ×2 (08:29→20:10)
[2017-09-16] MEDS: CHOLECALCIFEROL (VITAMIN D3) 5,000 UNIT CAPSULE PO SCH (08:29)
[2017-09-16] MEDS: ALLOPURINOL 100 MG TABLET. PO SCH (08:29)
[2017-09-16] MEDS: CALCIUM CARBONATE 500 MG TABLET PO SCH ×2 (08:29→20:11)
[2017-09-16] MEDS: hydrALAZINE 20 MG/ML VIAL. IVP PRN (08:30)
--- NOTE | 2017-09-16 10:43 | PDOC ---
G I PROGRESS NOTE Subjective Asleep, not awakened. Objective Others' notes reviewed. Still not much po intake. Physical Exam No PE. Review of Relevant I have reviewed the following items nahum (where applicable) has been applied. Labs Laboratory Tests Test 09/15/17 03:40 09/16/17 03:00 White Blood Count 3.9 x10^3/uL (4.0-11.0) Red Blood Count 3.48 x10^6/uL (3.50-5.40) Hemoglobin 11.4 g/dL (12.0-15.5) Hematocrit 32.5 % (36.0-47.0) Mean Corpuscular Volume 93 fL (79-100) Mean Corpuscular Hemoglobin 33 pg (25-35) Mean Corpuscular Hemoglobin Concent 35 g/dL (31-37) Red Cell Distribution Width 13.6 % (11.5-14.5) Platelet Count 199 x10^3/uL (140-400) Neutrophils (%) (Auto) 62 % (31-73) Lymphocytes (%) (Auto) 20 % (24-48) Monocytes (%) (Auto) 12 % (0-9) Eosinophils (%) (Auto) 6 % (0-3) Basophils (%) (Auto) 1 % (0-3) Neutrophils # (Auto) 2.4 x10^3uL (1.8-7.7) Lymphocytes # (Auto) 0.8 x10^3/uL (1.0-4.8) Monocytes # (Auto) 0.5 x10^3/uL (0.0-1.1) Eosinophils # (Auto) 0.2 x10^3/uL (0.0-0.7) Basophils # (Auto) 0.0 x10^3/uL (0.0-0.2) Sodium Level 132 mmol/L (136-145) Potassium Level 3.8 mmol/L (3.5-5.1) Chloride Level 100 mmol/L (98-107) Carbon Dioxide Level 23 mmol/L (21-32) Anion Gap 9 (6-14) Blood Urea Nitrogen 14 mg/dL (7-20) Creatinine 0.8 mg/dL (0.6-1.0) Estimated GFR (Cockcroft-Gault) 85.3 BUN/Creatinine Ratio 18 (6-20) Glucose Level 86 mg/dL (70-99) Calcium Level 8.6 mg/dL (8.5-10.1) Total Bilirubin 0.5 mg/dL (0.2-1.0) Aspartate Amino Transf (AST/SGOT) 186 U/L (15-37) Alanine Aminotransferase (ALT/SGPT) 97 U/L (14-59) Alkaline Phosphatase 99 U/L (46-116) Total Protein 6.5 g/dL (6.4-8.2) Albumin 2.5 g/dL (3.4-5.0) Albumin/Globulin Ratio 0.6 (1.0-1.7) Lipase 2766 U/L (73-393) Laboratory Tests Test 09/16/17 03:00 Lipase 2766 U/L (73-393) Microbiology 09/07/17 Blood Culture - Final, Complete NO GROWTH AFTER 5 DAYS 09/11/17 AFB Specimen Processing Tissue - Final, Resulted 09/11/17 Acid Fast Bacilli Culture, Resulted Pending 09/11/17 Gram Stain - Final, Resulted 09/11/17 Fungal Culture, Resulted Pending 09/11/17 Fungal Culture Result 1, Resulted Pending 09/07/17 Urine Culture - Final, Complete 09/07/17 Urine Culture Result 1 (NADIA) - Final, Complete --note elevated lipase. Medications Current Medications Acetaminophen (Tylenol) 650 mg 1X ONCE PO Last administered on 09/06/17 11: 03; Start 09/06/17 at 10:15; Stop 09/06/17 at 10:16; Status DC Potassium Chloride (Klor-Con) 40 meq 1X ONCE PO Last administered on 11:03; Start 09/06/17 at 11:00; Stop 09/06/17 at 11:01; Status DC Pantoprazole Sodium (Protonix) 40 mg 1X ONCE PO Last administered on 12:29; Start 09/06/17 at 11:45; Stop 09/06/17 at 11:46; Status DC Acetaminophen (Tylenol) 650 mg PRN Q6HRS PRN PO pain Last administered on 09/15 14:39; Start 09/06/17 at 11:45 Pantoprazole Sodium (Protonix) 40 mg DAILY PO Last administered on 09/16/17 08:29; Start 09/07/17 at 09:00 Potassium Chloride (Klor-Con) 40 meq Q6H PO Last administered on 09/07/17 14: 15; Start 09/06/17 at 18:00; Stop 09/07/17 at 13:00; Status DC Allopurinol (Zyloprim) 100 mg DAILY PO Last administered on 09/16/17 08:29; Start 09/07/17 at 09:00 Diazepam (Valium) 5 mg BID PO Last administered on 09/16/17 08:29; Start at 21:00 Acetaminophen/ Hydrocodone Bitart (Lortab 5/325) 1 tab PRN Q6HRS PRN PO MODERATE PAIN Last administered on 09/15/17 19:46; Start 09/06/17 at 19:15 Lamotrigine (LaMICtal) 100 mg BID PO Last administered on 09/16/17 08:29; Start 09/06/17 at 21:00 Hydralazine HCl (Apresoline Inj) 10 mg PRN Q4HRS PRN IVP ELEVATED BP, SEE COMMENTS Last administered on 09/16/17 08:30; Start 09/06/17 at 19:45 Vitamin D (Vitamin D3) 5,000 unit DAILY PO Last administered on 09/16/17 08: 29; Start 09/07/17 at 15:00 Calcium Carbonate/ Glycine (Oscal) 500 mg BID PO Last administered on 08:29; Start 09/07/17 at 21:00 Ceftriaxone Sodium 1 gm/ Dextrose 50 ml @ 100 mls/hr Q24H IV ; Start 09/07/17 at 16:15; Status UNV Ceftriaxone Sodium (Rocephin) 1 gm Q24H IVP Last administered on 09/08/17 17: 00; Start 09/07/17 at 17:00; Stop 09/10/17 at 11:48; Status DC Acetaminophen/ Aspirin/Caffeine (Excedrin Migraine) 1 tab PRN Q6HRS PRN PO MIGRAINE HEADACHE Last administered on 09/16/17 04:45; Start 09/08/17 at 11: 30 Potassium Chloride/Sodium Chloride 1,000 ml @ 75 mls/hr [id number] IV Last administered on 09/16/17 04:40; Start 09/08/17 at 12:00 Lactobacillus Rhamnosus (Culturelle) 1 cap BID PO Last administered on 08:29; Start 09/08/17 at 21:00 Magnesium Sulfate/ Dextrose 50 ml @ 25 mls/hr 1X ONCE IV Last administered on 09/08/17 18:01; Start 09/08/17 at 17:45; Stop 09/08/17 at 19:44; Status DC Ferrous Sulfate (Feosol) 325 mg QHS PO Last administered on 09/15/17 21:02; Start 09/08/17 at 21:00 Haloperidol Lactate (Haldol) 5 mg PRN Q6HRS PRN IVP AGITATION Last administered on 09/09/17 16:35; Start 09/09/17 at 16:45 Levofloxacin (Levaquin) 500 mg DAILY06 PO Last administered on 09/10/17 05:35 ; Start 09/10/17 at 06:00; Stop 09/10/17 at 11:48; Status DC Piperacillin Sod/ Tazobactam Sod 3.375 gm/Dextrose 50 ml @ 100 mls/hr Q6HRS IV ; Start 09/10/17 at 12:00; Status UNV Doxycycline Hyclate (Vibra-Tab) 100 mg BID PO Last administered on 09/16/17 08:29; Start 09/10/17 at 12:30 Piperacillin Sod/ Tazobactam Sod (Zosyn) 3.375 gm Q6HRS IVP Last administered on 09/11/17 05:44; Start 09/10/17 at 12:30; Stop 09/11/17 at 11:32; Status DC Ondansetron HCl (Zofran) 4 mg PRN Q6HRS PRN IV NAUSEA/VOMITING Last administered on 09/10/17 16:36; Start 09/10/17 at 16:30 Cefepime HCl 1 gm/ Dextrose 50 ml @ 100 mls/hr Q8HRS IV ; Start 09/11/17 at 14 :00; Stop 09/11/17 at 14:00; Status DC Cefepime HCl (Maxipime) 1 gm Q8HRS IVP Last administered on 09/13/17 06:35; Start 09/11/17 at 14:00; Stop 09/13/17 at 08:48; Status DC Lidocaine/Sodium Bicarbonate (Buffered Lidocaine 1%) 20 ml 1X ONCE IJ Last administered on 09/11/17 14:39; Start 09/11/17 at 13:30; Stop 09/11/17 at 13 :31; Status DC Polyethylene Glycol (miraLAX PACKET) 17 gm DAILY PO Last administered on 08:13; Start 09/12/17 at 10:00; Stop 09/14/17 at 09:33; Status DC Acyclovir Sodium 500 mg/Sodium Chloride 110 ml @ 110 mls/hr Q8HRS IV Last administered on 09/14/17 06:15; Start 09/12/17 at 11:30; Stop 09/14/17 at 09 :13; Status DC Enoxaparin Sodium (Lovenox 40mg Syringe) 40 mg Q24H SQ Last administered on 13:13; Start 09/12/17 at 15:00 Gadobutrol (Gadavist) 9 mmol 1X ONCE IV Last administered on 09/12/17 15:00 ; Start 09/12/17 at 14:45; Stop 09/12/17 at 14:46; Status DC Polyethylene Glycol (miraLAX PACKET) 17 gm BID PO Last administered on 08:29; Start 09/14/17 at 21:00 Mineral Oil (Fleet Mineral Oil) 133 ml 1X ONCE [place] Last administered on 10:14; Start 09/14/17 at 10:00; Stop 09/14/17 at 10:01; Status DC Magnesium Hydroxide (Milk Of Magnesia) 2,400 mg PRN DAILY PRN PO CONSTIPATION; Start 09/15/17 at 14:00 Magnesium Hydroxide (Milk Of Magnesia) 2,400 mg 1X ONCE PO Last administered on 09/15/17 14:02; Start 09/15/17 at 14:00; Stop 09/15/17 at 14:01; Status DC Dronabinol (Marinol) 2.5 mg BIDACLD PO Last administered on 09/15/17 15:18; Start 09/15/17 at 16:30 Active Scripts Active Levetiracetam 500 Mg Tablet 500 Mg PO BID Cyclobenzaprine Hcl 10 Mg Tablet 10 Mg PO BID Indomethacin 50 Mg Capsule 1 Cap PO TID Reported Amlodipine Besylate 5 Mg Tablet 5 Mg PO DAILY Diazepam 5 Mg Tablet 5 Mg PO BID Dicyclomine Hcl 20 Mg Tablet 20 Mg PO QID PRN Lamotrigine 100 Mg Tablet 1 Tab PO BID Indomethacin 50 Mg Capsule 1 Cap PO TID Maxzide 37.5 Mg-25 Mg Tablet (Triamterene/Hydrochlorothiazid) 1 Each Tablet 1 Each PO Hydrocodone-Apap 5-325 (Hydrocodone Bit/Acetaminophen) 1 Each Tablet 1 Tab PO PRN Q6HRS PRN Allopurinol 100 Mg Tablet 100 Mg PO Vitals/I & O Vital Sign - Last 24 Hours 09/15/17 09/15/17 09/15/17 09/15/17 10:54 15:11 17:04 19:00 Temp 99.0 98.9 98.8 99.0 98.9 98.8 Pulse 99 101 99 96 Resp 17 17 16 B/P (MAP) 153/76 (101) 170/83 (112) 140/68 (92) 120/89 (99) Pulse Ox 97 100 96 O2 Delivery Room Air Room Air Room Air 09/15/17 09/15/17 09/15/17 09/15/17 19:46 20:00 20:46 23:41 Temp 99.0 99.0 Pulse 102 Resp 16 B/P (MAP) 142/85 (104) Pulse Ox 99 O2 Delivery Room Air Room Air Room Air Room Air 09/16/17 09/16/17 09/16/17 09/16/17 03:57 07:00 07:33 08:30 Temp 98.1 98.5 98.1 98.5 Pulse 95 125 125 Resp 16 16 B/P (MAP) 142/72 (95) 181/97 (125) 181/97 Pulse Ox 99 100 O2 Delivery Room Air Room Air Room Air Intake and Output 09/15/17 09/15/17 09/16/17 14:59 22:59 06:59 Intake Total 100 ml 500 ml Output Total 500 ml 1150 ml Balance -400 ml -650 ml Images KUB w/o much stool. Problem List Problems Medical Problems: (1) Closed head injury Status: Acute (2) Epigastric pain Status: Acute (3) Fall Status: Acute (4) Hypokalemia Status: Acute Assessment Elevated lipase, significance unclear. Aseptic meningitis/encephalitis. Plan of Care: Continue current Tx, Mgmt Plan of Care Note Encourage po. PAIGE RAMOS MD Sep 16, 2017 10:43
[2017-09-16 10:59] VITALS: BP 136/61
--- NOTE | 2017-09-16 11:09 | PDOC ---
PROGRESS NOTES Chief Complaint Chief Complaint Viral encephalitis Syncope MOd to severe PCM Poor PO COnstipation Likely dementia FTT GERD Sx hx Vit D def syncope Hypokalemia resolved PANCREATITIS History of Present Illness History of Present Illness CTc scan 5 days ago showed pancreatitis So I ordered lipase and is 2766 Pt barely eating anyways Family at beside Agreeable to SNU COnfusion is on and off, presumed multifactorial, viral enceph, dementia PLAN: I decided to cont her diet and PO intake, since she barely eats anyways COnt IVF I held off rpt CT scan for now She is tender on epig area - pain control SNU SW Rpt lipase tmr Dw RN Lani and family Vitals Vitals Vital Signs Date Time Temp Pulse Resp B/P (MAP) Pulse Ox O2 Delivery O2 Flow Rate FiO2 09/16/17 10:59 99.3 99 16 136/61 (86) 98 Room Air 99.3 Physical Exam Physical Exam EXAM: Chest 2 views. HISTORY: Shortness of breath, aspiration. COMPARISON: 12/27/2015. FINDINGS: Frontal and lateral views of the chest are obtained. There are no confluent infiltrates. The right hemidiaphragm is mildly elevated. There is no pneumothorax or pleural effusion. The heart. Mildly enlarged on the lateral projection. IMPRESSION: 1. Mild cardiomegaly. No clear confluent infiltrates. General: Alert, Oriented X3, Cooperative, No acute distress Heart: Regular rate Lungs: Clear Abdomen: Normal bowel sounds, Soft, No tenderness Extremities: No cyanosis, No edema Skin: No rashes Labs LABS Laboratory Tests Test 09/16/17 03:00 Lipase 2766 U/L (73-393) Review of Systems Review of Systems epig pain, dememtia, weak, no cp, soa, Assessment and Plan Assessmemt and Plan Problems Medical Problems: (1) Closed head injury Status: Acute (2) Epigastric pain Status: Acute (3) Fall Status: Acute (4) Hypokalemia Status: Acute Problems: Comment Review of Relevant I have reviewed the following items nahum (where applicable) has been applied. Labs Laboratory Tests Test 09/15/17 03:40 09/16/17 03:00 White Blood Count 3.9 x10^3/uL (4.0-11.0) Red Blood Count 3.48 x10^6/uL (3.50-5.40) Hemoglobin 11.4 g/dL (12.0-15.5) Hematocrit 32.5 % (36.0-47.0) Mean Corpuscular Volume 93 fL (79-100) Mean Corpuscular Hemoglobin 33 pg (25-35) Mean Corpuscular Hemoglobin Concent 35 g/dL (31-37) Red Cell Distribution Width 13.6 % (11.5-14.5) Platelet Count 199 x10^3/uL (140-400) Neutrophils (%) (Auto) 62 % (31-73) Lymphocytes (%) (Auto) 20 % (24-48) Monocytes (%) (Auto) 12 % (0-9) Eosinophils (%) (Auto) 6 % (0-3) Basophils (%) (Auto) 1 % (0-3) Neutrophils # (Auto) 2.4 x10^3uL (1.8-7.7) Lymphocytes # (Auto) 0.8 x10^3/uL (1.0-4.8) Monocytes # (Auto) 0.5 x10^3/uL (0.0-1.1) Eosinophils # (Auto) 0.2 x10^3/uL (0.0-0.7) Basophils # (Auto) 0.0 x10^3/uL (0.0-0.2) Sodium Level 132 mmol/L (136-145) Potassium Level 3.8 mmol/L (3.5-5.1) Chloride Level 100 mmol/L (98-107) Carbon Dioxide Level 23 mmol/L (21-32) Anion Gap 9 (6-14) Blood Urea Nitrogen 14 mg/dL (7-20) Creatinine 0.8 mg/dL (0.6-1.0) Estimated GFR (Cockcroft-Gault) 85.3 BUN/Creatinine Ratio 18 (6-20) Glucose Level 86 mg/dL (70-99) Calcium Level 8.6 mg/dL (8.5-10.1) Total Bilirubin 0.5 mg/dL (0.2-1.0) Aspartate Amino Transf (AST/SGOT) 186 U/L (15-37) Alanine Aminotransferase (ALT/SGPT) 97 U/L (14-59) Alkaline Phosphatase 99 U/L (46-116) Total Protein 6.5 g/dL (6.4-8.2) Albumin 2.5 g/dL (3.4-5.0) Albumin/Globulin Ratio 0.6 (1.0-1.7) Lipase 2766 U/L (73-393) Laboratory Tests Test 09/16/17 03:00 Lipase 2766 U/L (73-393) Microbiology 09/07/17 Blood Culture - Final, Complete NO GROWTH AFTER 5 DAYS 09/11/17 AFB Specimen Processing Tissue - Final, Resulted 09/11/17 Acid Fast Bacilli Culture, Resulted Pending 09/11/17 Gram Stain - Final, Resulted 09/11/17 Fungal Culture, Resulted Pending 09/11/17 Fungal Culture Result 1, Resulted Pending 09/07/17 Urine Culture - Final, Complete 09/07/17 Urine Culture Result 1 (NADIA) - Final, Complete Medications Current Medications Acetaminophen (Tylenol) 650 mg 1X ONCE PO Last administered on 09/06/17 11: 03; Start 09/06/17 at 10:15; Stop 09/06/17 at 10:16; Status DC Potassium Chloride (Klor-Con) 40 meq 1X ONCE PO Last administered on 11:03; Start 09/06/17 at 11:00; Stop 09/06/17 at 11:01; Status DC Pantoprazole Sodium (Protonix) 40 mg 1X ONCE PO Last administered on 12:29; Start 09/06/17 at 11:45; Stop 09/06/17 at 11:46; Status DC Acetaminophen (Tylenol) 650 mg PRN Q6HRS PRN PO pain Last administered on 09/15 14:39; Start 09/06/17 at 11:45 Pantoprazole Sodium (Protonix) 40 mg DAILY PO Last administered on 09/16/17 08:29; Start 09/07/17 at 09:00 Potassium Chloride (Klor-Con) 40 meq Q6H PO Last administered on 09/07/17 14: 15; Start 09/06/17 at 18:00; Stop 09/07/17 at 13:00; Status DC Allopurinol (Zyloprim) 100 mg DAILY PO Last administered on 09/16/17 08:29; Start 09/07/17 at 09:00 Diazepam (Valium) 5 mg BID PO Last administered on 09/16/17 08:29; Start at 21:00 Acetaminophen/ Hydrocodone Bitart (Lortab 5/325) 1 tab PRN Q6HRS PRN PO MODERATE PAIN Last administered on 09/15/17 19:46; Start 09/06/17 at 19:15 Lamotrigine (LaMICtal) 100 mg BID PO Last administered on 09/16/17 08:29; Start 09/06/17 at 21:00 Hydralazine HCl (Apresoline Inj) 10 mg PRN Q4HRS PRN IVP ELEVATED BP, SEE COMMENTS Last administered on 09/16/17 08:30; Start 09/06/17 at 19:45 Vitamin D (Vitamin D3) 5,000 unit DAILY PO Last administered on 09/16/17 08: 29; Start 09/07/17 at 15:00 Calcium Carbonate/ Glycine (Oscal) 500 mg BID PO Last administered on 08:29; Start 09/07/17 at 21:00 Ceftriaxone Sodium 1 gm/ Dextrose 50 ml @ 100 mls/hr Q24H IV ; Start 09/07/17 at 16:15; Status UNV Ceftriaxone Sodium (Rocephin) 1 gm Q24H IVP Last administered on 09/08/17 17: 00; Start 09/07/17 at 17:00; Stop 09/10/17 at 11:48; Status DC Acetaminophen/ Aspirin/Caffeine (Excedrin Migraine) 1 tab PRN Q6HRS PRN PO MIGRAINE HEADACHE Last administered on 09/16/17 04:45; Start 09/08/17 at 11: 30 Potassium Chloride/Sodium Chloride 1,000 ml @ 75 mls/hr [id number] IV Last administered on 09/16/17 04:40; Start 09/08/17 at 12:00 Lactobacillus Rhamnosus (Culturelle) 1 cap BID PO Last administered on 08:29; Start 09/08/17 at 21:00 Magnesium Sulfate/ Dextrose 50 ml @ 25 mls/hr 1X ONCE IV Last administered on 09/08/17 18:01; Start 09/08/17 at 17:45; Stop 09/08/17 at 19:44; Status DC Ferrous Sulfate (Feosol) 325 mg QHS PO Last administered on 09/15/17 21:02; Start 09/08/17 at 21:00 Haloperidol Lactate (Haldol) 5 mg PRN Q6HRS PRN IVP AGITATION Last administered on 09/09/17 16:35; Start 09/09/17 at 16:45 Levofloxacin (Levaquin) 500 mg DAILY06 PO Last administered on 09/10/17 05:35 ; Start 09/10/17 at 06:00; Stop 09/10/17 at 11:48; Status DC Piperacillin Sod/ Tazobactam Sod 3.375 gm/Dextrose 50 ml @ 100 mls/hr Q6HRS IV ; Start 09/10/17 at 12:00; Status UNV Doxycycline Hyclate (Vibra-Tab) 100 mg BID PO Last administered on 09/16/17 08:29; Start 09/10/17 at 12:30 Piperacillin Sod/ Tazobactam Sod (Zosyn) 3.375 gm Q6HRS IVP Last administered on 09/11/17 05:44; Start 09/10/17 at 12:30; Stop 09/11/17 at 11:32; Status DC Ondansetron HCl (Zofran) 4 mg PRN Q6HRS PRN IV NAUSEA/VOMITING Last administered on 09/10/17 16:36; Start 09/10/17 at 16:30 Cefepime HCl 1 gm/ Dextrose 50 ml @ 100 mls/hr Q8HRS IV ; Start 09/11/17 at 14 :00; Stop 09/11/17 at 14:00; Status DC Cefepime HCl (Maxipime) 1 gm Q8HRS IVP Last administered on 09/13/17 06:35; Start 09/11/17 at 14:00; Stop 09/13/17 at 08:48; Status DC Lidocaine/Sodium Bicarbonate (Buffered Lidocaine 1%) 20 ml 1X ONCE IJ Last administered on 09/11/17 14:39; Start 09/11/17 at 13:30; Stop 09/11/17 at 13 :31; Status DC Polyethylene Glycol (miraLAX PACKET) 17 gm DAILY PO Last administered on 08:13; Start 09/12/17 at 10:00; Stop 09/14/17 at 09:33; Status DC Acyclovir Sodium 500 mg/Sodium Chloride 110 ml @ 110 mls/hr Q8HRS IV Last administered on 09/14/17 06:15; Start 09/12/17 at 11:30; Stop 09/14/17 at 09 :13; Status DC Enoxaparin Sodium (Lovenox 40mg Syringe) 40 mg Q24H SQ Last administered on 13:13; Start 09/12/17 at 15:00 Gadobutrol (Gadavist) 9 mmol 1X ONCE IV Last administered on 09/12/17 15:00 ; Start 09/12/17 at 14:45; Stop 09/12/17 at 14:46; Status DC Polyethylene Glycol (miraLAX PACKET) 17 gm BID PO Last administered on 08:29; Start 09/14/17 at 21:00 Mineral Oil (Fleet Mineral Oil) 133 ml 1X ONCE [place] Last administered on 10:14; Start 09/14/17 at 10:00; Stop 09/14/17 at 10:01; Status DC Magnesium Hydroxide (Milk Of Magnesia) 2,400 mg PRN DAILY PRN PO CONSTIPATION; Start 09/15/17 at 14:00 Magnesium Hydroxide (Milk Of Magnesia) 2,400 mg 1X ONCE PO Last administered on 09/15/17 14:02; Start 09/15/17 at 14:00; Stop 09/15/17 at 14:01; Status DC Dronabinol (Marinol) 2.5 mg BIDACLD PO Last administered on 09/15/17 15:18; Start 09/15/17 at 16:30 Active Scripts Active Levetiracetam 500 Mg Tablet 500 Mg PO BID Cyclobenzaprine Hcl 10 Mg Tablet 10 Mg PO BID Indomethacin 50 Mg Capsule 1 Cap PO TID Reported Amlodipine Besylate 5 Mg Tablet 5 Mg PO DAILY Diazepam 5 Mg Tablet 5 Mg PO BID Dicyclomine Hcl 20 Mg Tablet 20 Mg PO QID PRN Lamotrigine 100 Mg Tablet 1 Tab PO BID Indomethacin 50 Mg Capsule 1 Cap PO TID Maxzide 37.5 Mg-25 Mg Tablet (Triamterene/Hydrochlorothiazid) 1 Each Tablet 1 Each PO Hydrocodone-Apap 5-325 (Hydrocodone Bit/Acetaminophen) 1 Each Tablet 1 Tab PO PRN Q6HRS PRN Allopurinol 100 Mg Tablet 100 Mg PO Vitals/I & O Vital Sign - Last 24 Hours 09/15/17 09/15/17 09/15/17 09/15/17 15:11 17:04 19:00 19:46 Temp 98.9 98.8 98.9 98.8 Pulse 101 99 96 Resp 17 16 B/P (MAP) 170/83 (112) 140/68 (92) 120/89 (99) Pulse Ox 100 96 O2 Delivery Room Air Room Air Room Air 09/15/17 09/15/17 09/15/17 09/16/17 20:00 20:46 23:41 03:57 Temp 99.0 98.1 99.0 98.1 Pulse 102 95 Resp 16 16 B/P (MAP) 142/85 (104) 142/72 (95) Pulse Ox 99 99 O2 Delivery Room Air Room Air Room Air Room Air 09/16/17 09/16/17 09/16/17 09/16/17 07:00 07:33 08:30 10:59 Temp 98.5 99.3 98.5 99.3 Pulse 125 125 99 Resp 16 16 B/P (MAP) 181/97 (125) 181/97 136/61 (86) Pulse Ox 100 98 O2 Delivery Room Air Room Air Room Air Intake and Output 09/15/17 09/15/17 09/16/17 15:00 23:00 07:00 Intake Total 100 ml 500 ml Output Total 500 ml 1150 ml Balance -400 ml -650 ml ADITI HUYNH MD Sep 16, 2017 11:09
[2017-09-16] MEDS: DRONABINOL 2.5 MG CAPSULE. PO SCH ×2 (11:18→15:08)
--- NOTE | 2017-09-16 13:00 | PDOC ---
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 protein 79.2 - CSF cultures NGTD Pancreatitis Plan Plan of Care cont doxy for now Bowel regimen Supportive care D/w daughter Patient seen and examined. Case discussed with [employer] T[employer]ER. Chart reviewed in detail. Agree with above plan TREVON MONTE APRN Sep 16, 2017 13:00 CON NAVARRO MD Sep 16, 2017 16:39
[2017-09-16 14:57] VITALS: BP 158/79
[2017-09-16] MEDS: ENOXAPARIN 40 MG/0.4 ML SYRINGE. SQ SCH (15:10)
--- NOTE | 2017-09-16 18:38 | PDOC ---
PROGRESS NOTES Assessment Problems Medical Problems: (1) Closed head injury Status: Acute (2) Epigastric pain Status: Acute (3) Fall Status: Acute (4) Hypokalemia Status: Acute Problems: Plan Encephalitis ? viral etiology likely Aseptic meningitis [place], hsv neg More interactive Metabolic encephalopathy. HTN Gout GERD Self medicated for narcotics, may cause confusion. No evidence of acute CVA or brain tumor this time. ID consulted noted Keep electrolytes balance. Vit D and Ca++ supplement. Treat medical diseases. continue medical management. Subjective more interactive Resting in bed no c/o of GOSS improving, N, V, SOB Objective Vital Signs Date Time Temp Pulse Resp B/P (MAP) Pulse Ox O2 Delivery O2 Flow Rate FiO2 09/16/17 14:57 98.6 96 17 158/79 (105) 100 Room Air 98.6 Intake and Output 09/16/17 07:00 Intake Total 600 ml Output Total 1650 ml Balance -1050 ml Intake Oral 600 ml Output Urine Total 1650 ml PHYSICAL EXAM PHYSICAL EXAMINATION: General appearance is in subacute distress. HEENT: Normocephalic and nontraumatic. Eyes, nose, ears, and throat are unremarkable. Neck is supple. No lymphadenopathy. No bruits are heard over the carotid artery. No crepitus. Cardiovascular: S1, S2, regular rate and rhythm. Pulmonary: Clear to auscultation bilaterally. Abdomen: Bowel sounds are positive. Abdomen is soft, nontender, and nondistended. NEUROLOGICAL EXAMINATION: alert able to tell her name and follow simple commands PERRL. EOMI. CN: no focal findings. Muscle tone: within normal. Muscle strength: moves all exts DTR: 1-2 Plantar reflex: Flexor response bilaterally Gait: in bed Sensory exam: no abnormal findings. Review of Relevant I have reviewed the following items nahum (where applicable) has been applied. Labs Laboratory Tests Test 09/15/17 03:40 09/16/17 03:00 White Blood Count 3.9 x10^3/uL (4.0-11.0) Red Blood Count 3.48 x10^6/uL (3.50-5.40) Hemoglobin 11.4 g/dL (12.0-15.5) Hematocrit 32.5 % (36.0-47.0) Mean Corpuscular Volume 93 fL (79-100) Mean Corpuscular Hemoglobin 33 pg (25-35) Mean Corpuscular Hemoglobin Concent 35 g/dL (31-37) Red Cell Distribution Width 13.6 % (11.5-14.5) Platelet Count 199 x10^3/uL (140-400) Neutrophils (%) (Auto) 62 % (31-73) Lymphocytes (%) (Auto) 20 % (24-48) Monocytes (%) (Auto) 12 % (0-9) Eosinophils (%) (Auto) 6 % (0-3) Basophils (%) (Auto) 1 % (0-3) Neutrophils # (Auto) 2.4 x10^3uL (1.8-7.7) Lymphocytes # (Auto) 0.8 x10^3/uL (1.0-4.8) Monocytes # (Auto) 0.5 x10^3/uL (0.0-1.1) Eosinophils # (Auto) 0.2 x10^3/uL (0.0-0.7) Basophils # (Auto) 0.0 x10^3/uL (0.0-0.2) Sodium Level 132 mmol/L (136-145) Potassium Level 3.8 mmol/L (3.5-5.1) Chloride Level 100 mmol/L (98-107) Carbon Dioxide Level 23 mmol/L (21-32) Anion Gap 9 (6-14) Blood Urea Nitrogen 14 mg/dL (7-20) Creatinine 0.8 mg/dL (0.6-1.0) Estimated GFR (Cockcroft-Gault) 85.3 BUN/Creatinine Ratio 18 (6-20) Glucose Level 86 mg/dL (70-99) Calcium Level 8.6 mg/dL (8.5-10.1) Total Bilirubin 0.5 mg/dL (0.2-1.0) Aspartate Amino Transf (AST/SGOT) 186 U/L (15-37) Alanine Aminotransferase (ALT/SGPT) 97 U/L (14-59) Alkaline Phosphatase 99 U/L (46-116) Total Protein 6.5 g/dL (6.4-8.2) Albumin 2.5 g/dL (3.4-5.0) Albumin/Globulin Ratio 0.6 (1.0-1.7) Lipase 2766 U/L (73-393) Laboratory Tests Test 09/16/17 03:00 Lipase 2766 U/L (22-795) Microbiology 09/07/17 Blood Culture - Final, Complete NO GROWTH AFTER 5 DAYS 09/11/17 AFB Specimen Processing Tissue - Final, Resulted 09/11/17 Acid Fast Bacilli Culture, Resulted Pending 09/11/17 Gram Stain - Final, Resulted 09/11/17 Fungal Culture, Resulted Pending 09/11/17 Fungal Culture Result 1, Resulted Pending 09/07/17 Urine Culture - Final, Complete 09/07/17 Urine Culture Result 1 (NADIA) - Final, Complete Medications Current Medications Acetaminophen (Tylenol) 650 mg 1X ONCE PO Last administered on 09/06/17 11: 03; Start 09/06/17 at 10:15; Stop 09/06/17 at 10:16; Status DC Potassium Chloride (Klor-Con) 40 meq 1X ONCE PO Last administered on 11:03; Start 09/06/17 at 11:00; Stop 09/06/17 at 11:01; Status DC Pantoprazole Sodium (Protonix) 40 mg 1X ONCE PO Last administered on 12:29; Start 09/06/17 at 11:45; Stop 09/06/17 at 11:46; Status DC Acetaminophen (Tylenol) 650 mg PRN Q6HRS PRN PO pain Last administered on 09/15 14:39; Start 09/06/17 at 11:45 Pantoprazole Sodium (Protonix) 40 mg DAILY PO Last administered on 09/16/17 08:29; Start 09/07/17 at 09:00 Potassium Chloride (Klor-Con) 40 meq Q6H PO Last administered on 09/07/17 14: 15; Start 09/06/17 at 18:00; Stop 09/07/17 at 13:00; Status DC Allopurinol (Zyloprim) 100 mg DAILY PO Last administered on 09/16/17 08:29; Start 09/07/17 at 09:00 Diazepam (Valium) 5 mg BID PO Last administered on 09/16/17 08:29; Start at 21:00 Acetaminophen/ Hydrocodone Bitart (Lortab 5/325) 1 tab PRN Q6HRS PRN PO MODERATE PAIN Last administered on 09/15/17 19:46; Start 09/06/17 at 19:15 Lamotrigine (LaMICtal) 100 mg BID PO Last administered on 09/16/17 08:29; Start 09/06/17 at 21:00 Hydralazine HCl (Apresoline Inj) 10 mg PRN Q4HRS PRN IVP ELEVATED BP, SEE COMMENTS Last administered on 09/16/17 08:30; Start 09/06/17 at 19:45 Vitamin D (Vitamin D3) 5,000 unit DAILY PO Last administered on 09/16/17 08: 29; Start 09/07/17 at 15:00 Calcium Carbonate/ Glycine (Oscal) 500 mg BID PO Last administered on 08:29; Start 09/07/17 at 21:00 Ceftriaxone Sodium 1 gm/ Dextrose 50 ml @ 100 mls/hr Q24H IV ; Start 09/07/17 at 16:15; Status UNV Ceftriaxone Sodium (Rocephin) 1 gm Q24H IVP Last administered on 09/08/17 17: 00; Start 09/07/17 at 17:00; Stop 09/10/17 at 11:48; Status DC Acetaminophen/ Aspirin/Caffeine (Excedrin Migraine) 1 tab PRN Q6HRS PRN PO MIGRAINE HEADACHE Last administered on 09/16/17 04:45; Start 09/08/17 at 11: 30 Potassium Chloride/Sodium Chloride 1,000 ml @ 75 mls/hr [id number] IV Last administered on 09/16/17 15:11; Start 09/08/17 at 12:00 Lactobacillus Rhamnosus (Culturelle) 1 cap BID PO Last administered on 08:29; Start 09/08/17 at 21:00 Magnesium Sulfate/ Dextrose 50 ml @ 25 mls/hr 1X ONCE IV Last administered on 09/08/17 18:01; Start 09/08/17 at 17:45; Stop 09/08/17 at 19:44; Status DC Ferrous Sulfate (Feosol) 325 mg QHS PO Last administered on 09/15/17 21:02; Start 09/08/17 at 21:00 Haloperidol Lactate (Haldol) 5 mg PRN Q6HRS PRN IVP AGITATION Last administered on 09/09/17 16:35; Start 09/09/17 at 16:45 Levofloxacin (Levaquin) 500 mg DAILY06 PO Last administered on 09/10/17 05:35 ; Start 09/10/17 at 06:00; Stop 09/10/17 at 11:48; Status DC Piperacillin Sod/ Tazobactam Sod 3.375 gm/Dextrose 50 ml @ 100 mls/hr Q6HRS IV ; Start 09/10/17 at 12:00; Status UNV Doxycycline Hyclate (Vibra-Tab) 100 mg BID PO Last administered on 09/16/17 08:29; Start 09/10/17 at 12:30 Piperacillin Sod/ Tazobactam Sod (Zosyn) 3.375 gm Q6HRS IVP Last administered on 09/11/17 05:44; Start 09/10/17 at 12:30; Stop 09/11/17 at 11:32; Status DC Ondansetron HCl (Zofran) 4 mg PRN Q6HRS PRN IV NAUSEA/VOMITING Last administered on 09/10/17 16:36; Start 09/10/17 at 16:30 Cefepime HCl 1 gm/ Dextrose 50 ml @ 100 mls/hr Q8HRS IV ; Start 09/11/17 at 14 :00; Stop 09/11/17 at 14:00; Status DC Cefepime HCl (Maxipime) 1 gm Q8HRS IVP Last administered on 09/13/17 06:35; Start 09/11/17 at 14:00; Stop 09/13/17 at 08:48; Status DC Lidocaine/Sodium Bicarbonate (Buffered Lidocaine 1%) 20 ml 1X ONCE IJ Last administered on 09/11/17 14:39; Start 09/11/17 at 13:30; Stop 09/11/17 at 13 :31; Status DC Polyethylene Glycol (miraLAX PACKET) 17 gm DAILY PO Last administered on 08:13; Start 09/12/17 at 10:00; Stop 09/14/17 at 09:33; Status DC Acyclovir Sodium 500 mg/Sodium Chloride 110 ml @ 110 mls/hr Q8HRS IV Last administered on 09/14/17 06:15; Start 09/12/17 at 11:30; Stop 09/14/17 at 09 :13; Status DC Enoxaparin Sodium (Lovenox 40mg Syringe) 40 mg Q24H SQ Last administered on 15:10; Start 09/12/17 at 15:00 Gadobutrol (Gadavist) 9 mmol 1X ONCE IV Last administered on 09/12/17 15:00 ; Start 09/12/17 at 14:45; Stop 09/12/17 at 14:46; Status DC Polyethylene Glycol (miraLAX PACKET) 17 gm BID PO Last administered on 08:29; Start 09/14/17 at 21:00 Mineral Oil (Fleet Mineral Oil) 133 ml 1X ONCE NC Last administered on 10:14; Start 09/14/17 at 10:00; Stop 09/14/17 at 10:01; Status DC Magnesium Hydroxide (Milk Of Magnesia) 2,400 mg PRN DAILY PRN PO CONSTIPATION; Start 09/15/17 at 14:00 Magnesium Hydroxide (Milk Of Magnesia) 2,400 mg 1X ONCE PO Last administered on 09/15/17 14:02; Start 09/15/17 at 14:00; Stop 09/15/17 at 14:01; Status DC Dronabinol (Marinol) 2.5 mg BIDACLD PO Last administered on 09/16/17 15:08; Start 09/15/17 at 16:30 Active Scripts Active Levetiracetam 500 Mg Tablet 500 Mg PO BID Cyclobenzaprine Hcl 10 Mg Tablet 10 Mg PO BID Indomethacin 50 Mg Capsule 1 Cap PO TID Reported Amlodipine Besylate 5 Mg Tablet 5 Mg PO DAILY Diazepam 5 Mg Tablet 5 Mg PO BID Dicyclomine Hcl 20 Mg Tablet 20 Mg PO QID PRN Lamotrigine 100 Mg Tablet 1 Tab PO BID Indomethacin 50 Mg Capsule 1 Cap PO TID Maxzide 37.5 Mg-25 Mg Tablet (Triamterene/Hydrochlorothiazid) 1 Each Tablet 1 Each PO Hydrocodone-Apap 5-325 (Hydrocodone Bit/Acetaminophen) 1 Each Tablet 1 Tab PO PRN Q6HRS PRN Allopurinol 100 Mg Tablet 100 Mg PO Vitals/I & O Vital Sign - Last 24 Hours 09/15/17 09/15/17 09/15/17 09/15/17 19:00 19:46 20:00 20:46 Temp 98.8 98.8 Pulse 96 Resp 16 B/P (MAP) 120/89 (99) Pulse Ox 96 O2 Delivery Room Air Room Air Room Air Room Air 09/15/17 09/16/17 09/16/17 09/16/17 23:41 03:57 07:00 07:33 Temp 99.0 98.1 98.5 99.0 98.1 98.5 Pulse 102 95 125 Resp 16 16 16 B/P (MAP) 142/85 (104) 142/72 (95) 181/97 (125) Pulse Ox 99 99 100 O2 Delivery Room Air Room Air Room Air Room Air 09/16/17 09/16/17 09/16/17 08:30 10:59 14:57 Temp 99.3 98.6 99.3 98.6 Pulse 125 99 96 Resp B/P (MAP) 181/97 136/61 (86) 158/79 (105) Pulse Ox 98 100 O2 Delivery Room Air Room Air Intake and Output 09/15/17 09/15/17 09/16/17 15:00 23:00 07:00 Intake Total 100 ml 500 ml Output Total 500 ml 1150 ml Balance -400 ml -650 ml KENNY COLE MD Sep 16, 2017 18:38
[2017-09-16] MEDS: HYDROcodone/APAP 5/325MG 1 TAB TABLET PO PRN (19:34)
[2017-09-16 19:57] VITALS: BP 153/79
[2017-09-16] MEDS: FERROUS SULFATE 325 MG TABLET. PO SCH (20:10)
[2017-09-16 23:50] VITALS: BP 150/76
[2017-09-17 03:05] VITALS: BP 161/78
[2017-09-17] MEDS: POTASSIUM CL 20MEQ-0.45% NACL 1,000 ML IV SCH (05:42)
[2017-09-17 06:55] VITALS: BP 158/65
[2017-09-17 07:49] LABS: BASO % 1 % (0-3); EOS % 4 % (0-3); HEMOGLOBIN 10.9 g/dL (12.0-15.5); LYMPH # 1.2 x10^3/uL (1.0-4.8); LYMPH % 29 % (24-48); MEAN CORPUSCULAR HEMOGLOBIN 31 pg (25-35); MEAN CORPUSCULAR HGB CONC 33 g/dL (31-37); MEAN CORPUSCULAR VOLUME 93 fL (79-100); MONO % 14 % (0-9); NEUT % 52 % (31-73); PLATELET COUNT 317 x10^3/uL (140-400); RED BLOOD COUNT 3.56 x10^6/uL (3.50-5.40); RED CELL DISTRIBUTION WIDTH 13.7 % (11.5-14.5); WHITE BLOOD COUNT 4.1 x10^3/uL (4.0-11.0)
[2017-09-17] MEDS: LACTOBACILLUS RHAMNOSUS GG 1 CAPSULE. PO SCH (09:00)
[2017-09-17] MEDS: POLYETHYLENE GLYCOL 3350 17 GM PACKET. PO SCH (09:57)
[2017-09-17] MEDS: DOXYCYCLINE HYCLATE 100 MG TABLET PO SCH (09:59)
[2017-09-17] MEDS: lamoTRIgine 100 MG TABLET. PO SCH (10:00)
[2017-09-17] MEDS: CHOLECALCIFEROL (VITAMIN D3) 5,000 UNIT CAPSULE PO SCH (10:01)
[2017-09-17] MEDS: CALCIUM CARBONATE 500 MG TABLET PO SCH (10:01)
[2017-09-17] MEDS: ALLOPURINOL 100 MG TABLET. PO SCH (10:01)
[2017-09-17] MEDS: diazePAM 5 MG TABLET PO SCH (10:01)
[2017-09-17] MEDS: PANTOPRAZOLE 40 MG TABLET.DR. PO SCH (10:01)
[2017-09-17 10:25] VITALS: BP 158/88
--- NOTE | 2017-09-17 10:27 | PDOC ---
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 Metabolic encephalopathy I follow her for epilepsy, 24-hour EEG, 02/19/17, showing bitemporal sharp waves predominating on the right at T4, but also on the left, T3 Plan Continue current medical treatment I corrected her levetiracetam dose, should be 750 mg BID Will need SNU Subjective No complaints Objective Vital Signs Date Time Temp Pulse Resp B/P (MAP) Pulse Ox O2 Delivery O2 Flow Rate FiO2 09/17/17 06:55 98.5 100 18 158/65 (96) 99 Room Air 98.5 Intake and Output 09/17/17 07:00 Intake Total 490 ml Output Total 2850 ml Balance -2360 ml Intake Oral 490 ml Output Urine Total 2850 ml PHYSICAL EXAM Alert. Oriented to place and person, does not know the date. PERRL. EOMI. CN: no focal findings. Muscle tone: normal. Muscle strength: 4/5 DTR: 1+ Plantar reflex: flexor Gait: not examined in bed. Sensory exam: no abnormal findings. No cerebellar signs elicited. Review of Relevant I have reviewed the following items nahum (where applicable) has been applied. Labs Laboratory Tests Test 09/16/17 03:00 09/17/17 07:05 Lipase 2766 U/L (73-393) 2656 U/L (73-393) White Blood Count 4.1 x10^3/uL (4.0-11.0) Red Blood Count 3.56 x10^6/uL (3.50-5.40) Hemoglobin 10.9 g/dL (12.0-15.5) Hematocrit 33.0 % (36.0-47.0) Mean Corpuscular Volume 93 fL (79-100) Mean Corpuscular Hemoglobin 31 pg (25-35) Mean Corpuscular Hemoglobin Concent 33 g/dL (31-37) Red Cell Distribution Width 13.7 % (11.5-14.5) Platelet Count 317 x10^3/uL (140-400) Neutrophils (%) (Auto) 52 % (31-73) Lymphocytes (%) (Auto) 29 % (24-48) Monocytes (%) (Auto) 14 % (0-9) Eosinophils (%) (Auto) 4 % (0-3) Basophils (%) (Auto) 1 % (0-3) Neutrophils # (Auto) 2.1 x10^3uL (1.8-7.7) Lymphocytes # (Auto) 1.2 x10^3/uL (1.0-4.8) Monocytes # (Auto) 0.6 x10^3/uL (0.0-1.1) Eosinophils # (Auto) 0.2 x10^3/uL (0.0-0.7) Basophils # (Auto) 0.0 x10^3/uL (0.0-0.2) Laboratory Tests Test 09/17/17 07:05 White Blood Count 4.1 x10^3/uL (4.0-11.0) Red Blood Count 3.56 x10^6/uL (3.50-5.40) Hemoglobin 10.9 g/dL (12.0-15.5) Hematocrit 33.0 % (36.0-47.0) Mean Corpuscular Volume 93 fL (79-100) Mean Corpuscular Hemoglobin 31 pg (25-35) Mean Corpuscular Hemoglobin Concent 33 g/dL (31-37) Red Cell Distribution Width 13.7 % (11.5-14.5) Platelet Count 317 x10^3/uL (140-400) Neutrophils (%) (Auto) 52 % (31-73) Lymphocytes (%) (Auto) 29 % (24-48) Monocytes (%) (Auto) 14 % (0-9) Eosinophils (%) (Auto) 4 % (0-3) Basophils (%) (Auto) 1 % (0-3) Neutrophils # (Auto) 2.1 x10^3uL (1.8-7.7) Lymphocytes # (Auto) 1.2 x10^3/uL (1.0-4.8) Monocytes # (Auto) 0.6 x10^3/uL (0.0-1.1) Eosinophils # (Auto) 0.2 x10^3/uL (0.0-0.7) Basophils # (Auto) 0.0 x10^3/uL (0.0-0.2) Lipase 2656 U/L (73-393) Microbiology 09/07/17 Blood Culture - Final, Complete NO GROWTH AFTER 5 DAYS 09/11/17 AFB Specimen Processing Tissue - Final, Resulted 09/11/17 Acid Fast Bacilli Culture, Resulted Pending 09/11/17 Gram Stain - Final, Resulted 09/11/17 Fungal Culture, Resulted Pending 09/11/17 Fungal Culture Result 1, Resulted Pending 09/07/17 Urine Culture - Final, Complete 09/07/17 Urine Culture Result 1 (NADIA) - Final, Complete Medications Current Medications Acetaminophen (Tylenol) 650 mg 1X ONCE PO Last administered on 09/06/17 11: 03; Start 09/06/17 at 10:15; Stop 09/06/17 at 10:16; Status DC Potassium Chloride (Klor-Con) 40 meq 1X ONCE PO Last administered on 11:03; Start 09/06/17 at 11:00; Stop 09/06/17 at 11:01; Status DC Pantoprazole Sodium (Protonix) 40 mg 1X ONCE PO Last administered on 12:29; Start 09/06/17 at 11:45; Stop 09/06/17 at 11:46; Status DC Acetaminophen (Tylenol) 650 mg PRN Q6HRS PRN PO pain Last administered on 09/15 14:39; Start 09/06/17 at 11:45 Pantoprazole Sodium (Protonix) 40 mg DAILY PO Last administered on 09/17/17 10:01; Start 09/07/17 at 09:00 Potassium Chloride (Klor-Con) 40 meq Q6H PO Last administered on 09/07/17 14: 15; Start 09/06/17 at 18:00; Stop 09/07/17 at 13:00; Status DC Allopurinol (Zyloprim) 100 mg DAILY PO Last administered on 09/17/17 10:01; Start 09/07/17 at 09:00 Diazepam (Valium) 5 mg BID PO Last administered on 09/17/17 10:01; Start at 21:00 Acetaminophen/ Hydrocodone Bitart (Lortab 5/325) 1 tab PRN Q6HRS PRN PO MODERATE PAIN Last administered on 09/16/17 19:34; Start 09/06/17 at 19:15 Lamotrigine (LaMICtal) 100 mg BID PO Last administered on 09/17/17 10:00; Start 09/06/17 at 21:00 Hydralazine HCl (Apresoline Inj) 10 mg PRN Q4HRS PRN IVP ELEVATED BP, SEE COMMENTS Last administered on 09/16/17 08:30; Start 09/06/17 at 19:45 Vitamin D (Vitamin D3) 5,000 unit DAILY PO Last administered on 09/17/17 10: 01; Start 09/07/17 at 15:00 Calcium Carbonate/ Glycine (Oscal) 500 mg BID PO Last administered on 10:01; Start 09/07/17 at 21:00 Ceftriaxone Sodium 1 gm/ Dextrose 50 ml @ 100 mls/hr Q24H IV ; Start 09/07/17 at 16:15; Status UNV Ceftriaxone Sodium (Rocephin) 1 gm Q24H IVP Last administered on 09/08/17 17: 00; Start 09/07/17 at 17:00; Stop 09/10/17 at 11:48; Status DC Acetaminophen/ Aspirin/Caffeine (Excedrin Migraine) 1 tab PRN Q6HRS PRN PO MIGRAINE HEADACHE Last administered on 09/16/17 04:45; Start 09/08/17 at 11: 30 Potassium Chloride/Sodium Chloride 1,000 ml @ 75 mls/hr [id number] IV Last administered on 09/17/17 05:42; Start 09/08/17 at 12:00 Lactobacillus Rhamnosus (Culturelle) 1 cap BID PO Last administered on 20:11; Start 09/08/17 at 21:00 Magnesium Sulfate/ Dextrose 50 ml @ 25 mls/hr 1X ONCE IV Last administered on 09/08/17 18:01; Start 09/08/17 at 17:45; Stop 09/08/17 at 19:44; Status DC Ferrous Sulfate (Feosol) 325 mg QHS PO Last administered on 09/16/17 20:10; Start 09/08/17 at 21:00 Haloperidol Lactate (Haldol) 5 mg PRN Q6HRS PRN IVP AGITATION Last administered on 09/09/17 16:35; Start 09/09/17 at 16:45 Levofloxacin (Levaquin) 500 mg DAILY06 PO Last administered on 09/10/17 05:35 ; Start 09/10/17 at 06:00; Stop 09/10/17 at 11:48; Status DC Piperacillin Sod/ Tazobactam Sod 3.375 gm/Dextrose 50 ml @ 100 mls/hr Q6HRS IV ; Start 09/10/17 at 12:00; Status UNV Doxycycline Hyclate (Vibra-Tab) 100 mg BID PO Last administered on 09/17/17 09:59; Start 09/10/17 at 12:30 Piperacillin Sod/ Tazobactam Sod (Zosyn) 3.375 gm Q6HRS IVP Last administered on 09/11/17 05:44; Start 09/10/17 at 12:30; Stop 09/11/17 at 11:32; Status DC Ondansetron HCl (Zofran) 4 mg PRN Q6HRS PRN IV NAUSEA/VOMITING Last administered on 09/10/17 16:36; Start 09/10/17 at 16:30 Cefepime HCl 1 gm/ Dextrose 50 ml @ 100 mls/hr Q8HRS IV ; Start 09/11/17 at 14 :00; Stop 09/11/17 at 14:00; Status DC Cefepime HCl (Maxipime) 1 gm Q8HRS IVP Last administered on 09/13/17 06:35; Start 09/11/17 at 14:00; Stop 09/13/17 at 08:48; Status DC Lidocaine/Sodium Bicarbonate (Buffered Lidocaine 1%) 20 ml 1X ONCE IJ Last administered on 09/11/17 14:39; Start 09/11/17 at 13:30; Stop 09/11/17 at 13 :31; Status DC Polyethylene Glycol (miraLAX PACKET) 17 gm DAILY PO Last administered on 08:13; Start 09/12/17 at 10:00; Stop 09/14/17 at 09:33; Status DC Acyclovir Sodium 500 mg/Sodium Chloride 110 ml @ 110 mls/hr Q8HRS IV Last administered on 09/14/17 06:15; Start 09/12/17 at 11:30; Stop 09/14/17 at 09 :13; Status DC Enoxaparin Sodium (Lovenox 40mg Syringe) 40 mg Q24H SQ Last administered on 15:10; Start 09/12/17 at 15:00 Gadobutrol (Gadavist) 9 mmol 1X ONCE IV Last administered on 09/12/17 15:00 ; Start 09/12/17 at 14:45; Stop 09/12/17 at 14:46; Status DC Polyethylene Glycol (miraLAX PACKET) 17 gm BID PO Last administered on 09:57; Start 09/14/17 at 21:00 Mineral Oil (Fleet Mineral Oil) 133 ml 1X ONCE AR Last administered on 10:14; Start 09/14/17 at 10:00; Stop 09/14/17 at 10:01; Status DC Magnesium Hydroxide (Milk Of Magnesia) 2,400 mg PRN DAILY PRN PO CONSTIPATION; Start 09/15/17 at 14:00 Magnesium Hydroxide (Milk Of Magnesia) 2,400 mg 1X ONCE PO Last administered on 09/15/17 14:02; Start 09/15/17 at 14:00; Stop 09/15/17 at 14:01; Status DC Dronabinol (Marinol) 2.5 mg BIDACLD PO Last administered on 09/16/17 15:08; Start 09/15/17 at 16:30 Active Scripts Active Levetiracetam 500 Mg Tablet 500 Mg PO BID Cyclobenzaprine Hcl 10 Mg Tablet 10 Mg PO BID Indomethacin 50 Mg Capsule 1 Cap PO TID Reported Amlodipine Besylate 5 Mg Tablet 5 Mg PO DAILY Diazepam 5 Mg Tablet 5 Mg PO BID Dicyclomine Hcl 20 Mg Tablet 20 Mg PO QID PRN Lamotrigine 100 Mg Tablet 1 Tab PO BID Indomethacin 50 Mg Capsule 1 Cap PO TID Maxzide 37.5 Mg-25 Mg Tablet (Triamterene/Hydrochlorothiazid) 1 Each Tablet 1 Each PO Hydrocodone-Apap 5-325 (Hydrocodone Bit/Acetaminophen) 1 Each Tablet 1 Tab PO PRN Q6HRS PRN Allopurinol 100 Mg Tablet 100 Mg PO Vitals/I & O Vital Sign - Last 24 Hours 09/16/17 09/16/17 09/16/17 09/16/17 10:59 14:57 19:34 19:57 Temp 99.3 98.6 99.0 99.3 98.6 99.0 Pulse 99 96 98 Resp 16 17 16 B/P (MAP) 136/61 (86) 158/79 (105) 153/79 (103) Pulse Ox 98 100 97 O2 Delivery Room Air Room Air Room Air Room Air 09/16/17 09/16/17 09/16/17 09/17/17 20:00 20:34 23:50 03:05 Temp 99.2 97.9 99.2 97.9 Pulse 100 102 Resp 18 16 B/P (MAP) 150/76 (100) 161/78 (105) Pulse Ox 99 95 O2 Delivery Room Air Room Air Room Air Room Air 09/17/17 06:55 Temp 98.5 98.5 Pulse 100 Resp 18 B/P (MAP) 158/65 (96) Pulse Ox 99 O2 Delivery Room Air Intake and Output 09/16/17 09/16/17 09/17/17 15:00 23:00 07:00 Intake Total 50 ml 440 ml Output Total 1750 ml 1100 ml Balance -1700 ml -660 ml KENNA BECKHAM MD Sep 17, 2017 10:27
[2017-09-17] MEDS ORDERED: levETIRAcetam 250 MG TABLET PO SCH (10:30)
[2017-09-17] MEDS ORDERED: DRON2.5C2 PO (11:16)
[2017-09-17] MEDS: DRONABINOL 2.5 MG CAPSULE. PO SCH (11:30)
--- NOTE | 2017-09-17 11:37 | PDOC ---
Infectious Disease Note Subjective Subjective Feeling better, no n/v/d/abdo pain/headache sob or cough ROS ROS asa ana otherwise neg Vital Sign Vital Signs Vital Signs Date Time Temp Pulse Resp B/P (MAP) Pulse Ox O2 Delivery O2 Flow Rate FiO2 09/17/17 10:25 98.3 98 20 158/88 (111) 99 Room Air 98.3 Physical Exam PHYSICAL EXAM GENERAL: NAD, Alert HEENT: PERRL, anicteric NECK: Supple, no JVD, no LN LUNGS: Clear HEART: S1S2, no gallop, no murmur ABD: Soft, NT, no organomegaly, no rebound EXT: No edema, no cyanosis RELIGION PROFESSOR: Alert, oriented x 3, no focal neurologic deficit SKIN: No rash IV: ok Labs Lab Laboratory Tests Test 09/17/17 07:05 White Blood Count 4.1 x10^3/uL (4.0-11.0) Red Blood Count 3.56 x10^6/uL (3.50-5.40) Hemoglobin 10.9 g/dL (12.0-15.5) Hematocrit 33.0 % (36.0-47.0) Mean Corpuscular Volume 93 fL (79-100) Mean Corpuscular Hemoglobin 31 pg (25-35) Mean Corpuscular Hemoglobin Concent 33 g/dL (31-37) Red Cell Distribution Width 13.7 % (11.5-14.5) Platelet Count 317 x10^3/uL (140-400) Neutrophils (%) (Auto) 52 % (31-73) Lymphocytes (%) (Auto) 29 % (24-48) Monocytes (%) (Auto) 14 % (0-9) Eosinophils (%) (Auto) 4 % (0-3) Basophils (%) (Auto) 1 % (0-3) Neutrophils # (Auto) 2.1 x10^3uL (1.8-7.7) Lymphocytes # (Auto) 1.2 x10^3/uL (1.0-4.8) Monocytes # (Auto) 0.6 x10^3/uL (0.0-1.1) Eosinophils # (Auto) 0.2 x10^3/uL (0.0-0.7) Basophils # (Auto) 0.0 x10^3/uL (0.0-0.2) Lipase 2656 U/L (73-393) Micro reviewed Objective Assessment Fever , likely viral illness resolved Seizure Encephalopathy Syncope CHF Aseptic meningitis, - s/p LP: CSF WBC 130, glu 49, T. protein 79.2 - CSF cultures NGTD CSF [place] neg, hsv neg Pancreatitis Transaminitis Plan Plan of Care cont doxy for a total of 10 days Bowel regimen Supportive care SELVIN BORJAS MD Sep 17, 2017 11:37
[2017-09-17] MEDS ORDERED: HYDR-2758 PO (12:11)
--- NOTE | 2017-09-17 13:36 | PDOC ---
Subjective: Subjective: Not hungry. Denies pain. Per family in room - has epigastric pain when tries to eat. Has been sleeping today. Objective: Vital Signs: Vital Signs Date Time Temp Pulse Resp B/P (MAP) Pulse Ox O2 Delivery O2 Flow Rate FiO2 09/17/17 10:25 98.3 98 20 158/88 (111) 99 Room Air 98.3 Labs: Laboratory Tests Test 09/17/17 07:05 White Blood Count 4.1 x10^3/uL Red Blood Count 3.56 x10^6/uL Hemoglobin 10.9 g/dL Hematocrit 33.0 % Mean Corpuscular Volume 93 fL Mean Corpuscular Hemoglobin 31 pg Mean Corpuscular Hemoglobin Concent 33 g/dL Red Cell Distribution Width 13.7 % Platelet Count 317 x10^3/uL Neutrophils (%) (Auto) 52 % Lymphocytes (%) (Auto) 29 % Monocytes (%) (Auto) 14 % Eosinophils (%) (Auto) 4 % Basophils (%) (Auto) 1 % Neutrophils # (Auto) 2.1 x10^3uL Lymphocytes # (Auto) 1.2 x10^3/uL Monocytes # (Auto) 0.6 x10^3/uL Eosinophils # (Auto) 0.2 x10^3/uL Basophils # (Auto) 0.0 x10^3/uL Lipase 2656 U/L PE: GEN: NAD LUNGS: clear HEART: RRR ABD: soft, doesn't seem tender NEURO/PSYCH: probably confused OTHER: lunch tray untouched A/P: Elevated lipase Aseptic meningitis/encephalitis Anorexia -- Still not eating much, will review w/ Dr. Figueroa. MARTHA CHI Sep 17, 2017 13:36
[2017-09-17 14:47] VITALS: BP 122/87
[2017-09-17] MEDS: ENOXAPARIN 40 MG/0.4 ML SYRINGE. SQ SCH (15:00)
[2017-09-24] MEDS ORDERED: HYDR-2758 PO (09:56)
[2017-09-24] MEDS ORDERED: LEVE250T30 PO (09:56)
[2017-09-24] MEDS ORDERED: PANT40TA5 PO (09:56)
--- NOTE | 2017-10-18 10:10 | PDOC3 ---
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 12/27/15 Yes Brief Hospital Course Ms. Hernandez is a 71 old female, prior highly functional, admit with confusion , disoriented, No evidence of acute CVA or brain tumor this time. Lumbar puncture done 09/11 consistent with viral meningitis, Neuro consulted and followed pancreatitis noted on CT scan for abd pain on 09/11, lipase [id number] poor PO intake, GI consult thought it should improve over time, pt need SNU, support and time Discharge Information Condition at Discharge: Improved Follow Up: Weeks Disposition/Orders: D/C to Another Facility (skilled) Scheduled Amlodipine Besylate (Amlodipine Besylate), 5 MG PO DAILY, (Reported) Cyclobenzaprine Hcl (Cyclobenzaprine Hcl), 10 MG PO BID Diazepam (Diazepam), 5 MG PO BID, (Reported) Dronabinol (Dronabinol), 2.5 MG PO BIDACLD Indomethacin (Indomethacin), 1 CAP PO TID, (Reported) Indomethacin (Indomethacin), 1 CAP PO TID Lamotrigine (Lamotrigine), 1 TAB PO BID, (Reported) Levetiracetam (Keppra), 750 MG PO BID Pantoprazole Sodium (Pantoprazole Sodium), 40 MG PO DAILYAC Scheduled PRN Dicyclomine Hcl (Dicyclomine Hcl), 20 MG PO QID PRN for ANXIETY / AGITATION, ( Reported) Hydrocodone Bit/Acetaminophen (Hydrocodone-Apap 5-325 ), 1 TAB PO PRN Q6HRS PRN for PAIN Miscellaneous Medications Allopurinol (Allopurinol), 100 MG PO, (Reported) Triamterene/Hydrochlorothiazid (Maxzide 37.5 Mg-25 Mg Tablet), 1 EACH PO, ( Reported) Patient Instructions Patient Instructions > 30 min face to face GENNY SCOTT MD Oct 18, 2017 10:10
== END 2017-09-17 16:00 | DRG 97 ==
LOC: ER 09:37 → 6 SOUTH 11:28
PROVIDERS: ADMIT Internal Medicine Hematology & Oncology; ATTEND Internal Medicine Hematology & Oncology
PROC: 009U3ZX Drainage of Spinal Canal, Percutaneous Approach, Diagnostic (ICD-10-PCS; principal; 2017-09-11)
PROC: B01B1ZZ Fluoroscopy of Spinal Cord using Low Osmolar Contrast (ICD-10-PCS; 2017-09-11)
DX: G03.0 Nonpyogenic meningitis (principal); G93.41 Metabolic encephalopathy; E43 Unspecified severe protein-calorie malnutrition; K85.90 Acute pancreatitis without necrosis or infection, unspecified; D70.9 Neutropenia, unspecified; A86 Unspecified viral encephalitis; I50.32 Chronic diastolic (congestive) heart failure; D69.6 Thrombocytopenia, unspecified; I11.0 Hypertensive heart disease with heart failure; G40.909 Epilepsy, unspecified, not intractable, without status epilepticus; A87.9 Viral meningitis, unspecified; W18.39XA Other fall on same level, initial encounter; W18.30XA Fall on same level, unspecified, initial encounter; R55 Syncope and collapse; E87.6 Hypokalemia; B34.9 Viral infection, unspecified; D64.9 Anemia, unspecified; Z68.35 Body mass index [BMI] 35.0-35.9, adult; E55.9 Vitamin D deficiency, unspecified; E61.1 Iron deficiency; F03.90 Unspecified dementia, unspecified severity, without behavioral disturbance, psychotic disturbance, mood disturbance, and anxiety; F41.9 Anxiety disorder, unspecified; I07.1 Rheumatic tricuspid insufficiency; M19.90 Unspecified osteoarthritis, unspecified site; K21.9 Gastro-esophageal reflux disease without esophagitis; K59.00 Constipation, unspecified; K76.0 Fatty (change of) liver, not elsewhere classified; M10.9 Gout, unspecified; N20.0 Calculus of kidney; R50.81 Fever presenting with conditions classified elsewhere; R62.7 Adult failure to thrive; E66.01 Morbid (severe) obesity due to excess calories; R74.0 Nonspecific elevation of levels of transaminase and lactic acid dehydrogenase [LDH]; R74.8 Abnormal levels of other serum enzymes; S09.90XA Unspecified injury of head, initial encounter; G43.909 Migraine, unspecified, not intractable, without status migrainosus; Z80.0 Family history of malignant neoplasm of digestive organs; Z80.42 Family history of malignant neoplasm of prostate; Z82.0 Family history of epilepsy and other diseases of the nervous system; Z82.3 Family history of stroke; Z90.49 Acquired absence of other specified parts of digestive tract; Z90.710 Acquired absence of both cervix and uterus; Z88.8 Allergy status to other drugs, medicaments and biological substances; Y93.89 Activity, other specified; Y92.098 Other place in other non-institutional residence as the place of occurrence of the external cause; Y99.8 Other external cause status
CPT/HCPCS: 36415; 62270; 70450; 70486; 70551; 70553; 71020; 71250; 72125; 74000; 74176; 76700; 80048; 80053; 81001; 82140; 82232; 82306; 82550; 82607; 82784; 82945; 83540; 83550; 83690; 83735; 84132; 84145; 84157; 84166; 84443; 85025; 85610; 86334; 86701; 86702; 86703; 86788; 86789; 87040; 87071; 87075; 87086; 87102; 87116; 87205; 87529; 87535; 87804; 89051; 93005; 93306; 95816; A9585; J0133; J0360; J0692; J0696; J1630; J1650; J2405; J2543; J7060; Q0167; 97110; 97116; 97530; 97535; 99285-25